=== PATIENT | female | born 1935 | race Caucasian/White ===

== ENCOUNTER 2021-10-13 08:52 | Inpatient (IN) ==
[2021-10-13] MEDS ORDERED: SODIUM CHLORIDE 0.9% 500 ML IV SCH (09:15)
[2021-10-13 09:17] LABS: Basophils # (auto) 0.02 K/uL (0-0.2); Basophils % (auto) 0.2 %; Eosinophils # (auto) 0.01 K/uL (0-0.5); Eosinophils % (auto) 0.1 %; Hemoglobin 19.4 g/dL (12.0-16.0); Immature Granulocytes # (auto) 0.03 K/uL (0.00-0.02); Immature Granulocytes % (auto) 0.3 %; Lymphocytes % (auto) 10.8 %; Mean Corpuscular Hemoglobin 29.9 pg (25-34); Mean Platelet Volume 11.7 fL (7.4-10.4); Monocytes % (auto) 7.8 %; Neutrophils # (auto) 8.24 K/uL (1.4-6.5); Neutrophils % (auto) 80.8 %; Platelet Count 431 K/uL (130-400); RDW Coefficient of Variation 14.8 % (11.5-14.5); RDW Standard Deviation 48.9 fL (36.4-46.3); Red Blood Count 6.48 M/uL (4.2-5.4)
[2021-10-13 09:26] LABS: INR 1.7 (0.9-1.1); Prothrombin Time 16.2 Seconds (9.0-12.0)
[2021-10-13 09:41] LABS: Alanine Aminotransferase 12 U/L (7-52); Albumin Globulin Ratio 0.9 (0.9-2); Albumin Level 3.7 gm/dl (3.4-5.0); Alkaline Phosphatase 71 U/L (34-104); Anion Gap 11 (3-11); Aspartate Aminotransferase 27 U/L (13-39); BUN Creatinine Ratio 52.6 (10-20); Blood Urea Nitrogen 41 mg/dl (6-23); Calcium 10.3 mg/dl (8.5-10.1); Carbon Dioxide 32 mmol/L (21-32); Chloride 95 mmol/L (98-107); Creatine Kinase 72 U/L (26-192); Est GFR (African American) 80.9 ml/min; Est GFR (Non-African American) 69.8 ml/min; Globulin 4.2 gm/dl (2.5-4.0); Glucose 80 mg/dl (70-99(Fasting)); Magnesium 2.1 mg/dl (1.7-2.4); Mean Corpuscular Hgb Conc 32.9 g/dL (32-36); Potassium 4.5 mmol/L (3.5-5.1); Sodium 138 mmol/L (136-145); Total Protein 7.9 gm/dl (6.0-8.3)
[2021-10-13 09:46] LABS: Base Excess VBG 6.3 mEq/L; pH VBG 7.38 (7.36-7.41)
[2021-10-13 09:50] LABS: Troponin I 0.17 ng/ml (0-0.04)
--- NOTE | 2021-10-13 09:56 | XRay Report ---
SINGLE VIEW CHEST CLINICAL HISTORY: Generalized weakness. FINDINGS: An AP, portable, semierect chest radiograph is obtained. No prior studies are available for comparison at the time of dictation. The examination is degraded by portable technique and patient r otation. The heart is mildly enlarged noting atherosclerotic calcification of the thoracic aorta. En largement of the central pulmonary arteries suggests pulmonary artery hypertension. Emphysema is susp ected. Nonspecific interstitial thickening is likely chronic. There is bibasilar scarring/atelectasis . No airspace consolidation or large pleural effusion is identified. Question a nodular density at th e left apex. No pneumothorax is seen. The skeletal structures are osteopenic. There are healed left-s ided rib fractures. IMPRESSION: 1. Cardiomegaly and suspect emphysema. 2. No airspace consolidation or large pleural effusion is identified. 3. Question a nodular density at the left apex, which could represent bony overgrowth at the first co stochondral junction. Correlation with a chest CT is recommended to exclude underlying pulmonary lesi on. ACT 112: Negative or not required by law. Electronically signed by: Jonatan Ross M.D. 10/13/2021 9:55 AM
[2021-10-13] MEDS ORDERED: dexAMETHasone**PF** 10 MG/ML VIAL IV ONE (10:11)
--- NOTE | 2021-10-13 10:45 | Emergency Department Note ---
Impression & Plan Weakness, COVID-19, Hypoxia, COPD (chronic obstructive pulmonary disease), Personal history of coronary artery disease, Elevated troponin I level ED Provider Note Provider: Juan Santoyo MD DATE OF SERVICE: 10/13/2021 CHIEF COMPLAINT: Weakness HISTORY OF PRESENT ILLNESS: Patient is a 86-year-old female with a past medical history including COPD, elevated hemoglobin, renal vascular disease, renal artery stenosis presenting here today with her son with reported decline over at least the last 7 days. Patient normally has significant support from family. Patient is vaccinated for COVID and boosted. Patient reportedly began to have some decline starting last Sunday. No fevers reported. No trauma reported. Patient stopped taking her medications. Son reports the patient also has recently been making some delusions that she would be okay going to [facility]. Patient herself denies significant pain. She states he feels a bit thirsty and generally weak. Patient has some chronic aches and pains in her joints. Patient specifically denies chest pain, shortness of breath, or abdominal pain on exam. Patient is significant cardiac history as well as a history of prior abdominal surgery by report. Son reports the patient had some slurred speech the last 2 days but it is not so bad right now. Son reports the patient has been borderline needed oxygen in the past but is not on it at home. There was some possible family member last week who had Covid around her. REVIEW OF SYSTEMS: A total of 10 review of systems was obtained and negative except as stated above in the HPI. PAST MEDICAL HISTORY: As noted above MEDICATIONS: Reviewed available home medication list SOCIAL HISTORY: Lives at home, former smoker, PHYSICAL EXAM: GENERAL: alert and oriented in no acute distress on stretcher but very fatigued in appearance, very thin in appearance Head: normocephalic and atraumatic EYES: No injection, discharge or icterus. PERRL NECK: Trachea midline. Supple. ENT: Mucous membranes pink however dry LUNGS: Airway patent. No retractions. Breath sounds clear HEART: Regular rate and rhythm. No chest wall tenderness ABDOMEN: Soft and non-tender, without guarding or rebound. SKIN: Acyanotic, warm, dry EXTREMITIES: Without swelling, tenderness or deformity NEUROLOGICAL: No focal deficits. No aphasia. No facial droop or slurred speech. Normal strength and tone in the extremities. Sensation to gross touch normal. Ambulatory. EK bpm sinus bradycardia. No PVC or PAC. No acute ST segment elevation, there is some lateral T wave inversions in V4 through V6. There is additionally some T wave inversions lead II through aVF. CONTINUOUS CARDIAC MONITORING: was ordered and showed a heart rate of 50s-60s bpm in normal sinus rhythm to sinus bradycardia Patient's laboratory studies and imaging reviewed. Differential includes Infection, dehydration, metabolic abnormality, hypo/hyperglycemia, electrolyte disturbance, anemia, hypoxia, cardiac sources, i ntracerebral event, toxicologic, neurologic, as well as other pathologies. IMPRESSION/MEDICAL DECISION MAKING: Patient fatigued and provides limited history. Son provides additional history. Recent Covid exposure of the patient vaccinated and boosted. Covid positive today. Was hypoxic on room air. Has underlying COPD. Not horribly wheezy. Question some component of Covid. Given dose of dexamethasone with this. Weakness decreased intake and off her medications for at least the last several days. Son reports may be some slurred speech the last day or 2 but fairly clear on limited conversation here today. No significant focal weakness appreciated or facial droop at this time. CT the head will be completed. Basic blood work was sent. No fevers reported. No significant leukocytosis. Some elevated hemoglobins noted alone medical records it appears she has a history of some el evation. Renal function appears stable. No acidosis noted or hypercarbia. Lactate not elevated. Procalcitonin not elevated. Covid is positive again. Troponin mildly positive. Unsure of baseline but without active chest pain or STEMI believe likely more related to demand that acute ACS. Did complete a CT of the chest to exclude PE event her limited mobility and new oxygen requirement. Chest x-ray completed without significant pulmonary edema or pulmonary consolidation noted per the radiology report. CT of the head without acute intercranial abnormality. CT of the chest without evidence of PE with emphysematous changes. Patient requires further admission and care. Given a dose of aspirin here. Discussed with son at bedside. Hospitalist contacted. DIAGNOSIS: Hypoxia, weakness, COVID-19, elevated troponin DISPOSITION: Hospitalist will evaluate Patient was agreeable with this plan. Critical Care I have personally spent 33 minutes of critical care time in the direct management of this patient. This includes bedside care, interpretation of diagnostic studies, and testing, discussion with consultants, patient, and family members, and other required patient management activities. These 33 minutes is in excess of all separately billable procedures. Past Med/Surg History Medical History (Updated 10/13/21 @ 13:44 by Esmer Tejada PA-C) Adrenal adenoma CAD (coronary artery disease) COPD (chronic obstructive pulmonary disease) HLD (hyperlipidemia) HTN (hypertension) Peripheral vascular disease Renal artery stenosis s/p cath Tobacco abuse Vitamin D deficiency Surgical History (Updated 10/13/21 @ 13:44 by Esmer Tejada PA-C) History of appendectomy History of bowel resection History of cataract extraction History of hysterectomy Hx of CABG 2014 RSVG to PDA Family History (Updated 10/13/21 @ 13:45 by Esmer Tejada PA-C) Brother Cancer bone cancer Sister Breast cancer Father , mi 54 Myocardial infarction Social History (Updated 10/13/21 @ 13:46 by Esmer Tejada PA-C) Smoking Status: Former smoker Tobacco Type: Cigarettes Hx Alcohol Use: No Hx Substance Use: No Preferred Language: Kyrgyz marital status: / Current Living Situation: Family Current Living Situation Comment: Nephew lives with her Feels Safe at Home: Yes Allergies Allergies Allergy/AdvReac Type Severity Reaction Status Date / Time propoxyphene AdvReac Unknown INTOLERANCE Verified 10/13/21 10:11 acetaminophen [From Percocet] AdvReac Confusion Unverified 10/13/21 10:11 oxycodone [From Percocet] AdvReac Confusion Unverified 10/13/21 10:11 Home Meds Home Medications Medication Instructions Recorded Confirmed aspirin 81 mg chewable tablet 81 mg PO DAILY #0 06/20/16 10/13/21 cholecalciferol (vitamin D3) 125 5,000 unit PO DAILY #0 06/20/16 10/13/21 mcg (5,000 unit) tablet (Vitamin D3) docusate sodium 100 mg capsule 100 mg PO BID PRN #0 06/20/16 10/13/21 fenofibrate nanocrystallized 145 145 mg PO DAILY #0 tab 06/20/16 10/13/21 mg tablet omega-3 fatty acids 500 mg PO DAILY PRN #0 06/20/16 10/13/21 vit C-vit [id number] capsule 1 cap PO BID #0 06/20/16 10/13/21 lactulose 10 gram/15 mL oral 10 g PO DAILY PRN 10/13/21 10/13/21 solution Results & Data (ED) Vital Signs Vital Signs - 24 hr 10/13/21 08:53 10/13/21 08:57 10/13/21 08:59 Temperature 36.5 C Temperature Source Oral Pulse Rate [Apical] 63 Respiratory Rate 15 25 H Respiratory Effort / Characteristics Non-Labored Spontaneous Respiratory Depth Normal Blood Pressure 174/95 H Blood Pressure [Right Arm] 174/95 H Blood Pressure Mean 121 Blood Pressure Mean [Right Arm] 121 Blood Pressure Position [Right Arm] Pulse Oximetry 89 L 96 Oxygen Delivery Method Room Air Room Air Room Air Oxygen Flow Rate Sepsis Recent Fever Within 48 Hours No Sepsis New/Unexplained Change in Mental Status N/A Sepsis Action Taken by Nursing No Action Required 10/13/21 09:09 10/13/21 10:00 10/13/21 12:00 Temperature Temperature Source Pulse Rate [Apical] 56 L 56 L Respiratory Rate 15 16 Respiratory Effort / Characteristics Non-Labored Spontaneous Respiratory Depth Normal Blood Pressure Blood Pressure [Right Arm] 150/85 H 166/86 H Blood Pressure Mean Blood Pressure Mean [Right Arm] 106 112 Blood Pressure Position [Right Arm] Standing Pulse Oximetry 97 94 97 Oxygen Delivery Method Room Air Nasal Cannula Room Air Oxygen Flow Rate 2 Sepsis Recent Fever Within 48 Hours Sepsis New/Unexplained Change in Mental Status Sepsis Action Taken by Nursing Laboratory Data Result diagrams: 10/13/21 09:00 10/13/21 09:00 Lab Results 10/13/21 10/13/21 10/13/21 Range/Units 09:00 09:00 09:00 WBC 10.20 (4.8-10.8) K/uL RBC 6.48 H (4.2-5.4) M/uL Hgb 19.4 H (12.0-16.0) g/dL Hct 59.0 H (37-47) % MCV 91.0 (80-100) fL MCH 29.9 (25-34) pg MCHC 32.9 (32-36) g/dL RDW Std Deviation 48.9 H (36.4-46.3) fL RDW Coeff of Grey 14.8 H (11.5-14.5) % Plt Count 431 H (130-400) K/uL MPV 11.7 H (7.4-10.4) fL Immature Gran % (Auto) 0.3 % Neut % (Auto) 80.8 % Lymph % (Auto) 10.8 % Harney % (Auto) 7.8 % Eos % (Auto) 0.1 % Baso % (Auto) 0.2 % Neut # (Auto) 8.24 H (1.4-6.5) K/uL Lymph # (Auto) 1.10 L (1.2-3.4) K/uL Harney # (Auto) 0.80 H (0.11-0.59) K/uL Eos # (Auto) 0.01 (0-0.5) K/uL Baso # (Auto) 0.02 (0-0.2) K/uL Immature Gran # (Auto) 0.03 H (0.00-0.02) K/uL PT 16.2 H (9.0-12.0) Seconds INR 1.7 H (0.9-1.1) VBG pH (7.36-7.41) VBG pCO2 (38-50) mmHg VBG pO2 mmHg VBG HCO3 mmol/L VBG O2 Saturation % VBG Base Excess mEq/L Barometric Pressure mm/Hg Sodium 138 (136-145) mmol/L Potassium 4.5 (3.5-5.1) mmol/L Chloride 95 L (98-107) mmol/L Carbon Dioxide 32 (21-32) mmol/L Anion Gap 11 (3-11) BUN 41 H (6-23) mg/dl Creatinine 0.78 (0.6-1.2) mg/dl Est Cr Clr Drug Dosing Not Reportable Est GFR ( Amer) 80.9 ml/min Est GFR (Non-Af Amer) 69.8 ml/min BUN/Creatinine Ratio 52.6 H (10-20) Glucose 80 (70-99(Fasting)) mg/dl Lactate (0.4-2.0) mmol/L Calcium 10.3 H (8.5-10.1) mg/dl Magnesium 2.1 (1.7-2.4) mg/dl Total Bilirubin 1.0 (0.2-1.0) mg/dl AST 27 (13-39) U/L ALT 12 (7-52) U/L Alkaline Phosphatase 71 (34-104) U/L Total Creatine Kinase 72 (26-192) U/L Troponin I 0.17 H* (0-0.04) ng/ml Total Protein 7.9 (6.0-8.3) gm/dl Albumin 3.7 (3.4-5.0) gm/dl Globulin 4.2 H (2.5-4.0) gm/dl Albumin/Globulin Ratio 0.9 (0.9-2) Procalcitonin (0-0.5) ng/ml TSH (0.300-4.500) uIu/ml SARS-CoV-2, RNA, NAAT (NEGATIVE) 10/13/21 10/13/21 10/13/21 Range/Units 09:00 09:00 09:34 WBC (4.8-10.8) K/uL RBC (4.2-5.4) M/uL Hgb (12.0-16.0) g/dL Hct (37-47) % MCV (80-100) fL MCH (25-34) pg MCHC (32-36) g/dL RDW Std Deviation (36.4-46.3) fL RDW Coeff of Grey (11.5-14.5) % Plt Count (130-400) K/uL MPV (7.4-10.4) fL Immature Gran % (Auto) % Neut % (Auto) % Lymph % (Auto) % Harney % (Auto) % Eos % (Auto) % Baso % (Auto) % Neut # (Auto) (1.4-6.5) K/uL Lymph # (Auto) (1.2-3.4) K/uL Harney # (Auto) (0.11-0.59) K/uL Eos # (Auto) (0-0.5) K/uL Baso # (Auto) (0-0.2) K/uL Immature Gran # (Auto) (0.00-0.02) K/uL PT (9.0-12.0) Seconds INR (0.9-1.1) VBG pH (7.36-7.41) VBG pCO2 (38-50) mmHg VBG pO2 mmHg VBG HCO3 mmol/L VBG O2 Saturation % VBG Base Excess mEq/L Barometric Pressure mm/Hg Sodium (136-145) mmol/L Potassium (3.5-5.1) mmol/L Chloride (98-107) mmol/L Carbon Dioxide (21-32) mmol/L Anion Gap (3-11) BUN (6-23) mg/dl Creatinine (0.6-1.2) mg/dl Est Cr Clr Drug Dosing Est GFR ( Amer) ml/min Est GFR (Non-Af Amer) ml/min BUN/Creatinine Ratio (10-20) Glucose (70-99(Fasting)) mg/dl Lactate 0.7 (0.4-2.0) mmol/L Calcium (8.5-10.1) mg/dl Magnesium (1.7-2.4) mg/dl Total Bilirubin (0.2-1.0) mg/dl AST (13-39) U/L ALT (7-52) U/L Alkaline Phosphatase (34-104) U/L Total Creatine Kinase (26-192) U/L Troponin I (0-0.04) ng/ml Total Protein (6.0-8.3) gm/dl Albumin (3.4-5.0) gm/dl Globulin (2.5-4.0) gm/dl Albumin/Globulin Ratio (0.9-2) Procalcitonin 0.05 (0-0.5) ng/ml TSH 1.789 (0.300-4.500) uIu/ml SARS-CoV-2, RNA, NAAT (NEGATIVE) 10/13/21 10/13/21 Range/Units 09:34 Unknown WBC (4.8-10.8) K/uL RBC (4.2-5.4) M/uL Hgb (12.0-16.0) g/dL Hct (37-47) % MCV (80-100) fL MCH (25-34) pg MCHC (32-36) g/dL RDW Std Deviation (36.4-46.3) fL RDW Coeff of Grey (11.5-14.5) % Plt Count (130-400) K/uL MPV (7.4-10.4) fL Immature Gran % (Auto) % Neut % (Auto) % Lymph % (Auto) % Harney % (Auto) % Eos % (Auto) % Baso % (Auto) % Neut # (Auto) (1.4-6.5) K/uL Lymph # (Auto) (1.2-3.4) K/uL Harney # (Auto) (0.11-0.59) K/uL Eos # (Auto) (0-0.5) K/uL Baso # (Auto) (0-0.2) K/uL Immature Gran # (Auto) (0.00-0.02) K/uL PT (9.0-12.0) Seconds INR (0.9-1.1) VBG pH 7.38 (7.36-7.41) VBG pCO2 59 H (38-50) mmHg VBG pO2 33 mmHg VBG HCO3 34 mmol/L VBG O2 Saturation 62.0 % VBG Base Excess 6.3 mEq/L Barometric Pressure 734.3 mm/Hg Sodium (136-145) mmol/L Potassium (3.5-5.1) mmol/L Chloride (98-107) mmol/L Carbon Dioxide (21-32) mmol/L Anion Gap (3-11) BUN (6-23) mg/dl Creatinine (0.6-1.2) mg/dl Est Cr Clr Drug Dosing Est GFR ( Amer) ml/min Est GFR (Non-Af Amer) ml/min BUN/Creatinine Ratio (10-20) Glucose (70-99(Fasting)) mg/dl Lactate (0.4-2.0) mmol/L Calcium (8.5-10.1) mg/dl Magnesium (1.7-2.4) mg/dl Total Bilirubin (0.2-1.0) mg/dl AST (13-39) U/L ALT (7-52) U/L Alkaline Phosphatase (34-104) U/L Total Creatine Kinase (26-192) U/L Troponin I (0-0.04) ng/ml Total Protein (6.0-8.3) gm/dl Albumin (3.4-5.0) gm/dl Globulin (2.5-4.0) gm/dl Albumin/Globulin Ratio (0.9-2) Procalcitonin (0-0.5) ng/ml TSH (0.300-4.500) uIu/ml SARS-CoV-2, RNA, NAAT POSITIVE A* (NEGATIVE) Administered Medications Discontinued Medications Aspirin (Aspirin 81 Mg Chew) 324 mg PO NOW STA Stop: 10/13/21 12:12 Last Admin: 10/13/21 12:31 Dose: 324 mg Documented by: [id number] Dexamethasone Sodium Phosphate (DexamethasonePf 10 Mg/Ml Vial) 6 mg IV NOW ONE Stop: 10/13/21 10:12 Last Admin: 10/13/21 10:22 Dose: 6 mg Documented by: [id number] Sodium Chloride (Nss) 500 mls @ 999 mls/hr IV .Q31M MARYLU Stop: 10/13/21 09:45 Last Infusion: 10/13/21 10:00 Dose: 0 mls/hr Documented by: [id number] Admin: 10/13/21 09:21 Dose: 999 mls/hr Documented by: [id number] Ioversol (Optiray 320 125ml) 120 ml IV ONCE ONE Stop: 10/13/21 11:04 Last Admin: 10/13/21 11:03 Dose: 120 ml Documented by: [id number] Imaging Data Radiologist's Impression: Chest X-Ray 10/13/21 09:09 SINGLE VIEW CHEST CLINICAL HISTORY: Generalized weakness. FINDINGS: An AP, portable, semierect chest radiograph is obtained. No prior studies are available for comparison at the time of dictation. The examination is degraded by portable technique and patient rotation. The heart is mildly enlarged noting atherosclerotic calcification of the thoracic aorta. Enlargement of the central pulmonary arteries suggests pulmonary artery hypertension. Emp hysema is suspected. Nonspecific interstitial thickening is likely chronic. There is bibasilar scarring/atelectasis. No airspace consolidation or large pleural effusion is identified. Question a nodular density at the left apex. No pneumothorax is seen. The skeletal structures are osteopenic. There are healed left-sided rib fractures. IMPRESSION: 1. Cardiomegaly and suspect emphysema. 2. No airspace consolidation or large pleural effusion is identified. 3. Question a nodular density at the left apex, which could represent bony overgrowth at the first costochondral junction. Correlation with a chest CT is recommended to exclude underlying pulmonary lesion. ACT 112: Negative or not required by law. Electronically signed by: Jonatan Ross M.D. 10/13/2021 9:55 AM Chest CTA 10/13/21 10:12 CT angio chest PE protocol CLINICAL HISTORY: Hypoxia. Positive Covid. Evaluate for pulmonary embolus. COMPARISON STUDY: Portable chest from 10/13/2021 CT DOSE: 821.51 mGy.cm TECHNIQUE: CT Angio of the chest was performed.followed by image post processing with coronal, and sagittal MIP reformats. Contrast Volume: Optiray 320, 120 ml FINDINGS: Vasculature: There is homogeneous perfusion of the pulmonary vasculature bilaterally. No intraluminal filling defects or evidence for pulmonary embolus is seen. Airway: The airway is clear. No endobronchial lesion is identified. Lungs: There are moderate to marked centrilobular emphysematous changes present bilaterally particularly involving the upper lobes. There is no evidence for a nodular density seen at the left lung apex by CT in the findings relate to the osseous structures. There is an alveolar opacity seen at the right lung base behind the right hemidiaphragm which is slightly elevated. The findings are most characteristic of atelectasis. No air bronchograms or evidence for pneumonia is seen. The anup maritza lungs are clear with no groundglass or alveolar opacities. Prominence of the interstitial markings is present related to the underlying emphysema. Pleura: There is no evidence for pleural effusion. There is no evidence for pneumothorax. Mediastinum: There is no evidence for pathologic adenopathy. The heart size is mildly enlarged. Coronary artery calcifications present. The aorta is atherosclerotic and ectatic. There is no evidence for pericardial effusion. Upper abdomen:There is evidence for low attenuation lesions involving both adrenal glands characteristic of bilateral adrenal adenomas. There is a 5 mm n onobstructing right renal calculus. Osseous structures: There is no acute osseous pathology. Impression: 1. No CTA evidence for pulmonary embolus. 2. Moderate to marked centrilobular emphysematous changes with no evidence for groundglass opacities or left apical nodule. 3. There is asymmetric elevation of the right hemidiaphragm with atelectasis present within the right lower lobe posterior to the right hemidiaphragm. No bronchograms are present. 4. Coronary artery calcification. Aortic calcification. 5. Evidence for bilateral adrenal adenomas. 6. 5 mm nonobstructing right renal calculus. ACT 112: Negative or not required by law. Electronically signed by: Cas Louis M.D. 10/13/2021 11:[address] 10/13/21 10:12 CT SCAN OF THE BRAIN WITHOUT IV CONTRAST CLINICAL HISTORY: Generalized weakness. COMPARISON STUDY: No priors. TECHNIQUE: Unenhanced axial CT scan of the brain is performed from the vertex to the skull base. A dose lowering technique was utilized adhering to the principles of ALARA. FINDINGS: Brain parenchyma: There are age-related involutional changes noting moderate subcortical and periventricular microangiopathic change. There is no hemorrhage, mass effect, or evidence of acute territorial ischemia by CT criteria. Jamison- white matter differentiation is preserved. No extra-axial fluid collection is seen. Ventricles, sulci, cisterns: Prominent secondary to involutional change. Intracranial vasculature: There is atherosclerotic calcification of the cavernous carotid and vertebral arteries. Calvarium: Unremarkable. Sinuses and mastoids: The visualized paranasal sinuses are clear. The mastoid air cells are well pneumatized. Orbits: The bony orbits are grossly intact. There are bilateral ocular lens implants. IMPRESSION: There is no hemorrhage, mass effect, or evidence of acute territorial ischemia by CT criteria. ACT 112: Negative or not required by law. Electronically signed by: Jonatan Ross M.D. 10/13/2021 11:06 AM Discharge Plan Visit Data Chief Complaint: Lethargic Stated Complaint: LETHARGIC END OF LIFE ED Provider: Juan Santoyo Discharge Problem: Weakness, COVID-19, Hypoxia, COPD (chronic obstructive pulmonary disease), Personal history of coronary artery disease, Elevated troponin I level Patient Disposition: Being Evaluated by Hospitalist Forms Stand Alone Forms: [facility] Prescriptions Prescriptions: No Action docusate sodium 100 mg Capsule 100 mg PO BID PRN (Reason: Constipation) Qty: 0 RF: 0 aspirin [Aspirin Low-Strength] 81 mg Tablet,Chewable 81 mg PO DAILY Qty: 0 RF: 0 Ocuvite Lutein Capsule 1 cap PO BID Qty: 0 RF: 0 omega-3 fatty acids Capsule 500 mg PO DAILY PRN (Reason: Other) Qty: 0 RF: 0 fenofibrate nanocrystallized 145 mg Tablet 145 mg PO DAILY Qty: 0 RF: 0 cholecalciferol (vitamin D3) [Vitamin D3] 125 mcg (5,000 unit) Tablet 5,000 unit PO DAILY Qty: 0 RF: 0 lactulose 10 gram/15 mL Solution 10 g PO DAILY PRN (Reason: Constipation) RF: 0 Referrals Referrals: Deidra Johnson MD [Primary Care Provider] - Discharge Problem: COPD (chronic obstructive pulmonary disease) Qualifiers: COPD type: unspecified COPD Qualified Code(s): J44.9 - Chronic obstructive pulmonary disease, unspecified
[2021-10-13] MEDS ORDERED: OPTIRAY 320 125ml IV ONE (11:03)
--- NOTE | 2021-10-13 11:08 | CT Scan Report ---
CT SCAN OF THE BRAIN WITHOUT IV CONTRAST CLINICAL HISTORY: Generalized weakness. COMPARISON STUDY: No priors. TECHNIQUE: Unenhanced axial CT scan of the brain is performed from the vertex to the skull base. A do se lowering technique was utilized adhering to the principles of ALARA. FINDINGS: Brain parenchyma: There are age-related involutional changes noting moderate subcortical and periven tricular microangiopathic change. There is no hemorrhage, mass effect, or evidence of acute territori al ischemia by CT criteria. Jamison-white matter differentiation is preserved. No extra-axial fluid bridger ection is seen. Ventricles, sulci, cisterns: Prominent secondary to involutional change. Intracranial vasculature: There is atherosclerotic calcification of the cavernous carotid and vertebr al arteries. Calvarium: Unremarkable. Sinuses and mastoids: The visualized paranasal sinuses are clear. The mastoid air cells are well pneu matized. Orbits: The bony orbits are grossly intact. There are bilateral ocular lens implants. IMPRESSION: There is no hemorrhage, mass effect, or evidence of acute territorial ischemia by CT jackie cuevas. ACT 112: Negative or not required by law. Electronically signed by: Jonatan Ross M.D. 10/13/2021 11:06 AM
--- NOTE | 2021-10-13 11:20 | CT Scan Report ---
CT angio chest PE protocol CLINICAL HISTORY: Hypoxia. Positive Covid. Evaluate for pulmonary embolus. COMPARISON STUDY: Portable chest from 10/13/2021 CT DOSE: 821.51 mGy.cm TECHNIQUE: CT Angio of the chest was performed.followed by image post processing with coronal, and s agittal MIP reformats. Contrast Volume: Optiray 320, 120 ml FINDINGS: Vasculature: There is homogeneous perfusion of the pulmonary vasculature bilaterally. No intraluminal filling defects or evidence for pulmonary embolus is seen. Airway: The airway is clear. No endobronchial lesion is identified. Lungs: There are moderate to marked centrilobular emphysematous changes present bilaterally particula rly involving the upper lobes. There is no evidence for a nodular density seen at the left lung apex by CT in the findings relate to the osseous structures. There is an alveolar opacity seen at the right lung base behind the right hemidiaphragm which is slig htly elevated. The findings are most characteristic of atelectasis. No air bronchograms or evidence f or pneumonia is seen. The remainder lungs are clear with no groundglass or alveolar opacities. Promin ence of the interstitial markings is present related to the underlying emphysema. Pleura: There is no evidence for pleural effusion. There is no evidence for pneumothorax. Mediastinum: There is no evidence for pathologic adenopathy. The heart size is mildly enlarged. Coron jane artery calcifications present. The aorta is atherosclerotic and ectatic. There is no evidence for pericardial effusion. Upper abdomen:There is evidence for low attenuation lesions involving both adrenal glands characteris tic of bilateral adrenal adenomas. There is a 5 mm nonobstructing right renal calculus. Osseous structures: There is no acute osseous pathology. Impression: 1. No CTA evidence for pulmonary embolus. 2. Moderate to marked centrilobular emphysematous changes with no evidence for groundglass opacities or left apical nodule. 3. There is asymmetric elevation of the right hemidiaphragm with atelectasis present within the right lower lobe posterior to the right hemidiaphragm. No bronchograms are present. 4. Coronary artery calcification. Aortic calcification. 5. Evidence for bilateral adrenal adenomas. 6. 5 mm nonobstructing right renal calculus. ACT 112: Negative or not required by law. Electronically signed by: Cas Louis M.D. 10/13/2021 11:19 AM
[2021-10-13] MEDS ORDERED: ASPIRIN 81 MG CHEW PO STA (12:11)
[2021-10-13] MEDS ORDERED: SODIUM CHLORIDE 0.9% 1000ML 1,000 ML IV SCH ×2 (13:30→14:28)
[2021-10-13] MEDS ORDERED: REMDESIVIR 200 MG in SODIUM CHLORIDE 0.9% 210 ML IV STA (13:35)
--- NOTE | 2021-10-13 14:02 | History & Physical Report ---
Date of Service October 13, 2021 Assessment & Plan (1) Hypoxia: (2) Weakness: (3) COVID-19: (4) Elevated troponin I level: (5) COPD (chronic obstructive pulmonary disease): (6) CAD (coronary artery disease): (7) Hx of CABG: Admission and Anticipated Discharge Date Admission Date: This is a 86-year-old female who has significant past medical history of COPD, CAD with history of CABG x1, HLD, renal artery stenosis, HTN, glaucoma, elevated hemoglobin, history of tobacco abuse disorder, hard of hearing who presents to ED due to generalized weakness x1 week. Acute hypoxia SARS-CoV-2 positive -patient is vaccinated and boosted COPD, without exacerbation Chronic hypercarbia in setting of COPD Right lower lobe atelectasis Admit to telemetry IV dexamethasone 6 mg daily IV remdesivir per protocol DuoNeb as needed Incentive spirometry with nursing assistance Oxygen as needed, goal saturation 88 to 92% currently clear liquid diet per pt preference, advance as tolerated Prerenal acute kidney injury Patient with elevated BUN of 41 with a BUN/creatinine ratio of 52.6 Secondary to poor p.o. intake Gentle hydration with IV fluid x2 L Repeat in a.m. CAD with history of CABG x1 Elevated troponin Abnormal EKG with T wave inversions inferior & laterally -no EKG to compare Patient without chest pain Troponin mildly elevated, cycle x2 Continue aspirin Elevated INR INR 1.7 Possibly secondary to nutritional status She is not on blood thinners Repeat in a.m. Generalized weakness Turn and reposition every 2 hours Will need PT and OT when appropriate Polycythemia Likely exacerbated in setting of dehydration Patient hemoglobin typically runs 15-17 Former tobacco user Bilateral adrenal adenomas Family is aware of this, was noted after undergoing bypass will need further follow-up per PCP DVT prophylaxis: Lovenox 30 mg twice daily Dispo: med tele, pt lives at home with nephew - d/c plan uncertain at this time PCP: Kae Lockhart DNR/DNI -discussion with son and patient who wishes for no aggressive measures to be done, goal is comfort with hopes treatment will improve current condition and be able to return home. Patient does express wishes to go, "home to the Lord." According to son she is a woman of strong sonal and lost her in 2012. Patient's son Cristian is an employee [employer] and works here Sunday through Sunday, his phone number [phone] and wishes to be called for updates or spoken to while in house. Patient was seen and examined in collaboration with Dr. Vera, we see addendum History of Present Illness Chief Complaint: Generalized weakness x1 week. Primary Care Provider: Deidra Johnson MD This is a 86-year-old female who has significant past medical history of COPD, CAD with history of CABG x1, HLD, renal artery stenosis, HTN, glaucoma, elevated hemoglobin, history of tobacco abuse disorder, hard of hearing who presents to ED due to generalized weakness x1 week. Patient's son is at bedside who is an employee of [employer]. He states over the past week they have noticed a gradual decline in patient as she has had decreased oral intake with eating and drinking. She also has started to feel, "sick." She lives at home with her nephew. She admits to feeling chilled but denies any documented fever or sweats. She does have a cough that is intermittently wet and productive and dry. She is unable to tell me if she chronically has a cough due to her COPD. She is not chronically on oxygen at home per son. She denies any nausea, vomiting, abdominal pain, hemoptysis, chest pain, shortness of breath, dysuria, increased urgency or frequency with urination, melena or hematochezia. She does complain of pain to her left lateral chest wall that is worse with inspiration. It feels better when lying on right side. She has not tried anything to help relieve the pain. Pain is currently a 3 out of 10. Of significance patient is a DNR and DNI. She states when the "good Lord is ready to take me I am ready." She admits to, "being ready to ." In ED patient did remain hemodynamically stable although mildly hypoxic requiring 2 L of oxygen. Her blood pressure was mildly elevated at 166/86. Her lab work showed dehydration with elevated BUN at 41 and creatinine of 0.78. Her H&H were also elevated at 19.4 and 59.0. Her INR was slightly elevated as well at 1.7. Her VBG did reveal a compensated respiratory hypercarbia. She did test positive for COVID-19. Her initial troponin was elevated at 0.17. She does have known history of heart disease. EKG revealed sinus bradycardia but she did have significant T wave inversions in leads V4 to V5 as well as 2 to aVF. In ED she was started on IV dexamethasone, received oral aspirin and IV fluid. Allergies Allergy/AdvReac Type Severity Reaction Status Date / Time propoxyphene AdvReac Unknown INTOLERANCE Verified 10/13/21 10:11 acetaminophen [From Percocet] AdvReac Confusion Unverified 10/13/21 10:11 oxycodone [From Percocet] AdvReac Confusion Unverified 10/13/21 10:11 Home Medications Medication Instructions Recorded Confirmed Type aspirin 81 mg chewable tablet 81 mg PO DAILY #0 06/20/16 10/13/21 History cholecalciferol (vitamin D3) 125 5,000 unit PO DAILY #0 06/20/16 10/13/21 History mcg (5,000 unit) tablet (Vitamin D3) docusate sodium 100 mg capsule 100 mg PO BID PRN #0 06/20/16 10/13/21 History fenofibrate nanocrystallized 145 145 mg PO DAILY #0 tab 06/20/16 10/13/21 History mg tablet omega-3 fatty acids 500 mg PO DAILY PRN #0 06/20/16 10/13/21 History vit C-vit B-awugqt-jpbymmle capsule 1 cap PO BID #0 06/20/16 10/13/21 History lactulose 10 gram/15 mL oral 10 g PO DAILY PRN 10/13/21 10/13/21 History solution Past Med/Surg History Medical History (Updated 10/13/21 @ 13:44 by Esmer Tejada PA-C) Adrenal adenoma CAD (coronary artery disease) COPD (chronic obstructive pulmonary disease) HLD (hyperlipidemia) HTN (hypertension) Peripheral vascular disease Renal artery stenosis s/p cath Tobacco abuse Vitamin D deficiency Surgical History (Updated 10/13/21 @ 13:44 by Esmer Tejada PA-C) History of appendectomy History of bowel resection History of cataract extraction History of hysterectomy Hx of CABG 2014 RSVG to PDA Family History (Updated 10/13/21 @ 13:45 by Esmer Tejada PA-C) Brother Cancer bone cancer Sister Breast cancer Father , mi 54 Myocardial infarction Social History (Updated 10/13/21 @ 13:46 by Esmer Tejada PA-C) Smoking Status: Unknown if ever smoked Tobacco Type: Cigarettes Hx Alcohol Use: No Hx Substance Use: No Preferred Language: [place] Islander Communication Ability: Impaired Packer Inspector Required: No Beliefs That Will Affect Care: None marital status: / Current Living Situation: Family Current Living Situation Comment: Nephew lives with her Feels Safe at Home: Declines to Answer Assistive Devices: Oxygen - Continuous Review of Systems Review of Systems: All systems reviewed & are unremarkable except as noted in HPI & below Physical Exam Physical Exam: Constitutional: Elderly, frail, cachectic, acutely ill, female, vitals as above, NAD, sitting up in bed, hard of hearing, answers yes/no questions easily Head: Normocephalic, Atraumatic, temporal wasting bilaterally Eyes: PERRL, conjunctivae normal, anicteric sclerae ENMT: external ear and nose normal, oropharynx normal Neck: trachea midline, no thyromegaly normal visual inspection Respiratory: normal respiratory effort, lungs clear to auscultation, no wheeze, rales, rhonchi. Normal insp/exp effort, no accessory muscle use Cardiovascular: RRR, on 2 L via NC, no murmur, no edema Vessels: no JVD or carotid bruit Chest: normal inspection of chest, seborrheic keratoses noted on anterior lateral chest wall as well as posterior, no pain to palpation Abdomen: normal bowel sounds, soft, nontender, no hepatosplenomegaly Musculoskeletal: no cyanosis or clubbing, no range of motion x4 Skin: no rashes, warm and dry moderate turgor Neurologic: PERRL, EOMI, accommodation nl, no face palsy, no dysarthria CN's II-XI intact bilaterally and moves all extremities Psychiatric: A+Ox3, dysthymic affect Lymphatic: no cervical or axillary lymphadenopathy : deferred Results & Data Results & Data ([facility]) Vital Signs (Past 12 Hours) Vital Signs Temp Pulse Resp BP BP Pulse Ox 10/13/21 12:00 56 L 16 166/86 H 97 10/13/21 10:00 56 L 15 150/85 H 94 10/13/21 09:09 97 10/13/21 08:59 25 H 174/95 H 96 10/13/21 08:57 36.5 C 63 15 174/95 H 89 L Diagnostic Findings Chest X-Ray 10/13/21 09:09 SINGLE VIEW CHEST CLINICAL HISTORY: Generalized weakness. FINDINGS: An AP, portable, semierect chest radiograph is obtained. No prior studies are available for comparison at the time of dictation. The examination is degraded by portable technique and patient rotation. The heart is mildly enlarged noting atherosclerotic calcification of the thoracic aorta. Enlargement of the central pulmonary arteries suggests pulmonary artery hypertension. Emphysema is suspected. Nonspecific interstitial thickening is likely chronic. There is bibasilar scarring/atelectasis. No airspace consolidation or large pleural effusion is identified. Question a nodular density at the left apex. No pneumothorax is seen. The skeletal structures are osteopenic. There are healed left-sided rib fractures. IMPRESSION: 1. Cardiomegaly and suspect emphysema. 2. No airspace consolidation or large pleural effusion is identified. 3. Question a nodular density at the left apex, which could represent bony overgrowth at the first costochondral junction. Correlation with a chest CT is recommended to exclude underlying pulmonary lesion. ACT 112: Negative or not required by law. Electronically signed by: Jonatan Ross M.D. 10/13/2021 9:55 AM Chest CTA 10/13/21 10:12 CT angio chest PE protocol CLINICAL HISTORY: Hypoxia. Positive Covid. Evaluate for pulmonary embolus. COMPARISON STUDY: Portable chest from 10/13/2021 CT DOSE: 821.51 mGy.cm TECHNIQUE: CT Angio of the chest was performed.followed by image post processing with coronal, and sagittal MIP reformats. Contrast Volume: Optiray 320, 120 ml FINDINGS: Vasculature: There is homogeneous perfusion of the pulmonary vasculature bilaterally. No intraluminal filling defects or evidence for pulmonary embolus is seen. Airway: The airway is clear. No endobronchial lesion is identified. Lungs: There are moderate to marked centrilobular emphysematous changes present bilaterally particularly involving the upper lobes. There is no evidence for a nodular density seen at the left lung apex by CT in the findings relate to the osseous structures. There is an alveolar opacity seen at the right lung base behind the right hemidiaphragm which is slightly elevated. The findings are most characteristic of atelectasis. No air bronchograms or evidence for pneumonia is seen. The remainder lungs are clear with no groundglass or alveolar opacities. Prominence of the interstitial markings is present related to the underlying emphysema. Pleura: There is no evidence for pleural effusion. There is no evidence for pneumothorax. Mediastinum: There is no evidence for pathologic adenopathy. The heart size is mildly enlarged. Coronary artery calcifications present. The aorta is atherosclerotic and ectatic. There is no evidence for pericardial effusion. Upper abdomen:There is evidence for low attenuation lesions involving both adrenal glands characteristic of bilateral adrenal adenomas. There is a 5 mm nonobstructing right renal calculus. Osseous structures: There is no acute osseous pathology. Impression: 1. No CTA evidence for pulmonary embolus. 2. Moderate to marked centrilobular emphysematous changes with no evidence for groundglass opacities or left apical nodule. 3. There is asymmetric elevation of the right hemidiaphragm with atelectasis present within the right lower lobe posterior to the right hemidiaphragm. No bronchograms are present. 4. Coronary artery calcification. Aortic calcification. 5. Evidence for bilateral adrenal adenomas. 6. 5 mm nonobstructing right renal calculus. ACT 112: Negative or not required by law. Electronically signed by: Cas Louis M.D. 10/13/2021 11:[address] 10/13/21 10:12 CT SCAN OF THE BRAIN WITHOUT IV CONTRAST CLINICAL HISTORY: Generalized weakness. COMPARISON STUDY: No priors. TECHNIQUE: Unenhanced axial CT scan of the brain is performed from the vertex to the skull base. A dose lowering technique was utilized adhering to the principles of ALARA. FINDINGS: Brain parenchyma: There are age-related involutional changes noting moderate subcortical and periventricular microangiopathic change. There is no hemorrhage, mass effect, or evidence of acute territorial ischemia by CT criteria. Jamison- white matter differentiation is preserved. No extra-axial fluid collection is seen. Ventricles, sulci, cisterns: Prominent secondary to involutional change. Intracranial vasculature: There is atherosclerotic calcification of the cavernous carotid and vertebral arteries. Calvarium: Unremarkable. Sinuses and mastoids: The visualized paranasal sinuses are clear. The mastoid air cells are well pneumatized. Orbits: The bony orbits are grossly intact. There are bilateral ocular lens implants. IMPRESSION: There is no hemorrhage, mass effect, or evidence of acute territorial ischemia by CT criteria. ACT 112: Negative or not required by law. Electronically signed by: Jonatan Ross M.D. 10/13/2021 11:06 AM Medications Administered Medication List Discontinued Medications Aspirin (Aspirin 81 Mg Chew) 324 mg PO NOW STA Stop: 10/13/21 12:12 Last Admin: 10/13/21 12:31 Dose: 324 mg Documented by: [id number] Dexamethasone Sodium Phosphate (DexamethasonePf 10 Mg/Ml Vial) 6 mg IV NOW ONE Stop: 10/13/21 10:12 Last Admin: 10/13/21 10:22 Dose: 6 mg Documented by: [id number] Sodium Chloride (Nss) 500 mls @ 999 mls/hr IV .Q31M MARYLU Stop: 10/13/21 09:45 Last Infusion: 10/13/21 10:00 Dose: 0 mls/hr Documented by: [id number] Admin: 10/13/21 09:21 Dose: 999 mls/hr Documented by: [id number] Ioversol (Optiray 320 125ml) 120 ml IV ONCE ONE Stop: 10/13/21 11:04 Last Admin: 10/13/21 11:03 Dose: 120 ml Documented by: [id number] ECG Rate (beats per minute): 57 Rhythm: sinus bradycardia Additional Comments: T wave inversions noted V4 to V5 as well as 2 and aVF COVID-19 Results Results COVID-19 Adm Lab Results: RBC 6.48 M/uL (4.2-5.4) H 10/13/21 WBC 10.20 K/uL (4.8-10.8) 10/13/21 Hgb 19.4 g/dL (12.0-16.0) H 10/13/21 Hct 59.0 % (37-47) H 10/13/21 Plt Count 431 K/uL (130-400) H 10/13/21 Neutrophils (%) (Auto) 80.8 % 10/13/21 Lymphocytes (%) (Auto) 10.8 % 10/13/21 Monocytes # (Auto) 0.80 K/uL (0.11-0.59) H 10/13/21 Eosinophils # (Auto) 0.01 K/uL (0-0.5) 10/13/21 Immature Granulocyte % (Auto) 0.3 % 10/13/21 Neutrophils # (Auto) 8.24 K/uL (1.4-6.5) H 10/13/21 Lymphocytes # (Auto) 1.10 K/uL (1.2-3.4) L 10/13/21 Monocytes # (Auto) 0.80 K/uL (0.11-0.59) H 10/13/21 Eosinophils # (Auto) 0.01 K/uL (0-0.5) 10/13/21 Basophils # (Auto) 0.02 K/uL (0-0.2) 10/13/21 Immature Granulocyte # (Auto) 0.03 K/uL (0.00-0.02) H 10/13/21 Na 138 mmol/L (136-145) 10/13/21 K 4.5 mmol/L (3.5-5.1) 10/13/21 Cl 95 mmol/L (98-107) L 10/13/21 CO2 32 mmol/L (21-32) 10/13/21 Anion Gap 11 (3-11) 10/13/21 BUN 41 mg/dl (6-23) H 10/13/21 Creatinine 0.78 mg/dl (0.6-1.2) 10/13/21 BUN/Creatinine Ratio 52.6 (10-20) H 10/13/21 Glucose Level 80 mg/dl (70-99(Fasting)) 10/13/21 Ca 10.3 mg/dl (8.5-10.1) H 10/13/21 Total Bilirubin 1.0 mg/dl (0.2-1.0) 10/13/21 AST/SGOT 27 U/L (13-39) 10/13/21 ALT/SGPT 12 U/L (7-52) 10/13/21 Alkaline Phosphatase 71 U/L (34-104) 10/13/21 Total Protein 7.9 gm/dl (6.0-8.3) 10/13/21 Albumin 3.7 gm/dl (3.4-5.0) 10/13/21 Globulin 4.2 gm/dl (2.5-4.0) H 10/13/21 Albumin/Globulin Ratio 0.9 (0.9-2) 10/13/21 Total CK 72 U/L (26-192) 10/13/21 Troponin I 0.05 ng/ml (0-0.04) H* 10/13/21 CRP 2.79 mg/dl (0-0.5) H 10/13/21 Procalcitonin 0.05 ng/ml (0-0.5) 10/13/21 INR 1.7 (0.9-1.1) H 10/13/21 SARS-CoV-2, RNA, NAAT POSITIVE (NEGATIVE) A* 10/13/21 Chest X-Ray 10/13/21 Code Status & VTE Plan Code Status DNR/DNI VTE Prophylaxis Plan VTE Prophylaxis will be ordered: Yes Supervising Physician Co-Signing Physician Notes Patient is a 86-year-old female with multiple comorbidities including COPD, coronary artery disease, peripheral vascular disease, hypertension, hyperlipidemia and other medical problems presents with history of generalized weakness, poor oral intake intermittent productive cough, pleuritic chest discomfort since 1 week duration. Please review HPI for complete details of presentation. She was found to be hypoxic while in ED requiring 2 L of supplemental oxygen to maintain saturation. Her Covid screen is positive. Blood work suggestive of hemoconcentration with hemoglobin 19.4, hematocrit 59, CRP elevated at 2.79, troponin 0 0.17, INR elevated at 1.7. CTA showed no PE or consolidation. On exam patient is very thin, frail, ill-appearing, no apparent distress, normocephalic atraumatic, EOMI, decreased breath sounds, clear to auscultation, S1-S2, no murmur, no pedal edema, abdomen soft, nontender, normal bowel sounds, grossly no focal deficits,+ hearing impairment. Patient is admitted for management of COVID-19 infection, hypoxia, dehydration, JOSE ALFREDO. EKG showed T wave changes in inferior, lateral leads. No recent EKG available for comparison. Patient currently denies any chest pain. Agree with starting dexamethasone, remdesivir. Supplemental oxygen as needed. Nebs as needed. Avoid nephrotoxic agents as able. Will give IV fluids to help with hydration. Trend cardiac enzymes and repeat EKG in the morning. I personally reviewed the record. Patient is interviewed and examined at bedside. Patient's care is coordinated with Esmer Tejada PA-C. Please refer to the documentation above for details of patient's presentation and for discussion of other issues. (1) COPD (chronic obstructive pulmonary disease) COPD type: unspecified COPD Qualified Code(s): J44.9 - Chronic obstructive pulmonary disease, unspecified
[2021-10-13] MEDS ORDERED: POLYETHYLENE (MIRALAX) 17 GM PACK PO PRN (14:28)
[2021-10-13] MEDS ORDERED: ALUMINUM/MAGNESIUM SUSP 30 ML UDC PO PRN (14:28)
[2021-10-13] MEDS ORDERED: ALBUT/IPRATROP 3MG/0.5MG NEB 3 ML VIAL NEB PRN (14:28)
[2021-10-13] MEDS ORDERED: MAGNESIUM HYDROXIDE SUSP 30 ML UDC PO PRN (14:28)
[2021-10-13] MEDS: BENZONATATE 100 MG CAPSULE PO SCH ×2 (15:38→20:11)
[2021-10-13 17:20] LABS: Appearance Urine Clear (Clear); Bacteria Urine Automated Negative (Negative); Bilirubin Urine Negative (Negative); Blood Urine Negative (Negative); Color Urine Dark Yellow; Epithelial Cell Urine Auto >30 /lpf (0-5); Glucose Urine UA Negative (Negative); Ketones Urine Negative (Negative); Leukocyte Esterase Urine 1+ (Negative); Nitrite Urine Negative (Negative); Protein Urine Trace (Negative); RBC Urine Automated 0-4 /hpf (0-4); Specific Gravity Urine > 1.045 (1.000-1.030); Urobilinogen Urine Negative (Negative)
[2021-10-13] MEDS: ENOXAPARIN INJ 30 MG/0.3 ML SYR SQ SCH (17:21)
[2021-10-13] MEDS: DOCUSATE SODIUM 100 MG CAP PO SCH (20:11)
[2021-10-13] MEDS: CEROVITE ADV FORMULA TAB PO SCH (20:11)
--- NOTE | 2021-10-13 22:36 | Electrocardiogram Report ---
Test Reason : Blood Pressure : / mmHG Vent. Rate : 057 BPM Atrial Rate : 057 BPM P-R Int : 146 ms QRS Dur : 074 ms QT Int : 452 ms P-R-T Axes : 076 -21 -49 degrees QTc Int : 439 ms Sinus bradycardia Possible Left atrial enlargement Left ventricular hypertrophy with repolarization abnormality Abnormal ECG No previous ECGs available Confirmed by Thee Munoz ([id number]) on 10/13/2021 10:36:38 PM Referred By: Confirmed By:Thee Munoz
[2021-10-14] MEDS: ENOXAPARIN INJ 30 MG/0.3 ML SYR SQ SCH (05:27)
[2021-10-14 06:03] LABS: Base Excess VBG 2.9 mEq/L; HCO3 VBG 30 mmol/L; Oxygen Saturation VBG 87.6 %; PCO2 VBG 52 mmHg (38-50); PO2 VBG 55 mmHg; pH VBG 7.37 (7.36-7.41)
[2021-10-14 06:18] LABS: INR 1.8 (0.9-1.1); Prothrombin Time 17.2 Seconds (9.0-12.0)
[2021-10-14 06:38] LABS: Basophils # (auto) 0.01 K/uL (0-0.2); Basophils % (auto) 0.1 %; Hematocrit (blood only) 47.7 % (37-47); Hemoglobin 15.3 g/dL (12.0-16.0); Immature Granulocytes # (auto) 0.02 K/uL (0.00-0.02); Immature Granulocytes % (auto) 0.2 %; Lymphocytes # (auto) 1.33 K/uL (1.2-3.4); Lymphocytes % (auto) 13.7 %; Mean Corpuscular Hemoglobin 29.3 pg (25-34); Mean Corpuscular Hgb Conc 32.1 g/dL (32-36); Mean Corpuscular Volume 91.4 fL (80-100); Mean Platelet Volume 11.5 fL (7.4-10.4); Monocytes # (auto) 1.17 K/uL (0.11-0.59); Monocytes % (auto) 12.1 %; Neutrophils # (auto) 7.17 K/uL (1.4-6.5); Neutrophils % (auto) 73.9 %; Platelet Count 374 K/uL (130-400); RDW Coefficient of Variation 14.9 % (11.5-14.5); RDW Standard Deviation 49.8 fL (36.4-46.3); Red Blood Count 5.22 M/uL (4.2-5.4)
--- NOTE | 2021-10-14 07:18 | Electrocardiogram Report ---
Test Reason : Blood Pressure : / mmHG Vent. Rate : 058 BPM Atrial Rate : 058 BPM P-R Int : 148 ms QRS Dur : 076 ms QT Int : 460 ms P-R-T Axes : 073 -03 031 degrees QTc Int : 451 ms Sinus bradycardia Possible Left atrial enlargement Left ventricular hypertrophy with repolarization abnormality Abnormal ECG When compared with ECG of 13-OCT-2021 09:09, T wave inversion less evident in Inferior leads Confirmed by Thee Munoz ([id number]) on 10/14/2021 7:18:25 AM Referred By: REFERRED SELF Confirmed By:Thee Munoz
[2021-10-14 07:21] LABS: Albumin Globulin Ratio 0.9 (0.9-2); Albumin Level 2.8 gm/dl (3.4-5.0); BUN Creatinine Ratio 55.4 (10-20); Bilirubin,Total 0.5 mg/dl (0.2-1.0); Calcium 8.7 mg/dl (8.5-10.1); Creatinine Clr Calc Pharmacy 46.9 ml/min; Est GFR (African American) 99.2 ml/min; Est GFR (Non-African American) 85.6 ml/min; Magnesium 1.8 mg/dl (1.7-2.4); Potassium 3.8 mmol/L (3.5-5.1); Total Protein 5.8 gm/dl (6.0-8.3)
[2021-10-14] MEDS: ACETAMINOPHEN 325 MG TAB PO PRN ×2 (08:20→21:13)
[2021-10-14] MEDS: dexAMETHasone 6 MG in SYRINGE 0 ML IV SCH (08:21)
[2021-10-14] MEDS: ASPIRIN 81 MG ECTAB PO SCH (08:25)
[2021-10-14] MEDS: BENZONATATE 100 MG CAPSULE PO SCH ×3 (08:25→21:13)
[2021-10-14] MEDS: CHOLECALCIFEROL 5,000 UNITS 125 MCG TAB PO SCH (08:25)
[2021-10-14] MEDS: FENOFIBRATE NANOCRYSTALLIZED 145 MG TABLET PO SCH (08:25)
[2021-10-14 08:26] LABS: Prealbumin 10.7 mg/dl (20-40)
[2021-10-14] MEDS: CEROVITE ADV FORMULA TAB PO SCH ×2 (08:26→21:13)
[2021-10-14] MEDS: DOCUSATE SODIUM 100 MG CAP PO SCH ×2 (08:26→21:13)
[2021-10-14] MEDS ORDERED: CHOLECALCIFEROL 5,000 UNITS 125 MCG TAB PO SCH (09:00)
[2021-10-14] MEDS ORDERED: NON-FORMULARY MEDICATION (Omega-3 Fatty Acids Capsule) PO SCH (09:00)
[2021-10-14] MEDS: REMDESIVIR 100 MG in SODIUM CHLORIDE 0.9% 230 ML IV SCH (11:32)
--- NOTE | 2021-10-14 14:13 | Electrocardiogram Report ---
Test Reason : Blood Pressure : / mmHG Vent. Rate : 054 BPM Atrial Rate : 054 BPM P-R Int : 158 ms QRS Dur : 080 ms QT Int : 454 ms P-R-T Axes : 075 -14 -75 degrees QTc Int : 430 ms Sinus bradycardia Left ventricular hypertrophy with repolarization abnormality Abnormal ECG When compared with ECG of 13-OCT-2021 15:31, T wave inversion more evident in Inferior leads T wave inversion more evident in Lateral leads Confirmed by Lamont Kahn ([id number]) on 10/14/2021 2:12:48 PM Referred By: REFERRED SELF Confirmed By:Lamont Kahn
--- NOTE | 2021-10-14 15:48 | Hospitalist Progress Note ---
Date of Service October 14, 2021 Assessment & Plan (1) Hypoxia: Plan: continue oxygen supplementation to Kepp O2 > 91% (2) Weakness: (3) COVID-19: Plan: CT chest findings negative for pneumonia but does severe emphysema However, with her hypoxia and poor clinical status-- would continue decadron and remdesivir (4) Elevated troponin I level: Plan: Likely demand in setting of actve infection no cheset pain, with her clinical status, and advanced age---> would not pursue further (5) COPD (chronic obstructive pulmonary disease): Plan: severe based on imaging not in acute exacerbation currently Nebs PRN (6) CAD (coronary artery disease): Plan: already on aspirin, fenofibrate. not on statin, would defer initiation currently--> can start at discharge if LFTs remains normal (7) Hx of CABG: Plan: see above Plan: Failure to thrive -Liberalize diet, d/c clear liquids--> start general diet -[employer] consult to assess for malnutrition and recommendations for supplements DVT ppx-- no PE seen on imaging--reduce lovenox to 40mg daily (from 30mg BID) Admission and Anticipated Discharge Date Admission Date: October 13, 2021 Subjective very poor appetite even at baseline. here, only wants clear liquids Physical Exam Physical Exam: cachetic, very thin, weak ENMT: temporal muscle wasting, mucous membrane dry Neck: protruding neck muscles Respiratory: breathing comfortably, no wheezing/rhonchi/rales Cardiovascular: regular rate and rhythm, no murmurs/rubs/gallops Gastrointestinal (Abdomen): soft, non tender Musculoskeletal: no edema Skin: Poor skin turgor Neurologic: awake, speaks in soft voice Results & Data Results & Data ([facility]) Vital Signs (Past 12 Hours) Vital Signs Temp Pulse Pulse Resp BP Pulse Ox 10/14/21 15:20 36.1 C L 55 L 18 150/45 H 91 10/14/21 11:15 36.7 C 54 L 18 154/82 H 93 10/14/21 08:00 51 L 10/14/21 07:37 36.1 C L 56 L 16 169/78 H 95 (1) COPD (chronic obstructive pulmonary disease) COPD type: unspecified COPD Qualified Code(s): J44.9 - Chronic obstructive pulmonary disease, unspecified
[2021-10-14] MEDS: D5W NORMOSOL-R 1,000 ML IV SCH (18:26)
[2021-10-15] MEDS ORDERED: hydrALAZINE HCL 20 MG/ML VIAL IV STA (05:30)
[2021-10-15] MEDS: D5W NORMOSOL-R 1,000 ML IV SCH ×2 (06:14→20:27)
[2021-10-15 07:28] LABS: Est GFR (African American) 98.7 ml/min; Est GFR (Non-African American) 85.1 ml/min
[2021-10-15] MEDS: dexAMETHasone 6 MG in SYRINGE 0 ML IV SCH (07:51)
[2021-10-15] MEDS: BENZONATATE 100 MG CAPSULE PO SCH ×3 (07:51→20:26)
[2021-10-15] MEDS: CHOLECALCIFEROL 5,000 UNITS 125 MCG TAB PO SCH (07:51)
[2021-10-15] MEDS: DOCUSATE SODIUM 100 MG CAP PO SCH ×2 (07:51→20:26)
[2021-10-15] MEDS: ASPIRIN 81 MG ECTAB PO SCH (07:51)
[2021-10-15] MEDS: FENOFIBRATE NANOCRYSTALLIZED 145 MG TABLET PO SCH (07:52)
[2021-10-15] MEDS: CEROVITE ADV FORMULA TAB PO SCH ×2 (07:52→20:27)
[2021-10-15] MEDS: ENOXAPARIN INJ 40 MG/0.4 ML SYR SQ SCH (07:52)
[2021-10-15] MEDS: ONDANSETRON INJ 2 MG/ML 2 ML VIAL IV PRN (08:07)
[2021-10-15] MEDS: REMDESIVIR 100 MG in SODIUM CHLORIDE 0.9% 230 ML IV SCH (12:38)
--- NOTE | 2021-10-15 13:58 | Hospitalist Progress Note ---
Date of Service October 15, 2021 Assessment & Plan (1) Hypoxia: Plan: continue oxygen supplementation to Kepp O2 > 91% Increasing oxygen requirement. (2) Weakness: (3) COVID-19: Plan: CT chest findings negative for pneumonia but does severe emphysema continue decadron and remdesivir Increasing oxygen requirement, will repeat labwork (CBC, BMP, Procalcitonin, CRP, Ferritin, D dimer) (4) Elevated troponin I level: Plan: Likely demand in setting of actve infection no cheset pain, with her clinical status, and advanced age---> would not pursue further (5) COPD (chronic obstructive pulmonary disease): Plan: severe based on imaging not in acute exacerbation currently Nebs PRN (6) CAD (coronary artery disease): Plan: already on aspirin, fenofibrate. not on statin, would defer initiation currently--> can start at discharge if LFTs remains normal (7) Hx of CABG: Plan: see above Plan: Failure to thrive -continue general diet -[employer] Man consult to assess for malnutrition and recommendations for supplements -Trial of Megace to stimulate appetite DVT ppx-- lovenox to 40mg daily Admission and Anticipated Discharge Date Admission Date: October 13, 2021 Subjective History obtained from nursing and son Yesterday ate 1/2 a chicken noodle soup and pudding Overnight patient's oxygen requirement is increasing, now on 11L oxymizer (from 2L NC yesterday) After morning pills, she vomited Very poor appetite today. "I just want to sleep" Son inquiring about marinol or some other appetite stimulant Physical Exam Physical Exam: appears chronically ill, thin cachetic, sleeping ENMT: temporal muscle wasting Respiratory: breathing comfortably on oxymizer, no wheezing, no stridor Cardiovascular: regular rate and rhythm, no murmurs/rubs/gallops Gastrointestinal (Abdomen): soft Musculoskeletal: very thin, protruding ribs Neurologic: deferred Psychiatric: deferred Results & Data Results & Data ([facility]) Vital Signs (Past 12 Hours) Vital Signs Temp Pulse Resp BP BP Pulse Ox 10/15/21 10:00 36.3 C L 66 22 128/64 93 10/15/21 07:07 36.4 C L 66 20 144/73 H 86 L 10/15/21 03:39 36.5 C 57 L 18 190/89 H 90 (1) COPD (chronic obstructive pulmonary disease) COPD type: unspecified COPD Qualified Code(s): J44.9 - Chronic obstructive pulmonary disease, unspecified
[2021-10-15] MEDS ORDERED: MEGESTROL ACETATE 800 MG/20 ML UDP PO SCH (14:00)
[2021-10-15 14:47] LABS: Basophils # (auto) 0.01 K/uL (0-0.2); Basophils % (auto) 0.1 %; Hematocrit (blood only) 50.8 % (37-47); Hemoglobin 16.3 g/dL (12.0-16.0); Immature Granulocytes # (auto) 0.03 K/uL (0.00-0.02); Immature Granulocytes % (auto) 0.4 %; Lymphocytes # (auto) 0.51 K/uL (1.2-3.4); Mean Corpuscular Hemoglobin 29.4 pg (25-34); Mean Corpuscular Hgb Conc 32.1 g/dL (32-36); Mean Corpuscular Volume 91.7 fL (80-100); Mean Platelet Volume 11.9 fL (7.4-10.4); Monocytes # (auto) 0.47 K/uL (0.11-0.59); Monocytes % (auto) 5.5 %; Neutrophils # (auto) 7.45 K/uL (1.4-6.5); Platelet Count 348 K/uL (130-400); RDW Coefficient of Variation 14.9 % (11.5-14.5); RDW Standard Deviation 50.1 fL (36.4-46.3); Red Blood Count 5.54 M/uL (4.2-5.4); White Blood Count 8.47 K/uL (4.8-10.8)
[2021-10-15 14:56] LABS: D Dimer 360 ug/L FEU (0-500)
[2021-10-15] MEDS: MEGESTROL ACETATE SUSP 400 MG/10 ML UDC PO SCH (15:21)
[2021-10-15 15:38] LABS: Ferritin 325.1 ng/ml (8-388)
[2021-10-15 15:57] LABS: BUN Creatinine Ratio 41.5 (10-20); C Reactive Protein 0.95 mg/dl (0-0.5); Calcium 8.3 mg/dl (8.5-10.1); Creatinine Clr Calc Pharmacy 49.5 ml/min; Est GFR (African American) 101.1 ml/min; Est GFR (Non-African American) 87.2 ml/min; Magnesium 1.7 mg/dl (1.7-2.4); Potassium 3.9 mmol/L (3.5-5.1)
[2021-10-16] MEDS: MoRPHine SULFATE 2 MG/ML CARP IV PRN ×3 (04:28→22:52)
[2021-10-16 06:42] LABS: Basophils # (auto) 0.01 K/uL (0-0.2); Basophils % (auto) 0.1 %; Hematocrit (blood only) 48.5 % (37-47); Hemoglobin 15.6 g/dL (12.0-16.0); Immature Granulocytes # (auto) 0.02 K/uL (0.00-0.02); Immature Granulocytes % (auto) 0.2 %; Lymphocytes % (auto) 9.4 %; Mean Corpuscular Hemoglobin 29.5 pg (25-34); Mean Corpuscular Hgb Conc 32.2 g/dL (32-36); Mean Corpuscular Volume 91.9 fL (80-100); Mean Platelet Volume 12.1 fL (7.4-10.4); Monocytes # (auto) 1.06 K/uL (0.11-0.59); Neutrophils # (auto) 8.56 K/uL (1.4-6.5); Neutrophils % (auto) 80.3 %; Platelet Count 349 K/uL (130-400); RDW Standard Deviation 50.3 fL (36.4-46.3); Red Blood Count 5.28 M/uL (4.2-5.4); White Blood Count 10.65 K/uL (4.8-10.8)
[2021-10-16 07:07] LABS: Albumin Globulin Ratio 0.9 (0.9-2); Albumin Level 2.4 gm/dl (3.4-5.0); BUN Creatinine Ratio 40.4 (10-20); Bilirubin,Total 0.4 mg/dl (0.2-1.0); C Reactive Protein 0.72 mg/dl (0-0.5); Calcium 8.2 mg/dl (8.5-10.1); Creatinine Clr Calc Pharmacy 51.6 ml/min; Est GFR (African American) 105.1 ml/min; Est GFR (Non-African American) 90.7 ml/min; Globulin 2.8 gm/dl (2.5-4.0); Potassium 3.6 mmol/L (3.5-5.1); Total Protein 5.2 gm/dl (6.0-8.3)
[2021-10-16 07:22] LABS: Ferritin 284.1 ng/ml (8-388)
[2021-10-16] MEDS: ASPIRIN 81 MG ECTAB PO SCH (07:53)
[2021-10-16] MEDS: BENZONATATE 100 MG CAPSULE PO SCH ×3 (07:54→21:23)
[2021-10-16] MEDS: CEROVITE ADV FORMULA TAB PO SCH ×2 (07:54→21:24)
[2021-10-16] MEDS: CHOLECALCIFEROL 5,000 UNITS 125 MCG TAB PO SCH (07:55)
[2021-10-16] MEDS: DOCUSATE SODIUM 100 MG CAP PO SCH ×2 (07:55→21:23)
[2021-10-16] MEDS: ENOXAPARIN INJ 40 MG/0.4 ML SYR SQ SCH (07:55)
[2021-10-16] MEDS: FENOFIBRATE NANOCRYSTALLIZED 145 MG TABLET PO SCH (07:55)
[2021-10-16] MEDS: dexAMETHasone 6 MG in SYRINGE 0 ML IV SCH (07:55)
[2021-10-16] MEDS: MEGESTROL ACETATE SUSP 400 MG/10 ML UDC PO SCH (07:56)
[2021-10-16] MEDS: REMDESIVIR 100 MG in SODIUM CHLORIDE 0.9% 230 ML IV SCH (11:04)
--- NOTE | 2021-10-16 12:05 | Hospitalist Progress Note ---
Date of Service October 16, 2021 Assessment & Plan (1) Hypoxia: Plan: continue oxygen supplementation to Kepp O2 > 91% (2) Weakness: (3) COVID-19: Plan: CT chest findings negative for pneumonia but does severe emphysema continue decadron day 12/18 and remdesivir day 12/13 today Repeat labwork remains stable (4) Elevated troponin I level: Plan: Likely demand in setting of actve infection no cheset pain, with her clinical status, and advanced age---> would not pursue further (5) COPD (chronic obstructive pulmonary disease): Plan: severe based on imaging not in acute exacerbation currently Nebs PRN (6) CAD (coronary artery disease): Plan: already on aspirin, fenofibrate. not on statin, would defer initiation currently--> can start at discharge if LFTs remains normal (7) Hx of CABG: Plan: see above Plan: Failure to thrive -continue general diet -started megace yesterday to help stimulate appetite, no improvement Goals of Care -Tried calling son, Cristian, to discuss GOC. No answer. Will try again later today DVT ppx-- lovenox to 40mg daily Admission and Anticipated Discharge Date Admission Date: October 13, 2021 Subjective Remains on 11 L oxymizer Denies chest pain or shortness of breath Denies feeling hungry or wanting to eat Physical Exam Physical Exam: thin, cachetic, no acute distress ENMT: temporal muscle wasting Respiratory: breathing comfortably on oxygen, no wheezing/rhonchi/rales Cardiovascular: bradycardic, no murmurs/rubs/gallops Gastrointestinal (Abdomen): soft, non tender Musculoskeletal: thin, no edema, prominent clavicles, prominent ribs Neurologic: awake, answers simple yes/no questions Results & Data Results & Data ([facility]) Vital Signs (Past 12 Hours) Vital Signs Temp Pulse Pulse Resp BP Pulse Ox 10/16/21 11:43 36.4 C L 53 L 24 136/67 97 10/16/21 09:42 64 10/16/21 07:35 36.4 C L 62 28 H 153/71 H 94 10/16/21 04:22 36.8 C 63 14 168/78 H 92 10/16/21 00:07 62 Laboratory Results Short CBC 10/15/21 10/16/21 Range/Units 14:19 06:15 WBC 8.47 10.65 (4.8-10.8) K/uL Hgb 16.3 H 15.6 (12.0-16.0) g/dL Hct 50.8 H 48.5 H (37-47) % Plt Count 348 349 (130-400) K/uL BMP 10/15/21 10/16/21 14:19 06:15 Sodium 139 139 Potassium 3.9 3.6 Chloride 103 104 Carbon Dioxide 29 32 BUN 22 19 Creatinine 0.53 L 0.47 L Glucose 125 H 124 H Calcium 8.3 L 8.2 L Liver Function 10/16/21 Range/Units 06:15 Total Bilirubin 0.4 (0.2-1.0) mg/dl AST 19 (13-39) U/L ALT 10 (7-52) U/L Alkaline Phosphatase 52 (34-104) U/L Albumin 2.4 L (3.4-5.0) gm/dl Medications Administered Current Inpatient Medications Acetaminophen (Acetaminophen 325 Mg Tab) 650 mg PO Q6H PRN PRN Reason: pain/fever Stop: 11/12/21 12:59 Last Admin: 10/14/21 21:13 Dose: 650 mg Documented by: Albuterol (Albut/Ipratrop 3mg/0.5mg Neb 3 Ml Vial) 3 ml NEB QIDR PRN; Protocol PRN Reason: sob/wheezing Stop: 11/12/21 14:27 Aspirin (Aspirin 81 Mg Ectab) 81 mg PO DAILY MARYLU Stop: 11/13/21 08:59 Last Admin: 10/16/21 07:53 Dose: 81 mg Documented by: Benzonatate (Benzonatate 100 Mg Capsule) 100 mg PO TID MARYLU Stop: 11/12/21 14:27 Last Admin: 10/16/21 07:54 Dose: 100 mg Documented by: Docusate Sodium (Docusate Sodium 100 Mg Cap) 100 mg PO BID MARYLU Stop: 11/12/21 20:59 Last Admin: 10/16/21 07:55 Dose: 100 mg Documented by: Enoxaparin Sodium (Enoxaparin Inj 40 Mg/0.4 Ml Syr) 40 mg SQ QAM MARYLU Stop: 11/14/21 08:59 Last Admin: 10/16/21 07:55 Dose: 40 mg Documented by: Fenofibrate (Fenofibrate Nanocrystallized 145 Mg Tablet) 145 mg PO DAILY [facility] Stop: 11/13/21 08:59 Last Admin: 10/16/21 07:55 Dose: 145 mg Documented by: Remdesivir 100 mg/ Sodium (Chloride) 250 mls @ 250 mls/hr IV Q24H [facility] Stop: 10/17/21 12:59 Last Admin: 10/16/21 11:04 Dose: 250 mls/hr Documented by: Dexamethasone 6 mg/ Syringe 1.5 mls @ 1 mls/min IV DAILY [facility] Stop: 10/24/21 08:59 Last Admin: 10/16/21 07:55 Dose: 1 mls/min Documented by: Dextrose/Electrolytes (D5w Normosol-R) 1,000 mls @ 80 mls/hr IV .[id number] [facility] Stop: 11/13/21 18:14 Last Admin: 10/15/21 20:27 Dose: 80 mls/hr Documented by: Megestrol Acetate (Megestrol Acetate Susp 400 Mg/10 Ml Udc) 800 mg PO QAM [facility] Stop: 11/14/21 14:14 Last Admin: 10/16/21 07:56 Dose: 800 mg Documented by: Morphine Sulfate (Morphine Sulfate 2 Mg/Ml Carp) 2 mg IV Q3H PRN PRN Reason: Pain Stop: 10/30/21 04:14 Last Admin: 10/16/21 11:05 Dose: 2 mg Documented by: Multivitamins/Minerals (Cerovite Adv Formula Tab) 1 tab PO BID [facility] Stop: 11/12/21 20:59 Last Admin: 10/16/21 07:54 Dose: 1 tab Documented by: Ondansetron HCl (Ondansetron Inj 2 Mg/Ml 2 Ml Vial) 4 mg IV Q6H PRN PRN Reason: Nausea Stop: 11/12/21 14:27 Last Admin: 10/15/21 08:07 Dose: 4 mg Documented by: Pantoprazole Sodium (Pantoprazole 40 Mg Tab) 40 mg PO QAM [facility] Stop: 11/16/21 08:59 Polyethylene Glycol (Polyethylene (Miralax) 17 Gm Pack) 17 gm PO DAILY PRN PRN Reason: Constipation Stop: 11/12/21 14:27 Potassium Phosphate (Pot Phosphate Monobasic W/ Sod Tab) 1 tab PO QID [facility] Stop: 11/15/21 12:59 Vitamin D (Cholecalciferol 5,000 Units 125 Mcg Tab) 5,000 units PO DAILY [facility] Stop: 11/13/21 08:59 Last Admin: 10/16/21 07:55 Dose: 5,000 units Documented by: (1) COPD (chronic obstructive pulmonary disease) COPD type: unspecified COPD Qualified Code(s): J44.9 - Chronic obstructive pulmonary disease, unspecified
[2021-10-16] MEDS: D5W NORMOSOL-R 1,000 ML IV SCH (13:14)
[2021-10-16] MEDS: POT PHOSPHATE MONOBASIC W/ SOD TAB PO SCH ×3 (13:14→21:24)
[2021-10-17] MEDS: D5W NORMOSOL-R 1,000 ML IV SCH ×2 (03:35→17:33)
[2021-10-17 06:47] LABS: Basophils # (auto) 0.01 K/uL (0-0.2); Basophils % (auto) 0.1 %; Eosinophils # (auto) 0.03 K/uL (0-0.5); Eosinophils % (auto) 0.4 %; Hematocrit (blood only) 47.3 % (37-47); Hemoglobin 15.3 g/dL (12.0-16.0); Immature Granulocytes # (auto) 0.01 K/uL (0.00-0.02); Immature Granulocytes % (auto) 0.1 %; Lymphocytes # (auto) 1.36 K/uL (1.2-3.4); Lymphocytes % (auto) 16.9 %; Mean Corpuscular Hemoglobin 29.5 pg (25-34); Mean Corpuscular Hgb Conc 32.3 g/dL (32-36); Mean Corpuscular Volume 91.3 fL (80-100); Monocytes % (auto) 11.2 %; Neutrophils # (auto) 5.75 K/uL (1.4-6.5); Neutrophils % (auto) 71.3 %; Platelet Count 289 K/uL (130-400); RDW Standard Deviation 49.9 fL (36.4-46.3); Red Blood Count 5.18 M/uL (4.2-5.4); White Blood Count 8.06 K/uL (4.8-10.8)
[2021-10-17 07:11] LABS: Alanine Aminotransferase 10 U/L (7-52); Albumin Level 2.4 gm/dl (3.4-5.0); Alkaline Phosphatase 51 U/L (34-104); Anion Gap 3 (3-11); Aspartate Aminotransferase 20 U/L (13-39); Bilirubin,Total 0.5 mg/dl (0.2-1.0); Blood Urea Nitrogen 16 mg/dl (6-23); C Reactive Protein < 0.50 mg/dl (0-0.5); Carbon Dioxide 32 mmol/L (21-32); Chloride 101 mmol/L (98-107); Creatinine Clr Calc Pharmacy 61.3 ml/min; Est GFR (African American) 110.9 ml/min; Est GFR (Non-African American) 95.6 ml/min; Globulin 2.5 gm/dl (2.5-4.0); Glucose 85 mg/dl (70-99(Fasting)); Potassium 3.7 mmol/L (3.5-5.1); Sodium 136 mmol/L (136-145); Total Protein 4.9 gm/dl (6.0-8.3)
[2021-10-17] MEDS: MoRPHine SULFATE 2 MG/ML CARP IV PRN (07:29)
[2021-10-17] MEDS: dexAMETHasone 6 MG in SYRINGE 0 ML IV SCH (08:40)
[2021-10-17] MEDS: ASPIRIN 81 MG ECTAB PO SCH (08:42)
[2021-10-17] MEDS: BENZONATATE 100 MG CAPSULE PO SCH ×3 (08:42→20:12)
[2021-10-17] MEDS: DOCUSATE SODIUM 100 MG CAP PO SCH ×2 (08:43→20:12)
[2021-10-17] MEDS: CHOLECALCIFEROL 5,000 UNITS 125 MCG TAB PO SCH (08:43)
[2021-10-17] MEDS: ENOXAPARIN INJ 40 MG/0.4 ML SYR SQ SCH (08:43)
[2021-10-17] MEDS: FENOFIBRATE NANOCRYSTALLIZED 145 MG TABLET PO SCH (08:44)
[2021-10-17] MEDS: CEROVITE ADV FORMULA TAB PO SCH ×2 (08:45→20:12)
[2021-10-17] MEDS: MEGESTROL ACETATE SUSP 400 MG/10 ML UDC PO SCH (08:45)
[2021-10-17] MEDS: POT PHOSPHATE MONOBASIC W/ SOD TAB PO SCH ×4 (08:46→20:12)
[2021-10-17] MEDS: PANTOprazole 40 MG TAB PO SCH (08:46)
[2021-10-17] MEDS ORDERED: SODIUM CHLORIDE 0.65% NA SOLN 45 ML (OCEAN) PRN (09:23)
[2021-10-17] MEDS: REMDESIVIR 100 MG in SODIUM CHLORIDE 0.9% 230 ML IV SCH (11:32)
--- NOTE | 2021-10-17 14:53 | Hospitalist Progress Note ---
Date of Service October 17, 2021 Assessment & Plan (1) Hypoxia: Plan: continue oxygen supplementation to Kepp O2 > 91% Was weaned down to 4L NC yesterday and now back on 5L oxymask (2) Weakness: (3) COVID-19: Plan: CT chest findings negative for pneumonia but does severe emphysema continue decadron --plan for 10 day course Today is day 5/5 remdesivir Repeat labwork remains stable (4) Elevated troponin I level: Plan: Likely demand in setting of actve infection no cheset pain, with her clinical status, and advanced age---> would not pursue further (5) COPD (chronic obstructive pulmonary disease): Plan: severe based on imaging not in acute exacerbation currently Nebs PRN (6) CAD (coronary artery disease): Plan: already on aspirin, fenofibrate. not on statin, would defer initiation currently--> can start at discharge if LFTs remains normal (7) Hx of CABG: Plan: see above Plan: Failure to thrive -continue general diet -started megace to help stimulate appetite Goals of Care -Discussed with Cristian yesterday and today. Family wants to take her home and attempt at recovery, but if she was to deteriorate further, they would consider hospice. Dispo -Plan for home care, patient needs 24/7 care, hospital bed, home oxygen. PT evaluation ordered DVT ppx-- lovenox to 40mg daily Admission and Anticipated Discharge Date Admission Date: October 13, 2021 Subjective Son helped her with breakfast-- she drank entire Boost, ate 1/2 a banana, couple spoonfuls of egg, drank one cup of apple juice Physical Exam Physical Exam: thin, cachetic, no acute distess ENMT: temporal muscle wasting Neck: supple Respiratory: no respiratory distress, no wheezing, diminished at bases Cardiovascular: regular rate and rhythm, no murmurs/rubs/gallops Gastrointestinal (Abdomen): soft, non tender Musculoskeletal: no edema, protruding clavicles, ribs, very thin extremities Neurologic: awake, answers questions in soft voice, generalized weakness Results & Data Results & Data ([facility] [place]) Vital Signs (Past 12 Hours) Vital Signs Temp Pulse Pulse Resp BP Pulse Ox 10/17/21 11:31 36.8 C 67 14 126/65 88 L 10/17/21 10:23 52 L 10/17/21 07:34 36.4 C L 56 L 14 165/83 H 94 10/17/21 05:18 57 L 10/17/21 03:36 36.4 C L 51 L 14 166/71 H 94 Laboratory Results Short CBC 10/17/21 Range/Units 06:06 WBC 8.06 (4.8-10.8) K/uL Hgb 15.3 (12.0-16.0) g/dL Hct 47.3 H (37-47) % Plt Count 289 (130-400) K/uL BMP 10/17/21 06:06 Sodium 136 Potassium 3.7 Chloride 101 Carbon Dioxide 32 BUN 16 Creatinine 0.40 L Glucose 85 Calcium 8.0 L Liver Function 10/17/21 Range/Units 06:06 Total Bilirubin 0.5 (0.2-1.0) mg/dl AST 20 (13-39) U/L ALT 10 (7-52) U/L Alkaline Phosphatase 51 (34-104) U/L Albumin 2.4 L (3.4-5.0) gm/dl Medications Administered Current Inpatient Medications Acetaminophen (Acetaminophen 325 Mg Tab) 650 mg PO Q6H PRN PRN Reason: pain/fever Stop: 11/12/21 12:59 Last Admin: 10/14/21 21:13 Dose: 650 mg Documented by: Albuterol (Albut/Ipratrop 3mg/0.5mg Neb 3 Ml Vial) 3 ml NEB QIDR PRN; Protocol PRN Reason: sob/wheezing Stop: 11/12/21 14:27 Aspirin (Aspirin 81 Mg Ectab) 81 mg PO DAILY [facility] Stop: 11/13/21 08:59 Last Admin: 10/17/21 08:42 Dose: 81 mg Documented by: Benzonatate (Benzonatate 100 Mg Capsule) 100 mg PO TID MARYLU Stop: 11/12/21 14:27 Last Admin: 10/17/21 13:40 Dose: 100 mg Documented by: Docusate Sodium (Docusate Sodium 100 Mg Cap) 100 mg PO BID MARYLU Stop: 11/12/21 20:59 Last Admin: 10/17/21 08:43 Dose: 100 mg Documented by: Enoxaparin Sodium (Enoxaparin Inj 40 Mg/0.4 Ml Syr) 40 mg SQ QAM [facility]ARY[facility] Stop: 11/14/21 08:59 Last Admin: 10/17/21 08:43 Dose: 40 mg Documented by: Fenofibrate (Fenofibrate Nanocrystallized 145 Mg Tablet) 145 mg PO DAILY [facility] Stop: 11/13/21 08:59 Last Admin: 10/17/21 08:44 Dose: 145 mg Documented by: Dexamethasone 6 mg/ Syringe 1.5 mls @ 1 mls/min IV DAILY [facility] Stop: 10/24/21 08:59 Last Admin: 10/17/21 08:40 Dose: 1 mls/min Documented by: Dextrose/Electrolytes (D5w Normosol-R) 1,000 mls @ 80 mls/hr IV .[id number] [facility] Stop: 11/13/21 18:14 Last Infusion: 10/17/21 12:35 Dose: 80 mls/hr Documented by: Megestrol Acetate (Megestrol Acetate Susp 400 Mg/10 Ml Udc) 800 mg PO QAM [facility] Stop: 11/14/21 14:14 Last Admin: 10/17/21 08:45 Dose: 800 mg Documented by: Morphine Sulfate (Morphine Sulfate 2 Mg/Ml Carp) 2 mg IV Q3H PRN PRN Reason: Pain Stop: 10/30/21 04:14 Last Admin: 10/17/21 07:29 Dose: 2 mg Documented by: Multivitamins/Minerals (Cerovite Adv Formula Tab) 1 tab PO BID [facility] Stop: 11/12/21 20:59 Last Admin: 10/17/21 08:45 Dose: 1 tab Documented by: Ondansetron HCl (Ondansetron Inj 2 Mg/Ml 2 Ml Vial) 4 mg IV Q6H PRN PRN Reason: Nausea Stop: 11/12/21 14:27 Last Admin: 10/15/21 08:07 Dose: 4 mg Documented by: Pantoprazole Sodium (Pantoprazole 40 Mg Tab) 40 mg PO QAM [facility] Stop: 10/21/21 08:59 Last Admin: 10/17/21 08:46 Dose: 40 mg Documented by: Polyethylene Glycol (Polyethylene (Miralax) 17 Gm Pack) 17 gm PO DAILY PRN PRN Reason: Constipation Stop: 11/12/21 14:27 Potassium Phosphate (Pot Phosphate Monobasic W/ Sod Tab) 1 tab PO QID [facility] Stop: 11/15/21 12:59 Last Admin: 10/17/21 13:40 Dose: 1 tab Documented by: Sodium Chloride (Sodium Chloride 0.65% Na Soln 45 Ml ([place])) 1 sprays NA TID PRN PRN Reason: Dryness Stop: 11/16/21 09:22 Last Admin: 10/17/21 10:40 Dose: 1 sprays Documented by: Vitamin D (Cholecalciferol 5,000 Units 125 Mcg Tab) 5,000 units PO DAILY [facility] Stop: 11/13/21 08:59 Last Admin: 10/17/21 08:43 Dose: 5,000 units Documented by: (1) COPD (chronic obstructive pulmonary disease) COPD type: unspecified COPD Qualified Code(s): J44.9 - Chronic obstructive pulmonary disease, unspecified
[2021-10-18] MEDS: D5W NORMOSOL-R 1,000 ML IV SCH ×3 (05:14→17:16)
[2021-10-18 06:36] LABS: Basophils # (auto) 0.01 K/uL (0-0.2); Basophils % (auto) 0.1 %; Hematocrit (blood only) 45.2 % (37-47); Hemoglobin 14.7 g/dL (12.0-16.0); Immature Granulocytes # (auto) 0.03 K/uL (0.00-0.02); Immature Granulocytes % (auto) 0.3 %; Lymphocytes # (auto) 1.12 K/uL (1.2-3.4); Lymphocytes % (auto) 10.9 %; Mean Corpuscular Hemoglobin 29.3 pg (25-34); Mean Corpuscular Hgb Conc 32.5 g/dL (32-36); Mean Corpuscular Volume 90.2 fL (80-100); Mean Platelet Volume 12.3 fL (7.4-10.4); Monocytes # (auto) 0.88 K/uL (0.11-0.59); Monocytes % (auto) 8.5 %; Neutrophils # (auto) 8.27 K/uL (1.4-6.5); Neutrophils % (auto) 80.2 %; Platelet Count 281 K/uL (130-400); RDW Coefficient of Variation 14.9 % (11.5-14.5); RDW Standard Deviation 48.3 fL (36.4-46.3); Red Blood Count 5.01 M/uL (4.2-5.4); White Blood Count 10.31 K/uL (4.8-10.8)
[2021-10-18 06:51] LABS: Albumin Globulin Ratio 0.9 (0.9-2); Albumin Level 2.2 gm/dl (3.4-5.0); BUN Creatinine Ratio 48.8 (10-20); Bilirubin,Total 0.4 mg/dl (0.2-1.0); Calcium 7.9 mg/dl (8.5-10.1); Creatinine Clr Calc Pharmacy 59.8 ml/min; Est GFR (Non-African American) 94.9 ml/min; Globulin 2.4 gm/dl (2.5-4.0); Potassium 3.5 mmol/L (3.5-5.1); Total Protein 4.6 gm/dl (6.0-8.3)
[2021-10-18] MEDS: PANTOprazole 40 MG TAB PO SCH (08:44)
[2021-10-18] MEDS: BENZONATATE 100 MG CAPSULE PO SCH ×3 (08:44→20:02)
[2021-10-18] MEDS: MEGESTROL ACETATE SUSP 400 MG/10 ML UDC PO SCH (08:44)
[2021-10-18] MEDS: DOCUSATE SODIUM 100 MG CAP PO SCH ×2 (08:45→20:02)
[2021-10-18] MEDS: ASPIRIN 81 MG ECTAB PO SCH (08:45)
[2021-10-18] MEDS: CEROVITE ADV FORMULA TAB PO SCH ×2 (08:45→20:02)
[2021-10-18] MEDS: CHOLECALCIFEROL 5,000 UNITS 125 MCG TAB PO SCH (08:45)
[2021-10-18] MEDS: FENOFIBRATE NANOCRYSTALLIZED 145 MG TABLET PO SCH (08:45)
[2021-10-18] MEDS: dexAMETHasone 6 MG in SYRINGE 0 ML IV SCH (08:45)
[2021-10-18] MEDS: POT PHOSPHATE MONOBASIC W/ SOD TAB PO SCH ×4 (08:45→20:02)
[2021-10-18] MEDS: ENOXAPARIN INJ 40 MG/0.4 ML SYR SQ SCH (08:46)
--- NOTE | 2021-10-18 13:22 | Hospitalist Progress Note ---
Date of Service October 18, 2021 Assessment & Plan (1) Hypoxia: Plan: Acute hypoxic respiratory failure I suspect chronic hypoxic respiratory failure as well but patient was not previously on oxygen. Based on amount of emphysema seen on CTA chest. continue oxygen supplementation to Kepp O2 > 91% She was on 6L NC and was low 90s. Currently requiring 15L oxymizer after working with PT. Will need home oxygen (oxygen concentrator can go up to 10L) (2) Weakness: (3) COVID-19: Plan: CT chest findings negative for pneumonia but does severe emphysema continue decadron --plan for 10 day course finished 5 days remdesivir Repeat labwork remains stable (4) Elevated troponin I level: Plan: Likely demand in setting of actve infection no cheset pain, with her clinical status, and advanced age---> would not pursue further (5) COPD (chronic obstructive pulmonary disease): Plan: severe based on imaging not in acute exacerbation currently Nebs PRN (6) CAD (coronary artery disease): Plan: already on aspirin, fenofibrate. not on statin, would defer initiation currently--> can start at discharge if LFTs remains normal (7) Hx of CABG: Plan: see above Plan: Failure to thrive Severe protein malnutrition -continue general diet -started megace to help stimulate appetite Goals of Care -Discussed with Ramiro again today, he agreed for home hospice referral. Family will need to arrange for 24/7 care Dispo -Plan for home hospice, patient needs 24/7 care, hospital bed, home oxygen. DVT ppx-- lovenox to 40mg daily Admission and Anticipated Discharge Date Admission Date: October 13, 2021 Subjective Was on 6L this morning, worked with PT (sat up on side of bed) and desaturated down to 70s and is currently on Oxymizer 15L with slow recovery I had a long discussion with Ramiro Deluca, patient's son, and I recommended that mom she return home with home hospice. Ramiro agreed for hospice referral and will work with his family to arrange for 24 hour care. Patient herself denies feeling discomfort--feeling chest pain, shortness of breath or air hunger Physical Exam Physical Exam: thin, cachetic, appears chronically ill Respiratory: no accessory muscle use, no wheezing/rhonchi Cardiovascular: regular rate and rhythm, no murmurs/rubs/gallops Gastrointestinal (Abdomen): soft Musculoskeletal: protruding clavicles, protruding ribs Neurologic: awake, generalized weakness Results & Data Results & Data ([facility]) Vital Signs (Past 12 Hours) Vital Signs Temp Pulse Resp BP Pulse Ox Pulse Ox 10/18/21 12:27 88 L 10/18/21 11:49 65 16 124/64 84 L 10/18/21 10:49 93 10/18/21 10:25 86 L 10/18/21 07:47 36.7 C 66 14 162/73 H 89 L 10/18/21 03:26 36.8 C 67 20 140/67 90 Medications Administered Current Inpatient Medications Acetaminophen (Acetaminophen 325 Mg Tab) 650 mg PO Q6H PRN PRN Reason: pain/fever Stop: 11/12/21 12:59 Last Admin: 10/14/21 21:13 Dose: 650 mg Documented by: Albuterol (Albut/Ipratrop 3mg/0.5mg Neb 3 Ml Vial) 3 ml NEB QIDR PRN; Protocol PRN Reason: sob/wheezing Stop: 11/12/21 14:27 Aspirin (Aspirin 81 Mg Ectab) 81 mg PO DAILY [facility] Stop: 11/13/21 08:59 Last Admin: 10/18/21 08:45 Dose: 81 mg Documented by: Benzonatate (Benzonatate 100 Mg Capsule) 100 mg PO TID [facility] Stop: 11/12/21 14:27 Last Admin: 10/18/21 08:44 Dose: 100 mg Documented by: Docusate Sodium (Docusate Sodium 100 Mg Cap) 100 mg PO BID [facility] Stop: 11/12/21 20:59 Last Admin: 10/18/21 08:45 Dose: 100 mg Documented by: Enoxaparin Sodium (Enoxaparin Inj 40 Mg/0.4 Ml Syr) 40 mg SQ QAM [facility] Stop: 11/14/21 08:59 Last Admin: 10/18/21 08:46 Dose: 40 mg Documented by: Fenofibrate (Fenofibrate Nanocrystallized 145 Mg Tablet) 145 mg PO DAILY [facility] Stop: 11/13/21 08:59 Last Admin: 10/18/21 08:45 Dose: 145 mg Documented by: Dexamethasone 6 mg/ Syringe 1.5 mls @ 1 mls/min IV DAILY [facility] Stop: 10/24/21 08:59 Last Admin: 10/18/21 08:45 Dose: 1 mls/min Documented by: Dextrose/Electrolytes (D5w Normosol-R) 1,000 mls @ 80 mls/hr IV .[id number] [facility] Stop: 11/13/21 18:14 Last Admin: 10/18/21 05:14 Dose: 80 mls/hr Documented by: Megestrol Acetate (Megestrol Acetate Susp 400 Mg/10 Ml Udc) 800 mg PO QAM [facility] Stop: 11/14/21 14:14 Last Admin: 10/18/21 08:44 Dose: 800 mg Documented by: Morphine Sulfate (Morphine Sulfate 2 Mg/Ml Carp) 2 mg IV Q3H PRN PRN Reason: Pain Stop: 10/30/21 04:14 Last Admin: 10/17/21 07:29 Dose: 2 mg Documented by: Multivitamins/Minerals (Cerovite Adv Formula Tab) 1 tab PO BID [facility] Stop: 11/12/21 20:59 Last Admin: 10/18/21 08:45 Dose: 1 tab Documented by: Ondansetron HCl (Ondansetron Inj 2 Mg/Ml 2 Ml Vial) 4 mg IV Q6H PRN PRN Reason: Nausea Stop: 11/12/21 14:27 Last Admin: 10/15/21 08:07 Dose: 4 mg Documented by: Pantoprazole Sodium (Pantoprazole 40 Mg Tab) 40 mg PO QAM [facility] Stop: 10/21/21 08:59 Last Admin: 10/18/21 08:44 Dose: 40 mg Documented by: Polyethylene Glycol (Polyethylene (Miralax) 17 Gm Pack) 17 gm PO DAILY PRN PRN Reason: Constipation Stop: 11/12/21 14:27 Potassium Phosphate (Pot Phosphate Monobasic W/ Sod Tab) 1 tab PO QID [facility] Stop: 11/15/21 12:59 Last Admin: 10/18/21 12:00 Dose: 1 tab Documented by: Sodium Chloride (Sodium Chloride 0.65% Na Soln 45 Ml ([place])) 1 sprays NA TID PRN PRN Reason: Dryness Stop: 11/16/21 09:22 Last Admin: 10/17/21 10:40 Dose: 1 sprays Documented by: Vitamin D (Cholecalciferol 5,000 Units 125 Mcg Tab) 5,000 units PO DAILY [facility] Stop: 11/13/21 08:59 Last Admin: 10/18/21 08:45 Dose: 5,000 units Documented by: (1) COPD (chronic obstructive pulmonary disease) COPD type: unspecified COPD Qualified Code(s): J44.9 - Chronic obstructive pulmonary disease, unspecified
[2021-10-18] MEDS: ONDANSETRON INJ 2 MG/ML 2 ML VIAL IV PRN (17:24)
[2021-10-19] MEDS: MoRPHine SULFATE 2 MG/ML CARP IV PRN (04:26)
[2021-10-19] MEDS: D5W NORMOSOL-R 1,000 ML IV SCH ×2 (05:33→18:10)
[2021-10-19] MEDS: POT PHOSPHATE MONOBASIC W/ SOD TAB PO SCH ×3 (09:02→16:46)
[2021-10-19] MEDS: dexAMETHasone 6 MG in SYRINGE 0 ML IV SCH (09:02)
[2021-10-19] MEDS: DOCUSATE SODIUM 100 MG CAP PO SCH (09:02)
[2021-10-19] MEDS: CEROVITE ADV FORMULA TAB PO SCH (09:03)
[2021-10-19] MEDS: ASPIRIN 81 MG ECTAB PO SCH (09:03)
[2021-10-19] MEDS: BENZONATATE 100 MG CAPSULE PO SCH ×2 (09:03→14:31)
[2021-10-19] MEDS: CHOLECALCIFEROL 5,000 UNITS 125 MCG TAB PO SCH (09:03)
[2021-10-19] MEDS: MEGESTROL ACETATE SUSP 400 MG/10 ML UDC PO SCH (09:04)
[2021-10-19] MEDS: PANTOprazole 40 MG TAB PO SCH (09:04)
[2021-10-19] MEDS: ENOXAPARIN INJ 40 MG/0.4 ML SYR SQ SCH (09:04)
[2021-10-19] MEDS: FENOFIBRATE NANOCRYSTALLIZED 145 MG TABLET PO SCH (09:04)
--- NOTE | 2021-10-19 13:51 | CT Scan Report ---
HEAD CT NONCONTRAST CT DOSE: 537.48 mGy.cm HISTORY: Fall TECHNIQUE: Multiaxial CT images of the head were performed without the use of intravenous contrast. A utomated exposure control was utilized for this study. A dose lowering technique was utilized adheri ng to the principles of ALARA. Comparison: Head CT 10/13/2021. Findings: The paranasal sinuses and mastoid air cells are clear. The calvarium and skull base are int act. There is no mass, hematoma, midline shift, acute infarct. White matter hypodensity is nonspecifi c but suggestive of microvascular ischemic change. The ventricles and sulci demonstrate mild age-rela jennifer involutional changes. Impression: No significant change compared to the prior study. No acute intracranial abnormality. ACT 112: Negative or not required by law. Electronically signed by: Oc Dick M.D. 10/19/2021 1:50 PM
--- NOTE | 2021-10-19 15:29 | Hospitalist Progress Note ---
Date of Service October 19, 2021 Assessment & Plan (1) Hypoxia: Plan: Acute on Chronic hypoxic respiratory failure Emphysema on CTA chest. continue oxygen to Keep O2 > 90% She was on 9L NC and was low 90s. (2) Weakness: (3) COVID-19: Plan: CT chest findings negative for pneumonia but does severe emphysema continue decadron --10 day course finished 5 days remdesivir (4) Elevated troponin I level: Plan: Likely demand in setting of actve infection no cheset pain, with her clinical status, and advanced age---> would not pursue further (5) COPD (chronic obstructive pulmonary disease): Plan: severe based on imaging not in acute exacerbation currently Nebs PRN (6) CAD (coronary artery disease): Plan: On aspirin, fenofibrate (7) Hx of CABG: Plan: see above Plan: Failure to thrive Severe protein malnutrition -continue general diet -DC megace, try Remeron Low dose 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 Family will need to arrange for 24/7 care Dispo -Plan for home hospice, patient needs 24/7 care, hospital bed, home oxygen. DVT ppx-- lovenox to 40mg daily CTH neg after fall ROS-Comfortable Physical Exam Gen-Somnolent, Weak, Frail and Thin Head-NCAT, EOMI, PERRLA, Anicteric Sclera, No Posterior Pharyngeal Erythema, MM very dry Neck-Supple, No JVD, No Thyromegaly, No Masses, No LAD, No Bruits Lungs-Clear to Auscultation Bilaterally, No Rales, No Rhonchi, No Wheezing, No Crepitus Chest-No S4, +S1, +S2, No S3, No Murmurs, No Rubs, No Gallops, No Ectopy Abdomen-Soft, Bowel Sounds Present, Non Tender, Non Distended, No Hepatomegaly, No Splenomegaly, No Palpable Masses, No Rebound, No Rigidity, No Guarding Musculoskeletal-Full Range of Motion Bilaterally, No CVAT Extremities-No Cyanosis, No Clubbing, No Edema Nuero-Cranial Nerves II-XII grossly intact, Motor WNL, DTRs WNL, Strength WNL, Non Focal Psych-Somnolent Admission and Anticipated Discharge Date Admission Date: October 13, 2021 Subjective Was on 9L when I saw her, She fell this morning, CTH negativ. Patient is comfortable Results & Data Results & Data ([facility]) Vital Signs (Past 12 Hours) Vital Signs Temp Pulse Pulse Resp BP Pulse Ox Pulse Ox 10/19/21 15:00 36.8 C 62 18 119/69 90 10/19/21 12:00 90 10/19/21 11:00 36.8 C 64 18 122/67 94 10/19/21 08:28 36.7 C 68 17 158/86 H 91 10/19/21 07:28 36.7 C 62 16 126/72 96 10/19/21 07:11 62 10/19/21 06:00 94 10/19/21 05:00 95 10/19/21 04:00 95 (1) COPD (chronic obstructive pulmonary disease) COPD type: unspecified COPD Qualified Code(s): J44.9 - Chronic obstructive pulmonary disease, unspecified
[2021-10-19] MEDS ORDERED: LORazepam 1 MG/2 ML VIAL IV PRN (19:21)
[2021-10-19] MEDS ORDERED: ONDANSETRON 4 MG OD TAB SL PRN (19:23)
[2021-10-19] MEDS ORDERED: GLYCOPYRROLATE 0.2 MG/ML VIAL IV PRN (19:23)
[2021-10-19] MEDS: MoRPHine SULFATE 4 MG/ML 1 ML CARP\\VIAL IV PRN (20:10)
[2021-10-19] MEDS ORDERED: MIRTAZAPINE SOLTAB 15 MG PO SCH (21:00)
--- NOTE | 2021-10-20 12:26 | Hospitalist Progress Note ---
Date of Service October 20, 2021 Assessment & Plan (1) Hypoxia: Plan: Acute on Chronic hypoxic respiratory failure Emphysema on CTA chest. continue oxygen to Keep O2 > 90% She was on 4L NC and was low 90s. (2) Weakness: (3) COVID-19: Plan: CT chest findings negative for pneumonia but does severe emphysema continue decadron --10 day course finished 5 days remdesivir (4) Elevated troponin I level: Plan: Likely demand in setting of actve infection no cheset pain, with her clinical status, and advanced age---> would not pursue further (5) COPD (chronic obstructive pulmonary disease): Plan: severe based on imaging not in acute exacerbation currently Nebs PRN (6) CAD (coronary artery disease): Plan: DC ASA, fenofibrate (7) Hx of CABG: Plan: see above Plan: Failure to thrive Severe protein malnutrition -continue general diet -DC megace, try Remeron Low dose 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 DVT ppx-- lovenox to 40mg daily CTH neg after fall ROS-Comfortable Physical Exam Gen-Somnolent, Weak, Frail and Thin Head-NCAT, EOMI, PERRLA, Anicteric Sclera, No Posterior Pharyngeal Erythema, MM very dry Neck-Supple, No JVD, No Thyromegaly, No Masses, No LAD, No Bruits Lungs-Clear to Auscultation Bilaterally, No Rales, No Rhonchi, No Wheezing, No Crepitus Chest-No S4, +S1, +S2, No S3, No Murmurs, No Rubs, No Gallops, No Ectopy Abdomen-Soft, Bowel Sounds Present, Non Tender, Non Distended, No Hepatomegaly, No Splenomegaly, No Palpable Masses, No Rebound, No Rigidity, No Guarding Musculoskeletal-Full Range of Motion Bilaterally, No CVAT Extremities-No Cyanosis, No Clubbing, No Edema Nuero-Cranial Nerves II-XII grossly intact, Motor WNL, DTRs WNL, Strength WNL, Non Focal Psych-Somnolent Admission and Anticipated Discharge Date Admission Date: October 13, 2021 Subjective Patient is comfortable, seen today (1) COPD (chronic obstructive pulmonary disease) COPD type: unspecified COPD Qualified Code(s): J44.9 - Chronic obstructive pulmonary disease, unspecified
[2021-10-20] MEDS: DEXTROSE 5% 1,000 ML IV SCH (12:52)
[2021-10-20] MEDS ORDERED: BENZONATATE 100 MG CAPSULE PO PRN (14:21)
[2021-10-20] MEDS: dexAMETHasone 6 MG in SYRINGE 0 ML IV SCH (14:36)
[2021-10-20] MEDS: IPRATROPIUM BROMIDE HFA INHALER INH SCH ×2 (14:51→19:47)
[2021-10-20] MEDS: ALBUTEROL HFA 8 GM INHALER INH SCH ×2 (14:51→19:47)
[2021-10-20] MEDS ORDERED: IPRATROPIUM BROMIDE/ALBUTEROL respimat INH INH SCH (17:00)
[2021-10-20] MEDS: MIRTAZAPINE SOLTAB 15 MG PO SCH (21:56)
[2021-10-20] MEDS: HEPARIN SOD 5,000 UNIT/0.5 ML VIAL SQ SCH (21:57)
[2021-10-21] MEDS: DEXTROSE 5% 1,000 ML IV SCH ×2 (01:32→13:08)
[2021-10-21] MEDS: IPRATROPIUM BROMIDE HFA INHALER INH SCH ×4 (07:16→19:48)
[2021-10-21] MEDS: ALBUTEROL HFA 8 GM INHALER INH SCH ×4 (07:16→19:48)
[2021-10-21] MEDS: ASPIRIN 81 MG ECTAB PO SCH (07:25)
[2021-10-21] MEDS: dexAMETHasone 6 MG in SYRINGE 0 ML IV SCH (07:25)
[2021-10-21] MEDS: FENOFIBRATE NANOCRYSTALLIZED 145 MG TABLET PO SCH (07:25)
[2021-10-21] MEDS: HEPARIN SOD 5,000 UNIT/0.5 ML VIAL SQ SCH ×2 (07:25→21:15)
[2021-10-21] MEDS ORDERED: bisacodyL 10 MG SUPP PR PRN (09:37)
[2021-10-21] MEDS ORDERED: bisacodyL 10 MG SUPP PR ONE (09:39)
[2021-10-21] MEDS: MoRPHine SULFATE 4 MG/ML 1 ML CARP\\VIAL IV PRN (10:21)
--- NOTE | 2021-10-21 14:27 | Hospitalist Progress Note ---
Date of Service October 21, 2021 Assessment & Plan (1) Hypoxia: Plan: Acute on Chronic hypoxic respiratory failure Emphysema on CTA chest. continue oxygen to Keep O2 > 90% She was on 6L NC and 88%. (2) Weakness: (3) COVID-19: Plan: CT chest findings negative for pneumonia but does severe emphysema continue decadron --10 day course, Stop / finished 5 days remdesivir (4) Elevated troponin I level: Plan: Likely demand in setting of actve infection no cheset pain, with her clinical status, and advanced age---> would not pursue further (5) COPD (chronic obstructive pulmonary disease): Plan: severe based on imaging not in acute exacerbation currently Nebs PRN (6) CAD (coronary artery disease): Plan: DC ASA, fenofibrate (7) Hx of CABG: Plan: see above Plan: Failure to thrive Severe protein malnutrition -continue general diet -DC megace, try Remeron Low dose -DC 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 Dispo -Plan for home hospice, we will keep thru weekend and continue Dex, Push diet, Clinically seems better, patient may need SNF DVT ppx-- lovenox to 40mg daily CTH neg after fall ROS-No N/V/F/Chills/CP/ARCEO, +COATES, Occas SOB Physical Exam Gen-AAOx 3 Pleasant, Frail and Thin Head-NCAT, EOMI, PERRLA, Anicteric Sclera, No Posterior Pharyngeal Erythema, MM very dry Neck-Supple, No JVD, No Thyromegaly, No Masses, No LAD, No Bruits Lungs-Clear to Auscultation Bilaterally, No Rales, No Rhonchi, No Wheezing, No C repitus Chest-No S4, +S1, +S2, No S3, No Murmurs, No Rubs, No Gallops, No Ectopy Abdomen-Soft, Bowel Sounds Present, Non Tender, Non Distended, No Hepatomegaly, No Splenomegaly, No Palpable Masses, No Rebound, No Rigidity, No Guarding Musculoskeletal-Full Range of Motion Bilaterally, No CVAT Extremities-No Cyanosis, No Clubbing, No Edema Nuero-Cranial Nerves II-XII grossly intact, Motor WNL, DTRs WNL, Strength WNL, Non Focal Psych-Pleasant Admission and Anticipated Discharge Date Admission Date: October 13, 2021 Subjective Patient is comfortable, seen today, much more talkative, Son in room Results & Data Results & Data ([facility]) Vital Signs (Past 12 Hours) Vital Signs Pulse Resp Pulse Ox 10/21/21 10:55 78 20 88 L 10/21/21 07:17 63 20 88 L (1) COPD (chronic obstructive pulmonary disease) COPD type: unspecified COPD Qualified Code(s): J44.9 - Chronic obstructive pulmonary disease, unspecified
[2021-10-21] MEDS: MIRTAZAPINE SOLTAB 15 MG PO SCH (21:14)
[2021-10-22] MEDS: DEXTROSE 5% 1,000 ML IV SCH ×2 (00:22→13:03)
[2021-10-22] MEDS: MoRPHine SULFATE 4 MG/ML 1 ML CARP\\VIAL IV PRN (02:22)
[2021-10-22] MEDS: ALBUTEROL HFA 8 GM INHALER INH SCH (08:13)
[2021-10-22] MEDS: IPRATROPIUM BROMIDE HFA INHALER INH SCH (08:13)
[2021-10-22] MEDS ORDERED: ALBUTEROL HFA 8 GM INHALER INH PRN (08:16)
[2021-10-22] MEDS ORDERED: IPRATROPIUM BROMIDE HFA INHALER INH PRN (08:18)
[2021-10-22] MEDS: FENOFIBRATE NANOCRYSTALLIZED 145 MG TABLET PO SCH (08:30)
[2021-10-22] MEDS: ASPIRIN 81 MG ECTAB PO SCH (08:30)
[2021-10-22] MEDS: HEPARIN SOD 5,000 UNIT/0.5 ML VIAL SQ SCH ×2 (08:32→21:49)
--- NOTE | 2021-10-22 09:45 | Hospitalist Progress Note ---
Date of Service October 22, 2021 Assessment & Plan (1) Hypoxia: Plan: Acute on Chronic hypoxic respiratory failure Emphysema on CTA chest. continue oxygen to Keep O2 > 90% She is on 6L NC and 92%. (2) Weakness: (3) COVID-19: Plan: CT chest findings negative for pneumonia but does severe emphysema continue decadron --10 day course, Stop / finished 5 days remdesivir DC isolation (4) Elevated troponin I level: Plan: Likely demand in setting of actve infection no cheset pain, with her clinical status, and advanced age---> would not pursue further (5) COPD (chronic obstructive pulmonary disease): Plan: severe based on imaging not in acute exacerbation currently Nebs PRN (6) CAD (coronary artery disease): Plan: DC ASA, fenofibrate (7) Hx of CABG: Plan: see above Plan: Failure to thrive Severe protein malnutrition -continue general diet -Remeron Low dose for appetite -DC Isolation, Symptoms started 7 days 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 Dispo -Plan for home hospice, we will keep thru weekend and continue Dex, Push diet, Clinically seems better, patient may need SNF DVT ppx-- lovenox to 40mg daily CTH neg after fall ROS-No N/V/F/Chills/CP/ARCEO, +COATES, Occas SOB Physical Exam Gen-AAOx 3 Pleasant, Frail and Thin Head-NCAT, EOMI, PERRLA, Anicteric Sclera, No Posterior Pharyngeal Erythema, MM very dry Neck-Supple, No JVD, No Thyromegaly, No Masses, No LAD, No Bruits Lungs-Clear to Auscultation Bilaterally, No Rales, No Rhonchi, No Wheezing, No Crepitus Chest-No S4, +S1, +S2, No S3, No Murmurs, No Rubs, No Gallops, No Ectopy Abdomen-Soft, Bowel Sounds Present, Non Tender, Non Distended, No Hepatomegaly, No Splenomegaly, No Palpable Masses, No Rebound, No Rigidity, No Guarding Musculoskeletal-Full Range of Motion Bilaterally, No CVAT Extremities-No Cyanosis, No Clubbing, No Edema Nuero-Cranial Nerves II-XII grossly intact, Motor WNL, DTRs WNL, Strength WNL, Non Focal Psych-Pleasant Admission and Anticipated Discharge Date Admission Date: October 13, 2021 Subjective Patient is comfortable, seen today, feeling better, On Oxymask 92% 6L Results & Data Results & Data ([facility]) Vital Signs (Past 12 Hours) Vital Signs Temp Pulse Resp BP Pulse Ox 10/22/21 07:08 37.1 C 59 L 18 131/75 92 (1) COPD (chronic obstructive pulmonary disease) COPD type: unspecified COPD Qualified Code(s): J44.9 - Chronic obstructive pulmonary disease, unspecified
[2021-10-22] MEDS: dexAMETHasone 6 MG in SYRINGE 0 ML IV SCH (10:35)
[2021-10-22] MEDS ORDERED: FUROSEMIDE 40 MG/4 ML VIAL IV ONE (17:04)
[2021-10-22] MEDS: MIRTAZAPINE SOLTAB 15 MG PO SCH (21:52)
[2021-10-23] MEDS: MoRPHine SULFATE 4 MG/ML 1 ML CARP\\VIAL IV PRN (02:15)
[2021-10-23] MEDS: ASPIRIN 81 MG ECTAB PO SCH (08:14)
[2021-10-23] MEDS: HEPARIN SOD 5,000 UNIT/0.5 ML VIAL SQ SCH ×2 (08:14→21:49)
[2021-10-23] MEDS: FUROSEMIDE 40 MG/4 ML VIAL IV SCH (08:14)
[2021-10-23] MEDS: FENOFIBRATE NANOCRYSTALLIZED 145 MG TABLET PO SCH (08:14)
[2021-10-23] MEDS: dexAMETHasone 6 MG in SYRINGE 0 ML IV SCH (08:42)
--- NOTE | 2021-10-23 11:11 | Hospitalist Progress Note ---
Date of Service October 23, 2021 Assessment & Plan (1) Hypoxia: Plan: Acute on Chronic hypoxic respiratory failure Emphysema on CTA chest. continue oxygen to Keep O2 > 90% She is on 13L NC and 92%. (2) Weakness: (3) COVID-19: Plan: CT chest findings negative for pneumonia but does severe emphysema continue decadron --10 day course, Stop 10/23 finished 5 days remdesivir DC isolation (4) Elevated troponin I level: Plan: Likely demand in setting of actve infection no cheset pain, with her clinical status, and advanced age---> would not pursue further (5) COPD (chronic obstructive pulmonary disease): Plan: severe based on imaging not in acute exacerbation currently Nebs PRN (6) CAD (coronary artery disease): Plan: DC ASA, fenofibrate (7) Hx of CABG: Plan: see above Plan: Failure to thrive Severe protein malnutrition -continue general diet -Remeron Low dose for appetite -DC Isolation, 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 Dispo -Plan for home hospice, we will keep thru weekend and Stop Dex today, Push diet, Clinically seems better, patient may need SNF -Labs and CXR ordered, CXR DVT ppx-- lovenox to 40mg daily CTH neg after fall ROS-No N/V/F/Chills/CP/ARCEO, +COATES, Occas SOB Physical Exam Gen-AAOx 3 Pleasant, Frail and Thin Head-NCAT, EOMI, PERRLA, Anicteric Sclera, No Posterior Pharyngeal Erythema, MM very dry Neck-Supple, No JVD, No Thyromegaly, No Masses, No LAD, No Bruits Lungs-Clear to Auscultation Bilaterally, No Rales, No Rhonchi, No Wheezing, No Crepitus Chest-No S4, +S1, +S2, No S3, No Murmurs, No Rubs, No Gallops, No Ectopy Abdomen-Soft, Bowel Sounds Present, Non Tender, Non Distended, No Hepatomegaly, No Splenomegaly, No Palpable Masses, No Rebound, No Rigidity, No Guarding Musculoskeletal-Full Range of Motion Bilaterally, No CVAT Extremities-No Cyanosis, No Clubbing, No Edema Nuero-Cranial Nerves II-XII grossly intact, Motor WNL, DTRs WNL, Strength WNL, Non Focal Psych-Pleasant Admission and Anticipated Discharge Date Admission Date: October 13, 2021 Subjective Patient is comfortable, seen today, seems a little better, On Oxymask 92% 13L Results & Data Results & [facility] ([facility]) Vital Signs (Past 12 Hours) Vital Signs Temp Pulse Resp BP Pulse Ox 10/23/21 08:04 36.4 C L 58 L 12 146/71 H 92 (1) COPD (chronic obstructive pulmonary disease) COPD type: unspecified COPD Qualified Code(s): J44.9 - Chronic obstructive pulmonary disease, unspecified
--- NOTE | 2021-10-23 14:22 | XRay Report ---
XR chest 1V portable CLINICAL HISTORY: hypoxia TECHNIQUE: Single frontal radiograph of the chest was obtained. Comparison: Comparison is made to chest one view 10/13/2021 FINDINGS: No lines and tubes are seen. The aorta is tortuous. The remainder of the cardiomediastinal silhouette is unremarkable. The lungs are clear. Bilateral pleural effusions are seen. IMPRESSION: Small bilateral pleural effusions, increased from prior exam. ACT 112: Negative or not required by law. Electronically signed by: Kenrick Mosher M.D. 10/23/2021 2:21 PM
[2021-10-23] MEDS: MIRTAZAPINE SOLTAB 15 MG PO SCH (21:47)
[2021-10-24 06:31] LABS: Hematocrit (blood only) 40.8 % (37-47); Hemoglobin 13.4 g/dL (12.0-16.0); Mean Corpuscular Hemoglobin 29.3 pg (25-34); Mean Corpuscular Hgb Conc 32.8 g/dL (32-36); Mean Corpuscular Volume 89.1 fL (80-100); Mean Platelet Volume 11.2 fL (7.4-10.4); Platelet Count 276 K/uL (130-400); RDW Coefficient of Variation 15.2 % (11.5-14.5); RDW Standard Deviation 48.4 fL (36.4-46.3); Red Blood Count 4.58 M/uL (4.2-5.4); White Blood Count 10.65 K/uL (4.8-10.8)
[2021-10-24 06:44] LABS: Albumin Level 2.5 gm/dl (3.4-5.0); BUN Creatinine Ratio 37.5 (10-20); Bilirubin,Total 0.7 mg/dl (0.2-1.0); Calcium 8.7 mg/dl (8.5-10.1); Creatinine Clr Calc Pharmacy 55.2 ml/min; Est GFR (African American) 99.2 ml/min; Est GFR (Non-African American) 85.6 ml/min; Globulin 2.5 gm/dl (2.5-4.0); Potassium 3.3 mmol/L (3.5-5.1)
[2021-10-24] MEDS: dexAMETHasone 6 MG in SYRINGE 0 ML IV SCH (09:28)
[2021-10-24] MEDS: ASPIRIN 81 MG ECTAB PO SCH (09:29)
[2021-10-24] MEDS: FUROSEMIDE 40 MG/4 ML VIAL IV SCH (09:29)
[2021-10-24] MEDS: HEPARIN SOD 5,000 UNIT/0.5 ML VIAL SQ SCH ×2 (09:29→21:23)
[2021-10-24] MEDS: FENOFIBRATE NANOCRYSTALLIZED 145 MG TABLET PO SCH (09:29)
--- NOTE | 2021-10-24 14:19 | Hospitalist Progress Note ---
Date of Service October 24, 2021 Assessment & Plan (1) Hypoxia: Plan: Acute on Chronic hypoxic respiratory failure Emphysema on CTA chest. continue oxygen to Keep O2 > 90% She is on 13L NC and 90%. (2) Weakness: Plan: Patient fell this am, will watch. 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 Need to consider Hospice DC Isolation (3) COVID-19: Plan: CT chest findings negative for pneumonia but does severe emphysema continue decadron --10 day course, Stop 10/23 finished 5 days remdesivir DC isolation (4) Elevated troponin I level: Plan: Likely demand in setting of actve infection no cheset pain, with her clinical status, and advanced age---> would not pursue further (5) COPD (chronic obstructive pulmonary disease): Plan: severe based on imaging not in acute exacerbation currently Nebs PRN (6) CAD (coronary artery disease): Plan: DC ASA, fenofibrate (7) Hx of CABG: Plan: see above Plan: Failure to thrive Severe protein malnutrition -continue general diet -Remeron Low dose for appetite -DC Isolation, 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 Dispo -Plan for home hospice, we will DC soon, Push diet, Clinically waxing an Waning, patient may need SNF -Labs and CXR ordered, CXR DVT ppx-- lovenox to 40mg daily CTH neg after fall ROS-No N/V/F/Chills/CP/ARCEO, +COATES, Occas SOB Physical Exam Gen-AAO x 3 Pleasant, Frail and Thin Head-NCAT, EOMI, PERRLA, Anicteric Sclera, No Posterior Pharyngeal Erythema, MM very dry Neck-Supple, No JVD, No Thyromegaly, No Masses, No LAD, No Bruits Lungs-Clear to Auscultation Bilaterally, No Rales, No Rhonchi, No Wheezing, No Crepitus Chest-No S4, +S1, +S2, No S3, No Murmurs, No Rubs, No Gallops, No Ectopy Abdomen-Soft, Bowel Sounds Present, Non Tender, Non Distended, No Hepatomegaly, No Splenomegaly, No Palpable Masses, No Rebound, No Rigidity, No Guarding Musculoskeletal-Full Range of Motion Bilaterally, No CVAT Extremities-No Cyanosis, No Clubbing, No Edema Nuero-Cranial Nerves II-XII grossly intact, Motor WNL, DTRs WNL, Strength WNL, Non Focal Psych-Pleasant Admission and Anticipated Discharge Date Admission Date: October 13, 2021 Subjective Patient is comfortable, seen today, seems a little better, On Oxymask 92% 13L Results & Data Results & Data ([facility]) Vital Signs (Past 12 Hours) Vital Signs Pulse Resp BP Pulse Ox 10/24/21 11:40 83 15 149/78 H 90 10/24/21 09:43 67 87 L (1) COPD (chronic obstructive pulmonary disease) COPD type: unspecified COPD Qualified Code(s): J44.9 - Chronic obstructive pulmonary disease, unspecified
[2021-10-24] MEDS: POTASSIUM CHLORIDE 20 MEQ/15 ML UDC PO SCH (21:23)
[2021-10-24] MEDS: MIRTAZAPINE SOLTAB 15 MG PO SCH (21:23)
[2021-10-25] MEDS: ASPIRIN 81 MG ECTAB PO SCH (08:41)
[2021-10-25] MEDS: FENOFIBRATE NANOCRYSTALLIZED 145 MG TABLET PO SCH (08:41)
[2021-10-25] MEDS: FUROSEMIDE 40 MG/4 ML VIAL IV SCH (08:41)
[2021-10-25] MEDS: dexAMETHasone 6 MG in SYRINGE 0 ML IV SCH (08:41)
[2021-10-25] MEDS: HEPARIN SOD 5,000 UNIT/0.5 ML VIAL SQ SCH ×2 (08:43→20:23)
[2021-10-25] MEDS: POTASSIUM CHLORIDE 20 MEQ/15 ML UDC PO SCH ×2 (10:24→20:24)
--- NOTE | 2021-10-25 14:59 | Hospitalist Progress Note ---
Date of Service October 25, 2021 Assessment & Plan (1) Hypoxia: Plan: Acute on Chronic hypoxic respiratory failure Emphysema on CTA chest. Off O2 now on RA (2) Weakness: Plan: Patient fell yesterday, doing well. 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 (3) COVID-19: Plan: CT chest findings negative for pneumonia but does severe emphysema Decadron --10 day course, Stopped 10/23 finished 5 days remdesivir DC isolation (4) Elevated troponin I level: Plan: Likely demand in setting of actve infection no cheset pain, with her clinical status, and advanced age---> would not pursue further (5) COPD (chronic obstructive pulmonary disease): Plan: severe based on imaging not in acute exacerbation currently Nebs PRN (6) CAD (coronary artery disease): Plan: DC ASA, fenofibrate (7) Hx of CABG: Plan: see above Plan: Failure to thrive Severe protein malnutrition -continue general diet -Remeron Low dose for appetite -DC Isolation, 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 Goals of Care -Getting better, DC to SNF, PT/OT Dispo -Plan for SNF -Labs and CXR ordered, CXR DVT ppx-- lovenox to 40mg daily CTH neg after fall ROS-No N/V/F/Chills/CP/ARCEO, +COATES, Occas SOB Physical Exam Gen-AAO x 3 Pleasant, Frail and Thin Head-NCAT, EOMI, PERRLA, Anicteric Sclera, No Posterior Pharyngeal Erythema, MM very dry Neck-Supple, No JVD, No Thyromegaly, No Masses, No LAD, No Bruits Lungs-Clear to Auscultation Bilaterally, No Rales, No Rhonchi, No Wheezing, No Crepitus Chest-No S4, +S1, +S2, No S3, No Murmurs, No Rubs, No Gallops, No Ectopy Abdomen-Soft, Bowel Sounds Present, Non Tender, Non Distended, No Hepatomegaly, No Splenomegaly, No Palpable Masses, No Rebound, No Rigidity, No Guarding Musculoskeletal-Full Range of Motion Bilaterally, No CVAT Extremities-No Cyanosis, No Clubbing, No Edema Nuero-Cranial Nerves II-XII grossly intact, Motor WNL, DTRs WNL, Strength WNL, Non Focal Psych-Pleasant Admission and Anticipated Discharge Date Admission Date: October 13, 2021 Subjective Patient is comfortable, seen today, seems better, On Room air at 100%, New probe placed on forehead Results & Data Results & Data ([facility]) Vital Signs (Past 12 Hours) Vital Signs Resp Pulse Ox 10/25/21 06:25 18 100 (1) COPD (chronic obstructive pulmonary disease) COPD type: unspecified COPD Qualified Code(s): J44.9 - Chronic obstructive pulmonary disease, unspecified
[2021-10-25] MEDS: MIRTAZAPINE SOLTAB 15 MG PO SCH (20:24)
[2021-10-26] MEDS: dexAMETHasone 6 MG in SYRINGE 0 ML IV SCH (11:09)
[2021-10-26] MEDS: POTASSIUM CHLORIDE 20 MEQ/15 ML UDC PO SCH ×2 (11:09→21:55)
[2021-10-26] MEDS: FUROSEMIDE 40 MG/4 ML VIAL IV SCH (11:09)
[2021-10-26] MEDS: ASPIRIN 81 MG ECTAB PO SCH (14:03)
[2021-10-26] MEDS: HEPARIN SOD 5,000 UNIT/0.5 ML VIAL SQ SCH ×2 (14:03→21:55)
[2021-10-26] MEDS: FENOFIBRATE NANOCRYSTALLIZED 145 MG TABLET PO SCH (14:03)
--- NOTE | 2021-10-26 15:00 | Hospitalist Progress Note ---
Date of Service October 26, 2021 Assessment & Plan (1) Hypoxia: (2) COVID-19: Plan: This is a 86-year-old female who has significant past medical history of COPD, CAD with history of CABG x1, HLD, renal artery stenosis, HTN, glaucoma, elevated hemoglobin, history of tobacco abuse disorder, hard of hearing who presented to ED due to generalized weakness x1 week. Tested positive for COVID 19 on 10/13 CT chest findings negative for pneumonia but does severe emphysema Now doing well on room air Completed 5 days Remdesivir Decadron 10/13 - 10/19 Patient is mildly improving however overall prognosis poor. Son trying to decide between home with hospice vs. SNF. (3) Elevated troponin I level: Plan: Likely demand in setting of actve infection no cheset pain, with her clinical status, and advanced age---> would not pursue further (4) COPD (chronic obstructive pulmonary disease): Plan: severe based on imaging Nebs PRN (5) Hx of CABG: (6) CAD (coronary artery disease): Plan: on ASA, fenofibrate Failure to thrive Severe protein malnutrition -continue general diet -Remeron Low dose for appetite Dispo - home w/ hospice vs. SNF Admission and Anticipated Discharge Date Admission Date: October 13, 2021 Supervising Physician Co-Signing Physician Notes Attending Addendum: care coordinated with MARK Esposito please refer to her notes for full details, I agree with her notes patient seen and examined, records reviewed by myself as well on exam, patient seen resting in bed, sleeping but easily awakened awake, but seems confused comfortable no pain, shortness of breath states she feels ok VS noted and reviewed alert, not in distress, speaks in sentences with no effort nor accessory muscle use normal rate, regular rhythm, no murmurs clear breath sounds bilaterally non distended, soft, nontender no bipedal edema, erythema, warmth no neuro deficits labs noted and reviewed ASSESSMENT AND PLAN> COVID 19 INFECTION GENERALIZED WEAKNESS, DECONDITIONING completed course of Decadron and Remdesivir presently on room air continue supportive care possible transition to SNF desaturating with PT repeat CXR to ff up pleural effusion other diagnoses and plan of care as per MARK Esposito's notes Vern Amador MD Subjective Patient seen and examined. Follow up for weakness, COVID-19. Patient sitting up in bed, feeding herself lunch. States she feels "rotten", no other specific complaints offered. Review of Systems Review of Systems: ROS per HPI, all other systems reviewed and negative Physical Exam Constitutional: + thin and + cachectic; no acute distress Respiratory: normal respiratory effort; no respiratory distress Auscultation: + diminished lung sounds Cardiovascular: Rate/Rhythm: regular rate and regular rhythm Gastrointestinal (Abdomen): Percussion/Palpation: abdomen soft; abdomen nontender Skin: no rashes, warm and dry Neurologic: no focal motor deficits Psychiatric: Orientation: alert, oriented to person and oriented to place; + not oriented to time Insight: + limited insight Results & Data Results & Data ([place]) Vital Signs (Past 12 Hours) Vital Signs Pulse Ox Pulse Ox Pulse Ox 10/26/21 14:15 88 L 92 86 L (1) COPD (chronic obstructive pulmonary disease) COPD type: unspecified COPD Qualified Code(s): J44.9 - Chronic obstructive pulmonary disease, unspecified
--- NOTE | 2021-10-26 17:05 | XRay Report ---
XR chest 1V portable CLINICAL HISTORY: ff up pleural effusion. COMPARISON STUDY: 10/23/2021 TECHNIQUE: 1 view of the chest FINDINGS: Single frontal view of the chest demonstrates the cardiomediastinal silhouette to be within normal li mits. There is evidence for underlying COPD. The lungs are clear of alveolar opacities. Compared to p revious examination, the patient is in a more upright position with previously identified pleural eff usions in a more dependent position. Right pleural effusion is greater than left. Due to the differen alexandra in position, the amount of pleural fluid between the 2 studies cannot be accurately compared. The re is no evidence for vascular congestion. There is no acute osseous pathology. IMPRESSION: 1. There are again bilateral pleural effusions, right greater than left as described. 2. Underlying COPD with otherwise no acute chest disease. ACT 112: Negative or not required by law. Electronically signed by: Cas Louis M.D. 10/26/2021 5:04 PM
[2021-10-26] MEDS: MIRTAZAPINE SOLTAB 15 MG PO SCH (21:55)
[2021-10-27 07:59] LABS: Calcium 8.3 mg/dl (8.5-10.1); Est GFR (African American) 103.7 ml/min; Est GFR (Non-African American) 89.5 ml/min; Potassium 3.2 mmol/L (3.5-5.1)
[2021-10-27] MEDS: ASPIRIN 81 MG ECTAB PO SCH (08:21)
[2021-10-27] MEDS: HEPARIN SOD 5,000 UNIT/0.5 ML VIAL SQ SCH ×2 (08:21→21:12)
[2021-10-27] MEDS: FENOFIBRATE NANOCRYSTALLIZED 145 MG TABLET PO SCH (08:21)
[2021-10-27] MEDS: POTASSIUM CHLORIDE 20 MEQ/15 ML UDC PO SCH ×2 (08:22→21:12)
[2021-10-27] MEDS ORDERED: POTASSIUM CHLORIDE CRTAB 20 MEQ TABCR PO STA (12:01)
--- NOTE | 2021-10-27 12:07 | Hospitalist Progress Note ---
Date of Service October 27, 2021 Assessment & Plan (1) Hypoxia: (2) COVID-19: Plan: This is a 86-year-old female who has significant past medical history of COPD, CAD with history of CABG x1, HLD, renal artery stenosis, HTN, glaucoma, elevated hemoglobin, history of tobacco abuse disorder, hard of hearing who presented to ED due to generalized weakness x1 week. Tested positive for COVID 19 on 10/13 CT chest findings negative for pneumonia but does severe emphysema Now doing well on room air Completed 5 days Remdesivir Decadron 10/13 - 10/19 Patient is mildly improving however overall prognosis poor. Son trying to decide between home with hospice vs. SNF (3) Elevated troponin I level: Plan: Likely demand in setting of active infection No chest pain, with her clinical status, and advanced age---> would not pursue further (4) COPD (chronic obstructive pulmonary disease): Plan: Severe based on imaging Nebs PRN (5) Hx of CABG: (6) CAD (coronary artery disease): Plan: On ASA, fenofibrate Failure to thrive Severe protein malnutrition Continue general diet Remeron Low dose for appetite Dispo - home w/ hospice vs. SNF Admission and Anticipated Discharge Date Admission Date: October 13, 2021 Supervising Physician Co-Signing Physician Notes Attending Addendum: care coordinated with LEOBARDO Nataliya Puri please refer to her notes for full details, I agree with her notes patient seen and examined, records reviewed by myself as well on exam, patient seen resting in bed, comfortable on 2 L NC son at bedside alert, conversant breathing shallow as per patient, but ok would like to eat Pizza no other symptoms VS noted and reviewed oriented x 2, not in distress, speaks in sentences with no effort nor accessory muscle use appears weak normal rate, regular rhythm, no murmurs clear breath sounds bilaterally non distended, soft, nontender no bipedal edema, erythema, warmth no neuro deficits K 3.2 crea 0.4 ASSESSMENT AND PLAN> COVID INFECTION UNDERLYING COPD/EMPHYSEMA on 2 L O2 via NC wean off oxygen accordingly GENERALIZED WEAKNESS PT/OT eval transition to SNF when accepted other diagnoses and plan of care as per LEOBARDO Nataliya Amador MD Subjective Patient seen and examined in 301-1. Follow up for weakness, COVID-19. Patient resting in bed. A&Ox2. "Hanging in there" today. Denies any F/C, CP, SOB, N/V, abdominal pain, dysuria, diarrhea or constipation. Review of Systems Review of Systems: ROS per HPI, all other systems reviewed and negative Physical Exam Physical Exam: Gen: WD/WN, NAD, lying in bed, frail elderly woman, A&Ox2 HEENT: Normocephalic, atraumatic, conjunctivae moist, sclerae anicteric, mucous membranes moist Lung: Diminished lung sounds bilaterally but clear, no wheezes/rales/rhonchi Heart: Regular rate, regular rhythm, no murmurs, rubs, or gallops Abdomen: Soft, NT, ND +BS x 4 Extremities: no edema Skin: Warm, no rash Results & Data Results & Data ([facility]) Laboratory Results [facility] 10/27/21 07:09 Sodium 138 Potassium 3.2 L Chloride 103 Carbon Dioxide 29 BUN 24 H Creatinine 0.49 L Glucose 93 Calcium 8.3 L Diagnostic Findings Chest X-Ray 10/13/21 09:09 SINGLE VIEW CHEST CLINICAL HISTORY: Generalized weakness. FINDINGS: An AP, portable, semierect chest radiograph is obtained. No prior studies are available for comparison at the time of dictation. The examination is degraded by portable technique and patient rotation. The heart is mildly enlarged noting atherosclerotic calcification of the thoracic aorta. Enlargement of the central pulmonary arteries suggests pulmonary artery hypertension. Emphysema is suspected. Nonspecific interstitial thickening is likely chronic. There is bibasilar scarring/atelectasis. No airspace consolidation or large pleural effusion is identified. Question a nodular density at the left apex. No pneumothorax is seen. The skeletal structures are osteopenic. There are healed left-sided rib fractures. IMPRESSION: 1. Cardiomegaly and suspect emphysema. 2. No airspace consolidation or large pleural effusion is identified. 3. Question a nodular density at the left apex, which could represent bony overgrowth at the first costochondral junction. Correlation with a chest CT is recommended to exclude underlying pulmonary lesion. ACT 112: Negative or not required by law. Electronically signed by: Jonatan Ross M.D. 10/13/2021 9:55 AM Chest CTA 10/13/21 10:12 CT angio chest PE protocol CLINICAL HISTORY: Hypoxia. Positive Covid. Evaluate for pulmonary embolus. COMPARISON STUDY: Portable chest from 10/13/2021 CT DOSE: 821.51 mGy.cm TECHNIQUE: CT Angio of the chest was performed.followed by image post processing with coronal, and sagittal MIP reformats. Contrast Volume: Optiray 320, 120 ml FINDINGS: Vasculature: There is homogeneous perfusion of the pulmonary vasculature bilaterally. No intraluminal filling defects or evidence for pulmonary embolus is seen. Airway: The airway is clear. No endobronchial lesion is identified. Lungs: There are moderate to marked centrilobular emphysematous changes present bilaterally particularly involving the upper lobes. There is no evidence for a nodular density seen at the left lung apex by CT in the findings relate to the osseous structures. There is an alveolar opacity seen at the right lung base behind the right hemidiaphragm which is slightly elevated. The findings are most characteristic of atelectasis. No air bronchograms or evidence for pneumonia is seen. The remainder lungs are clear with no groundglass or alveolar opacities. Prominence of the interstitial markings is present related to the underlying emphysema. Pleura: There is no evidence for pleural effusion. There is no evidence for pneumothorax. Mediastinum: There is no evidence for pathologic adenopathy. The heart size is mildly enlarged. Coronary artery calcifications present. The aorta is atherosclerotic and ectatic. There is no evidence for pericardial effusion. Upper abdomen:There is evidence for low attenuation lesions involving both adrenal glands characteristic of bilateral adrenal adenomas. There is a 5 mm nonobstructing right renal calculus. Osseous structures: There is no acute osseous pathology. Impression: 1. No CTA evidence for pulmonary embolus. 2. Moderate to marked centrilobular emphysematous changes with no evidence for groundglass opacities or left apical nodule. 3. There is asymmetric elevation of the right hemidiaphragm with atelectasis present within the right lower lobe posterior to the right hemidiaphragm. No bronchograms are present. 4. Coronary artery calcification. Aortic calcification. 5. Evidence for bilateral adrenal adenomas. 6. 5 mm nonobstructing right renal calculus. ACT 112: Negative or not required by law. Electronically signed by: Cas Louis M.D. 10/13/2021 11:[address] 10/13/21 10:12 CT SCAN OF THE BRAIN WITHOUT IV CONTRAST CLINICAL HISTORY: Generalized weakness. COMPARISON STUDY: No priors. TECHNIQUE: Unenhanced axial CT scan of the brain is performed from the vertex to the skull base. A dose lowering technique was utilized adhering to the principles of ALARA. FINDINGS: Brain parenchyma: There are age-related involutional changes noting moderate subcortical and periventricular microangiopathic change. There is no hemorrhage, mass effect, or evidence of acute territorial ischemia by CT criteria. Jamison- white matter differentiation is preserved. No extra-axial fluid collection is seen. Ventricles, sulci, cisterns: Prominent secondary to involutional change. Intracranial vasculature: There is atherosclerotic calcification of the cavernous carotid and vertebral arteries. Calvarium: Unremarkable. Sinuses and mastoids: The visualized paranasal sinuses are clear. The mastoid air cells are well pneumatized. Orbits: The bony orbits are grossly intact. There are bilateral ocular lens implants. IMPRESSION: There is no hemorrhage, mass effect, or evidence of acute territorial ischemia by CT criteria. ACT 112: Negative or not required by law. Electronically signed by: Jonatan Ross M.D. 10/13/2021 11:[address] 10/19/21 12:[address] DOSE: 537.48 mGy.cm HISTORY: Fall TECHNIQUE: Multiaxial CT images of the head were performed without the use of intravenous contrast. Automated exposure control was utilized for this study. A dose lowering technique was utilized adhering to the principles of ALARA. Comparison: Head CT 10/13/2021. Findings: The paranasal sinuses and mastoid air cells are clear. The calvarium and skull base are intact. There is no mass, hematoma, midline shift, acute infarct. White matter hypodensity is nonspecific but suggestive of microvascular ischemic change. The ventricles and sulci demonstrate mild age-related involutional changes. Impression: No significant change compared to the prior study. No acute intracranial abnormality. ACT 112: Negative or not required by law. Electronically signed by: Oc Dick M.D. 10/19/2021 1:50 PM Chest X-Ray 10/23/21 11:07 XR chest 1V portable CLINICAL HISTORY: hypoxia TECHNIQUE: Single frontal radiograph of the chest was obtained. Comparison: Comparison is made to chest one view 10/13/2021 FINDINGS: No lines and tubes are seen. The aorta is tortuous. The remainder of the cardiomediastinal silhouette is unremarkable. The lungs are clear. Bilateral pleural effusions are seen. IMPRESSION: Small bilateral pleural effusions, increased from prior exam. ACT 112: Negative or not required by law. Electronically signed by: Kenrick Mosher M.D. 10/23/2021 2:21 PM Chest X-Ray 10/26/21 16:28 XR chest 1V portable CLINICAL HISTORY: ff up pleural effusion. COMPARISON STUDY: 10/23/2021 TECHNIQUE: 1 view of the chest FINDINGS: Single frontal view of the chest demonstrates the cardiomediastinal silhouette to be within normal limits. There is evidence for underlying COPD. The lungs are clear of alveolar opacities. Compared to previous examination, the patient is in a more upright position with previously identified pleural effusions in a more dependent position. Right pleural effusion is greater than left. Due to the differences in position, the amount of pleural fluid between the 2 studies cannot be accurately compared. There is no evidence for vascular congestion. There is no acute osseous pathology. IMPRESSION: 1. There are again bilateral pleural effusions, right greater than left as described. 2. Underlying COPD with otherwise no acute chest disease. ACT 112: Negative or not required by law. Electronically signed by: Cas Louis M.D. 10/26/2021 5:04 PM (1) COPD (chronic obstructive pulmonary disease) COPD type: unspecified COPD Qualified Code(s): J44.9 - Chronic obstructive pulmonary disease, unspecified
[2021-10-27] MEDS ORDERED: SODIUM CHLORIDE 0.9% 1000ML 1,000 ML IV SCH (18:45)
[2021-10-27] MEDS: MIRTAZAPINE SOLTAB 15 MG PO SCH (21:11)
[2021-10-28] MEDS: POTASSIUM CHLORIDE 20 MEQ/15 ML UDC PO SCH (08:30)
[2021-10-28] MEDS: HEPARIN SOD 5,000 UNIT/0.5 ML VIAL SQ SCH ×2 (08:30→20:39)
[2021-10-28] MEDS: FENOFIBRATE NANOCRYSTALLIZED 145 MG TABLET PO SCH (08:31)
[2021-10-28] MEDS: ASPIRIN 81 MG ECTAB PO SCH (08:31)
--- NOTE | 2021-10-28 16:48 | Hospitalist Progress Note ---
Date of Service October 28, 2021 Assessment & Plan (1) Hypoxia: (2) COVID-19: Plan: This is a 86-year-old female who has significant past medical history of COPD, CAD with history of CABG x1, HLD, renal artery stenosis, HTN, glaucoma, elevated hemoglobin, history of tobacco abuse disorder, hard of hearing who presented to ED due to generalized weakness x1 week. Tested positive for COVID 19 on 10/13 CT chest findings negative for pneumonia but does severe emphysema Completed 5 days Remdesivir Decadron 10/13 - 10/19 now on 2 L nasal cannula PO intake improving alert, oriented encouraged to eat more patient agreeable (3) Elevated troponin I level: Plan: Likely demand in setting of active infection No chest pain (4) COPD (chronic obstructive pulmonary disease): Plan: Severe based on imaging Nebs PRN (5) Hx of CABG: (6) CAD (coronary artery disease): Plan: On ASA, fenofibrate Failure to thrive Severe protein malnutrition Continue general diet, Boost Remeron Low dose for appetite Dispo - anticipate to transition to SNF on Sunday plan of care discussed with patient and son Ramiro in detail and at length all questions answered they are understanding, agreeable, comfortable with the plan of care Admission and Anticipated Discharge Date Admission Date: October 13, 2021 Subjective ff up for COVID 19 infection, etc seen resting in bed, sitting up patient's son Ramiro at bedside visiting alert, oriented x2 answers all questions appropriately states she feels ok overall eating more, had 1 slice of pizza last night this morning had toasted bread, oatmeal denies dyspnea, cough, chest pain no other pain no other symptoms Review of Systems Review of Systems: all noted and negative except for above Physical Exam Physical Exam: General- oriented x 2, not in distress, speaks in sentences with no effort or accessory muscle use frail looking Eyes- anicteric Neck- no JVD Lungs- diminished but clear breath sounds bilaterally no rales/wheezing Heart- normal rate, regular rhythm; no murmurs Abdomen- normal bowel sounds, nondistended, soft, nontender Extremities- no pretibial edema, no calf tenderness Neuro- alert, oriented x 2; no gross focal neurologic deficits Skin- warm & dry (1) COPD (chronic obstructive pulmonary disease) COPD type: unspecified COPD Qualified Code(s): J44.9 - Chronic obstructive pulmonary disease, unspecified
[2021-10-28 17:44] LABS: Potassium 4.4 mmol/L (3.5-5.1)
[2021-10-28 18:15] LABS: BUN Creatinine Ratio 59.6 (10-20); Calcium 8.6 mg/dl (8.5-10.1); Creatinine Clr Calc Pharmacy 59.4 ml/min; Est GFR (African American) 101.7 ml/min; Est GFR (Non-African American) 87.7 ml/min
[2021-10-28] MEDS: MIRTAZAPINE SOLTAB 15 MG PO SCH (20:37)
[2021-10-29 06:13] LABS: BUN Creatinine Ratio 46.3 (10-20); Calcium 8.5 mg/dl (8.5-10.1); Creatinine Clr Calc Pharmacy 57.2 ml/min; Est GFR (African American) 100.4 ml/min; Est GFR (Non-African American) 86.7 ml/min; Potassium 4.1 mmol/L (3.5-5.1)
[2021-10-29] MEDS: ASPIRIN 81 MG ECTAB PO SCH (08:02)
[2021-10-29] MEDS: FENOFIBRATE NANOCRYSTALLIZED 145 MG TABLET PO SCH (08:02)
[2021-10-29] MEDS: HEPARIN SOD 5,000 UNIT/0.5 ML VIAL SQ SCH ×2 (08:02→20:53)
--- NOTE | 2021-10-29 17:25 | Hospitalist Progress Note ---
Date of Service October 29, 2021 Assessment & Plan (1) Hypoxia: (2) COVID-19: Plan: This is a 86-year-old female who has significant past medical history of COPD, CAD with history of CABG x1, HLD, renal artery stenosis, HTN, glaucoma, elevated hemoglobin, history of tobacco abuse disorder, hard of hearing who presented to ED due to generalized weakness x1 week. Tested positive for COVID 19 on 10/13 CT chest findings negative for pneumonia but does severe emphysema Completed 5 days Remdesivir Decadron 10/13 - 10/19 now on 2 L nasal cannula Respiratory status stable PO intake improving alert, oriented Continue to monitor closely (3) Elevated troponin I level: Plan: Likely demand in setting of active infection No chest pain (4) COPD (chronic obstructive pulmonary disease): Plan: Severe based on imaging Nebs PRN (5) Hx of CABG: (6) CAD (coronary artery disease): Plan: On ASA, fenofibrate Failure to thrive Severe protein malnutrition Continue general diet, Boost Remeron Low dose for appetite Dispo - anticipate to transition to SNF on Sunday Admission and Anticipated Discharge Date Admission Date: October 13, 2021 Subjective Follow-up for COVID-19 infection, etc. Seen sitting up in bed, comfortable, not in distress On 2 L of oxygen States appetite is good Feels anxious, reassured, patient appeared more calm, smiling No other new symptoms Review of Systems Review of Systems: all noted and negative except for above Physical Exam Physical Exam: General- oriented x 3, not in distress, speaks in sentences with no effort or accessory muscle use Eyes- anicteric Neck- no JVD Lungs- clear breath sounds bilaterally, no wheezing or crackles Heart- normal rate, regular rhythm; no murmurs Abdomen- normal bowel sounds, nondistended, soft, nontender Extremities- no pretibial edema, no calf tenderness Neuro- alert, oriented x 3; no gross focal neurologic deficits Skin- warm & dry Results & Data Results & Data ([facility]) Vital Signs (Past 12 Hours) Vital Signs Temp Pulse Resp BP Pulse Ox 10/29/21 15:32 36.8 C 72 18 152/77 H 92 10/29/21 07:40 36.7 C 71 18 158/75 H 97 all noted and reviewed including below (1) COPD (chronic obstructive pulmonary disease) COPD type: unspecified COPD Qualified Code(s): J44.9 - Chronic obstructive pulmonary disease, unspecified
[2021-10-29] MEDS: MIRTAZAPINE SOLTAB 15 MG PO SCH (20:55)
[2021-10-30] MEDS: ASPIRIN 81 MG ECTAB PO SCH (08:07)
[2021-10-30] MEDS: FENOFIBRATE NANOCRYSTALLIZED 145 MG TABLET PO SCH (08:07)
[2021-10-30] MEDS: HEPARIN SOD 5,000 UNIT/0.5 ML VIAL SQ SCH ×2 (08:07→22:27)
[2021-10-30] MEDS: amLODIPine BESYLATE 5 MG TAB PO SCH (12:09)
--- NOTE | 2021-10-30 18:28 | Hospitalist Progress Note ---
Date of Service October 30, 2021 Assessment & Plan (1) Hypoxia: (2) COVID-19: Plan: This is a 86-year-old female who has significant past medical history of COPD, CAD with history of CABG x1, HLD, renal artery stenosis, HTN, glaucoma, elevated hemoglobin, history of tobacco abuse disorder, hard of hearing who presented to ED due to generalized weakness x1 week. Tested positive for COVID 19 on 10/13 CT chest findings negative for pneumonia but does severe emphysema Completed 5 days Remdesivir Decadron 10/13 - 10/19 now on 2 L nasal cannula appetite better, appears brighter PO intake improving alert, oriented Continue to monitor closely (3) Elevated troponin I level: Plan: Likely demand in setting of active infection No chest pain (4) COPD (chronic obstructive pulmonary disease): Plan: Severe based on imaging Nebs PRN (5) Hx of CABG: (6) CAD (coronary artery disease): Plan: On ASA, fenofibrate Failure to thrive Severe protein malnutrition Continue general diet, Boost Remeron Low dose for appetite Dispo - anticipate to transition to SNF on Sunday Admission and Anticipated Discharge Date Admission Date: October 13, 2021 Subjective ff up for covid 19 infection, etc seen resting in bed, comfortable on 2 L NC in good spirits states she feels fine overall denies shortness of breath, chest pain, palpitations, dizziness no other symptoms Review of Systems Review of Systems: all noted and negative except for above Physical Exam Physical Exam: General- oriented x 2, not in distress, speaks in sentences with no effort or accessory muscle use Eyes- anicteric Neck- no JVD Lungs- clear breath sounds bilaterally no crackles/wheezing Heart- normal rate, regular rhythm; no murmurs Abdomen- normal bowel sounds, nondistended, soft, nontender Extremities- no pretibial edema, no calf tenderness Neuro- alert, oriented x 2; no gross focal neurologic deficits Skin- warm & dry Results & Data Results & Data ([facility]) Vital Signs (Past 12 Hours) Vital Signs Temp Pulse Resp BP BP Pulse Ox 10/30/21 15:18 37.0 C 62 17 153/69 H 91 10/30/21 12:09 64 125/69 10/30/21 07:32 36.4 C L 66 17 169/82 H 92 all noted and reviewed including below (1) COPD (chronic obstructive pulmonary disease) COPD type: unspecified COPD Qualified Code(s): J44.9 - Chronic obstructive pulmonary disease, unspecified
[2021-10-30] MEDS: MIRTAZAPINE SOLTAB 15 MG PO SCH (22:27)
[2021-10-31] MEDS: FENOFIBRATE NANOCRYSTALLIZED 145 MG TABLET PO SCH (10:28)
[2021-10-31] MEDS: ASPIRIN 81 MG ECTAB PO SCH (10:28)
[2021-10-31] MEDS: HEPARIN SOD 5,000 UNIT/0.5 ML VIAL SQ SCH ×2 (10:29→20:33)
[2021-10-31] MEDS: amLODIPine BESYLATE 5 MG TAB PO SCH (10:29)
--- NOTE | 2021-10-31 17:33 | Hospitalist Progress Note ---
Date of Service October 31, 2021 Assessment & Plan (1) Hypoxia: (2) COVID-19: Plan: This is a 86-year-old female who has significant past medical history of COPD, CAD with history of CABG x1, HLD, renal artery stenosis, HTN, glaucoma, elevated hemoglobin, history of tobacco abuse disorder, hard of hearing who presented to ED due to generalized weakness x1 week. Tested positive for COVID 19 on 10/13 CT chest findings negative for pneumonia but does severe emphysema Completed 5 days Remdesivir Decadron 10/13 - 10/19 remains on 2 L nasal cannula appetite improving seems to be improving overall alert, oriented Continue to monitor closely (3) Elevated troponin I level: Plan: Likely demand in setting of active infection No chest pain (4) COPD (chronic obstructive pulmonary disease): Plan: Severe based on imaging Nebs PRN (5) Hx of CABG: (6) CAD (coronary artery disease): Plan: On ASA, fenofibrate Failure to thrive Severe protein malnutrition Continue general diet, Boost Remeron Low dose for appetite Dispo - anticipate to transition to SNF on Sunday Admission and Anticipated Discharge Date Admission Date: October 13, 2021 Subjective ff up for covid 19 infection, etc seen resting in bed, comfortable in good spirits states she feels better today no chest pain, dyspnea, palpitations, dizziness no cough appetite is good no other symptoms Review of Systems Review of Systems: all noted and negative except for above Physical Exam Physical Exam: General- oriented x 2, not in distress, speaks in sentences with no effort or accessory muscle use Eyes- anicteric Neck- no JVD Lungs- clear BS BL no rales no wheezing Heart- normal rate, regular rhythm; no murmurs Abdomen- normal bowel sounds, nondistended, soft, nontender Extremities- no pretibial edema, no calf tenderness Neuro- alert, oriented x 2; no gross focal neurologic deficits Skin- warm & dry Results & Data Results & Data ([facility]) Vital Signs (Past 12 Hours) Vital Signs Temp Pulse Resp BP Pulse Ox 10/31/21 14:17 36.3 C L 62 16 136/72 93 10/31/21 10:45 95 10/31/21 08:25 36.4 C L 75 20 118/69 91 all noted and reviewed including below (1) COPD (chronic obstructive pulmonary disease) COPD type: unspecified COPD Qualified Code(s): J44.9 - Chronic obstructive pulmonary disease, unspecified
[2021-10-31] MEDS: MIRTAZAPINE SOLTAB 15 MG PO SCH (20:33)
[2021-11-01] MEDS: FENOFIBRATE NANOCRYSTALLIZED 145 MG TABLET PO SCH (08:38)
[2021-11-01] MEDS: ASPIRIN 81 MG ECTAB PO SCH (08:38)
[2021-11-01] MEDS: amLODIPine BESYLATE 5 MG TAB PO SCH (08:38)
[2021-11-01] MEDS: HEPARIN SOD 5,000 UNIT/0.5 ML VIAL SQ SCH (08:38)
--- NOTE | 2021-11-01 10:44 | Discharge Summary ---
Date of Service November 01, 2021 Admission HPI Per Admitting Provider This is a 86-year-old female who has significant past medical history of COPD, CAD with history of CABG x1, HLD, renal artery stenosis, HTN, glaucoma, elevated hemoglobin, history of tobacco abuse disorder, hard of hearing who presents to ED due to generalized weakness x1 week. Patient's son is at bedside who is an employee of [employer]. He states over the past week they have noticed a gradual decline in patient as she has had decreased oral intake with eating and drinking. She also has started to feel, "sick." She lives at home with her nephew. She admits to feeling chilled but denies any documented fever or sweats. She does have a cough that is intermittently wet and productive and dry. She is unable to tell me if she chronically has a cough due to her COPD. She is not chronically on oxygen at home per son. She denies any nausea, vomiting, abdominal pain, hemoptysis, chest pain, shortness of breath, dysuria, increased urgency or frequency with urination, melena or hematochezia. She does complain of pain to her left lateral chest wall that is worse with inspiration. It feels better when lying on right side. She has not tried anything to help relieve the pain. Pain is currently a 3 out of 10. Of significance patient is a DNR and DNI. She states when the "good Lord is ready to take me I am ready." She admits to, "being ready to ." In ED patient did remain hemodynamically stable although mildly hypoxic requiring 2 L of oxygen. Her blood pressure was mildly elevated at 166/86. Her lab work showed dehydration with elevated BUN at 41 and creatinine of 0.78. Her H&H were also elevated at 19.4 and 59.0. Her INR was slightly elevated as well at 1.7. Her VBG did reveal a compensated respiratory hypercarbia. She did test positive for COVID-19. Her initial troponin was elevated at 0.17. She does have known history of heart disease. EKG revealed sinus bradycardia but she did have significant T wave inversions in leads V4 to V5 as well as 2 to aVF. In ED she was started on IV dexamethasone, received oral aspirin and IV fluid. Admission Exam Per Admitting Provider Constitutional: Elderly, frail, cachectic, acutely ill, female, vitals as above, NAD, sitting up in bed, hard of hearing, answers yes/no questions easily Head: Normocephalic, Atraumatic, temporal wasting bilaterally Eyes: PERRL, conjunctivae normal, anicteric sclerae ENMT: external ear and nose normal, oropharynx normal Neck: trachea midline, no thyromegaly normal visual inspection Respiratory: normal respiratory effort, lungs clear to auscultation, no wheeze, rales, rhonchi. Normal insp/exp effort, no accessory muscle use Cardiovascular: RRR, on 2 L via NC, no murmur, no edema Vessels: no JVD or carotid bruit Chest: normal inspection of chest, seborrheic keratoses noted on anterior lateral chest wall as well as posterior, no pain to palpation Abdomen: normal bowel sounds, soft, nontender, no hepatosplenomegaly Musculoskeletal: no cyanosis or clubbing, no range of motion x4 Skin: no rashes, warm and dry moderate turgor Neurologic: PERRL, EOMI, accommodation nl, no face palsy, no dysarthria CN's II-XI intact bilaterally and moves all extremities Psychiatric: A+Ox3, dysthymic affect Lymphatic: no cervical or axillary lymphadenopathy : deferred Principal Diagnosis Acute hypoxic respiratory failure due to COVID-19 Ambulatory dysfunction Discharge Exam Constitutional + thin and + cachectic; no acute distress Respiratory normal respiratory effort; no respiratory distress Auscultation: + diminished lung sounds Cardiovascular Rate/Rhythm: regular rate and regular rhythm Vessels: normal peripheral pulses Extremities: no edema Gastrointestinal (Abdomen) Percussion/Palpation: abdomen soft; abdomen nontender Skin no rashes, warm and dry Neurologic no focal motor deficits Psychiatric Orientation: alert and oriented x 3 Affect: + depressed affect Insight: + limited insight Genitourinary Harper catheter in place Discharge Data Allergies Allergy/AdvReac Type Severity Reaction Status Date / Time propoxyphene AdvReac Unknown INTOLERANCE Verified 10/13/21 10:11 acetaminophen [From Percocet] AdvReac Confusion Unverified 10/13/21 10:11 oxycodone [From Percocet] AdvReac Confusion Unverified 10/13/21 10:11 Ordered Studies Laboratory Results WBC 10.65 K/uL (4.8-10.8) 10/24/21 05:33 RBC 4.58 M/uL (4.2-5.4) 10/24/21 05:33 Hgb 13.4 g/dL (12.0-16.0) 10/24/21 05:33 Hct 40.8 % (37-47) 10/24/21 05:33 MCV 89.1 fL (80-100) 10/24/21 05:33 MCH 29.3 pg (25-34) 10/24/21 05:33 MCHC 32.8 g/dL (32-36) 10/24/21 05:33 RDW Std Deviation 48.4 fL (36.4-46.3) H 10/24/21 05:33 RDW Coeff of Grey 15.2 % (11.5-14.5) H 10/24/21 05:33 Plt Count 276 K/uL (130-400) 10/24/21 05:33 MPV 11.2 fL (7.4-10.4) H 10/24/21 05:33 Immature Gran % (Auto) 0.3 % 10/18/21 05:54 Neut % (Auto) 80.2 % 10/18/21 05:54 Lymph % (Auto) 10.9 % 10/18/21 05:54 [place] % (Auto) 8.5 % 10/18/21 05:54 Eos % (Auto) 0.0 % 10/18/21 05:54 Baso % (Auto) 0.1 % 10/18/21 05:54 Neut # (Auto) 8.27 K/uL (1.4-6.5) H 10/18/21 05:54 Lymph # (Auto) 1.12 K/uL (1.2-3.4) L 10/18/21 05:54 [place] # (Auto) 0.88 K/uL (0.11-0.59) H 10/18/21 05:54 Eos # (Auto) 0.00 K/uL (0-0.5) 10/18/21 05:54 Baso # (Auto) 0.01 K/uL (0-0.2) 10/18/21 05:54 Immature Gran # (Auto) 0.03 K/uL (0.00-0.02) H 10/18/21 05:54 PT 17.2 Seconds (9.0-12.0) H 10/14/21 05:41 INR 1.8 (0.9-1.1) H 10/14/21 05:41 D-Dimer 360 ug/L FEU (0-500) 10/15/21 14:19 VBG pH 7.37 (7.36-7.41) 10/14/21 05:41 VBG pCO2 52 mmHg (38-50) H 10/14/21 05:41 VBG pO2 55 mmHg 10/14/21 05:41 VBG HCO3 30 mmol/L 10/14/21 05:41 VBG O2 Saturation 87.6 % 10/14/21 05:41 VBG Base Excess 2.9 mEq/L 10/14/21 05:41 Barometric Pressure 734.3 mm/Hg 10/13/21 09:34 Sodium 137 mmol/L (136-145) 10/29/21 05:17 Potassium 4.1 mmol/L (3.5-5.1) 10/29/21 05:17 Chloride 106 mmol/L (98-107) 10/29/21 05:17 Carbon Dioxide 27 mmol/L (21-32) 10/29/21 05:17 Anion Gap 4 (3-11) 10/29/21 05:17 BUN 25 mg/dl (6-23) H 10/29/21 05:17 Creatinine 0.54 mg/dl (0.6-1.2) L 10/29/21 05:17 Est Cr Clr Drug Dosing 57.2 ml/min 10/29/21 05:17 Est GFR ( Amer) 100.4 ml/min 10/29/21 05:17 Est GFR (Non-Af Amer) 86.7 ml/min 10/29/21 05:17 BUN/Creatinine Ratio 46.3 (10-20) H 10/29/21 05:17 Glucose 76 mg/dl (70-99(Fasting)) 10/29/21 05:17 Lactate 0.7 mmol/L (0.4-2.0) 10/13/21 09:34 Calcium 8.5 mg/dl (8.5-10.1) 10/29/21 05:17 Phosphorus 2.0 mg/dl (2.5-4.9) L 10/15/21 14:19 Magnesium 1.7 mg/dl (1.7-2.4) 10/15/21 14:19 Ferritin 284.1 ng/ml (8-388) 10/16/21 06:15 Total Bilirubin 0.7 mg/dl (0.2-1.0) 10/24/21 05:33 AST 15 U/L (13-39) 10/24/21 05:33 ALT 9 U/L (7-52) 10/24/21 05:33 Alkaline Phosphatase 48 U/L (34-104) 10/24/21 05:33 Total Creatine Kinase 72 U/L (26-192) 10/13/21 09:00 Troponin I 0.05 ng/ml (0-0.04) H* 10/13/21 20:24 C-Reactive Protein < 0.50 mg/dl (0-0.5) 10/17/21 06:06 Total Protein 5.0 gm/dl (6.0-8.3) L 10/24/21 05:33 Albumin 2.5 gm/dl (3.4-5.0) L 10/24/21 05:33 Globulin 2.5 gm/dl (2.5-4.0) 10/24/21 05:33 Albumin/Globulin Ratio 1.0 (0.9-2) 10/24/21 05:33 Prealbumin 10.7 mg/dl (20-40) L 10/14/21 05:41 Procalcitonin < 0.05 ng/ml (0-0.5) 10/16/21 06:15 TSH 1.789 uIu/ml (0.300-4.500) 10/13/21 09:00 Urine Color Dark Yellow 10/13/21 16:30 Urine Appearance Clear (Clear) 10/13/21 16:30 Urine pH 5.0 (4.5-7.5) 10/13/21 16:30 Ur Specific [place] > 1.045 (1.000-1.030) H 10/13/21 16:30 Urine Protein Trace (Negative) H 10/13/21 16:30 Urine Glucose (UA) Negative (Negative) 10/13/21 16:30 Urine Ketones Negative (Negative) 10/13/21 16:30 Urine Blood Negative (Negative) 10/13/21 16:30 Urine Nitrite Negative (Negative) 10/13/21 16:30 Urine Bilirubin Negative (Negative) 10/13/21 16:30 Urine Urobilinogen Negative (Negative) 10/13/21 16:30 Ur Leukocyte Esterase 1+ (Negative) H 10/13/21 16:30 Urine WBC (Auto) 10-30 /hpf (0-5) H 10/13/21 16:30 Urine RBC (Auto) 0-4 /hpf (0-4) 10/13/21 16:30 U Hyaline Cast (Auto) 1-5 /lpf (0-5) 10/13/21 16:30 U Epithel Cells (Auto) >30 /lpf (0-5) H 10/13/21 16:30 Urine Bacteria (Auto) Negative (Negative) 10/13/21 16:30 SARS-CoV-2, RNA, NAAT POSITIVE (NEGATIVE) A* 10/13/21 Unknown Impressions Chest CTA 10/13/21 10:12 CT angio chest PE protocol CLINICAL HISTORY: Hypoxia. Positive Covid. Evaluate for pulmonary embolus. COMPARISON STUDY: Portable chest from 10/13/2021 CT DOSE: 821.51 mGy.cm TECHNIQUE: CT Angio of the chest was performed.followed by image post processing with coronal, and sagittal MIP reformats. Contrast Volume: Optiray 320, 120 ml FINDINGS: Vasculature: There is homogeneous perfusion of the pulmonary vasculature bilaterally. No intraluminal filling defects or evidence for pulmonary embolus is seen. Airway: The airway is clear. No endobronchial lesion is identified. Lungs: There are moderate to marked centrilobular emphysematous changes present bilaterally particularly involving the upper lobes. There is no evidence for a nodular density seen at the left lung apex by CT in the findings relate to the osseous structures. There is an alveolar opacity seen at the right lung base behind the right hemidiaphragm which is slightly elevated. The findings are most characteristic of atelectasis. No air bronchograms or evidence for pneumonia is seen. The remainder lungs are clear with no groundglass or alveolar opacities. Prominence of the interstitial markings is present related to the underlying emphysema. Pleura: There is no evidence for pleural effusion. There is no evidence for pneumothorax. Mediastinum: There is no evidence for pathologic adenopathy. The heart size is mildly enlarged. Coronary artery calcifications present. The aorta is atherosclerotic and ectatic. There is no evidence for pericardial effusion. Upper abdomen:There is evidence for low attenuation lesions involving both adrenal glands characteristic of bilateral adrenal adenomas. There is a 5 mm nonobstructing right renal calculus. Osseous structures: There is no acute osseous pathology. Impression: 1. No CTA evidence for pulmonary embolus. 2. Moderate to marked centrilobular emphysematous changes with no evidence for groundglass opacities or left apical nodule. 3. There is asymmetric elevation of the right hemidiaphragm with atelectasis present within the right lower lobe posterior to the right hemidiaphragm. No bronchograms are present. 4. Coronary artery calcification. Aortic calcification. 5. Evidence for bilateral adrenal adenomas. 6. 5 mm nonobstructing right renal calculus. ACT 112: Negative or not required by law. Electronically signed by: Cas Louis M.D. 10/13/2021 11:[address] 10/19/21 12:[address] DOSE: 537.48 mGy.cm HISTORY: Fall TECHNIQUE: Multiaxial CT images of the head were performed without the use of intravenous contrast. Automated exposure control was utilized for this study. A dose lowering technique was utilized adhering to the principles of ALARA. Comparison: Head CT 10/13/2021. Findings: The paranasal sinuses and mastoid air cells are clear. The calvarium and skull base are intact. There is no mass, hematoma, midline shift, acute inf arct. White matter hypodensity is nonspecific but suggestive of microvascular ischemic change. The ventricles and sulci demonstrate mild age-related involutional changes. Impression: No significant change compared to the prior study. No acute intracranial abnormality. ACT 112: Negative or not required by law. Electronically signed by: Oc Dick M.D. 10/19/2021 1:50 PM Chest X-Ray 10/26/21 16:28 XR chest 1V portable CLINICAL HISTORY: ff up pleural effusion. COMPARISON STUDY: 10/23/2021 TECHNIQUE: 1 view of the chest FINDINGS: Single frontal view of the chest demonstrates the cardiomediastinal silhouette to be within normal limits. There is evidence for underlying COPD. The lungs are clear of alveolar opacities. Compared to previous examination, the patient is in a more upright position with previously identified pleural effusions in a more dependent position. Right pleural effusion is greater than left. Due to the differences in position, the amount of pleural fluid between the 2 studies cannot be accurately compared. There is no evidence for vascular congestion. There is no acute osseous pathology. IMPRESSION: 1. There are again bilateral pleural effusions, right greater than left as described. 2. Underlying COPD with otherwise no acute chest disease. ACT 112: Negative or not required by law. Electronically signed by: Cas Louis M.D. 10/26/2021 5:04 PM Hospital Course (1) Hypoxia: (2) COVID-19: This is a 86-year-old female who has significant past medical history of COPD, CAD with history of CABG x1, HLD, renal artery stenosis, HTN, glaucoma, elevated hemoglobin, history of tobacco abuse disorder, hard of hearing who pre sented to ED due to generalized weakness x1 week. Tested positive for COVID 19 on 10/13 CT chest findings negative for pneumonia but does severe emphysema Completed 5 days Remdesivir Decadron 10/13 - 10/19 Stable on 2 L of oxygen via nasal cannula (3) Elevated troponin I level: Likely demand in setting of active infection No chest pain (4) COPD (chronic obstructive pulmonary disease): Severe based on imaging (5) Hx of CABG: (6) CAD (coronary artery disease): On ASA, fenofibrate HTN BP controlled on amlodipine Failure to thrive Severe protein malnutrition Continue general diet, Boost Remeron Low dose for appetite Urinary retention Harper placed on 10/19, recommend voiding trial as able Attending Addendum: care coordinated with MARK Esposito please refer to her notes for full details, I agree with her notes patient seen and examined, records reviewed by myself as well on exam, patient seen resting in bed, on 2 L NC, not in distress states she feels fine overall no dyspnea, cough appetite is good states she is ready for discharge no other symptoms VS noted and reviewed oriented x 2, not in distress, speaks in sentences with no effort nor accessory muscle use normal rate, regular rhythm, no murmurs clear breath sounds bilaterally non distended, soft, nontender no bipedal edema, erythema, warmth no neuro deficits ASSESSMENT AND PLAN COVID 19 Infection Generalized Weakness - continue 2 L O2 supplement wean off accordingly - monitor volume status other diagnoses and plan of care as per MARK Amador MD Total Time Total Time Spent Total Time Spent (In Minutes): 35 Discharge Plan Discharge Items Patient Disposition: Transfer Care Home Fac Reason For Visit: Generalized Weakness Discharge Diagnosis: COVID 19 Acute Hypoxic Respiratory Failure Ambulatory Dysfunction Activity: As commented below Activity Comment: as tolerated, as per PT/OT Non-emergency contact: Primary Care Provider Call non-emergency contact if: you have any medication questions, your symptoms worsen, your pain is not controlled and you have a fever Follow-up/Referrals: Deidra Johnson MD [Primary Care Provider] - Diet: Regular Addtl Attending Provider Instructions: Patient presented to the hospital with reports of generalized weakness. Tested positive for COVID-19 and was hypoxic. Patient received 5-day course of remdesivir. Received 6 days of Decadron. Currently stable on 2 L of oxygen via nasal cannula. Patient continues to slowly improve. Harper placed for urinary retention. Recommend voiding trial as able. Low-dose Remeron started for appetite. Recommend continuing boost with meals. Pending Studies at Discharge: No Stand-Alone Forms: My [facility] Skilled Items Patient informed of condition?: Yes DNR: Yes Discharge Level of Care: Skilled Communicable Disease: No Discharge Prognosis: Improving Lines: None Urinary Catheter: Yes Medications and DC Order Prescriptions: New amlodipine [Norvasc] 5 mg Tablet 2.5 mg PO DAILY Qty: 7 RF: 0 mirtazapine 15 mg Tablet,Disintegrating 7.5 mg PO HS Qty: 7 RF: 0 Continued docusate sodium 100 mg Capsule 100 mg PO BID PRN (Reason: Constipation) Qty: 0 RF: 0 vit C-vit [id number] Capsule 1 cap PO BID Qty: 0 RF: 0 cholecalciferol (vitamin D3) [Vitamin D3] 125 mcg (5,000 unit) Tablet 5,000 unit PO DAILY Qty: 0 RF: 0 aspirin 81 mg Tablet,Chewable 81 mg PO DAILY Qty: 7 RF: 0 fenofibrate nanocrystallized 145 mg Tablet 145 mg PO DAILY Qty: 7 RF: 0 Discontinued omega-3 fatty acids Capsule 500 mg PO DAILY PRN (Reason: Other) Qty: 0 RF: 0 lactulose 10 gram/15 mL Solution 10 g PO DAILY PRN (Reason: Constipation) RF: 0 Discharge Orders: Discharge Order (Routine); Ordered 02/22/22 Ordered By: Gaby Esposito Admission Data Admit Date/Time: 10/13/21 12:46 Attending Provider: Vern Amador Admit Provider: Art Vera Primary Care Provider: Deidra Johnson Other Providers: Willy Cagle ; Nataliya Puri Other Interventions: Discharge Summary Assessment (RN) Last Done: 11/01/21 14:04
== END 2021-11-01 15:00 | DRG 177 ==
LOC: ED 08:52 → 2W 12:46 → SUATTDRO 12:46 → 2W 14:00 → 3E 10-19 19:57

== ENCOUNTER 2022-10-13 10:51 | Inpatient (IN) ==
--- NOTE | 2022-10-13 11:49 | Emergency Department Note ---
History of Present Illness General Chief complaint: Back Injury/Pain Stated complaint: SPINE AND BACK PAIN Time Seen by Provider: 10/13/22 11:45 History of Present Illness Maximum Pain Intensity: 10 This 87-year-old female patient presents to the emergency department with her sons for evaluation of mid back pain and vomiting. Symptoms started about 2 weeks ago and has been seeing her PCP in regards to the symptoms. She had a CT scan on 10/11/2022 at [facility] that showed 2 vertebrae that were "bone on bone" and angulation of her spine with "pinching" of her spine per her son. She has a history of osteopenia. She denies any recent injury or trauma. She has been having trouble ambulating because of the pain. She states that even if she moves a little bit she has severe pain in the center of her back. Had an appointment with pain management later today, but they were unable to get her to move enough to get her to pain management. She has now also been vomiting for the past 48 hours that is felt to be secondary to the Tramadol and Flexeril b/c it started after taking these medications and she is intolerant of a lot of pain medication. Has been mainly taking Tylenol and Ibuprofen for her symptoms without relief. She has been getting dehydrated b/c not able to keep any fluids or foods down. Also now having a bad pain in the center of her chest at rest and anytime she tries to swallow. This pain radiates to her back. Her vomit tastes "very salty" per patient. No history of acid reflux and denies any reflux symptoms. No fevers and denies any URI symptoms. Not on Oxygen at home, but has been requiring O2 in the ER. Has a history of constipation that is improved with stool softeners. Denies hematochezia, melena, hematuria, hemoptysis, or hematemesis. History of GA in 2015 or 2016. She takes an OTC stool softener, fenofibrate, mirtazapine, Flexeril, multivitamin, baby aspirin, and Ocuvite. Not on any blood thinners. Home Medications Medication Instructions Recorded Confirmed Type cholecalciferol (vitamin D3) 125 5,000 unit PO DAILY ##0 06/20/16 10/13/22 Hist ory mcg (5,000 unit) tablet (Vitamin D3) docusate sodium 100 mg capsule 100 mg PO BID PRN Constipation ##0 06/20/16 10/13/22 History vit C-vit H-[id number] capsule 1 cap PO BID ##0 06/20/16 10/13/22 History fenofibrate nanocrystallized 145 145 mg PO DAILY #7 tabs 11/01/21 10/13/22 Rx mg tablet mirtazapine 15 mg disintegrating 7.5 mg PO HS #7 tabs 11/01/21 10/13/22 Rx tablet aspirin 81 mg tablet,delayed 81 mg PO DAILY 10/13/22 10/13/22 History release Allergies Allergy/AdvReac Type Severity Reaction Status Date / Time propoxyphene AdvReac Unknown INTOLERANCE Verified 10/13/21 10:11 acetaminophen [From Percocet] AdvReac Confusion Unverified 10/13/21 10:11 oxycodone [From Percocet] AdvReac Confusion Unverified 10/13/21 10:11 Past Med/Surg History Medical History Adrenal adenoma CAD (coronary artery disease) COPD (chronic obstructive pulmonary disease) HLD (hyperlipidemia) HTN (hypertension) Peripheral vascular disease Renal artery stenosis s/p cath Tobacco abuse Vitamin D deficiency Surgical History History of appendectomy History of bowel resection History of cataract extraction History of hysterectomy Hx of CABG 2014 RSVG to PDA Family History Brother Cancer bone cancer Sister Breast cancer Father , mi 54 Myocardial infarction Social History Smoking Status: Light tobacco smoker Tobacco Type: Cigarettes Hx Alcohol Use: No Hx Substance Use: No Preferred Language: Arabic Communication Ability: Effective Vehicle Glass Technician Required: No Beliefs That Will Affect Care: None marital status: / Current Living Situation: Family Current Living Situation Comment: Nephew lives with her Feels Safe at Home: Yes Safety Concerns: Feels Safe At This Time Assistive Devices: Walker Review of Systems See HPI for pertinent positives & negatives. Physical Exam Vital Signs Vital Signs - 24 hr 10/13/22 11:13 10/13/22 11:43 10/13/22 11:45 Temperature 36.8 C Temperature Source Temporal Artery Scan Pulse Rate 83 74 Pulse Rate from SpO2 Sensor 68 Respiratory Rate 18 22 Blood Pressure 174/103 H 204/114 H Blood Pressure Mean 126 144 Pulse Oximetry 85 L 92 Oxygen Delivery Method Room Air Nasal Cannula Oxygen Flow Rate 4 Sepsis Recent Fever Within 48 Hours No Sepsis New/Unexplained Change in Mental Status No Sepsis Action Taken by Nursing No Action Required 10/13/22 11:45 10/13/22 11:48 10/13/22 11:48 Temperature Temperature Source Pulse Rate 75 75 Pulse Rate from SpO2 Sensor 79 62 Respiratory Rate 25 H 23 Blood Pressure 196/124 H Blood Pressure Mean 148 Pulse Oximetry 90 92 Oxygen Delivery Method Nasal Cannula Nasal Cannula Oxygen Flow Rate 4 4 Sepsis Recent Fever Within 48 Hours Sepsis New/Unexplained Change in Mental Status Sepsis Action Taken by Nursing 10/13/22 12:00 10/13/22 12:00 10/13/22 12:38 Temperature Temperature Source Pulse Rate 78 73 Pulse Rate from SpO2 Sensor 78 Respiratory Rate 27 H 16 Blood Pressure 191/122 H Blood Pressure Mean 145 Pulse Oximetry 95 Oxygen Delivery Method Nasal Cannula Oxygen Flow Rate 4 Sepsis Recent Fever Within 48 Hours Sepsis New/Unexplained Change in Mental Status Sepsis Action Taken by Nursing 10/13/22 13:00 10/13/22 13:03 10/13/22 13:03 Temperature Temperature Source Pulse Rate 73 72 Pulse Rate from SpO2 Sensor Respiratory Rate 24 22 Blood Pressure 200/83 H Blood Pressure Mean 122 Pulse Oximetry Oxygen Delivery Method Oxygen Flow Rate Sepsis Recent Fever Within 48 Hours Sepsis New/Unexplained Change in Mental Status Sepsis Action Taken by Nursing 10/13/22 13:30 10/13/22 13:48 10/13/22 13:48 Temperature Temperature Source Pulse Rate 73 71 Pulse Rate from SpO2 Sensor 70 70 Respiratory Rate 19 18 Blood Pressure 203/96 H Blood Pressure Mean 131 Pulse Oximetry 91 96 Oxygen Delivery Method Nasal Cannula Nasal Cannula Oxygen Flow Rate 4 4 Sepsis Recent Fever Within 48 Hours Sepsis New/Unexplained Change in Mental Status Sepsis Action Taken by Nursing VITALS: Vitals are noted on the nurse's note and reviewed by myself. GENERAL: Thin and frail appearing elderly female. Non toxic, no acute distress. SKIN: Capillary refill <2 sec. EARS: External auditory canals clear, tympanic membranes pearly gambino without erythema or effusion bilaterally. EYES: PERRLA. EOMI. Conjunctivae without injection, sclerae without icterus. NOSE: Patent without discharge. MOUTH: Mucous membranes moist. Uvula midline. Airway patent. NECK: Supple without nuchal rigidity. No cervical spine tenderness. Full range of motion of the neck without pain. HEART: Regular rate and rhythm without murmurs gallops or rubs. LUNGS: Clear to auscultation bilaterally without wheezes, rales or rhonchi. No retractions or accessory muscle use. ABDOMEN: Positive bowel sounds x 4. Normal tympanic percussion. Soft, mild diffuse tenderness to palpation worse in the upper abdomen, without masses or organomegaly. Burris sign negative. No guarding or rebound tenderness. No focal RLQ or LLQ tenderness. MUSCULOSKELETAL: Tender to palpation over the lumbar spine and paraspinal muscles. No tenderness to palpation over the thoracic spine or paraspinal muscles. The patient is able to move all of her extremities, but she appears weak with her movements secondary to the vomiting and poor oral intake. NEURO: Patient was alert and oriented to person place and time. Course Administered Medications Lactated Ringer's (Lr) 1,000 mls @ 80 mls/hr IV .[id number] Stop: 10/14/22 15:44 Last Admin: 10/13/22 17:11 Dose: 80 mls/hr Documented By: [id number] Discontinued Medications Fentanyl Citrate (Fentanyl Citrate 100 Mcg/2 Ml Vial) 50 mcg IV NOW STA Stop: 10/13/22 12:06 Last Admin: 10/13/22 12:21 Dose: 50 mcg Documented By: [id number] Hydralazine HCl (Hydralazine Hcl 20 Mg/Ml Vial) 5 mg IV NOW ONE Stop: 10/13/22 12:29 Last Admin: 10/13/22 14:05 Dose: 5 mg Documented By: [id number] Sodium Chloride (Nss) 500 mls @ 999 mls/hr IV .[id number] STA Stop: 10/13/22 12:35 Last Infusion: 10/13/22 13:34 Dose: 0 mls/hr Documented By: [id number] Admin: 10/13/22 12:21 Dose: 999 mls/hr Documented By: [id number] Acetaminophen (Ofirmev) 1,000 mg in 100 mls @ 400 mls/hr IV NOW STA Stop: 10/13/22 12:43 Last Infusion: 10/13/22 13:52 Dose: 0 mls/hr Documented By: [id number] Admin: 10/13/22 13:29 Dose: 400 mls/hr Documented By: [id number] Ampicillin Sodium/Sulbactam Sodium 3,000 mg/ Sodium Chloride 108 mls @ 200 mls/hr IV NOW STA; Protocol Stop: 10/13/22 13:57 Last Infusion: 10/13/22 16:59 Dose: 0 mls/hr Documented By: [id number] Admin: 10/13/22 15:24 Dose: 200 mls/hr Documented By: Ioversol (Optiray 350 100ml) 88 ml IV ONCE ONE Stop: 10/13/22 12:46 Last Admin: 10/13/22 12:36 Dose: 88 ml Documented By: Ondansetron HCl (Ondansetron Inj 2 Mg/Ml 2 Ml Vial) 4 mg IV NOW STA Stop: 10/13/22 12:06 Last Admin: 10/13/22 12:21 Dose: 4 mg Documented By: [id number] Medical Decision Making Differential Diagnosis Differential diagnosis includes aortic dissection, GA, pneumonia, PE, pneumothorax, pancreatitis, hepatitis, cholecystitis, perforation, fracture, subluxation, or others. Laboratory Data Attestation: I reviewed the patient's lab results. 10/13/22 11:40 10/13/22 11:40 Lab Results 10/13/22 10/13/22 10/13/22 Range/Units 11:40 11:40 11:40 WBC 15.48 H (4.8-10.8) K/ul RBC 5.85 H (4.20-5.40) M/uL Hgb 17.3 H (12.0-16.0) g/dl Hct 51.4 H (37.0-47.0) % MCV 87.9 (80.0-100.0) fL MCH 29.6 (25.0-34.0) pg MCHC 33.7 (32.0-36.0) g/dL RDW Std Deviation 48.4 H (36.4-46.3) fL RDW Coeff of Grey 15.5 H (11.5-14.5) % Plt Count 511 H (130-400) K/uL MPV 10.9 (9.4-12.4) fL Immature Gran % (Auto) 0.6 % Neut % (Auto) 86.9 % Lymph % (Auto) 5.3 % [place] % (Auto) 7.0 % Eos % (Auto) 0.0 % Baso % (Auto) 0.2 % Neut # (Auto) 13.44 H (1.40-6.50) K/uL Lymph # (Auto) 0.82 L (1.2-3.4) K/uL [place] # (Auto) 1.09 H (0.11-0.59) K/uL Eos # (Auto) 0.00 (0-0.50) K/uL Baso # (Auto) 0.03 (0-0.2) K/uL Immature Gran # (Auto) 0.10 (0.01-0.20) K/uL PT (9.0-12.0) Seconds INR (0.9-1.1) APTT (21.0-31.0) Seconds PTT Ratio Sodium 139 (136-145) mmol/L Potassium 4.0 (3.5-5.1) mmol/L Chloride 93 L (98-107) mmol/L Carbon Dioxide 35 H (21-32) mmol/L Anion Gap 11 (3-11) BUN 34 H (6-23) mg/dl Creatinine 0.97 (0.6-1.2) mg/dl Est Cr Clr Drug Dosing 25.7 ml/min Est GFR ( Amer) 61.7 ml/min Est GFR (Non-Af Amer) 53.3 ml/min BUN/Creatinine Ratio 35.1 H (10-20) Glucose 121 H (70-99(Fasting)) mg/dl Calcium 10.9 H (8.5-10.1) mg/dl Total Bilirubin 0.7 (0.2-1.0) mg/dl AST 24 (13-39) U/L ALT 12 (7-52) U/L Alkaline Phosphatase 71 (34-104) U/L Troponin I High Sens 63.2 H* Cancelled (0-14) pg/ml Total Protein 7.6 (6.0-8.3) gm/dl Albumin 4.5 (3.4-5.0) gm/dl Globulin 3.1 (2.5-4.0) gm/dl Albumin/Globulin Ratio 1.5 (0.9-2) Lipase 7 L (11-82) U/L Urine Color Urine Appearance (Clear) Urine pH (4.5-7.5) Ur Specific [place] (1.000-1.030) Urine Protein (Negative) Urine Glucose (UA) (Negative) Urine Ketones (Negative) Urine Blood (Negative) Urine Nitrite (Negative) Urine Bilirubin (Negative) Urine Urobilinogen (Negative) Ur Leukocyte Esterase (Negative) Urine WBC (Auto) (0-5) /hpf Urine RBC (Auto) (0-4) /hpf U Hyaline Cast (Auto) (0-5) /lpf U Epithel Cells (Auto) (0-5) /lpf Urine Bacteria (Auto) (Negative) SARS-CoV-2, RNA, NAAT (NEGATIVE) 10/13/22 10/13/22 10/13/22 Range/Units 11:40 12:28 13:19 WBC (4.8-10.8) K/ul RBC (4.20-5.40) M/uL Hgb (12.0-16.0) g/dl Hct (37.0-47.0) % MCV (80.0-100.0) fL MCH (25.0-34.0) pg MCHC (32.0-36.0) g/dL RDW Std Deviation (36.4-46.3) fL RDW Coeff of Grey (11.5-14.5) % Plt Count (130-400) K/uL MPV (9.4-12.4) fL Immature Gran % (Auto) % Neut % (Auto) % Lymph % (Auto) % [place] % (Auto) % Eos % (Auto) % Baso % (Auto) % Neut # (Auto) (1.40-6.50) K/uL Lymph # (Auto) (1.2-3.4) K/uL [place] # (Auto) (0.11-0.59) K/uL Eos # (Auto) (0-0.50) K/uL Baso # (Auto) (0-0.2) K/uL Immature Gran # (Auto) (0.01-0.20) K/uL PT 12.9 H (9.0-12.0) Seconds INR 1.2 H (0.9-1.1) APTT 31.5 H (21.0-31.0) Seconds PTT Ratio 1.1 Sodium (136-145) mmol/L Potassium (3.5-5.1) mmol/L Chloride (98-107) mmol/L Carbon Dioxide (21-32) mmol/L Anion Gap (3-11) BUN (6-23) mg/dl Creatinine (0.6-1.2) mg/dl Est Cr Clr Drug Dosing ml/min Est GFR ( Amer) ml/min Est GFR (Non-Af Amer) ml/min BUN/Creatinine Ratio (10-20) Glucose (70-99(Fasting)) mg/dl Calcium (8.5-10.1) mg/dl Total Bilirubin (0.2-1.0) mg/dl AST (13-39) U/L ALT (7-52) U/L Alkaline Phosphatase (34-104) U/L Troponin I High Sens (0-14) pg/ml Total Protein (6.0-8.3) gm/dl Albumin (3.4-5.0) gm/dl Globulin (2.5-4.0) gm/dl Albumin/Globulin Ratio (0.9-2) Lipase (11-82) U/L Urine Color Yellow Urine Appearance Clear (Clear) Urine pH 6.5 (4.5-7.5) Ur Specific [place] 1.023 (1.000-1.030) Urine Protein 2+ H (Negative) Urine Glucose (UA) Negative (Negative) Urine Ketones Negative (Negative) Urine Blood Trace H (Negative) Urine Nitrite Positive A (Negative) Urine Bilirubin Negative (Negative) Urine Urobilinogen Negative (Negative) Ur Leukocyte Esterase Trace H (Negative) Urine WBC (Auto) 1-5 (0-5) /hpf Urine RBC (Auto) 0-4 (0-4) /hpf U Hyaline Cast (Auto) 1-5 (0-5) /lpf U Epithel Cells (Auto) 10-20 H (0-5) /lpf Urine Bacteria (Auto) 4+ H (Negative) SARS-CoV-2, RNA, NAAT NEGATIVE (NEGATIVE) Imaging Data Radiologist's Impression: Chest CTA 10/13/22 12:27 CT ANGIOGRAPHY OF THE CHEST DISSECTION PROTOCOL CLINICAL HISTORY: Marked hypertension. Chest pain. Vomiting. COMPARISON STUDY: Chest CT October 13, 2021 and chest radiograph 10/26/2021. TECHNIQUE: Before and following the IV administration of 88 mL of Optiray, helical axial images of the chest were obtained. Maximal intensity projections and sagittal and coronal reformats were viewed on an independent 3D workstation. IV contrast was administered without complication. Automated exposure control was utilized for the study. A dose lowering technique was utilized adhering to the principles of ALARA. FINDINGS: Moderate plaque of the thoracic aorta is noted. There is mild dilat ation of the ascending aorta, measuring 3.8 cm. There is no thoracic aortic dissection. Moderate cardiomegaly is noted. Pulmonary arteries are suboptimally opacified. Moderate coronary artery calcification is again noted. There is no thoracic lymphadenopathy. There is pronounced circumferential wall thickening of the distal esophagus. No pneumomediastinum is present. Lungs are suboptimally assessed due to respiratory motion. Moderate emphysema is present. A small right pleural effusion is noted. There is no pneumothorax. Extensive secretions within the right lower lobe segmental bronchi are noted. Subpleural right lower lobe opacity is present. There is mild subpleural left lower lobe opacity. There is a lobulated 1.8 cm solid left lower lobe nodule on image 178 of 291. This is increased in size since prior chest CT. T10 compression fracture is new since prior CT. This is probably subacute. Enlargement of both adrenal glands is again noted. This was shown on prior CT. Bilateral renal lesions favor cysts. This exam is mildly compromised by motion artifact. IMPRESSION: 1. No thoracic aortic dissection. Moderate plaque within the thoracic aorta which is mildly dilated, measuring 3.8 cm in caliber. 2. Pronounced distal esophageal wall thickening. This favors severe esophagitis. 3. Increase in size of a lobulated 1.8 cm solid left lower lobe pulmonary nodule. This is suspicious for primary bronchogenic carcinoma. Nonemergent Pulmonary consultation recommended. 4. Emphysema. 5. Extensive secretions within right lower lobe segmental bronchi. Subpleural right lower lobe opacity favors atelectasis however aspiration pneumonia or pneumonia could appear similar. Trace right pleural effusion. ACT 112: Positive. There are findings on this exam that require communication between the performing entity and the patient following Patient Test Result Information Act ([place] Act 112) guidelines. Electronically signed by: Omar Kingston M.D. 10/13/2022 1:10 PM MDM Narrative I examined the patient. An IV lock was placed and labs were drawn. She was given fentanyl 50 mcg IV, Zofran 4 mg IV, and 500 mL normal saline solution bolus. Continuous engine monitor: Order was placed for continuous engine monitor. Patient was placed on the engine monitor and continuous pulse ox. Patient was noted to be in normal sinus rhythm at an initial rate of 85 bpm per my interpretation. EKG was interpreted by myself and Dr. Vivas and showed sinus rhythm with occasional PVCs at 79 bpm. There is also left axis deviation. There is mild flattening of the T waves in the anterior leads compared to her previous EKG from 10/14/2021. No acute ST or T wave changes. I spoke with case management who obtained the records from her ER visit and imaging at [facility]. Imaging reports were reviewed by myself and revealed DDD, dextroscoliosis with slight kyphosis, but no acute fracture or subluxation. CBC with elevated white blood cell count of 15.48. Hemoglobin elevated at 17.3. Platelet count elevated at 511. INR 1.2. CMP with BUN of 34 and normal creatinine at 0.97. Otherwise CMP without significant abnormalities. Lipase was normal. Urinalysis is concerning for infection with culture pending. COVID was negative. Procalcitonin was normal. Initial high-sensitivity troponin was elevated at 63.2. Repeat 2-hour troponin improved to 58.4. Repeat EKG was interpreted by myself and Dr. Vivas and shows normal sinus rhythm at 70 bpm with no acute ST or T wave changes. The patient was very hypertensive in the emergency department with a peak blood pressure of 204/114. The patient was independently evaluated by Dr. Vivas, who agrees with my assessment and treatment plan. There was concern for possible aortic dissection due to her significant hypertension as well as her new onset of chest pain radiating to her back with vomiting. Therefore, CT scan with dissection protocol was obtained for further evaluation. The CTA dissection protocol was reviewed by myself and read by radiology as above and show no evidence for aortic dissection. There is moderate plaque within the thoracic aorta which is mildly dilated at 3.8 cm. There is pronounced distal esophageal wall thickening which favors severe esophagitis. There is also an increase in the size of a lobulated 1.8 cm solid left lower lobe pulmonary nodule which is suspicious for primary bronchogenic carcinoma. Emphysema is also seen. There are extensive secretions within the right lower lobe segmental bronchi. Subpleural right lower lobe opacity favors atelectasis, however, aspiration pneumonia or pneumonia could appear similar. Trace right pleural effusion. She believes she has been taking her blood pressure medication, but is unable to confirm this. She was given hydralazine 5 mg IV with improvement of her blood pressure to 158/81. Blood cultures were drawn and she was given Unasyn 3 g IV to cover for the possible pneumonia as well as a possible UTI. The patient had been hypoxic in the ER and required supplemental oxygen. She does not require oxygen at home. The patient will require admission for further evaluation and treatment of her elevated troponin, hypoxia with possible right lower lobe aspiration pneumonia, UTI, dehydration, esophagitis, hypertension, and back pain. I spoke with the on-call hospitalist who agreed to admit the patient for further evaluation and treatment. Please refer to their dictation for further details. The patient's care was transferred in stable condition. Impression & Plan Elevated troponin I level, Hypoxia, UTI (urinary tract infection), Dehydration, HTN (hypertension), Pulmonary nodule, Low back pain Discharge Plan Visit Data Chief Complaint: Back Injury/Pain Stated Complaint: SPINE AND BACK PAIN ED Provider: Nereida Vivas ED Midlevel Provider: Bernice Justin. Discharge Problem: Elevated troponin I level, Hypoxia, UTI (urinary tract infection), Dehydration, HTN (hypertension), Pulmonary nodule, Low back pain Patient Disposition: Admitted As Inpatient Condition: Good Discharge Instructions Interventions: ED Discharge Assessment Last Done: 10/13/22 16:30
[2022-10-13] MEDS ORDERED: ONDANSETRON INJ 2 MG/ML 2 ML VIAL IV STA (12:05)
[2022-10-13] MEDS ORDERED: SODIUM CHLORIDE 0.9% 500 ML IV STA (12:05)
[2022-10-13] MEDS ORDERED: fentaNYL citrate 100 MCG/2 ML VIAL IV STA (12:05)
[2022-10-13 12:11] LABS: Basophils # (auto) 0.03 K/uL (0-0.2); Basophils % (auto) 0.2 %; Hematocrit (blood only) 51.4 % (37.0-47.0); Hemoglobin 17.3 g/dl (12.0-16.0); Immature Granulocytes % (auto) 0.6 %; Lymphocytes # (auto) 0.82 K/uL (1.2-3.4); Lymphocytes % (auto) 5.3 %; Mean Corpuscular Hemoglobin 29.6 pg (25.0-34.0); Mean Corpuscular Hgb Conc 33.7 g/dL (32.0-36.0); Mean Corpuscular Volume 87.9 fL (80.0-100.0); Mean Platelet Volume 10.9 fL (9.4-12.4); Monocytes # (auto) 1.09 K/uL (0.11-0.59); Neutrophils # (auto) 13.44 K/uL (1.40-6.50); Neutrophils % (auto) 86.9 %; Platelet Count 511 K/uL (130-400); RDW Coefficient of Variation 15.5 % (11.5-14.5); RDW Standard Deviation 48.4 fL (36.4-46.3); Red Blood Count 5.85 M/uL (4.20-5.40); White Blood Count 15.48 K/ul (4.8-10.8)
[2022-10-13 12:18] LABS: Albumin Globulin Ratio 1.5 (0.9-2); Albumin Level 4.5 gm/dl (3.4-5.0); BUN Creatinine Ratio 35.1 (10-20); Bilirubin,Total 0.7 mg/dl (0.2-1.0); Calcium 10.9 mg/dl (8.5-10.1); Creatinine Clr Calc Pharmacy 25.7 ml/min; Est GFR (African American) 61.7 ml/min; Est GFR (Non-African American) 53.3 ml/min; Globulin 3.1 gm/dl (2.5-4.0); Total Protein 7.6 gm/dl (6.0-8.3)
[2022-10-13] MEDS ORDERED: hydrALAZINE HCL 20 MG/ML VIAL IV ONE (12:28)
[2022-10-13] MEDS ORDERED: ACETAMINOPHEN 1,000 MG/100 ML VIAL IV STA (12:29)
[2022-10-13 12:38] LABS: INR 1.2 (0.9-1.1); Partial Thromboplastin Ratio 1.1; Partial Thromboplastin Time 31.5 Seconds (21.0-31.0); Prothrombin Time 12.9 Seconds (9.0-12.0)
[2022-10-13] MEDS ORDERED: OPTIRAY 350 100ml IV ONE (12:45)
[2022-10-13 12:57] LABS: Troponin I High Sensitivity 63.2 pg/ml (0-14)
--- NOTE | 2022-10-13 13:11 | CT Scan Report ---
CT ANGIOGRAPHY OF THE CHEST DISSECTION PROTOCOL CLINICAL HISTORY: Marked hypertension. Chest pain. Vomiting. COMPARISON STUDY: Chest CT October 13, 2021 and chest radiograph 10/26/2021. TECHNIQUE: Before and following the IV administration of 88 mL of Optiray, helical axial images of th e chest were obtained. Maximal intensity projections and sagittal and coronal reformats were viewed on an independent 3D workstation. IV contrast was administered without complication. Automated expo sure control was utilized for the study. A dose lowering technique was utilized adhering to the prin ciples of REGIS. FINDINGS: Moderate plaque of the thoracic aorta is noted. There is mild dilatation of the ascending aorta, measuring 3.8 cm. There is no thoracic aortic dissection. Moderate cardiomegaly is noted. Pulm onary arteries are suboptimally opacified. Moderate coronary artery calcification is again noted. The re is no thoracic lymphadenopathy. There is pronounced circumferential wall thickening of the distal esophagus. No pneumomediastinum is present. Lungs are suboptimally assessed due to respiratory motion . Moderate emphysema is present. A small right pleural effusion is noted. There is no pneumothorax. E xtensive secretions within the right lower lobe segmental bronchi are noted. Subpleural right lower l obe opacity is present. There is mild subpleural left lower lobe opacity. There is a lobulated 1.8 cm solid left lower lobe nodule on image 178 of 291. This is increased in size since prior chest CT. T1 0 compression fracture is new since prior CT. This is probably subacute. Enlargement of both adrenal glands is again noted. This was shown on prior CT. Bilateral renal lesions favor cysts. This exam is mildly compromised by motion artifact. IMPRESSION: 1. No thoracic aortic dissection. Moderate plaque within the thoracic aorta which is mildly dilated, measuring 3.8 cm in caliber. 2. Pronounced distal esophageal wall thickening. This favors severe esophagitis. 3. Increase in size of a lobulated 1.8 cm solid left lower lobe pulmonary nodule. This is suspicious for primary bronchogenic carcinoma. Nonemergent Pulmonary consultation recommended. 4. Emphysema. 5. Extensive secretions within right lower lobe segmental bronchi. Subpleural right lower lobe opacit y favors atelectasis however aspiration pneumonia or pneumonia could appear similar. Trace right pleu ral effusion. ACT 112: Positive. There are findings on this exam that require communication between the performing entity and the patient following Patient Test Result Information Act ([place] Act 112) guidelines. Electronically signed by: Omar Kingston M.D. 10/13/2022 1:10 PM
[2022-10-13] MEDS ORDERED: AMPICILLIN/SULBACTAM SOD 3,000 MG in 0.9 % SODIUM CHLORIDE 100 ML IV STA (13:25)
[2022-10-13 13:31] LABS: Appearance Urine Clear (Clear); Bacteria Urine Automated 4+ (Negative); Bilirubin Urine Negative (Negative); Blood Urine Trace (Negative); Color Urine Yellow; Glucose Urine UA Negative (Negative); Ketones Urine Negative (Negative); Leukocyte Esterase Urine Trace (Negative); Nitrite Urine Positive (Negative); Protein Urine 2+ (Negative); RBC Urine Automated 0-4 /hpf (0-4); Specific Gravity Urine 1.023 (1.000-1.030); Urobilinogen Urine Negative (Negative); pH Urine 6.5 (4.5-7.5)
--- NOTE | 2022-10-13 14:49 | History & Physical Report ---
Date of Service October 13, 2022 Assessment & Plan (1) Acute respiratory failure with hypoxia: (2) Right lower lobe pneumonia: (3) UTI (urinary tract infection): (4) Dehydration: (5) Low back pain: (6) Esophagitis: (7) Pulmonary nodule: (8) CAD (coronary artery disease): (9) Hx of CABG: (10) HTN (hypertension): Plan This is a 87-year-old female who has significant past medical history of COPD, CAD with history of CABG x1, HLD, renal artery stenosis, HTN, glaucoma, elevated hemoglobin, history of tobacco abuse disorder, hard of hearing who presents to ED due to back pain x 1 week; N/V and poor PO intake for 1.5 days. Acute respiratory failure with hypoxia Possible right lower lobe pneumonia COPD, without exacerbation Admit to telemetry DuoNeb twice daily and as needed Incentive spirometry with nursing assistance Oxygen as needed, goal saturation 88 to 92% currently clear liquid diet per pt preference, advance as tolerated tx with IV zosyn for now pt does not use O2 at home Possible UTI UA concerning for infection Patient does not report any symptoms Given white blood cell count and treating for right lower lobe pneumonia will also cover for UTI Await urine and blood culture Empiric Zosyn for PNA coverage as well Prerenal acute kidney injury Patient with elevated BUN of 43, Cr 0.97 with a BUN/creatinine ratio of 35.1 Secondary to poor p.o. intake, N/V Gentle hydration with IV fluid LR x2 L Repeat in a.m. CAD with history of CABG x1 Elevated troponin Abnormal EKGwith T wave inversions inferior & laterally -unchanged from prior Patient without chest pain Troponin mildly elevated, cycle x2 Continue aspirin I do not feel pt has active ACS Low Back Pain pt had imaging at [facility] which revealed DDD, dextroscoliosis with slight kyphsosis, no acute fx appears to be MSK in nature, worse with movement, palpation to L lower lumbar paraspinal musculature Heat QID, lidocaine patch, Flexeril 2.5mg bid consult PT/OT for other modalities Pt was to see Pain management on day of admission to discuss possible MRI for injections HTN In ED patient met criteria for hypertensive urgency with peak blood pressure 204/114 She received 5 mg IV hydralazine which improved BP to 158/81 Previously patient have been prescribed amlodipine 2.5 mg which has since been discontinued Will resume amlodipine 2.5 mg with first dose today, monitor BP on telemetry Will need to encourage patient importance of taking medication and monitoring blood pressure at home Per family when seen at [facility] her blood pressure was in the 200s as well Esophagitis per CT imaging may be in setting of recent N/V will place on PPI IV BID until able to tolerate oral intake than can switch to PO family wishes to not pursue and further GI studies unless absolutely warranted Pulmonary Nodule lobulated 1.8 cm solid left lower lobe pulmonary nodule per CT scan Suspicious for bronchogenic carcinoma in setting of tobacco history Discussed with brothers at bedside and recommend pulmonary evaluation as outpatient if patient wishes to pursue further work-up Polycythemia Likely exacerbated in setting of dehydration Patient hemoglobin typically runs ~15 Former tobacco user DVT prophylaxis:Heparin BID Dispo: tele, pt lives at home with nephew - d/c plan uncertain at this time PCP: Kae Lockhart DNR/DNI -discussion with son and patient who wishes for no aggressive measures to be done, goal is comfort with hopes treatment will improve current condition and be able to return home. Patient's son Ramiro is an employee at [employer] and works here Sunday through Sunday, his phone number [phone] and wishes to be called for updates or spoken to while in house. Patient was seen and examined in collaboration with Dr. Dacosta, please see addendum A total of 90 minutes were spent with greater than 50% of that time face to face with the patient, personally reviewing all current laboratories, imaging studies, past medication reconciliation, outpatient chart review, and discussion with specialists to collaborate care for the patient with attending. Please see attending documentation for corrections and/or additions. History of Present Illness Chief Complaint: Back pain, N/V x 2-3 days. Primary Care Provider: Deidra Johnson MD This is a 87-year-old female who has significant past medical history of COPD, CAD with history of CABG x1, HLD, renal artery stenosis, HTN, glaucoma, elevated hemoglobin, history of tobacco abuse disorder, hard of hearing who presents to ED due to back pain x 1 week; N/V and poor PO intake for 1.5 days. Pt 2 sons are at bedside. Patient states she developed lower back pain approximately 1 week ago. Pain came on gradually. She denies any trauma, fall or injury. Pain is much worse with movement and almost absent when she sits still. Over the past week her pain continue to worsen. This was also affecting her walking. She presented to [facility] ED on 10/10/2022. She underwent CT scan of lumbar spine which revealed a moderate amount of lumbar dextroscoliosis and slightly exaggerated kyphosis with prominent degenerative changes in the lumbar spine. There is no acute fracture noted. She was prescribed tramadol and Flexeril and discharged home. She started taking the tramadol to alleviate her pain and about an hour and a half after she developed nausea and vomiting. This occurred a day and a half ago. Since then she has been unable to keep anything down including liquids. She stopped taking tramadol. She lives with her grandson who was concerned she was not improving this morning. Her son also came to see her and due to patient's worsening condition, inability to tolerate oral intake he felt she should be seen in ED for possible dehydration. She is always cold but denies any documented fever. She denies any sweats, lightheadedness, dizziness, chest pain, shortness of breath, cough, abdominal pain, dysuria, increased urgency or frequency, melena or hematochezia. She does not like taking medications and does not do well with narcotics. She also previously was on a blood pressure medication that she has since discontinued. In ED patient was significantly hypertensive with SBP greater than 200. Lab work revealed dehydration in setting of elevated H&H as well as elevated BUN/creatinine ratio. She did have mildly bumped troponin at 63.2 although EKG revealed relatively unchanged findings. Urinalysis concerning for a UTI. A chest CTA was performed which ruled out thoracic dissection/PE. Prominent distal esophageal wall thickening was noticed favoring severe esophagitis. Also noted was an increase in size of a lobulated 1.8 cm solid left lower lobe pulmonary nodule suspicious for bronchogenic carcinoma. Extensive secretions were also noted in the right lower lobe segmental bronchi concerning for possible atelectasis however aspiration pneumonia could appear similar. In ED she received 5 mg of IV hydralazine which did improve her systolic blood pressure to 158. She also received IV fluid and IV Unasyn. Allergies Allergy/AdvReac Type Severity Reaction Status Date / Time propoxyphene AdvReac Unknown INTOLERANCE Verified 10/13/21 10:11 acetaminophen [From Percocet] AdvReac Confusion Unverified 10/13/21 10:11 oxycodone [From Percocet] AdvReac Confusion Unverified 10/13/21 10:11 Home Medications Medication Instructions Recorded Confirmed Type cholecalciferol (vitamin D3) 125 5,000 unit PO DAILY ##0 06/20/16 10/13/22 History mcg (5,000 unit) tablet (Vitamin D3) docusate sodium 100 mg capsule 100 mg PO BID PRN Constipation ##0 06/20/16 10/13/22 History vit C-vit [id number] capsule 1 cap PO BID ##0 06/20/16 10/13/22 History fenofibrate nanocrystallized 145 145 mg PO DAILY #7 tabs 11/01/21 10/13/22 Rx mg tablet mirtazapine 15 mg disintegrating 7.5 mg PO HS #7 tabs 11/01/21 10/13/22 Rx tablet aspirin 81 mg tablet,delayed 81 mg PO DAILY 10/13/22 10/13/22 History release Past Med/Surg History Medical History Adrenal adenoma CAD (coronary artery disease) COPD (chronic obstructive pulmonary disease) HLD (hyperlipidemia) HTN (hypertension) Peripheral vascular disease Renal artery stenosis s/p cath Tobacco abuse Vitamin D deficiency Surgical History History of appendectomy History of bowel resection History of cataract extraction History of hysterectomy Hx of CABG 2014 RSVG to PDA Family History Brother Cancer bone cancer Sister Breast cancer Father , mi 54 Myocardial infarction Social History Smoking Status: Light tobacco smoker Tobacco Type: Cigarettes Hx Alcohol Use: No Hx Substance Use: No Preferred Language: Lao Communication Ability: Effective Pad Machine Feeder Required: No Beliefs That Will Affect Care: None marital status: / Current Living Situation: Family Current Living Situation Comment: Nephew lives with her Feels Safe at Home: Yes Safety Concerns: Feels Safe At This Time Assistive Devices: Walker Review of Systems Review of Systems: All systems reviewed & are unremarkable except as noted in HPI & below Physical Exam Physical Exam: Constitutional: Thin, cachectic, elderly female, vitals as above, NAD, sitting up in bed, pleasant, conversing easily, hard of hearing Head: Normocephalic, Atraumatic, bilateral temporal wasting Eyes: PERRL, conjunctivae normal, anicteric sclerae ENMT: external ear and nose normal, oropharynx normal dry mucous membranes Neck: trachea midline, no thyromegaly normal visual inspection Respiratory: On 4 L of oxygen via nasal cannula, barrel chested, normal respiratory effort, lungs clear to auscultation with the exception of right lower lobe rhonchi, no wheeze. Normal insp/exp effort, no accessory muscle use Cardiovascular: RRR, no murmur, no edema Vessels: no JVD or carotid bruit Chest: normal inspection of chest Abdomen: normal bowel sounds, soft, nontender, no hepatosplenomegaly Musculoskeletal: no cyanosis or clubbing, active range of motion x4, pain to palpation along the lower lumbar left-sided paraspinal musculature, no vertebral tenderness, no CVA tenderness Skin: no rashes, warm and dry normal turgor Neurologic: PERRL, EOMI, accommodation nl, no face palsy, no dysarthria CN's II-XI intact bilaterally and moves all extremities Psychiatric: A+Ox3, euthymic affect Lymphatic: no cervical or axillary lymphadenopathy : deferred Results & Data Results & Data ([facility]) Vital Signs (Past 12 Hours) Vital Signs Temp Pulse Resp BP Pulse Ox O2 Del Method O2 Flow Rate 10/13/22 13:03 200/83 H 10/13/22 13:03 72 22 10/13/22 13:00 73 24 10/13/22 12:38 73 16 10/13/22 12:00 78 27 H 95 Nasal Cannula 4 10/13/22 12:00 191/122 H 10/13/22 11:48 196/124 H 10/13/22 11:48 75 23 92 Nasal Cannula 4 10/13/22 11:45 75 25 H 90 Nasal Cannula 4 10/13/22 11:45 204/114 H 10/13/22 11:43 74 22 92 Nasal Cannula 4 10/13/22 11:13 36.8 C 83 18 174/103 H 85 L Room Air Diagnostic Findings Chest CTA 10/13/22 12:27 CT ANGIOGRAPHY OF THE CHEST DISSECTION PROTOCOL CLINICAL HISTORY: Marked hypertension. Chest pain. Vomiting. COMPARISON STUDY: Chest CT October 13, 2021 and chest radiograph 10/26/2021. TECHNIQUE: Before and following the IV administration of 88 mL of Optiray, helical axial images of the chest were obtained. Maximal intensity projections and sagittal and coronal reformats were viewed on an independent 3D workstation. IV contrast was administered without complication. Automated exposure control was utilized for the study. A dose lowering technique was utilized adhering to the principles of ALARA. FINDINGS: Moderate plaque of the thoracic aorta is noted. There is mild dilatation of the ascending aorta, measuring 3.8 cm. There is no thoracic aortic dissection. Moderate cardiomegaly is noted. Pulmonary arteries are suboptimally opacified. Moderate coronary artery calcification is again noted. There is no thoracic lymphadenopathy. There is pronounced circumferential wall thickening of the distal esophagus. No pneumomediastinum is present. Lungs are suboptimally assessed due to respiratory motion. Moderate emphysema is present. A small right pleural effusion is noted. There is no pneumothorax. Extensive secretions within the right lower lobe segmental bronchi are noted. Subpleural right lower lobe opacity is present. There is mild subpleural left lower lobe opacity. There is a lobulated 1.8 cm solid left lower lobe nodule on image 178 of 291. This is increased in size since prior chest CT. T10 compression fracture is new since prior CT. This is probably subacute. Enlargement of both adrenal glands is again noted. This was shown on prior CT. Bilateral renal lesions favor cysts. This exam is mildly compromised by motion artifact. IMPRESSION: 1. No thoracic aortic dissection. Moderate plaque within the thoracic aorta which is mildly dilated, measuring 3.8 cm in caliber. 2. Pronounced distal esophageal wall thickening. This favors severe esophagitis. 3. Increase in size of a lobulated 1.8 cm solid left lower lobe pulmonary nodule. This is suspicious for primary bronchogenic carcinoma. Nonemergent Pulmonary consultation recommended. 4. Emphysema. 5. Extensive secretions within right lower lobe segmental bronchi. Subpleural right lower lobe opacity favors atelectasis however aspiration pneumonia or pneumonia could appear similar. Trace right pleural effusion. ACT 112: Positive. There are findings on this exam that require communication between the performing entity and the patient following Patient Test Result Information Act ([place] Act 112) guidelines. Electronically signed by: Omar Kingston M.D. 10/13/2022 1:10 PM Medications Administered Medication List Discontinued Medications Fentanyl Citrate (Fentanyl Citrate 100 Mcg/2 Ml Vial) 50 mcg IV NOW STA Stop: 10/13/22 12:06 Last Admin: 10/13/22 12:21 Dose: 50 mcg Documented By: [id number] Hydralazine HCl (Hydralazine Hcl 20 Mg/Ml Vial) 5 mg IV NOW ONE Stop: 10/13/22 12:29 Last Admin: 10/13/22 14:05 Dose: 5 mg Documented By: [id number] Sodium Chloride (Nss) 500 mls @ 999 mls/hr IV .Q31M STA Stop: 10/13/22 12:35 Last Infusion: 10/13/22 13:34 Dose: 0 mls/hr Documented By: [id number] Admin: 10/13/22 12:21 Dose: 999 mls/hr Documented By: [id number] Acetaminophen (Ofirmev) 1,000 mg in 100 mls @ 400 mls/hr IV NOW STA Stop: 10/13/22 12:43 Last Infusion: 10/13/22 13:52 Dose: 0 mls/hr Documented By: [id number] Admin: 10/13/22 13:29 Dose: 400 mls/hr Documented By: [id number] Ioversol (Optiray 350 100ml) 88 ml IV ONCE ONE Stop: 10/13/22 12:46 Last Admin: 10/13/22 12:36 Dose: 88 ml Documented By: SH Ondansetron HCl (Ondansetron Inj 2 Mg/Ml 2 Ml Vial) 4 mg IV NOW STA Stop: 10/13/22 12:06 Last Admin: 10/13/22 12:21 Dose: 4 mg Documented By: [id number] ECG Rate (beats per minute): 79 Rhythm: normal sinus Findings: + PVC Additional Comments: T wave inversions laterally unchanged from previous EKG COVID-19 Results Results COVID-19 Adm Lab Results: RBC 4.88 M/uL (4.20-5.40) 10/14/22 WBC 13.29 K/ul (4.8-10.8) H 10/14/22 Hgb 14.6 g/dl (12.0-16.0) 10/14/22 Hct 44.2 % (37.0-47.0) 10/14/22 Plt Count 441 K/uL (130-400) H 10/14/22 Neutrophils (%) (Auto) 79.9 % 10/14/22 Lymphocytes (%) (Auto) 10.3 % 10/14/22 Monocytes # (Auto) 1.20 K/uL (0.11-0.59) H 10/14/22 Eosinophils # (Auto) 0.00 K/uL (0-0.50) 10/14/22 Immature Granulocyte % (Auto) 0.5 % 10/14/22 Neutrophils # (Auto) 10.61 K/uL (1.40-6.50) H 10/14/22 Lymphocytes # (Auto) 1.37 K/uL (1.2-3.4) 10/14/22 Monocytes # (Auto) 1.20 K/uL (0.11-0.59) H 10/14/22 Eosinophils # (Auto) 0.00 K/uL (0-0.50) 10/14/22 Basophils # (Auto) 0.04 K/uL (0-0.2) 10/14/22 Immature Granulocyte # (Auto) 0.07 K/uL (0.01-0.20) 3 Na 138 mmol/L (136-145) 10/14/22 K 3.2 mmol/L (3.5-5.1) L 10/14/22 Cl 95 mmol/L (98-107) L 10/14/22 CO2 36 mmol/L (21-32) H 10/14/22 Anion Gap 7 (3-11) 10/14/22 BUN 25 mg/dl (6-23) H 10/14/22 Creatinine 0.77 mg/dl (0.6-1.2) 10/14/22 BUN/Creatinine Ratio 32.5 (10-20) H 10/14/22 Glucose Level 97 mg/dl (70-99(Fasting)) 10/14/22 Ca 9.5 mg/dl (8.5-10.1) 10/14/22 Total Bilirubin 0.7 mg/dl (0.2-1.0) 10/13/22 AST/SGOT 24 U/L (13-39) 10/13/22 ALT/SGPT 12 U/L (7-52) 10/13/22 Alkaline Phosphatase 71 U/L (34-104) 10/13/22 Total Protein 7.6 gm/dl (6.0-8.3) 10/13/22 Albumin 4.5 gm/dl (3.4-5.0) 10/13/22 Globulin 3.1 gm/dl (2.5-4.0) 10/13/22 Albumin/Globulin Ratio 1.5 (0.9-2) 10/13/22 Procalcitonin 0.29 ng/ml (0-0.5) 10/13/22 PTT 31.5 Seconds (21.0-31.0) H 10/13/22 INR 1.2 (0.9-1.1) H 10/13/22 SARS-CoV-2, RNA, NAAT NEGATIVE (NEGATIVE) 10/13/22 Code Status & VTE Plan Code Status DNR/DNI VTE Prophylaxis Plan VTE Prophylaxis will be ordered: Yes Supervising Physician Co-Signing Physician Notes Pt seen and examined by me, care coordinated with Jesusita Tejada PA-C, pls refer to her note above for further detail. Pt is an 87 yo F w/COPD, CAD s/p CABG x1, HLD, renal artery stenosis, HTN, glaucoma, elevated hemoglobin, history of tobacco abuse disorder, hard of hearing who presents w/back pain, N/V and poor PO intake. Lower back pain started about 1 week ago. She denies any trauma. Pain is much worse with movement and almost absent when still. She presented to [facility] ED on 10/10/[address] scan of lumbar spine which revealed a moderate amount of lumbar dextroscoliosis and slightly exaggerated kyphosis with prominent degenerative changes in the lumbar spine. There is no acute fracture noted. She was prescribed tramadol and Flexeril and was discharged home. She started taking the tramadol to alleviate her pain and about an hour and a half after she took the med she developed nausea and vomiting. In ED today, patient was significantly hypertensive with SBP greater than 200. Lab work revealed dehydration in setting of elevated H&H as well as elevated BUN/creatinine ratio. She did have mildly bumped troponin at 63.2 although EKG revealed relatively unchanged findings. Urinalysis concerning for a UTI. A chest CTA was performed which ruled out thoracic dissection/PE. Prominent distal esophageal wall thickening was noticed favoring severe esophagitis. Extensive secretions were also noted in the right lower lobe segmental bronchi concerning for possible atelectasis/aspiration pneumonia. T10 subacute compression fx. In ED she received 5 mg of IV hydralazine which did improve her systolic blood pressure to 158. She also received IV fluid and IV Unasyn. Currently patient is lying in bed, in no acute distress, she is on supplemental oxygen. Family at the bedside. Patient is awake alert, able to answer simple questions appropriately. She is elderly frail, thin/cachectic appearing. Reports lower back pain, left lumbar area. On palpation, there is no spinal tenderness. There is left lumbar region paraspinal tenderness to palpation present. Patient denies any radiation of pain to her leg. She is breathing comfortably on supplemental oxygen. Rhonchi present at right lower lobe. Per son at the bedside, patient at home does not require oxygen, however given her COPD she uses pulse ox, and saturates around 90%. Heart sounds regular. Abdomen soft nontender nondistended. No lower extremity edema. Skin is warm and dry. We will continue with IV Zosyn to cover for pneumonia and possible UTI. We will provide gentle IV fluids while patient has difficulty with p.o. intake. We will try clear liquid diet. Started on IV PPI. Continue to closely monitor. MD Olesya
--- NOTE | 2022-10-13 16:20 | Electrocardiogram Report ---
Test Reason : Blood Pressure : / mmHG Vent. Rate : 079 BPM Atrial Rate : 079 BPM P-R Int : 144 ms QRS Dur : 078 ms QT Int : 390 ms P-R-T Axes : 072 -30 -32 degrees QTc Int : 447 ms Sinus rhythm with occasional Premature ventricular complexes Left axis deviation Voltage criteria for left ventricular hypertrophy Abnormal ECG When compared with ECG of 14-OCT-2021 09:45, Premature ventricular complexes are now Present Confirmed by Lamont Kahn ([id number]) on 10/13/2022 4:20:11 PM Referred By: REFERRED SELF Confirmed By:Lamont Kahn
--- NOTE | 2022-10-13 16:22 | Electrocardiogram Report ---
Test Reason : Blood Pressure : / mmHG Vent. Rate : 070 BPM Atrial Rate : 070 BPM P-R Int : 152 ms QRS Dur : 076 ms QT Int : 430 ms P-R-T Axes : 068 -29 -61 degrees QTc Int : 464 ms Normal sinus rhythm Voltage criteria for left ventricular hypertrophy Abnormal ECG When compared with ECG of 13-OCT-2022 12:12, (unconfirmed) Premature ventricular complexes are no longer Present Confirmed by Lamont Kahn ([id number]) on 10/13/2022 4:21:43 PM Referred By: REFERRED SELF Confirmed By:Lamont Kahn
[2022-10-13] MEDS ORDERED: ALBUT/IPRATROP 3MG/0.5MG NEB 3 ML VIAL NEB PRN (16:29)
[2022-10-13] MEDS ORDERED: POLYETHYLENE (MIRALAX) 17 GM PACK PO PRN (16:29)
[2022-10-13] MEDS ORDERED: MAGNESIUM HYDROXIDE SUSP 30 ML UDC PO PRN (16:29)
[2022-10-13] MEDS ORDERED: ALUMINUM/MAGNESIUM SUSP 30 ML UDC PO PRN (16:29)
[2022-10-13] MEDS: LACTATED RINGER'S 1,000 ML IV SCH (17:11)
[2022-10-13] MEDS: LIDOCAINE 5% 1 PATCH TD SCH (17:57)
[2022-10-13] MEDS: amLODIPine BESYLATE 5 MG TAB PO SCH (17:59)
[2022-10-13] MEDS: ALBUT/IPRATROP 3MG/0.5MG NEB 3 ML VIAL NEB SCH (19:00)
[2022-10-13] MEDS: PIPERACILLIN/TAZOBACTAM 3.375 GM in DEXTROSE 5% 100 ML IV SCH (20:06)
[2022-10-13] MEDS: CYCLOBENZAPRINE HCL 5 MG TAB PO SCH (20:13)
[2022-10-13] MEDS: DOCUSATE SODIUM 100 MG CAP PO SCH (20:16)
[2022-10-13] MEDS: HEPARIN SOD 5,000 UNIT/0.5 ML VIAL SQ SCH (20:20)
[2022-10-13] MEDS: MIRTAZAPINE SOLTAB 15 MG PO SCH (20:20)
[2022-10-13] MEDS: CEROVITE ADV FORMULA TAB PO SCH (20:22)
[2022-10-13] MEDS: PANTOprazole 40 MG in SYRINGE 0 ML IV SCH (20:25)
[2022-10-14] MEDS: ACETAMINOPHEN 1,000 MG/100 ML VIAL IV PRN ×2 (00:41→17:29)
[2022-10-14] MEDS: PIPERACILLIN/TAZOBACTAM 3.375 GM in DEXTROSE 5% 100 ML IV SCH ×3 (01:45→18:17)
[2022-10-14 02:45] LABS: Basophils # (auto) 0.04 K/uL (0-0.2); Basophils % (auto) 0.3 %; Hematocrit (blood only) 44.2 % (37.0-47.0); Hemoglobin 14.6 g/dl (12.0-16.0); Immature Granulocytes # (auto) 0.07 K/uL (0.01-0.20); Immature Granulocytes % (auto) 0.5 %; Lymphocytes # (auto) 1.37 K/uL (1.2-3.4); Lymphocytes % (auto) 10.3 %; Mean Corpuscular Hemoglobin 29.9 pg (25.0-34.0); Mean Corpuscular Volume 90.6 fL (80.0-100.0); Mean Platelet Volume 10.7 fL (9.4-12.4); Neutrophils # (auto) 10.61 K/uL (1.40-6.50); Neutrophils % (auto) 79.9 %; Platelet Count 441 K/uL (130-400); RDW Coefficient of Variation 15.3 % (11.5-14.5); RDW Standard Deviation 50.3 fL (36.4-46.3); Red Blood Count 4.88 M/uL (4.20-5.40); White Blood Count 13.29 K/ul (4.8-10.8)
[2022-10-14 05:07] LABS: BUN Creatinine Ratio 32.5 (10-20); Calcium 9.5 mg/dl (8.5-10.1); Creatinine Clr Calc Pharmacy 32.3 ml/min; Est GFR (African American) 81.6 ml/min; Est GFR (Non-African American) 70.4 ml/min; Magnesium 1.6 mg/dl (1.7-2.4); Potassium 3.2 mmol/L (3.5-5.1)
[2022-10-14] MEDS: LACTATED RINGER'S 1,000 ML IV SCH (05:28)
[2022-10-14] MEDS ORDERED: OLANZapine 10 MG/2.1 ML SDV IM STA ×2 (06:32→17:55)
[2022-10-14] MEDS ORDERED: OLANZapine 10 MG/2.1 ML SDV IM ONE ×2 (06:37→17:54)
[2022-10-14] MEDS: MAGNESIUM SULFATE / D5W 1 GM/100 ML BAG IV SCH ×2 (07:50→10:10)
[2022-10-14] MEDS: CEROVITE ADV FORMULA TAB PO SCH ×2 (08:09→20:19)
[2022-10-14] MEDS: CHOLECALCIFEROL 5,000 UNITS 125 MCG TAB PO SCH (08:09)
[2022-10-14] MEDS: DOCUSATE SODIUM 100 MG CAP PO SCH ×2 (08:09→20:24)
[2022-10-14] MEDS: ASPIRIN 81 MG ECTAB PO SCH (08:09)
[2022-10-14] MEDS: PANTOprazole 40 MG in SYRINGE 0 ML IV SCH ×2 (08:40→20:22)
[2022-10-14] MEDS: LIDOCAINE 5% 1 PATCH TD SCH (08:40)
[2022-10-14] MEDS: HEPARIN SOD 5,000 UNIT/0.5 ML VIAL SQ SCH ×2 (08:41→20:13)
--- NOTE | 2022-10-14 08:41 | Hospitalist Progress Note ---
Date of Service October 14, 2022 Assessment & Plan (1) Acute respiratory failure with hypoxia: (2) Right lower lobe pneumonia: (3) UTI (urinary tract infection): (4) Dehydration: (5) Low back pain: (6) Esophagitis: (7) Pulmonary nodule: (8) CAD (coronary artery disease): (9) Hx of CABG: (10) HTN (hypertension): Plan This is a 87-year-old female who has significant past medical history of COPD, CAD with history of CABG x1, HLD, renal artery stenosis, HTN, glaucoma, elevated hemoglobin, history of tobacco abuse disorder, hard of hearing who presents to ED due to back pain x 1 week; N/V and poor PO intake for 1.5 days. Acute respiratory failure with hypoxia Possible right lower lobe pneumonia COPD, without exacerbation DuoNeb twice daily and as needed Incentive spirometry , flutter valve with nursing assistance Oxygen as needed, goal saturation 88 to 92% currently clear liquid diet per pt preference, advance as tolerated tx with IV zosyn for now guaifenesin pt does not use O2 at home, per saon saturates around 90% on RA at home Possible UTI UA concerning for infection U cultx positive for gram negat. bacilli Patient does not report any symptoms Given white blood cell count and treating for right lower lobe pneumonia will also cover for UTI Await urine and blood culture Empiric Zosyn for PNA coverage as well Prerenal acute kidney injury Patient with elevated BUN of 43, Cr 0.97 with a BUN/creatinine ratio of 35.1 Secondary to poor p.o. intake, N/V Gentle hydration with IV fluid LR x2 L Repeat in a.m. CAD with history of CABG x1 Elevated troponin Abnormal EKGwith T wave inversions inferior & laterally -unchanged from prior Patient without chest pain Troponin mildly elevated, serial CE essentially unchanged likely elev. secondary to above Continue aspirin Low Back Pain pt had imaging at [facility] which revealed DDD, dextroscoliosis with slight kyphosis, no acute fx on CT here T10 subacute compress. fx no pain on palpation over spine appears to be MSK in nature, worse with movement, + tender to palpation to L lower lumbar paraspinal musculature Heat QID, lidocaine patch, Flexeril 2.5mg bid consult PT/OT for other modalities Pt was to see Pain management on day of admission to discuss possible MRI for injections HTN In ED patient met criteria for hypertensive urgency with peak blood pressure 204/114 She received 5 mg IV hydralazine which improved BP to 158/81 Previously patient have been prescribed amlodipine 2.5 mg which has since been discontinued amlodipine 2.5 mg resumed, BP much improved, monitor BP on telemetry Will need to encourage patient importance of taking medication and monitoring blood pressure at home Per family when seen at [facility] her blood pressure was in the 200s as well Esophagitis per CT imaging may be in setting of recent N/V will place on PPI IV BID until able to tolerate oral intake than can switch to PO family wishes to not pursue and further GI studies unless absolutely warranted Pulmonary Nodule lobulated 1.8 cm solid left lower lobe pulmonary nodule per CT scan Suspicious for bronchogenic carcinoma in setting of tobacco history Discussed with brothers at bedside and recommend pulmonary evaluation as outpatient if patient wishes to pursue further work-up Polycythemia Likely exacerbated in setting of dehydration Patient hemoglobin typically runs ~15 Former tobacco user DVT prophylaxis:Heparin BID Dispo: tele, pt lives at home with nephew - d/c plan uncertain at this time PCP: Kae Lockhart PA DNR/DNI -discussion with son and patient who wishes for no aggressive measures to be done Patient's son Ramiro is an employee at [employer] and works here Sunday through Sunday, his phone number [phone] and wishes to be called for updates or spoken to while in house. Admission and Anticipated Discharge Date Admission Date: October 13, 2022 Subjective Patient seen in follow-up of nausea vomiting, after taking pain meds, lower back pain, severe esophagitis noted on CT, pneumonia, UTI, hypoxia Overnight patient became confused and agitated, received Zyprexa This morning required mittens On my evaluation this morning patient was lying in bed, calm, but was not answering my questions Patient again seen in the afternoon, with family at the bedside. Patient awake and much more cooperative, appears tired and has a cough w/ deep inhalation. No fevers chills chest pain, increased shortness of breath, abdominal pain. Discussed with family and nursing staff, encouraging flutter valve, spirometer, assistance with feeding. Review of Systems Review of Systems: All systems reviewed & are unremarkable except as noted in Subjective Physical Exam Physical Exam: Constitutional: Thin, cachectic, elderly female in NAD Head: Normocephalic, Atraumatic, bilateral temporal wasting Eyes: PERRL, EOMI ENMT: external ear and nose normal, oropharynx normal dry mucous membranes Neck: trachea midline Respiratory: On 2-3 L of oxygen via NC, normal respiratory effort, lungs clear to auscultation with the exception of right lower lobe rhonchi, no wheeze. Cardiovascular: RRR, no murmur, no edema Abdomen: normal bowel sounds, soft, nontender Musculoskeletal:active range of motion x4, pain to palpation along the lower lumbar left-sided paraspinal musculature, no spinal tenderness to palp. Skin: no rashes, warm and dry Neurologic: PERRL, EOMI, no face palsy, no dysarthria, hard of hearing, moves all extremities Psychiatric: A+Ox3, euthymic affect Results & Data Results & Data ([facility]) Vital Signs (Past 12 Hours) Vital Signs Temp Pulse Pulse Resp BP BP Pulse Ox 10/14/22 07:22 36.5 C 82 24 148/73 H 10/14/22 03:29 36.7 C 66 16 142/66 H 93 10/14/22 00:03 36.7 C 69 16 168/86 H 92 10/13/22 22:55 85 O2 Del Method O2 Flow Rate 10/14/22 07:22 10/14/22 03:29 Nasal Cannula 3 10/14/22 00:03 Nasal Cannula 3 10/13/22 22:55 Laboratory Results 10/14/22 10/14/22 10/14/22 Range/Units 02:30 02:30 02:30 WBC 13.29 H (4.8-10.8) K/ul RBC 4.88 (4.20-5.40) M/uL Hgb 14.6 (12.0-16.0) g/dl Hct 44.2 (37.0-47.0) % MCV 90.6 (80.0-100.0) fL MCH 29.9 (25.0-34.0) pg MCHC 33.0 (32.0-36.0) g/dL RDW Std Deviation 50.3 H (36.4-46.3) fL RDW Coeff of Grey 15.3 H (11.5-14.5) % Plt Count 441 H (130-400) K/uL MPV 10.7 (9.4-12.4) fL Immature Gran % (Auto) 0.5 % Neut % (Auto) 79.9 % Lymph % (Auto) 10.3 % [place] % (Auto) 9.0 % Eos % (Auto) 0.0 % Baso % (Auto) 0.3 % Neut # (Auto) 10.61 H (1.40-6.50) K/uL Lymph # (Auto) 1.37 (1.2-3.4) K/uL [place] # (Auto) 1.20 H (0.11-0.59) K/uL Eos # (Auto) 0.00 (0-0.50) K/uL Baso # (Auto) 0.04 (0-0.2) K/uL Immature Gran # (Auto) 0.07 (0.01-0.20) K/uL PT (9.0-12.0) Seconds INR (0.9-1.1) APTT (21.0-31.0) Seconds PTT Ratio Sodium 138 (136-145) mmol/L Potassium 3.2 L (3.5-5.1) mmol/L Chloride 95 L (98-107) mmol/L Carbon Dioxide 36 H (21-32) mmol/L Anion Gap 7 (3-11) BUN 25 H (6-23) mg/dl Creatinine 0.77 (0.6-1.2) mg/dl Est Cr Clr Drug Dosing 32.3 ml/min Est GFR ( Amer) 81.6 ml/min Est GFR (Non-Af Amer) 70.4 ml/min BUN/Creatinine Ratio 32.5 H (10-20) Glucose 97 (70-99(Fasting)) mg/dl Calcium 9.5 (8.5-10.1) mg/dl Magnesium 1.6 L (1.7-2.4) mg/dl Total Bilirubin (0.2-1.0) mg/dl AST (13-39) U/L ALT (7-52) U/L Alkaline Phosphatase (34-104) U/L Troponin I High Sens 76.3 H* (0-14) pg/ml Total Protein (6.0-8.3) gm/dl Albumin (3.4-5.0) gm/dl Globulin (2.5-4.0) gm/dl Albumin/Globulin Ratio (0.9-2) Lipase (11-82) U/L Procalcitonin (0-0.5) ng/ml Urine Color Urine Appearance (Clear) Urine pH (4.5-7.5) Ur Specific [place] (1.000-1.030) Urine Protein (Negative) Urine Glucose (UA) (Negative) Urine Ketones (Negative) Urine Blood (Negative) Urine Nitrite (Negative) Urine Bilirubin (Negative) Urine Urobilinogen (Negative) Ur Leukocyte Esterase (Negative) Urine WBC (Auto) (0-5) /hpf Urine RBC (Auto) (0-4) /hpf U Hyaline Cast (Auto) (0-5) /lpf U Epithel Cells (Auto) (0-5) /lpf Urine Bacteria (Auto) (Negative) SARS-CoV-2, RNA, NAAT (NEGATIVE) 10/13/22 10/13/22 10/13/22 Range/Units 20:35 15:18 15:18 WBC (4.8-10.8) K/ul RBC (4.20-5.40) M/uL Hgb (12.0-16.0) g/dl Hct (37.0-47.0) % MCV (80.0-100.0) fL MCH (25.0-34.0) pg MCHC (32.0-36.0) g/dL RDW Std Deviation (36.4-46.3) fL RDW Coeff of Grey (11.5-14.5) % Plt Count (130-400) K/uL MPV (9.4-12.4) fL Immature Gran % (Auto) % Neut % (Auto) % Lymph % (Auto) % [place] % (Auto) % Eos % (Auto) % Baso % (Auto) % Neut # (Auto) (1.40-6.50) K/uL Lymph # (Auto) (1.2-3.4) K/uL [place] # (Auto) (0.11-0.59) K/uL Eos # (Auto) (0-0.50) K/uL Baso # (Auto) (0-0.2) K/uL Immature Gran # (Auto) (0.01-0.20) K/uL PT (9.0-12.0) Seconds INR (0.9-1.1) APTT (21.0-31.0) Seconds PTT Ratio Sodium (136-145) mmol/L Potassium (3.5-5.1) mmol/L Chloride (98-107) mmol/L Carbon Dioxide (21-32) mmol/L Anion Gap (3-11) BUN (6-23) mg/dl Creatinine (0.6-1.2) mg/dl Est Cr Clr Drug Dosing ml/min Est GFR ( Amer) ml/min Est GFR (Non-Af Amer) ml/min BUN/Creatinine Ratio (10-20) Glucose (70-99(Fasting)) mg/dl Calcium (8.5-10.1) mg/dl Magnesium (1.7-2.4) mg/dl Total Bilirubin (0.2-1.0) mg/dl AST (13-39) U/L ALT (7-52) U/L Alkaline Phosphatase (34-104) U/L Troponin I High Sens 73.3 H* D 58.4 H* (0-14) pg/ml Total Protein (6.0-8.3) gm/dl Albumin (3.4-5.0) gm/dl Globulin (2.5-4.0) gm/dl Albumin/Globulin Ratio (0.9-2) Lipase (11-82) U/L Procalcitonin 0.29 (0-0.5) ng/ml Urine Color Urine Appearance (Clear) Urine pH (4.5-7.5) Ur Specific [place] (1.000-1.030) Urine Protein (Negative) Urine Glucose (UA) (Negative) Urine Ketones (Negative) Urine Blood (Negative) Urine Nitrite (Negative) Urine Bilirubin (Negative) Urine Urobilinogen (Negative) Ur Leukocyte Esterase (Negative) Urine WBC (Auto) (0-5) /hpf Urine RBC (Auto) (0-4) /hpf U Hyaline Cast (Auto) (0-5) /lpf U Epithel Cells (Auto) (0-5) /lpf Urine Bacteria (Auto) (Negative) SARS-CoV-2, RNA, NAAT (NEGATIVE) 10/13/22 10/13/22 10/13/22 Range/Units 13:19 12:28 11:40 WBC (4.8-10.8) K/ul RBC (4.20-5.40) M/uL Hgb (12.0-16.0) g/dl Hct (37.0-47.0) % MCV (80.0-100.0) fL MCH (25.0-34.0) pg MCHC (32.0-36.0) g/dL RDW Std Deviation (36.4-46.3) fL RDW Coeff of Grey (11.5-14.5) % Plt Count (130-400) K/uL MPV (9.4-12.4) fL Immature Gran % (Auto) % Neut % (Auto) % Lymph % (Auto) % [place] % (Auto) % Eos % (Auto) % Baso % (Auto) % Neut # (Auto) (1.40-6.50) K/uL Lymph # (Auto) (1.2-3.4) K/uL [place] # (Auto) (0.11-0.59) K/uL Eos # (Auto) (0-0.50) K/uL Baso # (Auto) (0-0.2) K/uL Immature Gran # (Auto) (0.01-0.20) K/uL PT 12.9 H (9.0-12.0) Seconds INR 1.2 H (0.9-1.1) APTT 31.5 H (21.0-31.0) Seconds PTT Ratio 1.1 Sodium (136-145) mmol/L Potassium (3.5-5.1) mmol/L Chloride (98-107) mmol/L Carbon Dioxide (21-32) mmol/L Anion Gap (3-11) BUN (6-23) mg/dl Creatinine (0.6-1.2) mg/dl Est Cr Clr Drug Dosing ml/min Est GFR ( Amer) ml/min Est GFR (Non-Af Amer) ml/min BUN/Creatinine Ratio (10-20) Glucose (70-99(Fasting)) mg/dl Calcium (8.5-10.1) mg/dl Magnesium (1.7-2.4) mg/dl Total Bilirubin (0.2-1.0) mg/dl AST (13-39) U/L ALT (7-52) U/L Alkaline Phosphatase (34-104) U/L Troponin I High Sens (0-14) pg/ml Total Protein (6.0-8.3) gm/dl Albumin (3.4-5.0) gm/dl Globulin (2.5-4.0) gm/dl Albumin/Globulin Ratio (0.9-2) Lipase (11-82) U/L Procalcitonin (0-0.5) ng/ml Urine Color Yellow Urine Appearance Clear (Clear) Urine pH 6.5 (4.5-7.5) Ur Specific [place] 1.023 (1.000-1.030) Urine Protein 2+ H (Negative) Urine Glucose (UA) Negative (Negative) Urine Ketones Negative (Negative) Urine Blood Trace H (Negative) Urine Nitrite Positive A (Negative) Urine Bilirubin Negative (Negative) Urine Urobilinogen Negative (Negative) Ur Leukocyte Esterase Trace H (Negative) Urine WBC (Auto) 1-5 (0-5) /hpf Urine RBC (Auto) 0-4 (0-4) /hpf U Hyaline Cast (Auto) 1-5 (0-5) /lpf U Epithel Cells (Auto) 10-20 H (0-5) /lpf Urine Bacteria (Auto) 4+ H (Negative) SARS-CoV-2, RNA, NAAT NEGATIVE (NEGATIVE) 10/13/22 10/13/22 10/13/22 Range/Units 11:40 11:40 11:40 WBC 15.48 H (4.8-10.8) K/ul RBC 5.85 H (4.20-5.40) M/uL Hgb 17.3 H (12.0-16.0) g/dl Hct 51.4 H (37.0-47.0) % MCV 87.9 (80.0-100.0) fL MCH 29.6 (25.0-34.0) pg MCHC 33.7 (32.0-36.0) g/dL RDW Std Deviation 48.4 H (36.4-46.3) fL RDW Coeff of Grey 15.5 H (11.5-14.5) % Plt Count 511 H (130-400) K/uL MPV 10.9 (9.4-12.4) fL Immature Gran % (Auto) 0.6 % Neut % (Auto) 86.9 % Lymph % (Auto) 5.3 % [place] % (Auto) 7.0 % Eos % (Auto) 0.0 % Baso % (Auto) 0.2 % Neut # (Auto) 13.44 H (1.40-6.50) K/uL Lymph # (Auto) 0.82 L (1.2-3.4) K/uL [place] # (Auto) 1.09 H (0.11-0.59) K/uL Eos # (Auto) 0.00 (0-0.50) K/uL Baso # (Auto) 0.03 (0-0.2) K/uL Immature Gran # (Auto) 0.10 (0.01-0.20) K/uL PT (9.0-12.0) Seconds INR (0.9-1.1) APTT (21.0-31.0) Seconds PTT Ratio Sodium 139 (136-145) mmol/L Potassium 4.0 (3.5-5.1) mmol/L Chloride 93 L (98-107) mmol/L Carbon Dioxide 35 H (21-32) mmol/L Anion Gap 11 (3-11) BUN 34 H (6-23) mg/dl Creatinine 0.97 (0.6-1.2) mg/dl Est Cr Clr Drug Dosing 25.7 ml/min Est GFR ( Amer) 61.7 ml/min Est GFR (Non-Af Amer) 53.3 ml/min BUN/Creatinine Ratio 35.1 H (10-20) Glucose 121 H (70-99(Fasting)) mg/dl Calcium 10.9 H (8.5-10.1) mg/dl Magnesium (1.7-2.4) mg/dl Total Bilirubin 0.7 (0.2-1.0) mg/dl AST 24 (13-39) U/L ALT 12 (7-52) U/L Alkaline Phosphatase 71 (34-104) U/L Troponin I High Sens Cancelled 63.2 H* (0-14) pg/ml Total Protein 7.6 (6.0-8.3) gm/dl Albumin 4.5 (3.4-5.0) gm/dl Globulin 3.1 (2.5-4.0) gm/dl Albumin/Globulin Ratio 1.5 (0.9-2) Lipase 7 L (11-82) U/L Procalcitonin (0-0.5) ng/ml Urine Color Urine Appearance (Clear) Urine pH (4.5-7.5) Ur Specific [place] (1.000-1.030) Urine Protein (Negative) Urine Glucose (UA) (Negative) Urine Ketones (Negative) Urine Blood (Negative) Urine Nitrite (Negative) Urine Bilirubin (Negative) Urine Urobilinogen (Negative) Ur Leukocyte Esterase (Negative) Urine WBC (Auto) (0-5) /hpf Urine RBC (Auto) (0-4) /hpf U Hyaline Cast (Auto) (0-5) /lpf U Epithel Cells (Auto) (0-5) /lpf Urine Bacteria (Auto) (Negative) SARS-CoV-2, RNA, NAAT (NEGATIVE) Medications Administered Current Inpatient Medications Acetaminophen (Acetaminophen 325 Mg Tab) 650 mg PO Q4H PRN PRN Reason: Pain or Fever Stop: 11/12/22 16:28 Al Hydrox/Mg Hydrox/Simethicone (Aluminum/Magnesium Susp 30 Ml Udc) 15 ml PO Q4H PRN PRN Reason: Dyspepsia Stop: 11/12/22 16:28 Albuterol (Albut/Ipratrop 3mg/0.5mg Neb 3 Ml Vial) 3 ml NEB BID [facility]; Protocol Stop: 11/12/22 20:59 Last Admin: 10/13/22 19:00 Dose: 3 ml Albuterol (Albut/Ipratrop 3mg/0.5mg Neb 3 Ml Vial) 3 ml NEB Q4R PRN; Protocol PRN Reason: sob/wheezing Stop: 11/12/22 16:28 Amlodipine Besylate (Amlodipine Besylate 5 Mg Tab) 2.5 mg PO QAM [facility] Stop: 11/12/22 16:28 Last Admin: 10/13/22 17:59 Dose: 2.5 mg Aspirin (Aspirin 81 Mg Ectab) 81 mg PO DAILY [facility] Stop: 11/13/22 08:59 Last Admin: 10/14/22 08:09 Dose: Not Given Cyclobenzaprine HCl (Cyclobenzaprine Hcl 5 Mg Tab) 2.5 mg PO BID [facility] Stop: 11/12/22 20:59 Last Admin: 10/13/22 20:13 Dose: 2.5 mg Docusate Sodium (Docusate Sodium 100 Mg Cap) 100 mg PO BID [facility] Stop: 11/12/22 20:59 Last Admin: 10/14/22 08:09 Dose: Not Given Fenofibrate (Fenofibrate Nanocrystallized 145 Mg Tablet) 145 mg PO Q24H [facility] Stop: 11/13/22 11:59 Heparin Sodium (Porcine) (Heparin Sod 5,000 Unit/0.5 Ml Vial) 5,000 units SQ Q12 [facility] Stop: 11/12/22 20:59 Last Admin: 10/13/22 20:20 Dose: 5,000 units Lactated Ringer's (Lr) 1,000 mls @ 80 mls/hr IV .[id number] [facility] Stop: 10/14/22 15:44 Last Admin: 10/14/22 05:28 Dose: 80 mls/hr Pantoprazole Sodium 40 mg/ (Syringe) 10 mls @ 5 mls/min IV BID [facility] Stop: 11/12/22 20:59 Last Admin: 10/13/22 20:25 Dose: 5 mls/min Piperacillin Sod/Tazobactam (Sod 3.375 gm/ Dextrose) 115 mls @ 28.75 mls/hr IV Q8H [facility]; Protocol Stop: 10/20/22 18:59 Last Infusion: 10/14/22 05:46 Dose: Infused Acetaminophen (Ofirmev) 1,000 mg in 100 mls @ 400 mls/hr IV Q8H PRN PRN Reason: Pain or Fever Stop: 10/16/22 20:53 Last Infusion: 10/14/22 01:09 Dose: Infused Potassium Chloride (K Vasu / Wtr) 10 meq in 100 mls @ 100 mls/hr IV Q1H [facility] Stop: 10/14/22 10:44 Magnesium Sulfate/Dextrose (Magnesium Sulfate / D5w) 1 gm in 100 mls @ 50 mls/hr IV Q2H [facility] Stop: 10/14/22 10:44 Last Admin: 10/14/22 07:50 Dose: 50 mls/hr Lidocaine (Lidocaine 5% 1 Patch) 1 patch TD QAM [facility] Stop: 11/12/22 16:28 Last Admin: 10/13/22 17:57 Dose: 1 patch Magnesium Hydroxide (Magnesium Hydroxide Susp 30 Ml Udc) 30 ml PO Q12H PRN PRN Reason: Constipation Stop: 11/12/22 16:28 Mirtazapine (Mirtazapine Soltab 15 Mg) 7.5 mg PO HS [facility] Stop: 11/12/22 20:59 Last Admin: 10/13/22 20:20 Dose: 7.5 mg Miscellaneous (Remove Lidoderm Patch) 1 each N/A DAILY@2100 [facility] Stop: 11/12/22 20:59 Last Admin: 10/13/22 21:32 Dose: 1 each Multivitamins/Minerals (Cerovite Adv Formula Tab) 1 tab PO BID [facility] Stop: 11/12/22 20:59 Last Admin: 10/14/22 08:09 Dose: Not Given Ondansetron HCl (Ondansetron Inj 2 Mg/Ml 2 Ml Vial) 4 mg IV Q6H PRN PRN Reason: Nausea Stop: 11/12/22 16:28 Polyethylene Glycol (Polyethylene (Miralax) 17 Gm Pack) 17 gm PO DAILY PRN PRN Reason: Constipation Stop: 11/12/22 16:28 Vitamin D (Cholecalciferol 5,000 Units 125 Mcg Tab) 5,000 units PO DAILY [facility] Stop: 11/13/22 08:59 Last Admin: 10/14/22 08:09 Dose: Not Given (1) UTI (urinary tract infection) Hematuria presence: without hematuria Urinary tract infection type: acute cystitis Qualified Code(s): N30.00 - Acute cystitis without hematuria (2) Low back pain Back pain laterality: midline Chronicity: acute Sciatica presence: without sciatica Qualified Code(s): M54.50 - Low back pain, unspecified (3) HTN (hypertension) Hypertension type: unspecified Qualified Code(s): I10 - Essential (primary) hypertension
[2022-10-14] MEDS: amLODIPine BESYLATE 5 MG TAB PO SCH (08:49)
[2022-10-14] MEDS: CYCLOBENZAPRINE HCL 5 MG TAB PO SCH ×2 (08:52→20:16)
[2022-10-14] MEDS ORDERED: FENOFIBRATE NANOCRYSTALLIZED 145 MG TABLET PO SCH (09:00)
[2022-10-14] MEDS: POTASSIUM CHLORIDE / WTR 10 MEQ/100 ML PLCT IV SCH ×4 (09:16→14:17)
[2022-10-14] MEDS: ALBUT/IPRATROP 3MG/0.5MG NEB 3 ML VIAL NEB SCH ×2 (10:32→19:19)
[2022-10-14] MEDS: FENOFIBRATE NANOCRYSTALLIZED 145 MG TABLET PO SCH (12:24)
[2022-10-14] MEDS: guaiFENesin SUGAR FREE 200 MG/10 ML UDC PO SCH ×3 (16:00→23:24)
[2022-10-14] MEDS: MELATONIN 3 MG TAB PO PRN (17:29)
[2022-10-14] MEDS: MIRTAZAPINE SOLTAB 15 MG PO SCH (20:11)
[2022-10-15] MEDS: PIPERACILLIN/TAZOBACTAM 3.375 GM in DEXTROSE 5% 100 ML IV SCH ×3 (03:04→20:28)
[2022-10-15] MEDS: guaiFENesin SUGAR FREE 200 MG/10 ML UDC PO SCH ×3 (06:20→18:25)
[2022-10-15] MEDS: ALBUT/IPRATROP 3MG/0.5MG NEB 3 ML VIAL NEB SCH ×2 (07:31→20:02)
[2022-10-15 07:32] LABS: Basophils # (auto) 0.05 K/uL (0-0.2); Basophils % (auto) 0.5 %; Eosinophils # (auto) 0.02 K/uL (0-0.50); Eosinophils % (auto) 0.2 %; Hematocrit (blood only) 44.7 % (37.0-47.0); Immature Granulocytes # (auto) 0.06 K/uL (0.01-0.20); Immature Granulocytes % (auto) 0.6 %; Lymphocytes # (auto) 1.01 K/uL (1.2-3.4); Lymphocytes % (auto) 9.7 %; Mean Corpuscular Hemoglobin 29.9 pg (25.0-34.0); Mean Corpuscular Hgb Conc 33.6 g/dL (32.0-36.0); Mean Corpuscular Volume 89.2 fL (80.0-100.0); Mean Platelet Volume 10.7 fL (9.4-12.4); Monocytes # (auto) 1.15 K/uL (0.11-0.59); Neutrophils # (auto) 8.15 K/uL (1.40-6.50); Platelet Count 460 K/uL (130-400); RDW Coefficient of Variation 15.1 % (11.5-14.5); RDW Standard Deviation 49.4 fL (36.4-46.3); Red Blood Count 5.01 M/uL (4.20-5.40); White Blood Count 10.44 K/ul (4.8-10.8)
[2022-10-15 07:59] LABS: BUN Creatinine Ratio 21.8 (10-20); Calcium 10.5 mg/dl (8.5-10.1); Creatinine Clr Calc Pharmacy 31.2 ml/min; Est GFR (African American) 80.3 ml/min; Est GFR (Non-African American) 69.3 ml/min; Magnesium 1.8 mg/dl (1.7-2.4); Phosphorus 2.1 mg/dl (2.5-4.9); Potassium 3.1 mmol/L (3.5-5.1)
[2022-10-15] MEDS: CEROVITE ADV FORMULA TAB PO SCH ×2 (08:14→20:29)
[2022-10-15] MEDS: ASPIRIN 81 MG ECTAB PO SCH (08:14)
[2022-10-15] MEDS: DOCUSATE SODIUM 100 MG CAP PO SCH ×3 (08:14→20:54)
[2022-10-15] MEDS: CHOLECALCIFEROL 5,000 UNITS 125 MCG TAB PO SCH (08:14)
[2022-10-15] MEDS: ACETAMINOPHEN 1,000 MG/100 ML VIAL IV PRN ×2 (08:18→18:25)
[2022-10-15] MEDS: LIDOCAINE 5% 1 PATCH TD SCH (08:21)
[2022-10-15] MEDS: CYCLOBENZAPRINE HCL 5 MG TAB PO SCH (08:21)
[2022-10-15] MEDS: HEPARIN SOD 5,000 UNIT/0.5 ML VIAL SQ SCH ×2 (08:21→20:30)
[2022-10-15] MEDS: PANTOprazole 40 MG in SYRINGE 0 ML IV SCH ×2 (08:21→20:29)
[2022-10-15] MEDS: amLODIPine BESYLATE 5 MG TAB PO SCH (08:22)
[2022-10-15] MEDS: MELATONIN 3 MG TAB PO PRN (08:49)
[2022-10-15] MEDS ORDERED: POTASSIUM CHLORIDE PWD 20 MEQ PACK PO ONE (09:35)
--- NOTE | 2022-10-15 09:41 | Hospitalist Progress Note ---
Date of Service October 15, 2022 Assessment & Plan (1) Acute respiratory failure with hypoxia: (2) Right lower lobe pneumonia: (3) UTI (urinary tract infection): (4) Dehydration: (5) Low back pain: (6) Esophagitis: (7) Pulmonary nodule: (8) CAD (coronary artery disease): (9) Hx of CABG: (10) HTN (hypertension): Plan This is a 87-year-old female who has significant past medical history of COPD, CAD with history of CABG x1, HLD, renal artery stenosis, HTN, glaucoma, elevated hemoglobin, history of tobacco abuse disorder, hard of hearing who presents to ED due to back pain x 1 week; N/V and poor PO intake for 1.5 days. Acute respiratory failure with hypoxia Possible right lower lobe pneumonia COPD, without exacerbation DuoNeb twice daily and as needed Incentive spirometry , flutter valve with nursing assistance Oxygen as needed, goal saturation 88 to 92% currently clear liquid diet per pt preference, advance as tolerated tx with IV zosyn for now guaifenesin pt does not use O2 at home, per saon saturates around 90% on RA at home Possible UTI UA concerning for infection U cultx positive for E.coli Patient does not report any symptoms Given white blood cell count and treating for right lower lobe pneumonia will also cover for UTI Await urine and blood culture Empiric Zosyn for PNA coverage as well Prerenal acute kidney injury Patient with elevated BUN of 43, Cr 0.97 with a BUN/creatinine ratio of 35.1 Secondary to poor p.o. intake, N/V Gentle hydration with IV fluid LR x2 L Repeat in a.m. CAD with history of CABG x1 Elevated troponin Abnormal EKGwith T wave inversions inferior & laterally -unchanged from prior Patient without chest pain Troponin mildly elevated, serial CE essentially unchanged likely elev. secondary to above Continue aspirin Low Back Pain pt had imaging at [facility] which revealed DDD, dextroscoliosis with slight kyphosis, no acute fx on CT here T10 subacute compress. fx no pain on palpation over spine appears to be MSK in nature, worse with movement, + tender to palpation to L lower lumbar paraspinal musculature Heat QID, lidocaine patch, Flexeril 2.5mg bid - will put flexeril on hold now consult PT/OT for other modalities Pt was to see Pain management on day of admission to discuss possible MRI for injections HTN In ED patient met criteria for hypertensive urgency with peak blood pressure 204/114 She received 5 mg IV hydralazine which improved BP to 158/81 Previously patient have been prescribed amlodipine 2.5 mg which has since been discontinued amlodipine 2.5 mg resumed, BP much improved, monitor BP on telemetry Will need to encourage patient importance of taking medication and monitoring blood pressure at home Per family when seen at [facility] her blood pressure was in the 200s as well Esophagitis per CT imaging may be in setting of recent N/V PPI IV BID until able to tolerate oral intake than can switch to PO family wishes to not pursue and further GI studies unless absolutely warranted Pulmonary Nodule lobulated 1.8 cm solid left lower lobe pulmonary nodule per CT scan Suspicious for bronchogenic carcinoma in setting of tobacco history Discussed with brothers at bedside and recommend pulmonary evaluation as outpatient if patient wishes to pursue further work-up Polycythemia Likely exacerbated in setting of dehydration Patient hemoglobin typically runs ~15 Former tobacco user DVT prophylaxis:Heparin BID Dispo: tele, pt lives at home with nephew - d/c plan uncertain at this time PCP: Kae Lockhart DNR/DNI -discussion with son and patient who wishes for no aggressive measures to be done Patient's son Ramiro is an employee at [employer] and works here Sunday through Sunday, his phone number [phone] and wishes to be called for updates or spoken to while in house. Admission and Anticipated Discharge Date Admission Date: October 13, 2022 Subjective Patient seen in follow-up of nausea vomiting, after taking pain meds, lower back pain, severe esophagitis noted on CT, pneumonia, UTI, hypoxia Confused and agitated overnight again, received Zyprexa On my evaluation this morning patient was lying in bed, calm, but was confused and talking. 1:1 present. No fevers chills chest pain, or abdominal pain on my evaluation. Discussed in detail w/ nurse and family. Review of Systems Review of Systems: All systems reviewed & are unremarkable except as noted in Subjective Physical Exam Physical Exam: Constitutional: Thin, cachectic, elderly female in NAD Head: Normocephalic, Atraumatic, bilateral temporal wasting Eyes: PERRL, EOMI ENMT: external ear and nose normal, oropharynx normal dry mucous membranes Neck: trachea midline Respiratory: On 3-4 L of oxygen via NC, normal respiratory effort, lungs clear to auscultation with the exception of right lower lobe rhonchi, no wheeze. Cardiovascular: RRR, no murmur, no edema Abdomen: normal bowel sounds, soft, nontender Musculoskeletal:active range of motion x4, pain to palpation along the lower lumbar left-sided paraspinal musculature, no spinal tenderness to palp. Skin: no rashes, warm and dry Neurologic: PERRL, EOMI, no face palsy, no dysarthria, hard of hearing, moves all extremities Psychiatric: A+Ox3, euthymic affect Results & Data Results & Data ([facility]) Vital Signs (Past 12 Hours) Vital Signs Temp Pulse Resp BP Pulse Ox O2 Del Method O2 Flow Rate 10/15/22 07:57 36.4 C L 96 H 17 175/86 H 91 Nasal Cannula 3 10/15/22 03:26 36.6 C 89 18 157/86 H 88 L Nasal Cannula 3 10/14/22 23:18 36.9 C 74 18 143/76 H 89 L Nasal Cannula 3 Laboratory Results 10/15/22 10/15/22 Range/Units 07:07 07:07 WBC 10.44 (4.8-10.8) K/ul RBC 5.01 (4.20-5.40) M/uL Hgb 15.0 (12.0-16.0) g/dl Hct 44.7 (37.0-47.0) % MCV 89.2 (80.0-100.0) fL MCH 29.9 (25.0-34.0) pg MCHC 33.6 (32.0-36.0) g/dL RDW Std Deviation 49.4 H (36.4-46.3) fL RDW Coeff of Grey 15.1 H (11.5-14.5) % Plt Count 460 H (130-400) K/uL MPV 10.7 (9.4-12.4) fL Immature Gran % (Auto) 0.6 % Neut % (Auto) 78.0 % Lymph % (Auto) 9.7 % Keith % (Auto) 11.0 % Eos % (Auto) 0.2 % Baso % (Auto) 0.5 % Neut # (Auto) 8.15 H (1.40-6.50) K/uL Lymph # (Auto) 1.01 L (1.2-3.4) K/uL Keith # (Auto) 1.15 H (0.11-0.59) K/uL Eos # (Auto) 0.02 (0-0.50) K/uL Baso # (Auto) 0.05 (0-0.2) K/uL Immature Gran # (Auto) 0.06 (0.01-0.20) K/uL Sodium 138 (136-145) mmol/L Potassium 3.1 L (3.5-5.1) mmol/L Chloride 97 L (98-107) mmol/L Carbon Dioxide 33 H (21-32) mmol/L Anion Gap 8 (3-11) BUN 17 (6-23) mg/dl Creatinine 0.78 (0.6-1.2) mg/dl Est Cr Clr Drug Dosing 31.2 ml/min Est GFR ( Amer) 80.3 ml/min Est GFR (Non-Af Amer) 69.3 ml/min BUN/Creatinine Ratio 21.8 H (10-20) Glucose 86 (70-99(Fasting)) mg/dl Calcium 10.5 H (8.5-10.1) mg/dl Phosphorus 2.1 L (2.5-4.9) mg/dl Magnesium 1.8 (1.7-2.4) mg/dl Medications Administered Current Inpatient Medications Acetaminophen (Acetaminophen 325 Mg Tab) 650 mg PO Q4H PRN PRN Reason: Pain or Fever Stop: 11/12/22 16:28 Al Hydrox/Mg Hydrox/Simethicone (Aluminum/Magnesium Susp 30 Ml Udc) 15 ml PO Q4H PRN PRN Reason: Dyspepsia Stop: 11/12/22 16:28 Albuterol (Albut/Ipratrop 3mg/0.5mg Neb 3 Ml Vial) 3 ml NEB BID [facility]; Protocol Stop: 11/12/22 20:59 Last Admin: 10/15/22 07:31 Dose: Not Given Albuterol (Albut/Ipratrop 3mg/0.5mg Neb 3 Ml Vial) 3 ml NEB Q4R PRN; Protocol PRN Reason: sob/wheezing Stop: 11/12/22 16:28 Amlodipine Besylate (Amlodipine Besylate 5 Mg Tab) 2.5 mg PO QAM [facility] Stop: 11/12/22 16:28 Last Admin: 10/15/22 08:22 Dose: 2.5 mg Aspirin (Aspirin 81 Mg Ectab) 81 mg PO DAILY [facility] Stop: 11/13/22 08:59 Last Admin: 10/15/22 08:14 Dose: Not Given Cyclobenzaprine HCl (Cyclobenzaprine Hcl 5 Mg Tab) 2.5 mg PO BID [facility] Stop: 11/12/22 20:59 Last Admin: 10/15/22 08:21 Dose: 2.5 mg Docusate Sodium (Docusate Sodium 100 Mg Cap) 100 mg PO BID [facility] Stop: 11/12/22 20:59 Last Admin: 10/15/22 08:14 Dose: Not Given Fenofibrate (Fenofibrate Nanocrystallized 145 Mg Tablet) 145 mg PO Q24H [facility] Stop: 11/13/22 11:59 Last Admin: 10/14/22 12:24 Dose: Not Given Guaifenesin (Guaifenesin Sugar Free 200 Mg/10 Ml Udc) 200 mg PO Q6 [facility] Stop: 11/13/22 14:59 Last Admin: 10/15/22 06:20 Dose: Not Given Heparin Sodium (Porcine) (Heparin Sod 5,000 Unit/0.5 Ml Vial) 5,000 units SQ Q12 [facility] Stop: 11/12/22 20:59 Last Admin: 10/15/22 08:21 Dose: 5,000 units Pantoprazole Sodium 40 mg/ (Syringe) 10 mls @ 5 mls/min IV BID [facility] Stop: 11/12/22 20:59 Last Admin: 10/15/22 08:21 Dose: 5 mls/min Piperacillin Sod/Tazobactam (Sod 3.375 gm/ Dextrose) 115 mls @ 28.75 mls/hr IV Q8H [facility]; Protocol Stop: 10/20/22 18:59 Last Infusion: 10/15/22 07:22 Dose: Infused Acetaminophen (Ofirmev) 1,000 mg in 100 mls @ 400 mls/hr IV Q8H PRN PRN Reason: Pain or Fever Stop: 10/16/22 20:53 Last Infusion: 10/15/22 08:56 Dose: Infused Potassium Chloride (K Vasu / Wtr) 10 meq in 100 mls @ 100 mls/hr IV Q1H [facility] Stop: 10/15/22 12:44 Lidocaine (Lidocaine 5% 1 Patch) 1 patch TD QAM [facility] Stop: 11/12/22 16:28 Last Admin: 10/15/22 08:21 Dose: 1 patch Magnesium Hydroxide (Magnesium Hydroxide Susp 30 Ml Udc) 30 ml PO Q12H PRN PRN Reason: Constipation Stop: 11/12/22 16:28 Melatonin (Melatonin 3 Mg Tab) 3 mg PO DAILY PRN PRN Reason: Sleep Stop: 11/13/22 15:48 Last Admin: 10/15/22 08:49 Dose: 3 mg Mirtazapine (Mirtazapine Soltab 15 Mg) 7.5 mg PO HS [facility] Stop: 11/12/22 20:59 Last Admin: 10/14/22 20:11 Dose: 7.5 mg Miscellaneous (Remove Lidoderm Patch) 1 each N/A DAILY@2100 [facility] Stop: 11/12/22 20:59 Last Admin: 10/14/22 20:22 Dose: 1 each Multivitamins/Minerals (Cerovite Adv Formula Tab) 1 tab PO BID [facility] Stop: 11/12/22 20:59 Last Admin: 10/15/22 08:14 Dose: Not Given Ondansetron HCl (Ondansetron Inj 2 Mg/Ml 2 Ml Vial) 4 mg IV Q6H PRN PRN Reason: Nausea Stop: 11/12/22 16:28 Polyethylene Glycol (Polyethylene (Miralax) 17 Gm Pack) 17 gm PO DAILY PRN PRN Reason: Constipation Stop: 11/12/22 16:28 Vitamin D (Cholecalciferol 5,000 Units 125 Mcg Tab) 5,000 units PO DAILY [facility] Stop: 11/13/22 08:59 Last Admin: 10/15/22 08:14 Dose: Not Given (1) UTI (urinary tract infection) Hematuria presence: without hematuria Urinary tract infection type: acute cystitis Qualified Code(s): N30.00 - Acute cystitis without hematuria (2) Low back pain Back pain laterality: midline Chronicity: acute Sciatica presence: without sciatica Qualified Code(s): M54.50 - Low back pain, unspecified (3) HTN (hypertension) Hypertension type: unspecified Qualified Code(s): I10 - Essential (primary) hypertension
[2022-10-15] MEDS: POTASSIUM CHLORIDE / WTR 10 MEQ/100 ML PLCT IV SCH ×3 (10:44→12:48)
[2022-10-15] MEDS: FENOFIBRATE NANOCRYSTALLIZED 145 MG TABLET PO SCH (11:51)
[2022-10-15] MEDS ORDERED: OLANZapine 10 MG/2.1 ML SDV IM STA ×2 (12:33→18:31)
[2022-10-15] MEDS ORDERED: OLANZapine 10 MG/2.1 ML SDV IM ONE (12:39)
[2022-10-15] MEDS: MIRTAZAPINE SOLTAB 15 MG PO SCH (20:30)
[2022-10-16] MEDS: guaiFENesin SUGAR FREE 200 MG/10 ML UDC PO SCH ×6 (00:33→23:49)
[2022-10-16] MEDS: MELATONIN 3 MG TAB PO PRN (03:14)
[2022-10-16] MEDS: PIPERACILLIN/TAZOBACTAM 3.375 GM in DEXTROSE 5% 100 ML IV SCH ×3 (03:14→18:25)
[2022-10-16] MEDS: ALBUT/IPRATROP 3MG/0.5MG NEB 3 ML VIAL NEB SCH ×2 (06:58→19:53)
[2022-10-16 07:36] LABS: Hemoglobin 15.7 g/dl (12.0-16.0); Mean Corpuscular Hemoglobin 29.6 pg (25.0-34.0); Mean Corpuscular Hgb Conc 32.7 g/dL (32.0-36.0); Mean Corpuscular Volume 90.6 fL (80.0-100.0); Mean Platelet Volume 11.3 fL (9.4-12.4); Platelet Count 465 K/uL (130-400); White Blood Count 8.81 K/ul (4.8-10.8)
[2022-10-16] MEDS: PANTOprazole 40 MG in SYRINGE 0 ML IV SCH ×2 (09:04→20:47)
[2022-10-16] MEDS: CHOLECALCIFEROL 5,000 UNITS 125 MCG TAB PO SCH (09:05)
[2022-10-16] MEDS: HEPARIN SOD 5,000 UNIT/0.5 ML VIAL SQ SCH ×2 (09:05→22:28)
[2022-10-16] MEDS: amLODIPine BESYLATE 5 MG TAB PO SCH (09:06)
[2022-10-16] MEDS: DOCUSATE SODIUM 100 MG CAP PO SCH ×2 (09:06→22:23)
[2022-10-16] MEDS: ASPIRIN 81 MG ECTAB PO SCH (09:06)
[2022-10-16] MEDS: LIDOCAINE 5% 1 PATCH TD SCH (09:07)
[2022-10-16] MEDS: CEROVITE ADV FORMULA TAB PO SCH ×2 (09:08→22:23)
--- NOTE | 2022-10-16 09:23 | Hospitalist Progress Note ---
Date of Service October 16, 2022 Assessment & Plan (1) Acute respiratory failure with hypoxia: (2) Right lower lobe pneumonia: (3) UTI (urinary tract infection): (4) Dehydration: (5) Low back pain: (6) Esophagitis: (7) Pulmonary nodule: (8) CAD (coronary artery disease): (9) Hx of CABG: (10) HTN (hypertension): Plan This is a 87-year-old female who has significant past medical history of COPD, CAD with history of CABG x1, HLD, renal artery stenosis, HTN, glaucoma, elevated hemoglobin, history of tobacco abuse disorder, hard of hearing who presents to ED due to back pain x 1 week; N/V and poor PO intake for 1.5 days. Acute respiratory failure with hypoxia Possible right lower lobe pneumonia, poss. aspiration pna COPD, without exacerbation DuoNeb twice daily and as needed Incentive spirometry , flutter valve with nursing assistance Oxygen as needed, goal saturation 88 to 92% currently clear liquid diet per pt preference, advance as tolerated tx with IV zosyn for now guaifenesin pt does not use O2 at home, per son saturates around 90% on RA at home Possible UTI UA concerning for infection U cultx positive for E.coli Patient does not report any symptoms Given white blood cell count and treating for right lower lobe pneumonia will also cover for UTI blood culture - negat. for 48 hrs Prerenal acute kidney injury Patient with elevated BUN of 43, Cr 0.97 with a BUN/creatinine ratio of 35.1 Secondary to poor p.o. intake, N/V Gentle hydration with IV fluid Cr down to 0.6 CAD with history of CABG x1 Elevated troponin Abnormal EKGwith T wave inversions inferior & laterally -unchanged from prior Patient without chest pain Troponin mildly elevated, serial CE essentially unchanged likely elev. secondary to above/deman ischemia Continue aspirin Low Back Pain pt had imaging at [facility] which revealed DDD, dextroscoliosis with slight kyphosis, no acute fx on CT here T10 subacute compress. fx no pain on palpation over spine appears to be MSK in nature, worse with movement, + tender to palpation to L lower lumbar paraspinal musculature Heat QID, lidocaine patch, Flexeril 2.5mg bid - will put flexeril on hold now consult PT/OT for other modalities Pt was to see Pain management on day of admission to discuss possible MRI for injections HTN In ED patient met criteria for hypertensive urgency with peak blood pressure 204/114 She received 5 mg IV hydralazine which improved BP to 158/81 Previously patient have been prescribed amlodipine 2.5 mg which has since been discontinued amlodipine 2.5 mg resumed, BP improved but still elevated - will increase to 5 mg daily, monitor BP, on telemetry Will need to encourage patient importance of taking medication and monitoring blood pressure at home Per family when seen at [facility] her blood pressure was in the 200s as well Esophagitis per CT imaging may be in setting of recent N/V PPI IV BID until able to tolerate oral intake than can switch to PO family wishes to not pursue and further GI studies unless absolutely warranted Pulmonary Nodule lobulated 1.8 cm solid left lower lobe pulmonary nodule per CT scan Suspicious for bronchogenic carcinoma in setting of tobacco history Discussed with brothers at bedside and recommend pulmonary evaluation as outpatient if patient wishes to pursue further work-up Polycythemia Likely exacerbated in setting of dehydration Patient hemoglobin typically runs ~15 Former tobacco user Malnutrition, BMI 13.6 - pt cachectic on phys. exam -dietitian consulted -difficulty currently w/ PO intake given nausea/vomiting on admission, esophagitis on CT DVT prophylaxis:Heparin BID Dispo: tele, pt lives at home with nephew PCP: Kae Lockhart DNR/DNI -discussion with son and patient who wishes for no aggressive measures to be done Patient's son Ramiro is an employee at [employer] and works here Sunday through Sunday, his phone number [phone] and wishes to be called for updates or spoken to while in house. Admission and Anticipated Discharge Date Admission Date: October 13, 2022 Subjective Patient seen in follow-up of nausea vomiting, after taking pain meds, lower back pain, severe esophagitis noted on CT, pneumonia, UTI, hypoxia Currently laying in bed, sleeping, however arousable, in no acute distress She has been confused and agitated for past 2 days, requiring Zyprexa Per nursing staff, patient able to take p.o. meds crushed in applesauce Review of Systems Review of Systems: Unobtainable due to cognitive status Physical Exam Physical Exam: Constitutional: Thin, cachectic, elderly female in NAD Head: Normocephalic, Atraumatic, bilateral temporal wasting Eyes: PERRL, EOMI ENMT: external ear and nose normal, oropharynx normal dry mucous membranes Neck: trachea midline Respiratory: On 3 L of oxygen via NC, normal respiratory effort, lungs clear to auscultation with the exception of right lower lobe rhonchi, no wheeze. Cardiovascular: RRR, no murmur, no edema Abdomen: normal bowel sounds, soft, nontender Musculoskeletal:active range of motion x4, pain to palpation along the lower lumbar left-sided paraspinal musculature, no spinal tenderness to palp. Skin: no rashes, warm and dry Neurologic:Drowsy, sleeping however arousable, moves extremities Psychiatric: A+Ox3, euthymic affect Results & Data Results & Data ([facility]) Vital Signs (Past 12 Hours) Vital Signs Temp Pulse Pulse Resp BP BP Pulse Ox 10/16/22 06:58 82 18 90 10/16/22 03:08 102 H 16 175/88 H 93 10/15/22 23:22 36.4 C L 94 H 20 183/96 H 90 10/15/22 22:56 88 O2 Del Method O2 Flow Rate 10/16/22 06:58 Nasal Cannula 3 10/16/22 03:08 Nasal Cannula 2.5 10/15/22 23:22 Nasal Cannula 2.5 10/15/22 22:56 Laboratory Results 10/16/22 10/16/22 10/16/22 Range/Units 09:34 06:44 06:44 WBC 8.81 (4.8-10.8) K/ul RBC 5.30 (4.20-5.40) M/uL Hgb 15.7 (12.0-16.0) g/dl Hct 48.0 H (37.0-47.0) % MCV 90.6 (80.0-100.0) fL MCH 29.6 (25.0-34.0) pg MCHC 32.7 (32.0-36.0) g/dL RDW Std Deviation 50.0 H (36.4-46.3) fL RDW Coeff of Grey 15.0 H (11.5-14.5) % Plt Count 465 H (130-400) K/uL MPV 11.3 (9.4-12.4) fL Sodium 142 (136-145) mmol/L Potassium 3.1 L (3.5-5.1) mmol/L Chloride 97 L (98-107) mmol/L Carbon Dioxide 30 (21-32) mmol/L Anion Gap 15 H (3-11) BUN 14 (6-23) mg/dl Creatinine 0.67 (0.6-1.2) mg/dl Est Cr Clr Drug Dosing 34.9 ml/min Est GFR ( Amer) 92.9 ml/min Est GFR (Non-Af Amer) 80.2 ml/min BUN/Creatinine Ratio 20.9 H (10-20) Glucose 82 (70-99(Fasting)) mg/dl Calcium 10.2 H (8.5-10.1) mg/dl Phosphorus 2.9 (2.5-4.9) mg/dl Magnesium 1.8 (1.7-2.4) mg/dl Procalcitonin 0.15 (0-0.5) ng/ml Medications Administered Current Inpatient Medications Acetaminophen (Acetaminophen 325 Mg Tab) 650 mg PO Q4H PRN PRN Reason: Pain or Fever Stop: 11/12/22 16:28 Al Hydrox/Mg Hydrox/Simethicone (Aluminum/Magnesium Susp 30 Ml Udc) 15 ml PO Q4H PRN PRN Reason: Dyspepsia Stop: 11/12/22 16:28 Albuterol (Albut/Ipratrop 3mg/0.5mg Neb 3 Ml Vial) 3 ml NEB BID [facility]; Protocol Stop: 11/12/22 20:59 Last Admin: 10/16/22 06:58 Dose: 3 ml Albuterol (Albut/Ipratrop 3mg/0.5mg Neb 3 Ml Vial) 3 ml NEB Q4R PRN; Protocol PRN Reason: sob/wheezing Stop: 11/12/22 16:28 Amlodipine Besylate (Amlodipine Besylate 5 Mg Tab) 2.5 mg PO QAM [facility] Stop: 11/12/22 16:28 Last Admin: 10/16/22 09:06 Dose: 5 mg Aspirin (Aspirin 81 Mg Ectab) 81 mg PO DAILY [facility] Stop: 11/13/22 08:59 Last Admin: 10/16/22 09:06 Dose: 81 mg Cyclobenzaprine HCl (Cyclobenzaprine Hcl 5 Mg Tab) 2.5 mg PO BID [facility] Stop: 11/12/22 20:59 Last Admin: 02/05/23 08:21 Dose: 2.5 mg Docusate Sodium (Docusate Sodium 100 Mg Cap) 100 mg PO BID [facility] Stop: 11/12/22 20:59 Last Admin: 10/16/22 09:06 Dose: 100 mg Fenofibrate (Fenofibrate Nanocrystallized 145 Mg Tablet) 145 mg PO Q24H [facility] Stop: 11/13/22 11:59 Last Admin: 10/15/22 11:51 Dose: Not Given Guaifenesin (Guaifenesin Sugar Free 200 Mg/10 Ml Udc) 200 mg PO Q6 [facility] Stop: 11/13/22 14:59 Last Admin: 10/16/22 06:17 Dose: Not Given Heparin Sodium (Porcine) (Heparin Sod 5,000 Unit/0.5 Ml Vial) 5,000 units SQ Q 12 [facility] Stop: 11/12/22 20:59 Last Admin: 10/16/22 09:05 Dose: 5,000 units Pantoprazole Sodium 40 mg/ (Syringe) 10 mls @ 5 mls/min IV BID [facility] Stop: 11/12/22 20:59 Last Admin: 10/16/22 09:04 Dose: 5 mls/min Piperacillin Sod/Tazobactam (Sod 3.375 gm/ Dextrose) 115 mls @ 28.75 mls/hr IV Q8H [facility]; Protocol Stop: 10/20/22 18:59 Last Infusion: 10/16/22 09:08 Dose: Infused Acetaminophen (Ofirmev) 1,000 mg in 100 mls @ 400 mls/hr IV Q8H PRN PRN Reason: Pain or Fever Stop: 10/16/22 20:53 Last Infusion: 10/15/22 19:26 Dose: Infused Lidocaine (Lidocaine 5% 1 Patch) 1 patch TD QAM [facility] Stop: 11/12/22 16:28 Last Admin: 10/16/22 09:07 Dose: 1 patch Magnesium Hydroxide (Magnesium Hydroxide Susp 30 Ml Udc) 30 ml PO Q12H PRN PRN Reason: Constipation Stop: 11/12/22 16:28 Melatonin (Melatonin 3 Mg Tab) 3 mg PO DAILY PRN PRN Reason: Sleep Stop: 11/13/22 15:48 Last Admin: 10/16/22 03:14 Dose: 3 mg Mirtazapine (Mirtazapine Soltab 15 Mg) 7.5 mg PO HS [facility] Stop: 11/12/22 20:59 Last Admin: 10/15/22 20:30 Dose: 7.5 mg Miscellaneous (Remove Lidoderm Patch) 1 each N/A DAILY@2100 [facility] Stop: 11/12/22 20:59 Last Admin: 10/15/22 20:31 Dose: Not Given Multivitamins/Minerals (Cerovite Adv Formula Tab) 1 tab PO BID [facility] Stop: 11/12/22 20:59 Last Admin: 10/16/22 09:08 Dose: 1 tab Ondansetron HCl (Ondansetron Inj 2 Mg/Ml 2 Ml Vial) 4 mg IV Q6H PRN PRN Reason: Nausea Stop: 11/12/22 16:28 Polyethylene Glycol (Polyethylene (Miralax) 17 Gm Pack) 17 gm PO DAILY PRN PRN Reason: Constipation Stop: 11/12/22 16:28 Vitamin D (Cholecalciferol 5,000 Units 125 Mcg Tab) 5,000 units PO DAILY [facility] Stop: 11/13/22 08:59 Last Admin: 10/16/22 09:05 Dose: 5,000 units (1) UTI (urinary tract infection) Hematuria presence: without hematuria Urinary tract infection type: acute cystitis Qualified Code(s): N30.00 - Acute cystitis without hematuria (2) Low back pain Back pain laterality: midline Chronicity: acute Sciatica presence: without sciatica Qualified Code(s): M54.50 - Low back pain, unspecified (3) HTN (hypertension) Hypertension type: unspecified Qualified Code(s): I10 - Essential (primary) hypertension
[2022-10-16 09:56] LABS: BUN Creatinine Ratio 20.9 (10-20); Calcium 10.2 mg/dl (8.5-10.1); Creatinine Clr Calc Pharmacy 34.9 ml/min; Est GFR (African American) 92.9 ml/min; Est GFR (Non-African American) 80.2 ml/min; Magnesium 1.8 mg/dl (1.7-2.4); Phosphorus 2.9 mg/dl (2.5-4.9); Potassium 3.1 mmol/L (3.5-5.1)
[2022-10-16] MEDS: FENOFIBRATE NANOCRYSTALLIZED 145 MG TABLET PO SCH (11:14)
[2022-10-16] MEDS: SODIUM CHLORIDE 0.9% 1000ML 1,000 ML IV SCH (18:24)
[2022-10-16] MEDS: POTASSIUM CHLORIDE / WTR 10 MEQ/100 ML PLCT IV SCH ×3 (18:30→20:44)
[2022-10-16] MEDS: MIRTAZAPINE SOLTAB 15 MG PO SCH (22:23)
[2022-10-17] MEDS: PIPERACILLIN/TAZOBACTAM 3.375 GM in DEXTROSE 5% 100 ML IV SCH ×3 (02:31→19:07)
[2022-10-17] MEDS: guaiFENesin SUGAR FREE 200 MG/10 ML UDC PO SCH ×3 (05:33→17:40)
[2022-10-17] MEDS: ALBUT/IPRATROP 3MG/0.5MG NEB 3 ML VIAL NEB SCH ×2 (07:21→19:20)
[2022-10-17 07:22] LABS: Hemoglobin 15.2 g/dl (12.0-16.0); Mean Corpuscular Hemoglobin 29.7 pg (25.0-34.0); Mean Corpuscular Volume 89.8 fL (80.0-100.0); Mean Platelet Volume 10.6 fL (9.4-12.4); Platelet Count 451 K/uL (130-400); RDW Coefficient of Variation 15.3 % (11.5-14.5); RDW Standard Deviation 50.1 fL (36.4-46.3); Red Blood Count 5.12 M/uL (4.20-5.40); White Blood Count 9.43 K/ul (4.8-10.8)
[2022-10-17 07:55] LABS: BUN Creatinine Ratio 23.9 (10-20); Calcium 9.9 mg/dl (8.5-10.1); Creatinine Clr Calc Pharmacy 36.3 ml/min; Est GFR (African American) 92.9 ml/min; Est GFR (Non-African American) 80.2 ml/min; Magnesium 1.8 mg/dl (1.7-2.4); Phosphorus 2.8 mg/dl (2.5-4.9); Potassium 3.4 mmol/L (3.5-5.1)
--- NOTE | 2022-10-17 07:57 | Hospitalist Progress Note ---
Date of Service October 17, 2022 Assessment & Plan (1) Acute respiratory failure with hypoxia: (2) Right lower lobe pneumonia: (3) UTI (urinary tract infection): (4) Dehydration: (5) Low back pain: (6) Esophagitis: (7) Pulmonary nodule: (8) CAD (coronary artery disease): (9) Hx of CABG: (10) HTN (hypertension): Plan This is a 87-year-old female who has significant past medical history of COPD, CAD with history of CABG x1, HLD, renal artery stenosis, HTN, glaucoma, elevated hemoglobin, history of tobacco abuse disorder, hard of hearing who presents to ED due to back pain x 1 week; N/V and poor PO intake for 1.5 days. Acute respiratory failure with hypoxia Possible right lower lobe pneumonia, poss. aspiration pna COPD, without exacerbation DuoNeb twice daily and as needed Incentive spirometry , flutter valve with nursing assistance Oxygen as needed, goal saturation 88 to 92% easy to chew/ swallow diet. Poor appetite. tx with IV zosyn for now guaifenesin pt does not use O2 at home, per son saturates around 90% on RA at home Currently on 2L, saturating 93% UTI UA concerning for infection U cultx positive for E.coli Given white blood cell count and treating for right lower lobe pneumonia will also cover for UTI blood culture - negat. for 48 hrs Prerenal acute kidney injury Patient with elevated BUN of 43, Cr 0.97 with a BUN/creatinine ratio of 35.1 Secondary to poor p.o. intake, N/V Gentle hydration with IV fluid Cr down to 0.6 CAD with history of CABG x1 Elevated troponin Abnormal EKGwith T wave inversions inferior & laterally -unchanged from prior Patient without chest pain Troponin mildly elevated, serial CE essentially unchanged likely elev. secondary to above/demand ischemia Continue aspirin Low Back Pain pt had imaging at [facility] which revealed DDD, dextroscoliosis with slight kyphosis, no acute fx on CT here T10 subacute compress. fx no pain on palpation over spine appears to be MSK in nature, worse with movement, + tender to palpation to L lower lumbar paraspinal musculature Heat QID, lidocaine patch, Flexeril 2.5mg bid - flexeril on hold now consult PT/OT for other modalities Pt was to see Pain management (as outpt) on day of admission to discuss possible MRI for injections HTN In ED patient met criteria for hypertensive urgency with peak blood pressure 204/114 She received 5 mg IV hydralazine which improved BP to 158/81 Previously patient have been prescribed amlodipine 2.5 mg which has since been discontinued amlodipine 2.5 mg resumed, BP improved but still elevated - increased to 5 mg daily, monitor BP, on telemetry Will need to encourage patient importance of taking medication and monitoring blood pressure at home Per family when seen at [facility] her blood pressure was in the 200s as well Esophagitis per CT imaging may be in setting of recent N/V PPI IV BID until able to tolerate oral intake than can switch to PO family wishes to not pursue and further GI studies unless absolutely warranted Pulmonary Nodule lobulated 1.8 cm solid left lower lobe pulmonary nodule per CT scan Suspicious for bronchogenic carcinoma in setting of tobacco history Discussed with brothers at bedside and recommend pulmonary evaluation as outpatient if patient wishes to pursue further work-up Polycythemia Likely exacerbated in setting of dehydration Patient hemoglobin typically runs ~15 Former tobacco user Malnutrition, BMI 13.6 - pt cachectic on phys. exam -dietitian consulted -difficulty currently w/ PO intake given nausea/vomiting on admission, esophagitis on CT DVT prophylaxis:Heparin BID Dispo: tele, pt lives at home with nephew PCP: Kae Lockhart DNR/DNI -discussion with son and patient who wishes for no aggressive measures to be done Patient's son Ramiro is an employee at [employer] and works here Sunday through Sunday, his phone number [phone] and wishes to be called for updates or spoken to while in house. Admission and Anticipated Discharge Date Admission Date: October 13, 2022 Subjective Patient seen in follow-up of nausea vomiting, after taking pain meds, lower back pain, severe esophagitis noted on CT, pneumonia, UTI, hypoxia Currently sitting up in bed, in NAD Awake alert, able to recognize her sons at the bedside. Able to provide simple history and answer simple questions. Denies any discomfort at this time. Only feels tired. She has been confused and agitated before, required Zyprexa and not getting much sleep until yesterday. Per nursing staff, patient able to take p.o. meds crushed in applesauce Discussed with family at the bedside in detail, family appreciative of the care. Review of Systems Review of Systems: All systems reviewed & are unremarkable except as noted in Subjective Physical Exam Physical Exam: Constitutional: Thin, cachectic, elderly female in NAD Head: Normocephalic, Atraumatic, bilateral temporal wasting Eyes: PERRL, EOMI ENMT: external ear and nose normal, oropharynx normal dry mucous membranes Neck:supple Respiratory: On 2 L of oxygen via NC, normal respiratory effort, lungs clear to auscultation with the exception of right lower lobe rhonchi, no wheeze. Cardiovascular: RRR, no murmur, no edema Abdomen: normal bowel sounds, soft, nontender Musculoskeletal:active range of motion x4, pain to palpation along the lower lumbar left-sided paraspinal musculature, no spinal tenderness to palp. Skin: no rashes, warm and dry Neurologic:Awake alert, able to answer simple questions appropriately, speech fluent, no facial asymmetry, follows simple commands, moves all extremities Psychiatric: A+Ox3, euthymic affect Results & Data Results & Data ([facility]) Vital Signs (Past 12 Hours) Vital Signs Temp Pulse Pulse Resp BP BP Pulse Ox 10/17/22 07:22 91 H 20 91 10/17/22 07:14 37.0 C 94 H 17 170/94 H 92 10/17/22 03:01 10/17/22 02:52 37.0 C 93 H 20 181/83 H 93 10/16/22 23:39 89 10/16/22 22:42 36.7 C 87 18 174/80 H 96 O2 Del Method O2 Flow Rate 10/17/22 07:22 Nasal Cannula 2 10/17/22 07:14 Room Air 10/17/22 03:01 Nasal Cannula 4 10/17/22 02:52 Nasal Cannula 4 10/16/22 23:39 10/16/22 22:42 Nasal Cannula 4 Laboratory Results 10/17/22 10/17/22 Range/Units 06:57 06:57 WBC 9.43 (4.8-10.8) K/ul RBC 5.12 (4.20-5.40) M/uL Hgb 15.2 (12.0-16.0) g/dl Hct 46.0 (37.0-47.0) % MCV 89.8 (80.0-100.0) fL MCH 29.7 (25.0-34.0) pg MCHC 33.0 (32.0-36.0) g/dL RDW Std Deviation 50.1 H (36.4-46.3) fL RDW Coeff of Grey 15.3 H (11.5-14.5) % Plt Count 451 H (130-400) K/uL MPV 10.6 (9.4-12.4) fL Sodium 140 (136-145) mmol/L Potassium 3.4 L (3.5-5.1) mmol/L Chloride 100 (98-107) mmol/L Carbon Dioxide 31 (21-32) mmol/L Anion Gap 9 (3-11) BUN 16 (6-23) mg/dl Creatinine 0.67 (0.6-1.2) mg/dl Est Cr Clr Drug Dosing 36.3 ml/min Est GFR ( Amer) 92.9 ml/min Est GFR (Non-Af Amer) 80.2 ml/min BUN/Creatinine Ratio 23.9 H (10-20) Glucose 106 H (70-99(Fasting)) mg/dl Calcium 9.9 (8.5-10.1) mg/dl Phosphorus 2.8 (2.5-4.9) mg/dl Magnesium 1.8 (1.7-2.4) mg/dl Medications Administered Current Inpatient Medications Acetaminophen (Acetaminophen 325 Mg Tab) 650 mg PO Q4H PRN PRN Reason: Pain or Fever Stop: 11/12/22 16:28 Al Hydrox/Mg Hydrox/Simethicone (Aluminum/Magnesium Susp 30 Ml Udc) 15 ml PO Q4H PRN PRN Reason: Dyspepsia Stop: 11/12/22 16:28 Albuterol (Albut/Ipratrop 3mg/0.5mg Neb 3 Ml Vial) 3 ml NEB BID MARYLU; Protocol Stop: 11/12/22 20:59 Last Admin: 10/17/22 07:21 Dose: 3 ml Albuterol (Albut/Ipratrop 3mg/0.5mg Neb 3 Ml Vial) 3 ml NEB Q4R PRN; Protocol PRN Reason: sob/wheezing Stop: 11/12/22 16:28 Amlodipine Besylate (Amlodipine Besylate 5 Mg Tab) 5 mg PO QAM MARYLU Stop: 11/16/22 08:59 Aspirin (Aspirin 81 Mg Ectab) 81 mg PO DAILY [facility] Stop: 11/13/22 08:59 Last Admin: 10/16/22 09:06 Dose: 81 mg Cyclobenzaprine HCl (Cyclobenzaprine Hcl 5 Mg Tab) 2.5 mg PO BID [facility] Stop: 11/12/22 20:59 Last Admin: 10/15/22 08:21 Dose: 2.5 mg Docusate Sodium (Docusate Sodium 100 Mg Cap) 100 mg PO BID [facility] Stop: 11/12/22 20:59 Last Admin: 10/16/22 22:23 Dose: Not Given Fenofibrate (Fenofibrate Nanocrystallized 145 Mg Tablet) 145 mg PO Q24H [facility] Stop: 11/13/22 11:59 Last Admin: 10/16/22 11:14 Dose: 145 mg Guaifenesin (Guaifenesin Sugar Free 200 Mg/10 Ml Udc) 200 mg PO Q6 [facility] Stop: 11/13/22 14:59 Last Admin: 10/17/22 05:33 Dose: Not Given Heparin Sodium (Porcine) (Heparin Sod 5,000 Unit/0.5 Ml Vial) 5,000 units SQ Q12 [facility] Stop: 11/12/22 20:59 Last Admin: 10/16/22 22:28 Dose: 5,000 units Pantoprazole Sodium 40 mg/ (Syringe) 10 mls @ 5 mls/min IV BID [facility] Stop: 11/12/22 20:59 Last Admin: 10/16/22 20:47 Dose: 5 mls/min Piperacillin Sod/Tazobactam (Sod 3.375 gm/ Dextrose) 115 mls @ 28.75 mls/hr IV Q8H [facility]; Protocol Stop: 10/20/22 18:59 Last Infusion: 10/17/22 06:38 Dose: Infused Sodium Chloride (Nss 1000ml) 1,000 mls @ 80 mls/hr IV .[id number] [facility] Stop: 11/15/22 18:29 Last Admin: 10/16/22 18:24 Dose: 80 mls/hr Lidocaine (Lidocaine 5% 1 Patch) 1 patch TD QAM [facility] Stop: 11/12/22 16:28 Last Admin: 10/16/22 09:07 Dose: 1 patch Magnesium Hydroxide (Magnesium Hydroxide Susp 30 Ml Udc) 30 ml PO Q12H PRN PRN Reason: Constipation Stop: 11/12/22 16:28 Melatonin (Melatonin 3 Mg Tab) 3 mg PO DAILY PRN PRN Reason: Sleep Stop: 11/13/22 15:48 Last Admin: 10/16/22 03:14 Dose: 3 mg Mirtazapine (Mirtazapine Soltab 15 Mg) 7.5 mg PO HS [facility] Stop: 11/12/22 20:59 Last Admin: 10/16/22 22:23 Dose: Not Given Miscellaneous (Remove Lidoderm Patch) 1 each N/A DAILY@2100 [facility] Stop: 11/12/22 20:59 Last Admin: 10/16/22 22:24 Dose: 1 each Multivitamins/Minerals (Cerovite Adv Formula Tab) 1 tab PO BID [facility] Stop: 11/12/22 20:59 Last Admin: 10/16/22 22:23 Dose: Not Given Ondansetron HCl (Ondansetron Inj 2 Mg/Ml 2 Ml Vial) 4 mg IV Q6H PRN PRN Reason: Nausea Stop: 11/12/22 16:28 Polyethylene Glycol (Polyethylene (Miralax) 17 Gm Pack) 17 gm PO DAILY PRN PRN Reason: Constipation Stop: 11/12/22 16:28 Vitamin D (Cholecalciferol 5,000 Units 125 Mcg Tab) 5,000 units PO DAILY [facility] Stop: 11/13/22 08:59 Last Admin: 10/16/22 09:05 Dose: 5,000 units (1) UTI (urinary tract infection) Hematuria presence: without hematuria Urinary tract infection type: acute cystitis Qualified Code(s): N30.00 - Acute cystitis without hematuria (2) Low back pain Back pain laterality: midline Chronicity: acute Sciatica presence: without sciatica Qualified Code(s): M54.50 - Low back pain, unspecified (3) HTN (hypertension) Hypertension type: unspecified Qualified Code(s): I10 - Essential (primary) hypertension
[2022-10-17] MEDS: ASPIRIN 81 MG ECTAB PO SCH (08:57)
[2022-10-17] MEDS: amLODIPine BESYLATE 5 MG TAB PO SCH (08:57)
[2022-10-17] MEDS: CHOLECALCIFEROL 5,000 UNITS 125 MCG TAB PO SCH (08:58)
[2022-10-17] MEDS: DOCUSATE SODIUM 100 MG CAP PO SCH ×2 (08:58→20:30)
[2022-10-17] MEDS: PANTOprazole 40 MG in SYRINGE 0 ML IV SCH ×2 (08:59→20:30)
[2022-10-17] MEDS: LIDOCAINE 5% 1 PATCH TD SCH (08:59)
[2022-10-17] MEDS: HEPARIN SOD 5,000 UNIT/0.5 ML VIAL SQ SCH ×2 (08:59→20:30)
[2022-10-17] MEDS: CEROVITE ADV FORMULA TAB PO SCH ×2 (08:59→20:30)
[2022-10-17] MEDS: SODIUM CHLORIDE 0.9% 1000ML 1,000 ML IV SCH ×3 (09:10→22:24)
[2022-10-17] MEDS: POTASSIUM CHLORIDE / WTR 10 MEQ/100 ML PLCT IV SCH ×2 (09:10→10:18)
[2022-10-17] MEDS: FENOFIBRATE NANOCRYSTALLIZED 145 MG TABLET PO SCH (11:18)
[2022-10-17] MEDS ORDERED: POTASSIUM CHLORIDE / WTR 10 MEQ/100 ML PLCT IV ONE (19:00)
[2022-10-17] MEDS: MIRTAZAPINE SOLTAB 15 MG PO SCH (20:30)
[2022-10-18] MEDS: guaiFENesin SUGAR FREE 200 MG/10 ML UDC PO SCH ×4 (00:42→18:03)
[2022-10-18] MEDS: PIPERACILLIN/TAZOBACTAM 3.375 GM in DEXTROSE 5% 100 ML IV SCH ×2 (02:24→13:03)
[2022-10-18 06:26] LABS: Hematocrit (blood only) 41.5 % (37.0-47.0); Hemoglobin 13.5 g/dl (12.0-16.0); Mean Corpuscular Hemoglobin 29.4 pg (25.0-34.0); Mean Corpuscular Hgb Conc 32.5 g/dL (32.0-36.0); Mean Corpuscular Volume 90.4 fL (80.0-100.0); Mean Platelet Volume 10.8 fL (9.4-12.4); Platelet Count 406 K/uL (130-400); RDW Coefficient of Variation 15.3 % (11.5-14.5); RDW Standard Deviation 50.2 fL (36.4-46.3); Red Blood Count 4.59 M/uL (4.20-5.40); White Blood Count 8.01 K/ul (4.8-10.8)
[2022-10-18 06:44] LABS: BUN Creatinine Ratio 26.3 (10-20); Calcium 8.9 mg/dl (8.5-10.1); Creatinine Clr Calc Pharmacy 46.8 ml/min; Est GFR (Non-African American) 84.5 ml/min; Magnesium 1.6 mg/dl (1.7-2.4); Phosphorus 2.2 mg/dl (2.5-4.9); Potassium 3.4 mmol/L (3.5-5.1)
[2022-10-18] MEDS: PANTOprazole 40 MG in SYRINGE 0 ML IV SCH ×2 (08:19→20:06)
[2022-10-18] MEDS: ASPIRIN 81 MG ECTAB PO SCH (08:19)
[2022-10-18] MEDS: CHOLECALCIFEROL 5,000 UNITS 125 MCG TAB PO SCH (08:19)
[2022-10-18] MEDS: CEROVITE ADV FORMULA TAB PO SCH ×2 (08:19→20:06)
[2022-10-18] MEDS: HEPARIN SOD 5,000 UNIT/0.5 ML VIAL SQ SCH ×2 (08:19→20:05)
[2022-10-18] MEDS: DOCUSATE SODIUM 100 MG CAP PO SCH ×2 (08:19→20:05)
[2022-10-18] MEDS: LIDOCAINE 5% 1 PATCH TD SCH (08:20)
[2022-10-18] MEDS: amLODIPine BESYLATE 5 MG TAB PO SCH (08:20)
[2022-10-18] MEDS: MAGNESIUM SULFATE / D5W 1 GM/100 ML BAG IV SCH ×2 (09:58→11:16)
[2022-10-18] MEDS: POTASSIUM CHLORIDE / WTR 10 MEQ/100 ML PLCT IV SCH ×2 (09:58→11:16)
[2022-10-18 11:19] LABS: Influenza A virus by PCR Negative (Neg); Influenza B virus by PCR Negative (Neg); RSV by PCR Negative (Neg); SARS CoV2 RNA(COVID-19) Ceph NEGATIVE (Negative)
--- NOTE | 2022-10-18 12:36 | Hospitalist Progress Note ---
Date of Service October 18, 2022 Assessment & Plan (1) Acute respiratory failure with hypoxia: (2) Right lower lobe pneumonia: (3) UTI (urinary tract infection): (4) Dehydration: (5) Low back pain: (6) Esophagitis: (7) Pulmonary nodule: (8) CAD (coronary artery disease): (9) Hx of CABG: (10) HTN (hypertension): Plan per Dr. Dacosta's notes with addendum: This is a 87-year-old female who has significant past medical history of COPD, CAD with history of CABG x1, HLD, renal artery stenosis, HTN, glaucoma, elevated hemoglobin, history of tobacco abuse disorder, hard of hearing who presents to ED due to back pain x 1 week; N/V and poor PO intake for 1.5 days. Acute respiratory failure with hypoxia Possible right lower lobe pneumonia, poss. aspiration pna COPD, without exacerbation DuoNeb twice daily and as needed Incentive spirometry , flutter valve with nursing assistance Oxygen as needed, goal saturation 88 to 92% easy to chew/ swallow diet. Poor appetite. tx with IV zosyn for now guaifenesin pt does not use O2 at home, per son saturates around 90% on RA at home Currently on 2L, saturating 93% 2 remains on 2 L nasal cannula repeat CXR today continue IV ZOsyn UTI UA concerning for infection U cultx positive for E.coli Given white blood cell count and treating for right lower lobe pneumonia will also cover for UTI blood culture - negat. for 48 hrs 10/18 continue IV Zosyn Prerenal acute kidney injury Patient with elevated BUN of 43, Cr 0.97 with a BUN/creatinine ratio of 35.1 Secondary to poor p.o. intake, N/V -- resolved Low K and Mg -- from poor intake IV replacement CAD with history of CABG x1 Elevated troponin Abnormal EKGwith T wave inversions inferior & laterally -unchanged from prior Patient without chest pain Troponin mildly elevated, serial CE essentially unchanged likely elev. secondary to above/demand ischemia Continue aspirin 10/18 no cardiac symptoms Low Back Pain pt had imaging at [facility] which revealed DDD, dextroscoliosis with slight kyphosis, no acute fx on CT here T10 subacute compress. fx no pain on palpation over spine appears to be MSK in nature, worse with movement, + tender to palpation to L lower lumbar paraspinal musculature Heat QID, lidocaine patch, Flexeril 2.5mg bid - flexeril on hold now consult PT/OT for other modalities Pt was to see Pain management (as outpt) on day of admission to discuss possible MRI for injections 10/18 no back pain today HTN In ED patient met criteria for hypertensive urgency with peak blood pressure 204/114 She received 5 mg IV hydralazine which improved BP to 158/81 Previously patient have been prescribed amlodipine 2.5 mg which has since been discontinued amlodipine 2.5 mg resumed, BP improved but still elevated - increased to 5 mg daily, monitor BP, on telemetry Will need to encourage patient importance of taking medication and monitoring blood pressure at home Per family when seen at [facility] her blood pressure was in the 200s as well 10/18 BP still not at goal may need to further increase Amlodipine to 7.5mg daily monitor Esophagitis per CT imaging may be in setting of recent N/V PPI IV BID until able to tolerate oral intake than can switch to PO family wishes to not pursue and further GI studies unless absolutely warranted Pulmonary Nodule lobulated 1.8 cm solid left lower lobe pulmonary nodule per CT scan Suspicious for bronchogenic carcinoma in setting of tobacco history Discussed with brothers at bedside and recommend pulmonary evaluation as outpatient if patient wishes to pursue further work-up Polycythemia Likely exacerbated in setting of dehydration Patient hemoglobin typically runs ~15 Former tobacco user Malnutrition, BMI 13.6 - pt cachectic on phys. exam -dietitian consulted -difficulty currently w/ PO intake given nausea/vomiting on admission, eso phagitis on CT DVT prophylaxis:Heparin BID Dispo: pending may need SNF PT/OT eval PCP: Kae Lockhart DNR/DNI -discussion with son and patient who wishes for no aggressive measures to be done Admission and Anticipated Discharge Date Admission Date: October 13, 2022 Subjective ff up for weakness, pneumonia, UTI, etc seen resting in bed, on 2 L sleeping but easily awakened states she feels about the same- weak denies dyspnea, cough, chest pain no abdominal pain had some breakfast today, son assisted her no other symptoms Review of Systems Review of Systems: all noted and negative except for above Physical Exam Physical Exam: General- oriented x 2, not in distress, speaks in sentences with no effort or accessory muscle use appears weak Eyes- anicteric Neck- no JVD Lungs- mild rales R base clear on the left Heart- normal rate, regular rhythm; no murmurs Abdomen- normal bowel sounds, nondistended, soft, nontender Extremities- no pretibial edema, no calf tenderness Neuro- alert, oriented x 3; no gross focal neurologic deficits Skin- warm & dry Results & Data Results & Data ([facility]) Vital Signs (Past 12 Hours) Vital Signs Temp Pulse Pulse Resp BP Pulse Ox O2 Del Method 10/18/22 11:32 36.8 C 79 18 161/79 H 91 Room Air 10/18/22 10:39 Nasal Cannula 10/18/22 08:39 84 10/18/22 07:33 36.8 C 74 18 186/97 H 91 Room Air 10/18/22 04:12 84 10/18/22 04:10 36.8 C 82 16 153/85 H 92 Nasal Cannula O2 Flow Rate 10/18/22 11:32 10/18/22 10:39 2 10/18/22 08:39 10/18/22 07:33 10/18/22 04:12 10/18/22 04:10 all noted and reviewed including below (1) UTI (urinary tract infection) Hematuria presence: without hematuria Urinary tract infection type: acute cystitis Qualified Code(s): N30.00 - Acute cystitis without hematuria (2) Low back pain Back pain laterality: midline Chronicity: acute Sciatica presence: without sciatica Qualified Code(s): M54.50 - Low back pain, unspecified (3) HTN (hypertension) Hypertension type: unspecified Qualified Code(s): I10 - Essential (primary) hypertension
[2022-10-18] MEDS: FENOFIBRATE NANOCRYSTALLIZED 145 MG TABLET PO SCH (13:03)
--- NOTE | 2022-10-18 13:08 | XRay Report ---
XR chest 1V portable HISTORY: Pneumonia. Follow-up. COMPARISON: Chest 10/26/2021. Chest CT 10/13/2021. FINDINGS: No pneumothorax. The heart remains mildly enlarged. No evidence for pulmonary edema. Emphys solo again noted. A small right pleural effusion and patchy bibasilar densities persist. The patient's left lower lobe pulmonary nodules not well visualized on this study. IMPRESSION: 1. No significant change in the small right pleural effusion and patchy bibasilar densities. 2. Emphysema. 3. The patient's known left lower lobe pulmonary nodule is not well visualized on this study. ACT 112: Negative or not required by law. Electronically signed by: Oc Dick M.D. 10/18/2022 1:07 PM
[2022-10-18] MEDS ORDERED: MAGNESIUM HYDROXIDE SUSP 30 ML UDC PO PRN (16:32)
[2022-10-18] MEDS: DOXYCYCLINE HYCLATE 100 MG CAP PO SCH ×2 (18:03→22:23)
[2022-10-18] MEDS: AMPICILLIN/SULBACTAM SOD 3,000 MG in 0.9 % SODIUM CHLORIDE 100 ML IV SCH (19:34)
[2022-10-18] MEDS: ACETAMINOPHEN 325 MG TAB PO PRN (19:41)
[2022-10-18] MEDS: MELATONIN 3 MG TAB PO PRN (19:42)
[2022-10-18] MEDS: MIRTAZAPINE SOLTAB 15 MG PO SCH (20:05)
[2022-10-19] MEDS: guaiFENesin SUGAR FREE 200 MG/10 ML UDC PO SCH ×5 (00:31→23:12)
[2022-10-19] MEDS: AMPICILLIN/SULBACTAM SOD 3,000 MG in 0.9 % SODIUM CHLORIDE 100 ML IV SCH ×4 (01:15→19:43)
[2022-10-19 09:15] LABS: BUN Creatinine Ratio 33.3 (10-20); Calcium 8.9 mg/dl (8.5-10.1); Creatinine Clr Calc Pharmacy 46.4 ml/min; Est GFR (Non-African American) 84.5 ml/min; Magnesium 1.8 mg/dl (1.7-2.4); Phosphorus 2.4 mg/dl (2.5-4.9); Potassium 3.6 mmol/L (3.5-5.1)
[2022-10-19] MEDS: HEPARIN SOD 5,000 UNIT/0.5 ML VIAL SQ SCH ×2 (09:59→22:19)
[2022-10-19] MEDS: PANTOprazole 40 MG in SYRINGE 0 ML IV SCH ×2 (09:59→19:49)
[2022-10-19] MEDS: DOXYCYCLINE HYCLATE 100 MG CAP PO SCH ×2 (09:59→19:56)
[2022-10-19] MEDS: CEROVITE ADV FORMULA TAB PO SCH ×2 (09:59→19:56)
[2022-10-19] MEDS: ASPIRIN 81 MG ECTAB PO SCH (09:59)
[2022-10-19] MEDS: DOCUSATE SODIUM 100 MG CAP PO SCH ×2 (09:59→19:56)
[2022-10-19] MEDS: LIDOCAINE 5% 1 PATCH TD SCH (10:00)
[2022-10-19] MEDS: amLODIPine BESYLATE 5 MG TAB PO SCH (10:00)
[2022-10-19] MEDS: CHOLECALCIFEROL 5,000 UNITS 125 MCG TAB PO SCH (10:00)
--- NOTE | 2022-10-19 13:29 | Hospitalist Progress Note ---
Date of Service October 19, 2022 Assessment & Plan (1) Acute respiratory failure with hypoxia: (2) Right lower lobe pneumonia: (3) UTI (urinary tract infection): (4) Dehydration: (5) Low back pain: (6) Esophagitis: (7) Pulmonary nodule: (8) CAD (coronary artery disease): (9) Hx of CABG: (10) HTN (hypertension): Plan per Dr. Dacosta's notes with addendum: This is a 87-year-old female who has significant past medical history of COPD, CAD with history of CABG x1, HLD, renal artery stenosis, HTN, glaucoma, elevated hemoglobin, history of tobacco abuse disorder, hard of hearing who presents to ED due to back pain x 1 week; N/V and poor PO intake for 1.5 days. Acute respiratory failure with hypoxia Possible right lower lobe pneumonia, poss. aspiration pna COPD, without exacerbation DuoNeb twice daily and as needed Incentive spirometry , flutter valve with nursing assistance Oxygen as needed, goal saturation 88 to 92% easy to chew/ swallow diet. Poor appetite. tx with IV zosyn for now guaifenesin pt does not use O2 at home, per son saturates around 90% on RA at home Currently on 2L, saturating 93% 10/19 remains on 2 L nasal cannula repeat CXR: persistent R lower lobe infiltrate Doxycycline PO BID added continue IV ZOsyn UTI UA concerning for infection U cultx positive for E.coli Given white blood cell count and treating for right lower lobe pneumonia will also cover for UTI blood culture - negat. for 48 hrs 10/19 continue IV Zosyn Dysphagia from esophagitis? repeat CT chest, abd/pelvis Full liquids for now, Speech Tx consult, Sucralfate QID monitor closely Aspiration precautions Prerenal acute kidney injury Patient with elevated BUN of 43, Cr 0.97 with a BUN/creatinine ratio of 35.1 Secondary to poor p.o. intake, N/V -- resolved Low K and Mg -- from poor intake replaced CAD with history of CABG x1 Elevated troponin Abnormal EKGwith T wave inversions inferior & laterally -unchanged from prior Patient without chest pain Troponin mildly elevated, serial CE essentially unchanged likely elev. secondary to above/demand ischemia Continue aspirin 10/19 no cardiac symptoms Low Back Pain pt had imaging at [facility] which revealed DDD, dextroscoliosis with slight kyphosis, no acute fx on CT here T10 subacute compress. fx no pain on palpation over spine appears to be MSK in nature, worse with movement, + tender to palpation to L lower lumbar paraspinal musculature Heat QID, lidocaine patch, Flexeril 2.5mg bid - flexeril on hold now consult PT/OT for other modalities Pt was to see Pain management (as outpt) on day of admission to discuss possible MRI for injections 10/19 no back pain today HTN In ED patient met criteria for hypertensive urgency with peak blood pressure 204/114 She received 5 mg IV hydralazine which improved BP to 158/81 Previously patient have been prescribed amlodipine 2.5 mg which has since been discontinued amlodipine 2.5 mg resumed, BP improved but still elevated - increased to 5 mg daily, monitor BP, on telemetry Will need to encourage patient importance of taking medication and monitoring blood pressure at home Per family when seen at [facility] her blood pressure was in the 200s as well 10/19 improving monitor Esophagitis per CT imaging may be in setting of recent N/V PPI IV BID Pulmonary Nodule lobulated 1.8 cm solid left lower lobe pulmonary nodule per CT scan Suspicious for bronchogenic carcinoma in setting of tobacco history Discussed with brothers at bedside and recommend pulmonary evaluation as outpatient if patient wishes to pursue further work-up Polycythemia Likely exacerbated in setting of dehydration Patient hemoglobin typically runs ~15 Former tobacco user Malnutrition, BMI 13.6 - pt cachectic on phys. exam -dietitian consulted -difficulty currently w/ PO intake given nausea/vomiting on admission, esophagitis on CT DVT prophylaxis:Heparin BID Dispo: pending may need SNF PT/OT eval PCP: Kae Lockhart DNR/DNI -discussion with son and patient who wishes for no aggressive measures to be done plan of care discussed with patient and patient's son Cristian over the phone in detail and at length all questions answered they are understanding, agreeable, comfortable with the plan of care Admission and Anticipated Discharge Date Admission Date: October 13, 2022 Subjective ff up for pneumonia, etc seen resting in bed, not in distress sitting up states she has difficulty swallowing, feels food/liquid gets stuck in her lower esophagus (+) 2 BMs no chest pain, dyspnea, palpitations, dizziness no other symptoms Review of Systems Review of Systems: all noted and negative except for above Physical Exam Physical Exam: General- oriented x 3, not in distress, speaks in sentences with no effort or accessory muscle use Eyes- anicteric Neck- no JVD Lungs- mild rales at the rights base clear on the left Heart- normal rate, regular rhythm; no murmurs Abdomen- normal bowel sounds, nondistended, soft, no tenderness Extremities- no pretibial edema, no calf tenderness Neuro- alert, oriented x 3; no gross focal neurologic deficits Skin- warm & dry Results & Data Results & Data ([facility]) Vital Signs (Past 12 Hours) Vital Signs Temp Pulse Pulse Resp BP Pulse Ox O2 Del Method 10/19/22 11:03 Nasal Cannula 10/19/22 08:00 70 10/19/22 07:29 36.8 C 78 18 154/85 H 91 Nasal Cannula 10/19/22 02:58 36.7 C 68 18 174/75 H 91 Nasal Cannula O2 Flow Rate 10/19/22 11:03 2 10/19/22 08:00 10/19/22 07:29 2 10/19/22 02:58 2 all noted and reviewed including below (1) UTI (urinary tract infection) Hematuria presence: without hematuria Urinary tract infection type: acute cystitis Qualified Code(s): N30.00 - Acute cystitis without hematuria (2) Low back pain Back pain laterality: midline Chronicity: acute Sciatica presence: without sciatica Qualified Code(s): M54.50 - Low back pain, unspecified (3) HTN (hypertension) Hypertension type: unspecified Qualified Code(s): I10 - Essential (primary) hypertension
[2022-10-19] MEDS: FENOFIBRATE NANOCRYSTALLIZED 145 MG TABLET PO SCH (13:36)
--- NOTE | 2022-10-19 14:45 | CT Scan Report ---
ABDOMEN AND PELVIS CT WITHOUT CONTRAST CT DOSE: 522.64 mGy.cm HISTORY: epigastric pain TECHNIQUE: Multiaxial CT images of the abdomen and pelvis were performed without contrast. A dose lo wering technique was utilized adhering to the principles of ALARA. COMPARISON STUDY: Chest CT 10/13/2021. FINDINGS: Mucoid opacification of the majority of the right lower lobe bronchi again noted. A 1.8 cm lobulated nodule again noted within the left lower lobe. Bilateral lower lobe consolidation has sligh tly progressed. This could represent a combination of atelectasis and pneumonia. There are small bila teral pleural effusions again noted. The heart remains mildly enlarged. The distal esophagus remains thickened. There is mild paraesophageal edema. No extraluminal gas identified at this time to suggest a perforation. No pneumoperitoneum. No pneumatosis. No acute fractures identified. Suboptimal evalua tion of the abdomen and pelvis due to the patient's overlapping arms. Hyperdense material in the gall bladder favors vicarious excretion of contrast. The unenhanced liver, spleen, and pancreas appear wit hin normal limits. There is bilateral perinephric edema. Trace fluid within Morison's pouch is noted. Bilateral adrenal gland hyperplasia remains unchanged. No retroperitoneal lymphadenopathy. Calcified plaque within the mildly ectatic abdominal aorta. The bladder is distended. Large amount of stool wi thin the rectum. Colonic diverticulosis. There is suboptimal evaluation for bowel pathology due to th e lack of contrast and lack of intraperitoneal fat. There is a large amount well-formed stool within the colon. Suggestion of prior right hemicolectomy. Mildly dilated loops of small bowel are seen with in the abdomen. However, no definite transition point to suggest an obstruction. IMPRESSION: 1. Redemonstration of the severe esophageal thickening with paraesophageal edema. No extraluminal gas at this time to suggest a perforation. Therefore, this favors a nonspecific esophagitis. 2. Please refer to the same day chest CT for further evaluation of the lung bases. 3. Large amount well-formed stool seen throughout the colon and rectum. 4. Mildly dilated fluid-filled loops of small bowel seen within the abdomen. Although suboptimally as sessed, there is no transition point at this time to suggest an obstruction. Therefore, this could re present an ileus. 5. Distended bladder. 6. Right-sided nephrolithiasis. No hydronephrosis. ACT 112: Negative or not required by law. Electronically signed by: Oc Dick M.D. 10/19/2022 2:43 PM
--- NOTE | 2022-10-19 14:49 | CT Scan Report ---
CT chest diagnostic wo con CLINICAL HISTORY: 87 years-old Female with dysphagia, sensation of food in the esophagus. Patient pr esents with acute dysphasia TECHNIQUE: Multiaxial CT images of the chest were performed without contrast. A dose lowering techni que was utilized adhering to the principles of ALARA. COMPARISON: CT abdomen and pelvis of same day, CTA chest 10/13/2022 FINDINGS: No pathologically enlarged lymph nodes identified. Moderate cardiomegaly with extensive cor onary artery calcifications. Atherosclerosis of the aorta with unchanged asymmetry ectasia, 3.8 cm. Mildly increased size of the small right greater than left pleural effusions. No pneumothorax. Modera te to severe pulmonary emphysema. Intralobular septal thickening. 1.8 cm lobulated left lower lobe so lid nodule again noted on image 203. There is dependent bibasilar consolidation again noted, most pro nounced in the right lower lobe with right lower lobe mucous plugging. Distended debris filled esophagus with mid to distal esophageal wall thickening again noted. Suggeste d small hiatal hernia. Mild generalized body wall edema. No acute fracture identified. Degenerative c hanges of the shoulders and spine. Unchanged appearance of the T10 wedge burst fracture with mild ret ropulsion. IMPRESSION: 1. Distended debris-filled esophagus with persistent wall thickening suggestive of esophagitis. Findi ngs could be correlated with endoscopy. 2. Increased size of the small pleural effusions. 3. Right lower lobe mucous plugging with right greater than left bibasilar consolidation again noted. Correlate clinically to exclude aspiration. 4. Cardiomegaly with mild pulmonary edema. 5. Emphysema. 6. Stable 1.8 cm suspicious nodule of the left lower lobe. ACT 112: Negative or not required by law. Electronically signed by: Jesus Gordon M.D. 10/19/2022 2:48 PM
[2022-10-19] MEDS ORDERED: D5W AND NSS 1,000 ML IV SCH (15:15)
[2022-10-19] MEDS: SUCRALFATE 1 GM/10 ML UDC PO SCH ×2 (17:49→19:56)
[2022-10-19] MEDS ORDERED: methylPREDNISolone 20 MG in SYRINGE 0 ML IV STA (19:28)
[2022-10-19] MEDS ORDERED: MAGNESIUM SULFATE / D5W 1 GM/100 ML BAG IV ONE (19:29)
[2022-10-19] MEDS ORDERED: ALBUT/IPRATROP 3MG/0.5MG NEB 3 ML VIAL NEB STA (19:30)
--- NOTE | 2022-10-19 19:31 | Communication Note ---
Date of Service: October 19, 2022 Patient with increasing O2 requirements as per RN. Mild pulmonary edema, possible aspiration pneumonia on CT chest today AP Hypoxemic respiratory failure Multifactorial Pulmonary congestion Aspiration pneumonia, COPD history Continue supplemental O2 Stop maintenance IV fluid Lasix 1 dose now Neb treatment and Solu-Medrol 1 dose given COPD history
[2022-10-19] MEDS: FUROSEMIDE INJ 20 MG/2 ML VIAL IV ONE ×2 (19:43→19:52)
[2022-10-19] MEDS: ONDANSETRON INJ 2 MG/ML 2 ML VIAL IV PRN (19:49)
[2022-10-19] MEDS: MIRTAZAPINE SOLTAB 15 MG PO SCH (19:56)
[2022-10-20] MEDS: AMPICILLIN/SULBACTAM SOD 3,000 MG in 0.9 % SODIUM CHLORIDE 100 ML IV SCH ×4 (01:16→18:40)
[2022-10-20] MEDS: guaiFENesin SUGAR FREE 200 MG/10 ML UDC PO SCH ×4 (02:15→23:16)
[2022-10-20 07:06] LABS: Potassium 3.7 mmol/L (3.5-5.1)
[2022-10-20 07:12] LABS: BUN Creatinine Ratio 27.1 (10-20); Creatinine Clr Calc Pharmacy 42.4 ml/min; Est GFR (African American) 96.9 ml/min; Est GFR (Non-African American) 83.6 ml/min
[2022-10-20] MEDS: DOXYCYCLINE HYCLATE 100 MG CAP PO SCH ×2 (07:19→19:41)
[2022-10-20] MEDS: DOCUSATE SODIUM 100 MG CAP PO SCH ×2 (07:19→19:41)
[2022-10-20] MEDS: amLODIPine BESYLATE 5 MG TAB PO SCH ×2 (07:19→23:15)
[2022-10-20] MEDS: CHOLECALCIFEROL 5,000 UNITS 125 MCG TAB PO SCH (07:19)
[2022-10-20] MEDS: ASPIRIN 81 MG ECTAB PO SCH (07:19)
[2022-10-20] MEDS: SUCRALFATE 1 GM/10 ML UDC PO SCH ×4 (07:20→19:41)
[2022-10-20] MEDS: CEROVITE ADV FORMULA TAB PO SCH ×2 (07:20→19:41)
[2022-10-20] MEDS: PANTOprazole 40 MG in SYRINGE 0 ML IV SCH ×2 (08:55→19:41)
[2022-10-20] MEDS: LIDOCAINE 5% 1 PATCH TD SCH (08:55)
[2022-10-20] MEDS: HEPARIN SOD 5,000 UNIT/0.5 ML VIAL SQ SCH ×2 (08:55→19:41)
--- NOTE | 2022-10-20 09:40 | XRay Report ---
XR chest 1V portable HISTORY: Shortness of breath. ff up pulmonary edema COMPARISON: Chest CT 10/19/2022. FINDINGS: No pneumothorax. Small bilateral pleural effusions and bibasilar densities persist. The hea rt remains enlarged. No evidence for pulmonary edema. Emphysema again noted. No acute fractures. IMPRESSION: No change in the small bilateral pleural effusions and bibasilar airspace opacities. ACT 112: Negative or not required by law. Electronically signed by: Oc Dick M.D. 10/20/2022 9:38 AM
--- NOTE | 2022-10-20 10:57 | Gastrointestinal Consultation ---
Date of Consultation October 20, 2022 Assessment & Plan (1) Esophagitis: (2) Odynophagia: Plan This is an 87 y/o female with multiple comorbidities, admitted w/ back pain, h/o nausea/vomiting in the setting of pain medications and having issues with concern for aspiration PNA, hypoxia, and hypertensive episodes. We are consulted as her CTA chest yesterday was suggestive of esophagitis with dilated, debris-filled esophagus. She has been having dysphagia/odynophagia on her full liquid diet. Currently is resting comfortably w/ no complaints; is NPO. Abd soft, nontender. - Would keep NPO for now - Follow aspiration precautions; avoid laying flat - Would continue IV PPI BID - Appreciate primary team mgt of her ongoing issues including elevated blood pressure and respiratory issues - Pending stability of her hemodynamic/respiratory status and if pt family/agreeable, could look to arrange EGD to evaluate her symptoms and CT findings; will discuss timing with endoscopy team Thank you for allowing us to participate in the care of this patient. Please call with any acute changes, questions or concerns. Please see addendum below with additional recommendation from my supervising physician. Supervising Physician Co-Signing Physician Notes I saw and evaluated the patient. The patient is a very poor historian who was admitted with suspected aspiration pneumonia. Of note the patient does have imaging which seems to indicate distal esophagitis and perhaps inflammatory changes in the distal esophagus. The patient reports that she had a colonoscopy many years ago but has never had an upper endoscopy. She does admit to having palpitations and difficulty with swallowing solid food that has been ongoing for some time. Physical examination Elderly appearing female, mild distress, patient visibly short of breath patient with expiratory wheezes Impression: Patient presents with shortness of breath aspiration pneumonia. She does have imaging findings suggestive of esophagitis, I wonder if the patient has been induced esophagitis and would recommend a diet until she is stable enough to undergo upper endoscopy. In the meantime we would suggest use of Protonix 40 mg twice daily and a full liquid diet. Please call with any questions or concerns over the weekend, coverage to resume on Sunday at which time endoscopic intervention will be reconsidered and arranged. History of Present Illness Reason for Consultation: esophageal thickening, esophageal distention Requesting Physician: Dr. Amador Attending Physician: Vern Amador MD History of Present Illness Pt is an 87 y/o female with PMHx COPD, h/o tobacco use, CAD s/p CABG, HLD, renal artery stenosis, HTN, hard of hearing, who developed back pain recently and went to [facility] ED 10/10/22; imaging there showed some degenerative changes and she was given Tramadol and Flexeril. She then developed nausea and vomiting and poor PO intake. She was brought to the ER here 10/13/22 and found to be significantly hypertensive, with JOSE ALFREDO, possible UTI, acute resp failure with hypoxia, and chest CTA showed prominent distal esophageal thickening favoring severe esophagitis, along with possible aspiration PNA. We are consulted Pt has been on IV ABX, IV PPI. She has been on a full liquid diet. Yesterday developed increasing O2 requirements as per RN. CTA chest w/ mild pulm edema, possible aspiration PNA, and we are consulted as CT also mentions distended debris-filled esophagus w/ suggestion of persistent esophagitis. Pt was made NPO. She is on 4 L O2 NC; still having issues with elevated blood pressures. Today she states she feels ok; tired. She has been noticing that after swallowing she has discomfort in her mid-lower chest and feels food "have trouble going down." This is new for her as she previously had no issues swallowing. No further n/v after admission. Denies having much reflux, regurgitation, coughing after eating, abd pain, chest pain; hematemesis. Admits to some dyspnea but currently not any worse than it had been. Has not smoked for many years. Denies NSAID, ETOH use. States she has some issues forgetting details in her medical history but in general is able to tell me about recent events. Allergies Allergy/AdvReac Type Severity Reaction Status Date / Time propoxyphene AdvReac Unknown INTOLERANCE Verified 10/13/21 10:11 acetaminophen [From Percocet] AdvReac Confusion Unverified 10/13/21 10:11 oxycodone [From Percocet] AdvReac Confusion Unverified 10/13/21 10:11 Home Medications Medication Instructions Recorded Confirmed Type cholecalciferol (vitamin D3) 125 5,000 unit PO DAILY ##0 06/20/16 10/13/22 History mcg (5,000 unit) tablet (Vitamin D3) docusate sodium 100 mg capsule 100 mg PO BID PRN Constipation ##0 10/11/16 02/03/23 History vit C-vit I-[id number] capsule 1 cap PO BID ##0 06/20/16 10/13/22 History fenofibrate nanocrystallized 145 145 mg PO DAILY #7 tabs 11/01/21 10/13/22 Rx mg tablet mirtazapine 15 mg disintegrating 7.5 mg PO HS #7 tabs 11/01/21 10/13/22 Rx tablet aspirin 81 mg tablet,delayed 81 mg PO DAILY 10/13/22 10/13/22 History release Patient History Medical History Adrenal adenoma CAD (coronary artery disease) COPD (chronic obstructive pulmonary disease) HLD (hyperlipidemia) HTN (hypertension) Peripheral vascular disease Renal artery stenosis s/p cath Tobacco abuse Vitamin D deficiency Surgical History History of appendectomy History of bowel resection History of cataract extraction History of hysterectomy Hx of CABG 2014 RSVG to PDA Family History Brother Cancer bone cancer Sister Breast cancer Father , mi 54 Myocardial infarction Social History Smoking Status: Light tobacco smoker Tobacco Type: Cigarettes Hx Alcohol Use: No Hx Substance Use: No Preferred Language: Georgian Communication Ability: Effective Perioperative Assistant Required: No Beliefs That Will Affect Care: None marital status: / Current Living Situation: Family Current Living Situation Comment: Nephew lives with her Feels Safe at Home: Yes Safety Concerns: Feels Safe At This Time Assistive Devices: Walker Review of Systems Review of Systems: All systems reviewed & are unremarkable except as noted in HPI & below Physical Exam Constitutional: thin, frail, in NAD Eyes: Sclera anicteric, no conjunctival injection ENMT: moist mucous membranes, no pallor; no oral/pharyngeal white plaques Neck: trachea midline supple Respiratory: normal resp effort, decreased BS bilaterally Cardiovascular: RRR, no murmur, no edema Gastrointestinal (Abdomen): normal bowel sounds, soft, nontender, no hepatosplenomegaly Inspection/Auscultation: abdomen not distended Skin: no rashes, warm and dry Neurologic: awake and alert, mostly oriented but says it's 2021, knows it's almost Raysa's Day and that she's at [facility] Psychiatric: normal mood and affect Results & Data ([facility]) Vital Signs (Past 12 Hours) Vital Signs Temp Pulse Pulse Resp BP BP Pulse Ox 10/20/22 08:04 10/20/22 07:46 36.5 C 65 18 183/70 H 174/109 H 95 10/20/22 03:00 36.4 C L 74 18 160/88 H 95 10/20/22 00:00 82 10/19/22 23:05 36.7 C 79 18 148/78 H 90 O2 Del Method O2 Flow Rate 10/20/22 08:04 Nasal Cannula 4 10/20/22 07:46 Nasal Cannula 4 10/20/22 03:00 Nasal Cannula 5 10/20/22 00:00 10/19/22 23:05 Nasal Cannula 5 Laboratory Results 10/20/22 10/20/22 Range/Units 06:09 06:09 Sodium 142 (136-145) mmol/L Potassium 3.7 (3.5-5.1) mmol/L Chloride 105 (98-107) mmol/L Carbon Dioxide 32 (21-32) mmol/L Anion Gap 5 (3-11) BUN 16 (6-23) mg/dl Creatinine 0.59 L (0.6-1.2) mg/dl Est Cr Clr Drug Dosing 42.4 ml/min Est GFR ( Amer) 96.9 ml/min Est GFR (Non-Af Amer) 83.6 ml/min BUN/Creatinine Ratio 27.1 H (10-20) Glucose 96 (70-99(Fasting)) mg/dl Calcium 9.0 (8.5-10.1) mg/dl Vitamin B12 407 (180-914) pg/ml Diagnostic Findings CXR 10/20/22: FINDINGS: No pneumothorax. Small bilateral pleural effusions and bibasilar densities persist. The heart remains enlarged. No evidence for pulmonary edema. Emphysema again noted. No acute fractures. IMPRESSION: No change in the small bilateral pleural effusions and bibasilar airspace opacities. CTA chest 10/19/22: FINDINGS: No pathologically enlarged lymph nodes identified. Moderate cardiomegaly with extensive coronary artery calcifications. Atherosclerosis of the aorta with unchanged asymmetry ectasia, 3.8 cm. Mildly increased size of the small right greater than left pleural effusions. No pneumothorax. Moderate to severe pulmonary emphysema. Intralobular septal thickening. 1.8 cm lobulated left lower lobe solid nodule again noted on image 203. There is dependent bibasilar consolidation again noted, most pronounced in the right lower lobe with right lower lobe mucous plugging. Distended debris filled esophagus with mid to distal esophageal wall thickening again noted. Suggested small hiatal hernia. Mild generalized body wall edema. No acute fracture identified. Degenerative changes of the shoulders and spine. Unchanged appearance of the T10 wedge burst fracture with mild retropulsion. IMPRESSION: 1. Distended debris-filled esophagus with persistent wall thickening suggestive of esophagitis. Findings could be correlated with endoscopy. 2. Increased size of the small pleural effusions. 3. Right lower lobe mucous plugging with right greater than left bibasilar consolidation again noted. Correlate clinically to exclude aspiration. 4. Cardiomegaly with mild pulmonary edema. 5. Emphysema. 6. Stable 1.8 cm suspicious nodule of the left lower lobe. CTA chest 10/13/22: FINDINGS: Moderate plaque of the thoracic aorta is noted. There is mild dilatation of the ascending aorta, measuring 3.8 cm. There is no thoracic aortic dissection. Moderate cardiomegaly is noted. Pulmonary arteries are suboptimally opacified. Moderate coronary artery calcification is again noted. There is no thoracic lymphadenopathy. There is pronounced circumferential wall thickening of the distal esophagus. No pneumomediastinum is present. Lungs are suboptimally assessed due to respiratory motion. Moderate emphysema is present. A small right pleural effusion is noted. There is no pneumothorax. Extensive secretions within the right lower lobe segmental bronchi are noted. Subpleural right lower lobe opacity is present. There is mild subpleural left lower lobe opacity. There is a lobulated 1.8 cm solid left lower lobe nodule on image 178 of 291. This is increased in size since prior chest CT. T10 compression fracture is new since prior CT. This is probably subacute. Enlargement of both adrenal glands is again noted. This was shown on prior CT. Bilateral renal lesions favor cysts. This exam is mildly compromised by motion artifact. IMPRESSION: 1. No thoracic aortic dissection. Moderate plaque within the thoracic aorta which is mildly dilated, measuring 3.8 cm in caliber. 2. Pronounced distal esophageal wall thickening. This favors severe esophagitis. 3. Increase in size of a lobulated 1.8 cm solid left lower lobe pulmonary nodule. This is suspicious for primary bronchogenic carcinoma. Nonemergent Pulmonary consultation recommended. 4. Emphysema. 5. Extensive secretions within right lower lobe segmental bronchi. Subpleural right lower lobe opacity favors atelectasis however aspiration pneumonia or pneumonia could appear similar. Trace right pleural effusion.
[2022-10-20] MEDS: FENOFIBRATE NANOCRYSTALLIZED 145 MG TABLET PO SCH (12:32)
--- NOTE | 2022-10-20 12:42 | Hospitalist Progress Note ---
Date of Service October 20, 2022 Assessment & Plan (1) Acute respiratory failure with hypoxia: (2) Right lower lobe pneumonia: (3) UTI (urinary tract infection): (4) Dehydration: (5) Low back pain: (6) Esophagitis: (7) Pulmonary nodule: (8) CAD (coronary artery disease): (9) Hx of CABG: (10) HTN (hypertension): Plan per Dr. Dacosta's notes with addendum: This is a 87-year-old female who has significant past medical history of COPD, CAD with history of CABG x1, HLD, renal artery stenosis, HTN, glaucoma, elevated hemoglobin, history of tobacco abuse disorder, hard of hearing who presents to ED due to back pain x 1 week; N/V and poor PO intake for 1.5 days. Acute respiratory failure with hypoxia Possible right lower lobe pneumonia, poss. aspiration pna COPD, without exacerbation DuoNeb twice daily and as needed Incentive spirometry , flutter valve with nursing assistance Oxygen as needed, goal saturation 88 to 92% easy to chew/ swallow diet. Poor appetite. tx with IV zosyn for now guaifenesin pt does not use O2 at home, per son saturates around 90% on RA at home Currently on 2L, saturating 93% 10/20 now on 4 L nasal cannula repeat CXR: o change in the small bilateral pleural effusions and bibasilar airspace opacities. Doxycycline PO BID Day 3 continue IV ZOsyn hypertonic solution, nebs given mucus plugging UTI UA concerning for infection U cultx positive for E.coli Given white blood cell count and treating for right lower lobe pneumonia will also cover for UTI blood culture - negat. for 48 hrs 10/20 continue IV Zosyn Dysphagia from esophagitis repeat CT chest, abd/pelvis 1. Distended debris-filled esophagus with persistent wall thickening suggestive of esophagitis. Findings could be correlated with endoscopy. 2. Increased size of the small pleural effusions. 3. Right lower lobe mucous plugging with right greater than left bibasilar consolidation again noted. Correlate clinically to exclude aspiration. 4. Cardiomegaly with mild pulmonary edema. 5. Emphysema. 6. Stable 1.8 cm suspicious nodule of the left lower lobe. 1. Redemonstration of the severe esophageal thickening with paraesophageal edema. No extraluminal gas at this time to suggest a perforation. Therefore, this favors a nonspecific esophagitis. 2. Please refer to the same day chest CT for further evaluation of the lung bases. 3. Large amount well-formed stool seen throughout the colon and rectum. 4. Mildly dilated fluid-filled loops of small bowel seen within the abdomen. Although suboptimally assessed, there is no transition point at this time to suggest an obstruction. Therefore, this could represent an ileus. 5. Distended bladder. 6. Right-sided nephrolithiasis. No hydronephrosis. NPO for now until evaluated by GI given tap water enema, BMs x 2 monitor closely Aspiration precautions Prerenal acute kidney injury Patient with elevated BUN of 43, Cr 0.97 with a BUN/creatinine ratio of 35.1 Secondary to poor p.o. intake, N/V -- resolved Low K and Mg -- from poor intake replaced CAD with history of CABG x1 Elevated troponin Abnormal EKGwith T wave inversions inferior & laterally -unchanged from prior Patient without chest pain Troponin mildly elevated, serial CE essentially unchanged likely elev. secondary to above/demand ischemia Continue aspirin 10/20 no cardiac symptoms Low Back Pain pt had imaging at [facility] which revealed DDD, dextroscoliosis with slight kyphosis, no acute fx on CT here T10 subacute compress. fx no pain on palpation over spine appears to be MSK in nature, worse with movement, + tender to palpation to L lower lumbar paraspinal musculature Heat QID, lidocaine patch, Flexeril 2.5mg bid - flexeril on hold now consult PT/OT for other modalities Pt was to see Pain management (as outpt) on day of admission to discuss possible MRI for injections 10/20 no back pain today HTN In ED patient met criteria for hypertensive urgency with peak blood pressure 204/114 She received 5 mg IV hydralazine which improved BP to 158/81 Previously patient have been prescribed amlodipine 2.5 mg which has since been discontinued amlodipine 2.5 mg resumed, BP improved but still elevated - increased to 5 mg daily, monitor BP, on telemetry Will need to encourage patient importance of taking medication and monitoring blood pressure at home Per family when seen at [facility] her blood pressure was in the 200s as well 2/10 PRN hydralazine improving monitor Esophagitis per CT imaging may be in setting of recent N/V PPI IV BID management per above Pulmonary Nodule lobulated 1.8 cm solid left lower lobe pulmonary nodule per CT scan Suspicious for bronchogenic carcinoma in setting of tobacco history Discussed with brothers at bedside and recommend pulmonary evaluation as outpatient if patient wishes to pursue further work-up Polycythemia Likely exacerbated in setting of dehydration Patient hemoglobin typically runs ~15 Former tobacco user Malnutrition, BMI 13.6 - pt cachectic on phys. exam -dietitian consulted -difficulty currently w/ PO intake given nausea/vomiting on admission, esophagitis on CT DVT prophylaxis:Heparin BID Dispo: pending may need SNF PT/OT eval PCP: Kae Lockhart DNR/DNI -discussion with son and patient who wishes for no aggressive measures to be done plan of care discussed with patient and patient's son Cristian over the phone in detail and at length all questions answered they are understanding, agreeable, comfortable with the plan of care Admission and Anticipated Discharge Date Admission Date: October 13, 2022 Subjective ff up for aspiration pneumonia, etc events overnight noted seen resting in bed, comfortable on 4 L NC states she feels tired states breathing is good, no chest pain denies epigastric, chest pain today no nausea/vomiting no other symptoms Review of Systems Review of Systems: all noted and negative except for above Physical Exam Physical Exam: General- oriented x 3, not in distress, speaks in sentences with no effort or accessory muscle use Eyes- anicteric Neck- no JVD Lungs- decreased breath sounds R base clear on the left no wheezing Heart- normal rate, regular rhythm; no murmurs Abdomen- normal bowel sounds, nondistended, soft, no tenderness Extremities- no pretibial edema, no calf tenderness Neuro- alert, oriented x 3; no gross focal neurologic deficits Skin- warm & dry Results & Data Results & Data ([facility]) Vital Signs (Past 12 Hours) Vital Signs Temp Pulse Resp BP BP Pulse Ox O2 Del Method 10/20/22 11:29 36.6 C 70 18 163/81 H 92 Nasal Cannula 10/20/22 08:04 Nasal Cannula 10/20/22 07:46 36.5 C 65 18 183/70 H 174/109 H 95 Nasal Cannula 10/20/22 03:00 36.4 C L 74 18 160/88 H 95 Nasal Cannula O2 Flow Rate 10/20/22 11:29 4.5 10/20/22 08:04 4 10/20/22 07:46 4 10/20/22 03:00 5 all noted and reviewed including below (1) UTI (urinary tract infection) Hematuria presence: without hematuria Urinary tract infection type: acute cystitis Qualified Code(s): N30.00 - Acute cystitis without hematuria (2) Low back pain Back pain laterality: midline Chronicity: acute Sciatica presence: without sciatica Qualified Code(s): M54.50 - Low back pain, unspecified (3) HTN (hypertension) Hypertension type: unspecified Qualified Code(s): I10 - Essential (primary) hypertension
[2022-10-20] MEDS: SODIUM CHLOR 7% 4 ML NEB NEB SCH (19:22)
[2022-10-20] MEDS: MIRTAZAPINE SOLTAB 15 MG PO SCH (19:40)
[2022-10-20] MEDS: hydrALAZINE HCL 20 MG/ML VIAL IV PRN (19:54)
[2022-10-21] MEDS: AMPICILLIN/SULBACTAM SOD 3,000 MG in 0.9 % SODIUM CHLORIDE 100 ML IV SCH ×4 (00:43→19:45)
[2022-10-21] MEDS: ACETAMINOPHEN 325 MG TAB PO PRN (04:04)
[2022-10-21] MEDS: ONDANSETRON INJ 2 MG/ML 2 ML VIAL IV PRN (04:07)
[2022-10-21] MEDS: hydrALAZINE HCL 20 MG/ML VIAL IV PRN (04:07)
[2022-10-21] MEDS ORDERED: PROMETHAZINE HCL 6.25 MG in SODIUM CHLORIDE 0.9% 50 ML IV PRN (04:22)
[2022-10-21] MEDS ORDERED: LACTULOSE SYRUP 30 GM/45 ML UDP PO STA (04:27)
[2022-10-21] MEDS: DOCUSATE SODIUM/SENNA 50/8.6MG TAB PO SCH ×2 (05:07→20:56)
[2022-10-21] MEDS: guaiFENesin SUGAR FREE 200 MG/10 ML UDC PO SCH ×3 (05:07→16:54)
[2022-10-21] MEDS: SODIUM CHLOR 7% 4 ML NEB NEB SCH ×2 (05:20→19:36)
[2022-10-21] MEDS: PANTOprazole 40 MG in SYRINGE 0 ML IV SCH ×2 (07:59→20:53)
[2022-10-21] MEDS: amLODIPine BESYLATE 5 MG TAB PO SCH (07:59)
[2022-10-21] MEDS: CEROVITE ADV FORMULA TAB PO SCH ×2 (08:00→20:53)
[2022-10-21] MEDS: DOXYCYCLINE HYCLATE 100 MG CAP PO SCH ×2 (08:00→20:53)
[2022-10-21] MEDS: ASPIRIN 81 MG ECTAB PO SCH (08:00)
[2022-10-21] MEDS: CHOLECALCIFEROL 5,000 UNITS 125 MCG TAB PO SCH (08:00)
[2022-10-21] MEDS: SUCRALFATE 1 GM/10 ML UDC PO SCH ×4 (08:01→20:53)
[2022-10-21] MEDS: LIDOCAINE 5% 1 PATCH TD SCH (08:02)
[2022-10-21] MEDS: HEPARIN SOD 5,000 UNIT/0.5 ML VIAL SQ SCH ×2 (08:02→20:55)
[2022-10-21] MEDS: FENOFIBRATE NANOCRYSTALLIZED 145 MG TABLET PO SCH (12:23)
--- NOTE | 2022-10-21 18:09 | Hospitalist Progress Note ---
Date of Service October 21, 2022 delayed entry date of service noted above Assessment & Plan (1) Acute respiratory failure with hypoxia: (2) Right lower lobe pneumonia: (3) UTI (urinary tract infection): (4) Dehydration: (5) Low back pain: (6) Esophagitis: (7) Pulmonary nodule: (8) CAD (coronary artery disease): (9) Hx of CABG: (10) HTN (hypertension): Plan per Dr. Dacosta's notes with addendum: This is a 87-year-old female who has significant past medical history of COPD, CAD with history of CABG x1, HLD, renal artery stenosis, HTN, glaucoma, elevated hemoglobin, history of tobacco abuse disorder, hard of hearing who presents to ED due to back pain x 1 week; N/V and poor PO intake for 1.5 days. Acute respiratory failure with hypoxia Possible right lower lobe pneumonia, poss. aspiration pna COPD, without exacerbation DuoNeb twice daily and as needed Incentive spirometry , flutter valve with nursing assistance Oxygen as needed, goal saturation 88 to 92% easy to chew/ swallow diet. Poor appetite. tx with IV zosyn for now guaifenesin pt does not use O2 at home, per son saturates around 90% on RA at home Currently on 2L, saturating 93% 10/21 now on 5 L nasal cannula repeat CXR: o change in the small bilateral pleural effusions and bibasilar airspace opacities. Doxycycline PO BID Day 4 continue IV ZOsyn hypertonic solution, nebs given mucus plugging Patient reports her breathing is fine Continue to wean of oxygen UTI UA concerning for infection U cultx positive for E.coli Given white blood cell count and treating for right lower lobe pneumonia will also cover for UTI blood culture - negat. for 48 hrs 10/21 continue IV Unasyn Dysphagia from esophagitis repeat CT chest, abd/pelvis 1. Distended debris-filled esophagus with persistent wall thickening suggestive of esophagitis. Findings could be correlated with endoscopy. 2. Increased size of the small pleural effusions. 3. Right lower lobe mucous plugging with right greater than left bibasilar consolidation again noted. Correlate clinically to exclude aspiration. 4. Cardiomegaly with mild pulmonary edema. 5. Emphysema. 6. Stable 1.8 cm suspicious nodule of the left lower lobe. 1. Redemonstration of the severe esophageal thickening with paraesophageal edema. No extraluminal gas at this time to suggest a perforation. Therefore, this favors a nonspecific esophagitis. 2. Please refer to the same day chest CT for further evaluation of the lung bases. 3. Large amount well-formed stool seen throughout the colon and rectum. 4. Mildly dilated fluid-filled loops of small bowel seen within the abdomen. Although suboptimally assessed, there is no transition point at this time to suggest an obstruction. Therefore, this could represent an ileus. 5. Distended bladder. 6. Right-sided nephrolithiasis. No hydronephrosis. 10/21 Tolerating clear liquids well Continue to monitor closely Prerenal acute kidney injury Patient with elevated BUN of 43, Cr 0.97 with a BUN/creatinine ratio of 35.1 Secondary to poor p.o. intake, N/V -- resolved Low K and Mg -- from poor intake replaced CAD with history of CABG x1 Elevated troponin Abnormal EKGwith T wave inversions inferior & laterally -unchanged from prior Patient without chest pain Troponin mildly elevated, serial CE essentially unchanged likely elev. secondary to above/demand ischemia Continue aspirin 10/21 no cardiac symptoms Low Back Pain pt had imaging at [facility] which revealed DDD, dextroscoliosis with slight kyphosis, no acute fx on CT here T10 subacute compress. fx no pain on palpation over spine appears to be MSK in nature, worse with movement, + tender to palpation to L lower lumbar paraspinal musculature Heat QID, lidocaine patch, Flexeril 2.5mg bid - flexeril on hold now consult PT/OT for other modalities Pt was to see Pain management (as outpt) on day of admission to discuss possible MRI for injections 10/21 no back pain today HTN In ED patient met criteria for hypertensive urgency with peak blood pressure 204/114 She received 5 mg IV hydralazine which improved BP to 158/81 Previously patient have been prescribed amlodipine 2.5 mg which has since been discontinued amlodipine 2.5 mg resumed, BP improved but still elevated - increased to 5 mg daily, monitor BP, on telemetry Will need to encourage patient importance of taking medication and monitoring blood pressure at home Per family when seen at [facility] her blood pressure was in the 200s as well 10/21 PRN hydralazine monitor Esophagitis per CT imaging may be in setting of recent N/V PPI IV BID management per above Pulmonary Nodule lobulated 1.8 cm solid left lower lobe pulmonary nodule per CT scan Suspicious for bronchogenic carcinoma in setting of tobacco history Discussed with brothers at bedside and recommend pulmonary evaluation as outpatient if patient wishes to pursue further work-up Polycythemia Likely exacerbated in setting of dehydration Patient hemoglobin typically runs ~15 Former tobacco user Malnutrition, BMI 13.6 - pt cachectic on phys. exam -dietitian consulted -difficulty currently w/ PO intake given nausea/vomiting on admission, esophagitis on CT DVT prophylaxis:Heparin BID Dispo: pending may need SNF PT/OT eval PCP: Kae Lockhart DNR/DNI -discussion with son and patient who wishes for no aggressive measures to be done plan of care discussed with patient and patient's son Cristian over the phone in detail and at length all questions answered they are understanding, agreeable, comfortable with the plan of care Admission and Anticipated Discharge Date Admission Date: October 13, 2022 Subjective Follow-up for aspiration pneumonia, UTI, etc. Seen resting in bed, not in distress States she is tolerating full liquid well Denies chest pain, esophageal pain, nausea or vomiting Positive BMs after laxatives overnight No shortness of breath, no cough No other symptoms Review of Systems Review of Systems: all noted and negative except for above Physical Exam Physical Exam: General- oriented x 3, not in distress, speaks in sentences with no effort or accessory muscle use Appears weak Eyes- anicteric Neck- no JVD Lungs-decreased breath sounds at right base, mild, clear on the left Heart- normal rate, regular rhythm; no murmurs Abdomen- normal bowel sounds, nondistended, soft, no tenderness Extremities- no pretibial edema, no calf tenderness Neuro- alert, oriented x 3; no gross focal neurologic deficits Skin- warm & dry Results & Data Results & Data ([facility]) Vital Signs (Past 12 Hours) Vital Signs Temp Pulse Resp BP BP Pulse Ox O2 Del Method 10/21/22 15:07 36.8 C 73 19 136/62 95 Nasal Cannula 10/21/22 12:12 36.8 C 65 18 163/77 H 90 Nasal Cannula 10/21/22 08:00 Nasal Cannula 10/21/22 07:41 37.0 C 87 20 161/77 H 90 Nasal Cannula O2 Flow Rate 10/21/22 15:07 6 02/11/23 12:12 6 10/21/22 08:00 6 10/21/22 07:41 6 all noted and reviewed including below (1) UTI (urinary tract infection) Hematuria presence: without hematuria Urinary tract infection type: acute cystitis Qualified Code(s): N30.00 - Acute cystitis without hematuria (2) Low back pain Back pain laterality: midline Chronicity: acute Sciatica presence: without sciatica Qualified Code(s): M54.50 - Low back pain, unspecified (3) HTN (hypertension) Hypertension type: unspecified Qualified Code(s): I10 - Essential (primary) hypertension
[2022-10-21] MEDS: MIRTAZAPINE SOLTAB 15 MG PO SCH (20:54)
[2022-10-22] MEDS: AMPICILLIN/SULBACTAM SOD 3,000 MG in 0.9 % SODIUM CHLORIDE 100 ML IV SCH ×4 (01:35→19:24)
[2022-10-22] MEDS: guaiFENesin SUGAR FREE 200 MG/10 ML UDC PO SCH ×4 (01:36→17:49)
[2022-10-22] MEDS: SODIUM CHLOR 7% 4 ML NEB NEB SCH ×2 (07:04→19:02)
[2022-10-22] MEDS: amLODIPine BESYLATE 5 MG TAB PO SCH (08:40)
[2022-10-22] MEDS: ASPIRIN 81 MG ECTAB PO SCH (08:40)
[2022-10-22] MEDS: HEPARIN SOD 5,000 UNIT/0.5 ML VIAL SQ SCH ×2 (08:41→20:28)
[2022-10-22] MEDS: DOCUSATE SODIUM/SENNA 50/8.6MG TAB PO SCH ×2 (08:41→20:26)
[2022-10-22] MEDS: CHOLECALCIFEROL 5,000 UNITS 125 MCG TAB PO SCH (08:41)
[2022-10-22] MEDS: DOXYCYCLINE HYCLATE 100 MG CAP PO SCH ×2 (08:41→20:28)
[2022-10-22] MEDS: PANTOprazole 40 MG in SYRINGE 0 ML IV SCH ×2 (08:42→20:29)
[2022-10-22] MEDS: CEROVITE ADV FORMULA TAB PO SCH ×2 (08:42→20:26)
[2022-10-22] MEDS: SUCRALFATE 1 GM/10 ML UDC PO SCH ×4 (08:42→20:29)
[2022-10-22] MEDS: LIDOCAINE 5% 1 PATCH TD SCH (08:42)
[2022-10-22] MEDS ORDERED: amLODIPine BESYLATE 5 MG TAB PO SCH (09:00)
[2022-10-22] MEDS ORDERED: amLODIPine BESYLATE 5 MG TAB PO ONE (09:15)
--- NOTE | 2022-10-22 09:23 | XRay Report ---
XR chest 1V portable CLINICAL HISTORY: ff up pneumonia, CHF COMPARISON STUDY: Chest CT October 19, 2022. Chest radiograph October 20, 2022. FINDINGS: There is underlying emphysema. No pneumothorax is present. Small bilateral pleural effusion s and bibasilar opacities have mildly progressed. Pulmonary vascular congestion is similar to prior e xam. Cardiomediastinal silhouette is stable. IMPRESSION: 1. Slight increase in small bilateral pleural effusions and bibasilar opacities which could reflect c onsolidation or atelectasis. 2. Stable pulmonary vascular congestion. 3. Emphysema. ACT 112: Negative or not required by law. Electronically signed by: Omar Kingston M.D. 10/22/2022 9:22 AM
[2022-10-22 09:35] LABS: BUN Creatinine Ratio 23.6 (10-20); Calcium 9.4 mg/dl (8.5-10.1); Creatinine Clr Calc Pharmacy 46.8 ml/min; Est GFR (African American) 99.1 ml/min; Est GFR (Non-African American) 85.5 ml/min; Potassium 3.2 mmol/L (3.5-5.1)
[2022-10-22] MEDS: POTASSIUM CHLORIDE 20 MEQ/15 ML UDC PO SCH ×2 (12:22→20:25)
[2022-10-22] MEDS: FENOFIBRATE NANOCRYSTALLIZED 145 MG TABLET PO SCH (12:23)
--- NOTE | 2022-10-22 15:19 | Hospitalist Progress Note ---
Date of Service October 22, 2022 Assessment & Plan (1) Acute respiratory failure with hypoxia: (2) Right lower lobe pneumonia: (3) UTI (urinary tract infection): (4) Dehydration: (5) Low back pain: (6) Esophagitis: (7) Pulmonary nodule: (8) CAD (coronary artery disease): (9) Hx of CABG: (10) HTN (hypertension): Plan per Dr. Dacosta's notes with addendum: This is a 87-year-old female who has significant past medical history of COPD, CAD with history of CABG x1, HLD, renal artery stenosis, HTN, glaucoma, elevated hemoglobin, history of tobacco abuse disorder, hard of hearing who presents to ED due to back pain x 1 week; N/V and poor PO intake for 1.5 days. Acute respiratory failure with hypoxia Possible right lower lobe pneumonia, poss. aspiration pna COPD, without exacerbation DuoNeb twice daily and as needed Incentive spirometry , flutter valve with nursing assistance Oxygen as needed, goal saturation 88 to 92% easy to chew/ swallow diet. Poor appetite. tx with IV zosyn for now guaifenesin pt does not use O2 at home, per son saturates around 90% on RA at home Currently on 2L, saturating 93% 10/22 now on 4 L nasal cannula repeat CXR: 1. Slight increase in small bilateral pleural effusions and bibasilar opacities which could reflect consolidation or atelectasis. 2. Stable pulmonary vascular congestion. 3. Emphysema. Doxycycline PO BID Day 5 continue IV Unasyn hypertonic solution, nebs given mucus plugging Patient reports her breathing is fine Continue to wean of oxygen UTI UA concerning for infection U cultx positive for E.coli Given white blood cell count and treating for right lower lobe pneumonia will also cover for UTI blood culture - negat. for 48 hrs 10/22 continue IV Unasyn Dysphagia from esophagitis repeat CT chest, abd/pelvis 1. Distended debris-filled esophagus with persistent wall thickening suggestive of esophagitis. Findings could be correlated with endoscopy. 2. Increased size of the small pleural effusions. 3. Right lower lobe mucous plugging with right greater than left bibasilar consolidation again noted. Correlate clinically to exclude aspiration. 4. Cardiomegaly with mild pulmonary edema. 5. Emphysema. 6. Stable 1.8 cm suspicious nodule of the left lower lobe. 1. Redemonstration of the severe esophageal thickening with paraesophageal edema. No extraluminal gas at this time to suggest a perforation. Therefore, this favors a nonspecific esophagitis. 2. Please refer to the same day chest CT for further evaluation of the lung bases. 3. Large amount well-formed stool seen throughout the colon and rectum. 4. Mildly dilated fluid-filled loops of small bowel seen within the abdomen. Although suboptimally assessed, there is no transition point at this time to suggest an obstruction. Therefore, this could represent an ileus. 5. Distended bladder. 6. Right-sided nephrolithiasis. No hydronephrosis. 2 Tolerating clear liquids well Advance diet to soft Continue to monitor closely Prerenal acute kidney injury Patient with elevated BUN of 43, Cr 0.97 with a BUN/creatinine ratio of 35.1 Secondary to poor p.o. intake, N/V -- resolved Low K and Mg -- from poor intake replaced CAD with history of CABG x1 Elevated troponin Abnormal EKGwith T wave inversions inferior & laterally -unchanged from prior Patient without chest pain Troponin mildly elevated, serial CE essentially unchanged likely elev. secondary to above/demand ischemia Continue aspirin 10/22 no cardiac symptoms Low Back Pain pt had imaging at [facility] which revealed DDD, dextroscoliosis with slight kyphosis, no acute fx on CT here T10 subacute compress. fx no pain on palpation over spine appears to be MSK in nature, worse with movement, + tender to palpation to L lower lumbar paraspinal musculature Heat QID, lidocaine patch, Flexeril 2.5mg bid - flexeril on hold now consult PT/OT for other modalities Pt was to see Pain management (as outpt) on day of admission to discuss possible MRI for injections 10/22 no back pain today HTN In ED patient met criteria for hypertensive urgency with peak blood pressure 204/114 She received 5 mg IV hydralazine which improved BP to 158/81 Previously patient have been prescribed amlodipine 2.5 mg which has since been discontinued amlodipine 2.5 mg resumed, BP improved but still elevated - increased to 5 mg daily, monitor BP, on telemetry Will need to encourage patient importance of taking medication and monitoring blood pressure at home Per family when seen at [facility] her blood pressure was in the 200s as well 10/21 PRN hydralazine monitor Esophagitis per CT imaging may be in setting of recent N/V PPI IV BID management per above Pulmonary Nodule lobulated 1.8 cm solid left lower lobe pulmonary nodule per CT scan Suspicious for bronchogenic carcinoma in setting of tobacco history Discussed with brothers at bedside and recommend pulmonary evaluation as outpatient if patient wishes to pursue further work-up Polycythemia Likely exacerbated in setting of dehydration Patient hemoglobin typically runs ~15 Former tobacco user Malnutrition, BMI 13.6 - pt cachectic on phys. exam -dietitian consulted -difficulty currently w/ PO intake given nausea/vomiting on admission, esophagitis on CT DVT prophylaxis:Heparin BID Dispo: pending may need SNF PT/OT eval PCP: Kae Lockhart DNR/DNI -discussion with son and patient who wishes for no aggressive measures to be done Admission and Anticipated Discharge Date Admission Date: October 13, 2022 Subjective Follow-up for aspiration pneumonia, UTI, etc. Seen resting in bed on 4 L of oxygen via nasal cannula Awake and alert Conversant States she is tolerating full liquid diet well, finished her boost this morning, no nausea or vomiting, no chest pain, epigastric pain States breathing is fine, no shortness of breath or cough No other symptoms Review of Systems Review of Systems: all noted and negative except for above Physical Exam Physical Exam: General- oriented x 3, not in distress, speaks in sentences with no effort or accessory muscle use Eyes- anicteric Neck- no JVD Lungs- clear BS BL Heart- normal rate, regular rhythm; no murmurs Abdomen- normal bowel sounds, nondistended, soft, nontender Extremities- no pretibial edema, no calf tenderness Neuro- alert, oriented x 3; no gross focal neurologic deficits Skin- warm & dry Results & Data Results & Data ([facility]) Vital Signs (Past 12 Hours) Vital Signs Temp Pulse Resp BP Pulse Ox O2 Del Method O2 Flow Rate 10/22/22 11:56 36.7 C 75 18 124/67 91 Room Air 4 10/22/22 08:00 Nasal Cannula 4 10/22/22 07:46 36.7 C 80 19 174/85 H 90 Nasal Cannula 5 10/22/22 07:04 74 18 96 Nasal Cannula 5 10/22/22 04:29 36.5 C 71 18 170/76 H 96 Nasal Cannula 3.5 all noted and reviewed including below (1) UTI (urinary tract infection) Hematuria presence: without hematuria Urinary tract infection type: acute cystitis Qualified Code(s): N30.00 - Acute cystitis without hematuria (2) Low back pain Back pain laterality: midline Chronicity: acute Sciatica presence: without sciatica Qualified Code(s): M54.50 - Low back pain, unspecified (3) HTN (hypertension) Hypertension type: unspecified Qualified Code(s): I10 - Essential (primary) hypertension
[2022-10-22] MEDS: MIRTAZAPINE SOLTAB 15 MG PO SCH (20:26)
[2022-10-23] MEDS: guaiFENesin SUGAR FREE 200 MG/10 ML UDC PO SCH ×4 (01:13→17:09)
[2022-10-23] MEDS: AMPICILLIN/SULBACTAM SOD 3,000 MG in 0.9 % SODIUM CHLORIDE 100 ML IV SCH ×2 (01:13→06:38)
[2022-10-23] MEDS: ACETAMINOPHEN 325 MG TAB PO PRN (02:44)
[2022-10-23] MEDS: SODIUM CHLOR 7% 4 ML NEB NEB SCH (07:05)
[2022-10-23] MEDS ORDERED: FUROSEMIDE INJ 20 MG/2 ML VIAL IV ONE (08:06)
[2022-10-23] MEDS: PANTOprazole 40 MG in SYRINGE 0 ML IV SCH ×2 (08:40→20:17)
[2022-10-23] MEDS: POTASSIUM CHLORIDE 20 MEQ/15 ML UDC PO SCH (08:40)
[2022-10-23] MEDS: HEPARIN SOD 5,000 UNIT/0.5 ML VIAL SQ SCH ×2 (08:40→20:17)
[2022-10-23] MEDS: SUCRALFATE 1 GM/10 ML UDC PO SCH ×4 (08:41→20:16)
[2022-10-23] MEDS: amLODIPine BESYLATE 5 MG TAB PO SCH (08:41)
[2022-10-23] MEDS: DOCUSATE SODIUM/SENNA 50/8.6MG TAB PO SCH (08:41)
[2022-10-23] MEDS: DOXYCYCLINE HYCLATE 100 MG CAP PO SCH ×2 (08:41→20:17)
[2022-10-23] MEDS: CHOLECALCIFEROL 5,000 UNITS 125 MCG TAB PO SCH (08:42)
[2022-10-23] MEDS: CEROVITE ADV FORMULA TAB PO SCH ×2 (08:42→20:16)
[2022-10-23] MEDS: ASPIRIN 81 MG ECTAB PO SCH (08:43)
[2022-10-23] MEDS: LIDOCAINE 5% 1 PATCH TD SCH (08:43)
[2022-10-23 10:05] LABS: BUN Creatinine Ratio 21.1 (10-20); Creatinine Clr Calc Pharmacy 45.1 ml/min; Est GFR (Non-African American) 84.5 ml/min; Potassium 4.1 mmol/L (3.5-5.1)
[2022-10-23] MEDS ORDERED: SODIUM CHLOR 7% 4 ML NEB NEB PRN (10:56)
--- NOTE | 2022-10-23 11:22 | Hospitalist Progress Note ---
Date of Service October 23, 2022 Assessment & Plan (1) Acute respiratory failure with hypoxia: (2) Right lower lobe pneumonia: (3) UTI (urinary tract infection): (4) Dehydration: (5) Low back pain: (6) Esophagitis: (7) Pulmonary nodule: (8) CAD (coronary artery disease): (9) Hx of CABG: (10) HTN (hypertension): Plan per Dr. Dacosta's notes with addendum: This is a 87-year-old female who has significant past medical history of COPD, CAD with history of CABG x1, HLD, renal artery stenosis, HTN, glaucoma, elevated hemoglobin, history of tobacco abuse disorder, hard of hearing who presents to ED due to back pain x 1 week; N/V and poor PO intake for 1.5 days. Acute respiratory failure with hypoxia Possible right lower lobe pneumonia, poss. aspiration pna COPD, without exacerbation DuoNeb twice daily and as needed Incentive spirometry , flutter valve with nursing assistance Oxygen as needed, goal saturation 88 to 92% easy to chew/ swallow diet. Poor appetite. tx with IV zosyn for now guaifenesin pt does not use O2 at home, per son saturates around 90% on RA at home Currently on 2L, saturating 93% 10/23 now on 4 L nasal cannula repeat CXR: 1. Slight increase in small bilateral pleural effusions and bibasilar opacities which could reflect consolidation or atelectasis. 2. Stable pulmonary vascular congestion. 3. Emphysema. Lasix 20mg IV one dose Doxycycline PO BID Day 6/ d/c IV Unasyn (last day today), received 10 day course total of Zosyn and Unasyn Patient reports her breathing is fine Continue to wean off oxygen UTI UA concerning for infection U cultx positive for E.coli Given white blood cell count and treating for right lower lobe pneumonia will also cover for UTI blood culture - negat. for 48 hrs 10/23 completed 10 day course of IV ZOsyan and IV Unasyn Dysphagia from esophagitis repeat CT chest, abd/pelvis 1. Distended debris-filled esophagus with persistent wall thickening suggestive of esophagitis. Findings could be correlated with endoscopy. 2. Increased size of the small pleural effusions. 3. Right lower lobe mucous plugging with right greater than left bibasilar consolidation again noted. Correlate clinically to exclude aspiration. 4. Cardiomegaly with mild pulmonary edema. 5. Emphysema. 6. Stable 1.8 cm suspicious nodule of the left lower lobe. 1. Redemonstration of the severe esophageal thickening with paraesophageal edema. No extraluminal gas at this time to suggest a perforation. Therefore, this favors a nonspecific esophagitis. 2. Please refer to the same day chest CT for further evaluation of the lung bas es. 3. Large amount well-formed stool seen throughout the colon and rectum. 4. Mildly dilated fluid-filled loops of small bowel seen within the abdomen. Although suboptimally assessed, there is no transition point at this time to suggest an obstruction. Therefore, this could represent an ileus. 5. Distended bladder. 6. Right-sided nephrolithiasis. No hydronephrosis. 10/23 tolerating soft diet again continue Sucralfate and Protonix Prerenal acute kidney injury Patient with elevated BUN of 43, Cr 0.97 with a BUN/creatinine ratio of 35.1 Secondary to poor p.o. intake, N/V -- resolved Low K and Mg -- from poor intake replaced CAD with history of CABG x1 Elevated troponin Abnormal EKGwith T wave inversions inferior & laterally -unchanged from prior Patient without chest pain Troponin mildly elevated, serial CE essentially unchanged likely elev. secondary to above/demand ischemia Continue aspirin 10/23 no cardiac symptoms Low Back Pain pt had imaging at [facility] which revealed DDD, dextroscoliosis with slight kyphosis, no acute fx on CT here T10 subacute compress. fx no pain on palpation over spine appears to be MSK in nature, worse with movement, + tender to palpation to L lower lumbar paraspinal musculature Heat QID, lidocaine patch, Flexeril 2.5mg bid - flexeril on hold now consult PT/OT for other modalities Pt was to see Pain management (as outpt) on day of admission to discuss possible MRI for injections 10/23 no back pain today HTN In ED patient met criteria for hypertensive urgency with peak blood pressure 204/114 She received 5 mg IV hydralazine which improved BP to 158/81 Previously patient have been prescribed amlodipine 2.5 mg which has since been discontinued amlodipine 2.5 mg resumed, BP improved but still elevated - increased to 5 mg daily, monitor BP, on telemetry Will need to encourage patient importance of taking medication and monitoring blood pressure at home Per family when seen at [facility] her blood pressure was in the 200s as well 10/23 increase Amlodipine to 10mg po daily PRN hydralazine monitor Esophagitis per CT imaging may be in setting of recent N/V PPI IV BID management per above Pulmonary Nodule lobulated 1.8 cm solid left lower lobe pulmonary nodule per CT scan Suspicious for bronchogenic carcinoma in setting of tobacco history Discussed with brothers at bedside and recommend pulmonary evaluation as outpatient if patient wishes to pursue further work-up Polycythemia Likely exacerbated in setting of dehydration Patient hemoglobin typically runs ~15 Former tobacco user Malnutrition, BMI 13.6 - pt cachectic on phys. exam -dietitian consulted -difficulty currently w/ PO intake given nausea/vomiting on admission, esophagitis on CT DVT prophylaxis:Heparin BID Dispo: pending may need SNF PT/OT eval PCP: Kae Lockhart DNR/DNI -discussion with son and patient who wishes for no aggressive measures to be done Admission and Anticipated Discharge Date Admission Date: October 13, 2022 Subjective ff up for pneumonia, UTI, etc seen resting in bedside chair, just had breakfast on 4 L NC states she feels about the same as yesterday feels tired but no shortness of breath, cough no chest pain/epigastric pain denies pain with swallowing, eating appetite not great but tried to drink boost, eat soft food no other symptoms Review of Systems Review of Systems: all noted and negative except for above Physical Exam Physical Exam: General- oriented x2, not in distress, speaks in sentences with no effort or accessory muscle use appears weak Eyes- anicteric Neck- no JVD Lungs- mild decreased breath sounds at the bases, no wheezing Heart- normal rate, regular rhythm; no murmurs Abdomen- normal bowel sounds, nondistended, soft, nontender Extremities- no pretibial edema, no calf tenderness Neuro- alert, oriented x 3; no gross focal neurologic deficits Skin- warm & dry Results & Data Results & Data ([facility]) Vital Signs (Past 12 Hours) Vital Signs Temp Pulse Pulse Resp BP Pulse Ox O2 Del Method 10/23/22 08:00 83 10/23/22 07:42 37.2 C 75 19 179/85 H 88 L Nasal Cannula 10/23/22 07:06 75 20 89 L Room Air 10/23/22 03:45 75 18 169/80 H 91 Nasal Cannula O2 Flow Rate 02/13/23 08:00 10/23/22 07:42 5 10/23/22 07:06 10/23/22 03:45 4 all noted and reviewed including below (1) UTI (urinary tract infection) Hematuria presence: without hematuria Urinary tract infection type: acute cystitis Qualified Code(s): N30.00 - Acute cystitis without hematuria (2) Low back pain Back pain laterality: midline Chronicity: acute Sciatica presence: without sciatica Qualified Code(s): M54.50 - Low back pain, unspecified (3) HTN (hypertension) Hypertension type: unspecified Qualified Code(s): I10 - Essential (primary) hypertension
[2022-10-23] MEDS: ADVANCED PROBIOTIC 1250 MG CAPSULE PO SCH (12:29)
[2022-10-23] MEDS: FENOFIBRATE NANOCRYSTALLIZED 145 MG TABLET PO SCH (12:29)
--- NOTE | 2022-10-23 14:08 | Gastroenterology Progress Note ---
Date of Service October 23, 2022 Assessment & Plan (1) Esophagitis: Plan: Dilated, fluid/food debris filled esophagus on CT likely caused by age related very poor esophageal motility and esophagitis. Tx esophagitis w BID PPI x 2 months then daily. Would continue chopped, wet diet, eat small amts slowly, chew thoroughly, maricarmen w water. Due to over poor respiratory status and general frailty, hesitent to have pt undergo EGD. Pt seems to prefer to avoid EGD as well. GI will sign off. Please recall if new/worsened Admission and Anticipated Discharge Date Admission Date: October 13, 2022 Supervising Physician Co-Signing Physician Notes 87 yo fm admited last week, imaging suggestive of esophagitis and ? fluid filled esophagus. She is tolerating po. History of emphysema with now higher o2 requirement given ? aspiration pna. She does not want an egd. PE - she is extremely thin, frail appearing female, soft abd. Ntaalia with further yeboah of care as documented- IV medication for now and assess response. Subjective 87 yr old frail female, CAD, COPD, PVD, O2 5L/min. Sat at 91% Was admitted w dilated, fluid filled esophagus adn constipation. Was restarted from liquids to a chopped, soft diet and is eating small amts today w/o any vomiting. Review of Systems Review of Systems: ROS: Gen: + ongoing weakness, + weight loss; no fevers/chills/sweats Eyes: + hx glaucoma, poor vision, denies eye redness, or pain, no recent vision changes Resp: + chronic SOB Cardio: No palpitations/irregular beats, no chest pain GI: No abdominal pain, no nausea/vomiting (in the past few days) : Denies pain on urination Skin: No jaundice, itching or new rashes Physical Exam Constitutional: + ill appearing (chronically), + thin, + frail appearing and cooperative Eyes: PERRL, conjunctivae normal, anicteric sclerae ENMT: external ear and nose normal, oropharynx normal Neck: trachea midline, no thyromegaly Respiratory: Diminished at bases, and few crackles at each base. No wheezing. Cardiovascular: RRR, no murmur, no edema Gastrointestinal (Abdomen): normal bowel sounds, soft, nontender, no hepatosplenomegaly Musculoskeletal: no cyanosis or clubbing, extremities motor strength 5/5 Skin: no rashes, warm and dry Neurologic: PERRL, EOMI, accommodation nl, no face palsy, no dysarthria Psychiatric: A+Ox3, euthymic affect Lymphatic: no cervical or axillary lymphadenopathy Results & Data ([facility]) Vital Signs (Past 12 Hours) Vital Signs Temp Pulse Pulse Resp BP Pulse Ox O2 Del Method 10/23/22 11:42 36.9 C 78 161/86 H 91 Nasal Cannula 10/23/22 08:00 83 10/23/22 07:42 37.2 C 75 19 179/85 H 88 L Nasal Cannula 10/23/22 07:06 75 20 89 L Room Air 10/23/22 03:45 75 18 169/80 H 91 Nasal Cannula O2 Flow Rate 10/23/22 11:42 5 10/23/22 08:00 10/23/22 07:42 5 10/23/22 07:06 10/23/22 03:45 4 Laboratory Results WBC8, Hb 13.5, Hct 41.5, Plts 406, PT 12.9, INRN 12, Na 140, K 4.1 CL 104, CO2 31 BN12, Cr 0.57, glucose 112 Diagnostic Findings CTAP 10/13/22: 1. Redemonstration of the severe esophageal thickening with paraesophageal edema. No extraluminal gas at this time to suggest a perforation. Therefore, this favors a nonspecific esophagitis. 2. Please refer to the same day chest CT for further evaluation of the lung bases. 3. Large amount well-formed stool seen throughout the colon and rectum. 4. Mildly dilated fluid-filled loops of small bowel seen within the abdomen. Although suboptimally assessed, there is no transition point at this time to suggest an obstruction. Therefore, this could represent an ileus. 5. Distended bladder. 6. Right-sided nephrolithiasis. No hydronephrosis.
[2022-10-23] MEDS: VITAMIN B COMPLEX TAB PO SCH (18:07)
[2022-10-23] MEDS: MIRTAZAPINE SOLTAB 15 MG PO SCH (20:16)
[2022-10-24] MEDS: guaiFENesin SUGAR FREE 200 MG/10 ML UDC PO SCH ×4 (00:04→17:24)
[2022-10-24] MEDS: hydrALAZINE HCL 20 MG/ML VIAL IV PRN (00:11)
[2022-10-24] MEDS ORDERED: hydrALAZINE HCL 20 MG/ML VIAL IV STA (04:33)
[2022-10-24] MEDS: ACETAMINOPHEN 325 MG TAB PO PRN (06:25)
[2022-10-24] MEDS ORDERED: ALBUMIN 25% 12.5 GM/50 ML VIAL IV ONE (06:36)
[2022-10-24 07:29] LABS: BUN Creatinine Ratio 23.2 (10-20); Calcium 10.5 mg/dl (8.5-10.1); Creatinine Clr Calc Pharmacy 35.3 ml/min; Est GFR (Non-African American) 79.4 ml/min; Potassium 4.2 mmol/L (3.5-5.1)
[2022-10-24] MEDS: LIDOCAINE 5% 1 PATCH TD SCH (09:18)
[2022-10-24] MEDS: amLODIPine BESYLATE 5 MG TAB PO SCH (09:18)
[2022-10-24] MEDS: SUCRALFATE 1 GM/10 ML UDC PO SCH ×4 (09:18→20:48)
[2022-10-24] MEDS: PANTOprazole 40 MG in SYRINGE 0 ML IV SCH ×2 (09:19→20:49)
[2022-10-24] MEDS: ADVANCED PROBIOTIC 1250 MG CAPSULE PO SCH (09:19)
[2022-10-24] MEDS: HEPARIN SOD 5,000 UNIT/0.5 ML VIAL SQ SCH ×2 (09:19→20:48)
[2022-10-24] MEDS: DOXYCYCLINE HYCLATE 100 MG CAP PO SCH ×2 (09:19→20:48)
[2022-10-24] MEDS: ASPIRIN 81 MG ECTAB PO SCH (09:19)
[2022-10-24] MEDS: VITAMIN B COMPLEX TAB PO SCH (09:19)
[2022-10-24] MEDS: CEROVITE ADV FORMULA TAB PO SCH ×2 (09:19→20:48)
[2022-10-24] MEDS: CHOLECALCIFEROL 5,000 UNITS 125 MCG TAB PO SCH (09:19)
[2022-10-24] MEDS: FENOFIBRATE NANOCRYSTALLIZED 145 MG TABLET PO SCH (11:59)
--- NOTE | 2022-10-24 13:29 | Hospitalist Progress Note ---
Date of Service October 24, 2022 Assessment & Plan (1) Acute respiratory failure with hypoxia: (2) Right lower lobe pneumonia: (3) UTI (urinary tract infection): (4) Dehydration: (5) Low back pain: (6) Esophagitis: (7) Pulmonary nodule: (8) CAD (coronary artery disease): (9) Hx of CABG: (10) HTN (hypertension): Plan per Dr. Dacosta's notes with addendum: This is a 87-year-old female who has significant past medical history of COPD, CAD with history of CABG x1, HLD, renal artery stenosis, HTN, glaucoma, elevated hemoglobin, history of tobacco abuse disorder, hard of hearing who presents to ED due to back pain x 1 week; N/V and poor PO intake for 1.5 days. Patient had a fall at home, was placed on oral narcotics for pain control, then developed nausea and vomiting, prompting admission. While admitted, patient treated for aspiration pneumonia and UTI, showed slow progress, at one-point was having hospital delirium. Also developed esophagitis, GI consulted, placed on Carafate, tolerating soft diet again. Patient also developed pleural effusion, oxygen requirement increased to 5 L, given IV Lasix. Anticipate discharge to nursing home facility once oxygen requirement is lower, patient is stronger. Acute respiratory failure with hypoxia R lower lobe pneumonia, poss. aspiration pna Pleural effusion COPD, without exacerbation repeat CXR 10/22 1. Slight increase in small bilateral pleural effusions and bibasilar opacities which could reflect consolidation or atelectasis. 2. Stable pulmonary vascular congestion. 3. Emphysema. Given IV Lasix 20 mg 1 dose Completed 10-day course of Zosyn and Unasyn Completed 7-day course of doxycycline 10/24 now on 5 L nasal cannula Repeat chest x-ray pending Patient reports her breathing is fine Continue to wean off oxygen Continue statin spirometry UTI U cultx positive for E.coli 10/24 completed 10 day course of IV ZOsyan and IV Unasyn Dysphagia from esophagitis CT chest: 1. Redemonstration of the severe esophageal thickening with paraesophageal edema. No extraluminal gas at this time to suggest a perforation. Therefore, this favors a nonspecific esophagitis. 2. Please refer to the same day chest CT for further evaluation of the lung bases. 3. Large amount well-formed stool seen throughout the colon and rectum. 4. Mildly dilated fluid-filled loops of small bowel seen within the abdomen. Although suboptimally assessed, there is no transition point at this time to suggest an obstruction. Therefore, this could represent an ileus. 5. Distended bladder. 6. Right-sided nephrolithiasis. No hydronephrosis. 2 tolerating soft diet again continue Sucralfate and Protonix Prerenal acute kidney injury Patient with elevated BUN of 43, Cr 0.97 with a BUN/creatinine ratio of 35.1 Secondary to poor p.o. intake, N/V -- resolved Low K and Mg -- from poor intake replaced CAD with history of CABG x1 Elevated troponin Abnormal EKGwith T wave inversions inferior & laterally -unchanged from prior Patient without chest pain Troponin mildly elevated, serial CE essentially unchanged likely elev. secondary to above/demand ischemia Continue aspirin 10/24 no cardiac symptoms Low Back Pain pt had imaging at [facility] which revealed DDD, dextroscoliosis with slight kyphosis, no acute fx on CT here T10 subacute compress. fx no pain on palpation over spine appears to be MSK in nature, worse with movement, + tender to palpation to L lower lumbar paraspinal musculature Heat QID, lidocaine patch, Flexeril 2.5mg bid - flexeril on hold now consult PT/OT for other modalities Pt was to see Pain management (as outpt) on day of admission to discuss possible MRI for injections 10/24 no back pain times few days HTN In ED patient met criteria for hypertensive urgency with peak blood pressure 204/114 She received 5 mg IV hydralazine which improved BP to 158/81 Previously patient have been prescribed amlodipine 2.5 mg which has since been discontinued amlodipine 2.5 mg resumed, BP improved but still elevated - increased to 5 mg daily, monitor BP, on telemetry Will need to encourage patient importance of taking medication and monitoring blood pressure at home Per family when seen at [facility] her blood pressure was in the 200s as well 10/24 increase Amlodipine to 10mg po daily PRN hydralazine monitor Pulmonary Nodule lobulated 1.8 cm solid left lower lobe pulmonary nodule per CT scan Suspicious for bronchogenic carcinoma in setting of tobacco history Discussed with brothers at bedside and recommend pulmonary evaluation as outpatient if patient wishes to pursue further work-up Polycythemia Likely exacerbated in setting of dehydration Patient hemoglobin typically runs ~15 Former tobacco user Malnutrition, BMI 13.6 - pt cachectic on phys. exam - dietitian consulted -Patient's appetite is fair, boost 3 times daily ordered DVT prophylaxis:Heparin BID Dispo: Anticipate discharge to [facility] when medically stable PT/OT eval PCP: Kae Lockhart DNR/DNI -discussion with son and patient who wishes for no aggressive measures to be done Admission and Anticipated Discharge Date Admission Date: October 13, 2022 Subjective Follow-up for aspiration pneumonia, UTI, etc. Seen sitting up in bedside chair, on 5 L of oxygen by nasal cannula Not in distress, appears comfortable States she feels about the same, still tired Denies shortness of breath, cough, chest pain No epigastric pain, tolerating diet well No abdominal pain No other symptoms Review of Systems Review of Systems: all noted and negative except for above Physical Exam Physical Exam: General- oriented x 2, not in distress, speaks in sentences with no effort or accessory muscle use Appears tired Eyes- anicteric Neck- no JVD Lungs-decreased breath sound on the right base, clear on the left No wheezing Heart- normal rate, regular rhythm; no murmurs Abdomen- normal bowel sounds, nondistended, soft, no tenderness Extremities- no pretibial edema, no calf tenderness Neuro- alert, oriented x 3; no gross focal neurologic deficits Skin- warm & dry Results & Data Results & Data ([facility]) Vital Signs (Past 12 Hours) Vital Signs Temp Pulse Pulse Resp BP BP Pulse Ox 10/24/22 12:07 86 L 10/24/22 11:54 36.6 C 74 17 117/74 91 10/24/22 08:00 10/24/22 08:00 86 10/24/22 07:51 36.8 C 75 19 175/81 H 95 10/24/22 06:32 36.5 C 76 16 112/61 93 10/24/22 04:18 36.8 C 82 20 189/92 H 93 O2 Del Method O2 Flow Rate 10/24/22 12:07 Nasal Cannula 2 10/24/22 11:54 Nasal Cannula 3 10/24/22 08:00 Nasal Cannula 5 10/24/22 08:00 10/24/22 07:51 Nasal Cannula 5 10/24/22 06:32 Nasal Cannula 5 10/24/22 04:18 Nasal Cannula 5 all noted and reviewed including below (3) UTI (urinary tract infection) Hematuria presence: without hematuria Urinary tract infection type: acute cystitis Qualified Code(s): N30.00 - Acute cystitis without hematuria (5) Low back pain Back pain laterality: midline Chronicity: acute Sciatica presence: without sciatica Qualified Code(s): M54.50 - Low back pain, unspecified (10) HTN (hypertension) Hypertension type: unspecified Qualified Code(s): I10 - Essential (primary) hypertension
--- NOTE | 2022-10-24 15:58 | XRay Report ---
XR chest 1V portable HISTORY: 87 years-old Female ff up pleural effusion follow study in a patient with pleural effusions COMPARISON: 10/22/2022 TECHNIQUE: AP view of the chest FINDINGS: Cardiac silhouette is enlarged. Trace right and small left pleural effusions with mild bibasilar opac ities, decreased from prior. Mildly improved pulmonary vascular congestion. Emphysema with chronic in terstitial coarsening. Degenerative changes of the shoulders and spine. IMPRESSION: 1. Cardiomegaly with mildly improved pulmonary edema. 2. Mildly decreased size of the pleural effusions with persistent bibasilar opacities. 3. Emphysema. ACT 112: Negative or not required by law. The above report was generated using voice recognition software. It may contain grammatical, syntax o r spelling errors. Electronically signed by: Jesus Gordon M.D. 10/24/2022 3:57 PM
[2022-10-24] MEDS ORDERED: FUROSEMIDE INJ 20 MG/2 ML VIAL IV ONE (16:21)
[2022-10-24] MEDS: MIRTAZAPINE SOLTAB 15 MG PO SCH (20:48)
[2022-10-25] MEDS: guaiFENesin SUGAR FREE 200 MG/10 ML UDC PO SCH ×4 (01:20→16:57)
[2022-10-25] MEDS: CHOLECALCIFEROL 5,000 UNITS 125 MCG TAB PO SCH (08:28)
[2022-10-25] MEDS: HEPARIN SOD 5,000 UNIT/0.5 ML VIAL SQ SCH ×2 (08:28→20:35)
[2022-10-25] MEDS: ASPIRIN 81 MG ECTAB PO SCH (08:28)
[2022-10-25] MEDS: CEROVITE ADV FORMULA TAB PO SCH ×2 (08:28→20:35)
[2022-10-25] MEDS: PANTOprazole 40 MG in SYRINGE 0 ML IV SCH ×2 (08:28→20:35)
[2022-10-25] MEDS: LIDOCAINE 5% 1 PATCH TD SCH (08:29)
[2022-10-25] MEDS: ADVANCED PROBIOTIC 1250 MG CAPSULE PO SCH (08:29)
[2022-10-25] MEDS: amLODIPine BESYLATE 5 MG TAB PO SCH (08:29)
[2022-10-25] MEDS: VITAMIN B COMPLEX TAB PO SCH (08:29)
[2022-10-25] MEDS: SUCRALFATE 1 GM/10 ML UDC PO SCH ×4 (08:30→20:35)
[2022-10-25] MEDS ORDERED: FUROSEMIDE INJ 20 MG/2 ML VIAL IV ONE (11:49)
--- NOTE | 2022-10-25 11:57 | Hospitalist Progress Note ---
Date of Service October 25, 2022 Assessment & Plan (1) Acute respiratory failure with hypoxia: (2) Right lower lobe pneumonia: (3) UTI (urinary tract infection): (4) Dehydration: (5) Low back pain: (6) Esophagitis: (7) Pulmonary nodule: (8) CAD (coronary artery disease): (9) Hx of CABG: (10) HTN (hypertension): Plan 87-year-old female who has significant past medical history of COPD, CAD with history of CABG x1, HLD, renal artery stenosis, HTN, glaucoma, elevated hemo globin, history of tobacco abuse disorder, hard of hearing who presents to ED due to back pain x 1 week; N/V and poor PO intake for 1.5 days. Patient had a fall at home, was placed on oral narcotics for pain control, then developed nausea and vomiting, prompting admission. While admitted, patient treated for aspiration pneumonia and UTI, showed slow progress At one-point was having hospital delirium. Also developed esophagitis. GI consulted and was placed on Carafate Tolerating soft diet again. Patient also developed pleural effusion Oxygen requirement increased to 5L Anticipate discharge to residential facility once oxygen requirement is lower Acute respiratory failure with hypoxia R lower lobe pneumonia, poss. aspiration pna Pleural effusion COPD, without exacerbation Reviewed patient's multiple imaging since admission Last CXR from 10/24/22 noted mildly improved pulm edema, mildly decreased size of pleural effusion with persistent bilateral bibasilar opacities Completed antibiotic course Currently on 5 L nasal cannula Continue as needed IV lasix and monitor Continue to wean off oxygen Continue incentive spirometry UTI U cultx positive for E.coli Completed 10 day course of antibiotics Dysphagia from esophagitis CT chest noted severe esophageal thickening with paraesophageal edema. No extraluminal gas at this time to suggest a perforation. Therefore, this favors a nonspecific esophagitis. Tolerating soft diet. Encourage po intake Continue Sucralfate and Protonix Prerenal acute kidney injury Patient with elevated BUN of 43, Cr 0.97 with a BUN/creatinine ratio of 35.1 Secondary to poor p.o. intake, N/V Had resolved Monitor renal function Low K and Mg From poor intake Monitor CAD with history of CABG x1 Elevated troponin Abnormal EKGwith T wave inversions inferior & laterally -unchanged from prior Patient without chest pain Troponin mildly elevated, serial CE essentially unchanged likely elev. secondary to above/demand ischemia Continue aspirin Low Back Pain Patient had imaging at [facility] which revealed DDD, dextroscoliosis with slight kyphosis, no acute fx on CT here T10 subacute compression fx Heat QID, lidocaine patch, Flexeril 2.5mg bid - flexeril on hold now Continue PT/OT Pt was to see Pain management (as outpt) on day of admission to discuss possible MRI for injections HTN In ED patient met criteria for hypertensive urgency with peak blood pressure 204/114 She received 5 mg IV hydralazine which improved BP to 158/81 Previously patient have been prescribed amlodipine 2.5 mg which has since been discontinued Amlodipine 2.5 mg resumed and currently on 7.5mg daily BP is better controlled Monitor Pulmonary Nodule Lobulated 1.8 cm solid left lower lobe pulmonary nodule per CT scan Suspicious for bronchogenic carcinoma in setting of tobacco history Previous Provider had discussed with brothers at bedside and recommended pulmonary evaluation as outpatient if patient wishes to pursue further work-up Malnutrition Pt cachectic on phys. exam Continue nutritional supplement Encourage po intake DVT prophylaxis:Heparin BID Dispo: Anticipate discharge to [facility] when medically stable PCP: Kae Lockhart PA DNR/DNI Admission and Anticipated Discharge Date Admission Date: October 13, 2022 Subjective Patient seen and examined She is AOx3 Reports fatigue, anorexia Denied chest pain, cough,shortness of breath, nausea,vomiting, abd pain. She is not sure about her last BM She stated she feels 'tired due to her old age and tired of living' She denied being depressed when interrogated further about her statement. Denied suicidal ideation. Physical Exam Constitutional: + well hydrated and + thin; no acute distress Elderly woman Eyes: PERRL, conjunctivae normal, anicteric sclerae ENMT: external ear and nose normal, oropharynx normal Respiratory: normal respiratory effort; no respiratory distress Auscultation: + diminished lung sounds Cardiovascular: Rate/Rhythm: regular rate and regular rhythm S1 S2 Gastrointestinal (Abdomen): Soft, mildly distended, no tenderness, normal bowel sounds Musculoskeletal: No pedal edema Neurologic: PERRL, EOMI, accommodation nl, no face palsy, no dysarthria Psychiatric: Alert and oriented to person, place, month and year Results & Data Results & Data ([facility]) Vital Signs (Past 12 Hours) Vital Signs Temp Pulse Resp BP BP Pulse Ox O2 Del Method 10/25/22 08:00 Nasal Cannula 10/25/22 07:42 36.5 C 77 18 149/78 H 94 Nasal Cannula 10/25/22 02:51 36.7 C 76 20 154/77 H 90 Nasal Cannula O2 Flow Rate 10/25/22 08:00 5 10/25/22 07:42 5 10/25/22 02:51 5 (3) UTI (urinary tract infection) Hematuria presence: without hematuria Urinary tract infection type: acute cystitis Qualified Code(s): N30.00 - Acute cystitis without hematuria (5) Low back pain Back pain laterality: midline Chronicity: acute Sciatica presence: without sciatica Qualified Code(s): M54.50 - Low back pain, unspecified (10) HTN (hypertension) Hypertension type: unspecified Qualified Code(s): I10 - Essential (primary) hypertension
[2022-10-25] MEDS: FENOFIBRATE NANOCRYSTALLIZED 145 MG TABLET PO SCH (12:15)
[2022-10-25 12:43] LABS: Calcium 10.5 mg/dl (8.5-10.1); Creatinine Clr Calc Pharmacy 35.1 ml/min; Est GFR (African American) 84.2 ml/min; Est GFR (Non-African American) 72.7 ml/min; Potassium 3.7 mmol/L (3.5-5.1)
[2022-10-25] MEDS: MIRTAZAPINE SOLTAB 15 MG PO SCH (20:36)
[2022-10-26] MEDS: guaiFENesin SUGAR FREE 200 MG/10 ML UDC PO SCH ×5 (00:15→20:21)
[2022-10-26 07:23] LABS: Hematocrit (blood only) 41.2 % (37.0-47.0); Hemoglobin 13.7 g/dl (12.0-16.0); Mean Corpuscular Hgb Conc 33.3 g/dL (32.0-36.0); Mean Corpuscular Volume 90.4 fL (80.0-100.0); Mean Platelet Volume 11.2 fL (9.4-12.4); Platelet Count 441 K/uL (130-400); RDW Coefficient of Variation 15.7 % (11.5-14.5); RDW Standard Deviation 50.2 fL (36.4-46.3); Red Blood Count 4.56 M/uL (4.20-5.40)
[2022-10-26 07:42] LABS: BUN Creatinine Ratio 34.6 (10-20); Calcium 9.9 mg/dl (8.5-10.1); Creatinine Clr Calc Pharmacy 31.9 ml/min; Est GFR (African American) 80.3 ml/min; Est GFR (Non-African American) 69.3 ml/min; Magnesium 1.9 mg/dl (1.7-2.4); Phosphorus 3.6 mg/dl (2.5-4.9); Potassium 3.7 mmol/L (3.5-5.1)
[2022-10-26] MEDS: PANTOprazole 40 MG in SYRINGE 0 ML IV SCH ×2 (08:16→20:21)
[2022-10-26] MEDS: CHOLECALCIFEROL 5,000 UNITS 125 MCG TAB PO SCH (08:17)
[2022-10-26] MEDS: amLODIPine BESYLATE 5 MG TAB PO SCH (08:17)
[2022-10-26] MEDS: VITAMIN B COMPLEX TAB PO SCH (08:17)
[2022-10-26] MEDS: ASPIRIN 81 MG ECTAB PO SCH (08:17)
[2022-10-26] MEDS: CEROVITE ADV FORMULA TAB PO SCH ×2 (08:18→20:20)
[2022-10-26] MEDS: SUCRALFATE 1 GM/10 ML UDC PO SCH ×4 (08:18→20:21)
[2022-10-26] MEDS: HEPARIN SOD 5,000 UNIT/0.5 ML VIAL SQ SCH ×2 (08:18→20:21)
[2022-10-26] MEDS: LIDOCAINE 5% 1 PATCH TD SCH (08:18)
[2022-10-26] MEDS: ADVANCED PROBIOTIC 1250 MG CAPSULE PO SCH (08:18)
--- NOTE | 2022-10-26 11:10 | Hospitalist Progress Note ---
Date of Service October 26, 2022 Assessment & Plan (1) Acute respiratory failure with hypoxia: (2) Right lower lobe pneumonia: (3) UTI (urinary tract infection): (4) Dehydration: (5) Low back pain: (6) Esophagitis: (7) Pulmonary nodule: (8) CAD (coronary artery disease): (9) Hx of CABG: (10) HTN (hypertension): Plan 87-year-old female who has significant past medical history of COPD, CAD with history of CABG x1, HLD, renal artery stenosis, HTN, glaucoma, elevated hemo globin, history of tobacco abuse disorder, hard of hearing who presents to ED due to back pain x 1 week; N/V and poor PO intake for 1.5 days. Patient had a fall at home, was placed on oral narcotics for pain control, then developed nausea and vomiting, prompting admission. While admitted, patient treated for aspiration pneumonia and UTI, showed slow progress At one-point was having hospital delirium. Also developed esophagitis. GI consulted and was placed on Carafate Tolerating soft diet again. Patient also developed pleural effusion Acute respiratory failure with hypoxia R lower lobe pneumonia, poss. aspiration pna Pleural effusion COPD, without exacerbation Reviewed patient's multiple imaging since admission Last CXR from 10/24/22 noted mildly improved pulm edema, mildly decreased size of pleural effusion with persistent bilateral bibasilar opacities Completed antibiotic course Currently on 5 L nasal cannula Continue as needed IV lasix and monitor Continue to wean off oxygen Continue incentive spirometry UTI U cultx positive for E.coli Completed 10 day course of antibiotics Dysphagia from esophagitis CT chest noted severe esophageal thickening with paraesophageal edema. No extraluminal gas at this time to suggest a perforation. Therefore, this favors a nonspecific esophagitis. Tolerating soft diet. Encourage po intake Continue Sucralfate and Protonix Prerenal acute kidney injury Patient with elevated BUN of 43, Cr 0.97 with a BUN/creatinine ratio of 35.1 Secondary to poor p.o. intake, N/V Had resolved Monitor renal function Low K and Mg From poor intake Monitor and replete CAD with history of CABG x1 Elevated troponin Abnormal EKGwith T wave inversions inferior & laterally -unchanged from prior Patient without chest pain Troponin mildly elevated, serial CE essentially unchanged likely elev. secondary to above/demand ischemia Continue aspirin HTN In ED patient met criteria for hypertensive urgency with peak blood pressure 204/114 She received 5 mg IV hydralazine which improved BP to 158/81 Previously patient have been prescribed amlodipine 2.5 mg which has since been discontinued Amlodipine 2.5 mg resumed and currently on 7.5mg daily BP is better controlled Monitor Pulmonary Nodule Lobulated 1.8 cm solid left lower lobe pulmonary nodule per CT scan Suspicious for bronchogenic carcinoma in setting of tobacco history Previous Provider had discussed with brothers at bedside and recommended pulmonary evaluation as outpatient if patient wishes to pursue further work-up Malnutrition Pt cachectic on phys. exam Continue nutritional supplement Encourage po intake Get Vit D level DVT prophylaxis:Heparin BID Dispo: Anticipate discharge to [facility] when medically stable PCP: Kae Lockhart DNR/DNI Called son and updated him He will like patient to go by Care ride if possible when discharged Admission and Anticipated Discharge Date Admission Date: October 13, 2022 Subjective Patient seen and examined She is AOx3 Reports fatigue, anorexia Denied chest pain, shortness of breath, nausea,vomiting, abd pain. Reported some mild cough earlier Had BM this morning Denied depression, SI, HI Physical Exam Constitutional: + ill appearing (Chronic), + well hydrated and + thin; no acute distress Eyes: PERRL, conjunctivae normal, anicteric sclerae ENMT: external ear and nose normal, oropharynx normal +hearing deficits Respiratory: normal respiratory effort; no respiratory distress Auscultation: + diminished lung sounds Cardiovascular: Rate/Rhythm: regular rate and regular rhythm S1 S2 Musculoskeletal: No pedal edema Neurologic: PERRL, EOMI, accommodation nl, no face palsy, no dysarthria Results & Data Results & Data ([facility]) Vital Signs (Past 12 Hours) Vital Signs Temp Pulse Pulse Resp BP Pulse Ox O2 Del Method 10/26/22 10:29 75 10/26/22 08:00 Nasal Cannula 10/26/22 07:44 36.5 C 76 18 159/76 H 92 Nasal Cannula 10/26/22 03:47 36.4 C L 69 16 164/72 H 91 Nasal Cannula 10/26/22 00:05 36.8 C 71 16 169/84 H 91 Nasal Cannula O2 Flow Rate 10/26/22 10:29 10/26/22 08:00 5 10/26/22 07:44 5 10/26/22 03:47 5 10/26/22 00:05 5 Laboratory Results Abnormal lab results 10/26/22 10/26/22 Range/Units 06:42 06:42 RDW Std Deviation 50.2 H (36.4-46.3) fL RDW Coeff of Grey 15.7 H (11.5-14.5) % Plt Count 441 H (130-400) K/uL Carbon Dioxide 33 H (21-32) mmol/L BUN 27 H (6-23) mg/dl BUN/Creatinine Ratio 34.6 H (10-20) (3) UTI (urinary tract infection) Hematuria presence: without hematuria Urinary tract infection type: acute cystitis Qualified Code(s): N30.00 - Acute cystitis without hematuria (5) Low back pain Back pain laterality: midline Chronicity: acute Sciatica presence: without sciatica Qualified Code(s): M54.50 - Low back pain, unspecified (10) HTN (hypertension) Hypertension type: unspecified Qualified Code(s): I10 - Essential (primary) hypertension
[2022-10-26] MEDS: FENOFIBRATE NANOCRYSTALLIZED 145 MG TABLET PO SCH (12:14)
[2022-10-26] MEDS ORDERED: FUROSEMIDE INJ 20 MG/2 ML VIAL IV ONE (14:30)
[2022-10-26] MEDS: MIRTAZAPINE SOLTAB 15 MG PO SCH (20:20)
[2022-10-27] MEDS: guaiFENesin SUGAR FREE 200 MG/10 ML UDC PO SCH ×5 (04:08→21:01)
[2022-10-27 07:42] LABS: Hematocrit (blood only) 37.6 % (37.0-47.0); Hemoglobin 12.5 g/dl (12.0-16.0); Mean Corpuscular Hemoglobin 29.9 pg (25.0-34.0); Mean Corpuscular Hgb Conc 33.2 g/dL (32.0-36.0); Mean Platelet Volume 11.5 fL (9.4-12.4); Platelet Count 421 K/uL (130-400); RDW Coefficient of Variation 15.9 % (11.5-14.5); RDW Standard Deviation 51.5 fL (36.4-46.3); Red Blood Count 4.18 M/uL (4.20-5.40); White Blood Count 9.38 K/ul (4.8-10.8)
[2022-10-27 07:44] LABS: BUN Creatinine Ratio 37.6 (10-20); Calcium 9.6 mg/dl (8.5-10.1); Creatinine Clr Calc Pharmacy 27.4 ml/min; Magnesium 1.9 mg/dl (1.7-2.4); Phosphorus 3.5 mg/dl (2.5-4.9); Potassium 3.5 mmol/L (3.5-5.1)
[2022-10-27] MEDS: SUCRALFATE 1 GM/10 ML UDC PO SCH ×4 (08:53→20:44)
[2022-10-27] MEDS: CHOLECALCIFEROL 5,000 UNITS 125 MCG TAB PO SCH (08:53)
[2022-10-27] MEDS: PANTOprazole 40 MG in SYRINGE 0 ML IV SCH ×2 (08:53→20:43)
[2022-10-27] MEDS: CEROVITE ADV FORMULA TAB PO SCH ×2 (08:54→20:43)
[2022-10-27] MEDS: amLODIPine BESYLATE 5 MG TAB PO SCH (08:54)
[2022-10-27] MEDS: VITAMIN B COMPLEX TAB PO SCH (08:54)
[2022-10-27] MEDS: ADVANCED PROBIOTIC 1250 MG CAPSULE PO SCH (08:54)
[2022-10-27] MEDS: HEPARIN SOD 5,000 UNIT/0.5 ML VIAL SQ SCH ×2 (08:55→20:44)
[2022-10-27] MEDS: LIDOCAINE 5% 1 PATCH TD SCH (08:55)
[2022-10-27] MEDS: ASPIRIN 81 MG ECTAB PO SCH (08:55)
--- NOTE | 2022-10-27 11:38 | Hospitalist Progress Note ---
Date of Service October 27, 2022 Assessment & Plan (1) Acute respiratory failure with hypoxia: (2) Right lower lobe pneumonia: (3) UTI (urinary tract infection): (4) Dehydration: (5) Low back pain: (6) Esophagitis: (7) Pulmonary nodule: (8) CAD (coronary artery disease): (9) Hx of CABG: (10) HTN (hypertension): Plan 87-year-old female who has significant past medical history of COPD, CAD with history of CABG x1, HLD, renal artery stenosis, HTN, glaucoma, elevated hemo globin, history of tobacco abuse disorder, hard of hearing who presents to ED due to back pain x 1 week; N/V and poor PO intake for 1.5 days. Patient had a fall at home, was placed on oral narcotics for pain control, then developed nausea and vomiting, prompting admission. While admitted, patient treated for aspiration pneumonia and UTI, showed slow progress At one-point was having hospital delirium. Also developed esophagitis. GI consulted and was placed on Carafate Tolerating soft diet again. Patient also developed pleural effusion Acute respiratory failure with hypoxia R lower lobe pneumonia, poss. aspiration pna Pleural effusion COPD, without exacerbation Reviewed patient's multiple imaging since admission Last CXR from 10/24/22 noted mildly improved pulm edema, mildly decreased size of pleural effusion with persistent bilateral bibasilar opacities Completed antibiotic course Currently on 5 L nasal cannula Continue as needed IV lasix and monitor Continue to wean off oxygen Patient encouraged to continue incentive spirometry UTI U cultx positive for E.coli Completed 10 day course of antibiotics Dysphagia from esophagitis CT chest noted severe esophageal thickening with paraesophageal edema. No extraluminal gas at this time to suggest a perforation. Therefore, this favors a nonspecific esophagitis. Tolerating soft diet. Encourage po intake Continue Sucralfate and Protonix Prerenal acute kidney injury Patient with elevated BUN of 43, Cr 0.97 with a BUN/creatinine ratio of 35.1 Secondary to poor p.o. intake, N/V Had resolved Monitor renal function Low K and Mg From poor intake Monitor and replete CAD with history of CABG x1 Elevated troponin Abnormal EKGwith T wave inversions inferior & laterally -unchanged from prior Patient without chest pain Troponin mildly elevated, serial CE essentially unchanged likely elev. secondary to above/demand ischemia Continue aspirin HTN In ED patient met criteria for hypertensive urgency with peak blood pressure 204/114 She received 5 mg IV hydralazine which improved BP to 158/81 Previously patient have been prescribed amlodipine 2.5 mg which has since been discontinued Amlodipine 2.5 mg resumed and currently on 7.5mg daily BP is better controlled Monitor Pulmonary Nodule Lobulated 1.8 cm solid left lower lobe pulmonary nodule per CT scan Suspicious for bronchogenic carcinoma in setting of tobacco history Previous Provider had discussed with brothers at bedside and recommended pulmonary evaluation as outpatient if patient wishes to pursue further work-up Malnutrition Pt cachectic on phys. exam Continue nutritional supplement Encourage po intake DVT prophylaxis:Heparin BID Dispo: Awaiting dc to rehab once bed is available PCP: Kae Lockhart DNR/DNI Admission and Anticipated Discharge Date Admission Date: October 13, 2022 Subjective Patient seen and examined Denied any new complaints Reports fatigue, anorexia Denied cough today Denied chest pain, shortness of breath, nausea,vomiting, abd pain. Denied depression, SI, HI Physical Exam Constitutional: + ill appearing (Chronic), + well hydrated and + thin; no acute distress Eyes: PERRL, conjunctivae normal, anicteric sclerae ENMT: external ear and nose normal, oropharynx normal Respiratory: normal respiratory effort; no respiratory distress Auscultation: + diminished lung sounds Cardiovascular: Rate/Rhythm: regular rate and regular rhythm S1 S2 Gastrointestinal (Abdomen): normal bowel sounds, soft, nontender, no hepatosplenomegaly Musculoskeletal: No pedal edema Neurologic: PERRL, EOMI, accommodation nl, no face palsy, no dysarthria Results & Data Results & Data ([facility]) Vital Signs (Past 12 Hours) Vital Signs Temp Pulse Pulse Pulse Resp BP BP 10/27/22 08:00 63 10/27/22 07:54 10/27/22 07:35 37.0 C 72 22 158/76 H 10/27/22 02:55 36.6 C 76 18 138/75 Pulse Ox O2 Del Method O2 Flow Rate 10/27/22 08:00 10/27/22 07:54 Nasal Cannula 5 10/27/22 07:35 91 Nasal Cannula 6 10/27/22 02:55 90 Nasal Cannula 5 Laboratory Results Abnormal lab results 10/27/22 10/27/22 Range/Units 06:17 06:17 RBC 4.18 L (4.20-5.40) M/uL RDW Std Deviation 51.5 H (36.4-46.3) fL RDW Coeff of Grey 15.9 H (11.5-14.5) % Plt Count 421 H (130-400) K/uL Carbon Dioxide 36 H (21-32) mmol/L BUN 35 H (6-23) mg/dl BUN/Creatinine Ratio 37.6 H (10-20) (3) UTI (urinary tract infection) Hematuria presence: without hematuria Urinary tract infection type: acute cystitis Qualified Code(s): N30.00 - Acute cystitis without hematuria (5) Low back pain Back pain laterality: midline Chronicity: acute Sciatica presence: without sciatica Qualified Code(s): M54.50 - Low back pain, unspecified (10) HTN (hypertension) Hypertension type: unspecified Qualified Code(s): I10 - Essential (primary) hypertension
[2022-10-27] MEDS: FENOFIBRATE NANOCRYSTALLIZED 145 MG TABLET PO SCH (12:11)
[2022-10-27] MEDS: MIRTAZAPINE SOLTAB 15 MG PO SCH (20:43)
[2022-10-28] MEDS: guaiFENesin SUGAR FREE 200 MG/10 ML UDC PO SCH ×3 (04:51→17:26)
[2022-10-28 07:28] LABS: BUN Creatinine Ratio 45.3 (10-20); Est GFR (African American) 84.2 ml/min; Est GFR (Non-African American) 72.7 ml/min; Phosphorus 2.9 mg/dl (2.5-4.9); Potassium 3.3 mmol/L (3.5-5.1)
[2022-10-28] MEDS: amLODIPine BESYLATE 5 MG TAB PO SCH (08:33)
[2022-10-28] MEDS: CHOLECALCIFEROL 5,000 UNITS 125 MCG TAB PO SCH (08:33)
[2022-10-28] MEDS: ADVANCED PROBIOTIC 1250 MG CAPSULE PO SCH (08:33)
[2022-10-28] MEDS: ASPIRIN 81 MG ECTAB PO SCH (08:33)
[2022-10-28] MEDS: SUCRALFATE 1 GM/10 ML UDC PO SCH ×4 (08:34→21:06)
[2022-10-28] MEDS: PANTOprazole 40 MG in SYRINGE 0 ML IV SCH ×2 (08:34→21:05)
[2022-10-28] MEDS: VITAMIN B COMPLEX TAB PO SCH (08:34)
[2022-10-28] MEDS ORDERED: POTASSIUM CHLORIDE 20 MEQ/15 ML UDC PO STA (08:34)
[2022-10-28] MEDS: CEROVITE ADV FORMULA TAB PO SCH ×2 (08:34→21:05)
[2022-10-28] MEDS: HEPARIN SOD 5,000 UNIT/0.5 ML VIAL SQ SCH ×2 (08:35→21:04)
[2022-10-28] MEDS: LIDOCAINE 5% 1 PATCH TD SCH (08:36)
--- NOTE | 2022-10-28 10:44 | Hospitalist Progress Note ---
Date of Service October 28, 2022 Assessment & Plan (1) Acute respiratory failure with hypoxia: (2) Right lower lobe pneumonia: (3) UTI (urinary tract infection): (4) Dehydration: (5) Low back pain: (6) Esophagitis: (7) Pulmonary nodule: (8) CAD (coronary artery disease): (9) Hx of CABG: (10) HTN (hypertension): Plan 87-year-old female who has significant past medical history of COPD, CAD with history of CABG x1, HLD, renal artery stenosis, HTN, glaucoma, elevated hemo globin, history of tobacco abuse disorder, hard of hearing who presents to ED due to back pain x 1 week; N/V and poor PO intake for 1.5 days. Patient had a fall at home, was placed on oral narcotics for pain control, then developed nausea and vomiting, prompting admission. While admitted, patient treated for aspiration pneumonia and UTI, showed slow progress At one-point was having hospital delirium. Also developed esophagitis. GI consulted and was placed on carafate Tolerating soft diet again. Patient also developed pleural effusion Acute respiratory failure with hypoxia R lower lobe pneumonia, poss. aspiration pna Pleural effusion COPD, without exacerbation Reviewed patient's multiple imaging since admission Completed antibiotic course Repeat CXR notes pulm edema, mildly decreased size of pleural effusion with persistent bilateral bibasilar opacities Currently on 5 L nasal cannula Replete hypokalemia and continue prn lasix afterwards Continue to wean off oxygen Patient is not motivated. Encouraged to continue incentive spirometry UTI U cultx positive for E.coli Completed 10 day course of antibiotics Dysphagia from esophagitis CT chest noted severe esophageal thickening with paraesophageal edema. No extraluminal gas at this time to suggest a perforation. Therefore, this favors a nonspecific esophagitis. Tolerating soft diet. Encourage po intake Continue Sucralfate and Protonix Prerenal acute kidney injury Patient with elevated BUN of 43, Cr 0.97 with a BUN/creatinine ratio of 35.1 Secondary to poor p.o. intake, N/V Had resolved Monitor renal function Low K and Mg From poor intake Monitor and replete CAD with history of CABG x1 Elevated troponin Abnormal EKGwith T wave inversions inferior & laterally -unchanged from prior Patient without chest pain Troponin mildly elevated, serial CE essentially unchanged likely elev. secondary to above/demand ischemia Continue aspirin HTN In ED patient met criteria for hypertensive urgency with peak blood pressure 204/114 She received 5 mg IV hydralazine which improved BP to 158/81 Previously patient have been prescribed amlodipine 2.5 mg which has since been discontinued Amlodipine 2.5 mg resumed and currently on 7.5mg daily BP is better controlled Monitor Pulmonary Nodule Lobulated 1.8 cm solid left lower lobe pulmonary nodule per CT scan Suspicious for bronchogenic carcinoma in setting of tobacco history Previous Provider had discussed with brothers at bedside and recommended pulmonary evaluation as outpatient if patient wishes to pursue further work-up Malnutrition Pt cachectic on phys. exam Continue nutritional supplement Encourage po intake DVT prophylaxis:Heparin BID Dispo: Awaiting dc to rehab once bed is available PCP: Kae Lockhart DNR/DNI Admission and Anticipated Discharge Date Admission Date: October 13, 2022 Subjective Patient seen and examined Denied any new complaints Reports fatigue, anorexia are unchanged Denied cough, chest pain, shortness of breath Denied nausea,vomiting, abd pain. Physical Exam Constitutional: + ill appearing (Chronic), + well hydrated and + thin; no acute distress Eyes: PERRL, conjunctivae normal, anicteric sclerae ENMT: external ear and nose normal, oropharynx normal Respiratory: normal respiratory effort; no respiratory distress Auscultation: + diminished lung sounds Cardiovascular: Rate/Rhythm: regular rate and regular rhythm S1 S2 Gastrointestinal (Abdomen): normal bowel sounds, soft, nontender, no hepatosplenomegaly Musculoskeletal: No pedal edema Neurologic: PERRL, EOMI, accommodation nl, no face palsy, no dysarthria Results & Data Results & Data ([facility]) Vital Signs (Past 12 Hours) Vital Signs Temp Pulse Pulse Resp BP Pulse Ox O2 Del Method 10/28/22 08:00 66 10/28/22 06:52 37.2 C 64 18 152/71 H 92 Nasal Cannula 10/28/22 03:14 36.7 C 61 18 156/69 H 95 Nasal Cannula 10/27/22 23:09 64 10/27/22 23:04 37.1 C 61 18 121/64 94 Nasal Cannula Laboratory Results Abnormal lab results 10/28/22 Range/Units 06:44 Potassium 3.3 L (3.5-5.1) mmol/L Carbon Dioxide 35 H (21-32) mmol/L BUN 34 H (6-23) mg/dl BUN/Creatinine Ratio 45.3 H (10-20) (3) UTI (urinary tract infection) Hematuria presence: without hematuria Urinary tract infection type: acute cystitis Qualified Code(s): N30.00 - Acute cystitis without hematuria (5) Low back pain Back pain laterality: midline Chronicity: acute Sciatica presence: without sciatica Qualified Code(s): M54.50 - Low back pain, unspecified (10) HTN (hypertension) Hypertension type: unspecified Qualified Code(s): I10 - Essential (primary) hypertension
--- NOTE | 2022-10-28 10:55 | XRay Report ---
XR chest 1V portable HISTORY: 87 years-old Female To reassess lungs. Hypoxia acute hypoxia COMPARISON: 10/24/2022 TECHNIQUE: AP view of the chest FINDINGS: Cardiomediastinal and hilar silhouettes are unchanged. Emphysema with chronic fibrotic change. Small pleural effusions with mild persistent bibasilar opacities, similar to prior. Pulmonary vascular maddie estion. Degenerative changes of the shoulders and spine. IMPRESSION: 1. Cardiomegaly with pulmonary vascular congestion. 2. Small pleural effusions with mild persistent bibasilar opacities. 3. Emphysema. ACT 112: Negative or not required by law. The above report was generated using voice recognition software. It may contain grammatical, syntax o r spelling errors. Electronically signed by: Jesus Gordon M.D. 10/28/2022 10:54 AM
[2022-10-28] MEDS: FENOFIBRATE NANOCRYSTALLIZED 145 MG TABLET PO SCH (12:39)
[2022-10-28] MEDS: MIRTAZAPINE SOLTAB 15 MG PO SCH (21:05)
[2022-10-29] MEDS: guaiFENesin SUGAR FREE 200 MG/10 ML UDC PO SCH ×5 (00:39→21:00)
[2022-10-29 07:32] LABS: BUN Creatinine Ratio 46.7 (10-20); Est GFR (African American) 84.2 ml/min; Est GFR (Non-African American) 72.7 ml/min
[2022-10-29] MEDS: amLODIPine BESYLATE 5 MG TAB PO SCH (08:59)
[2022-10-29] MEDS: ASPIRIN 81 MG ECTAB PO SCH (08:59)
[2022-10-29] MEDS: CHOLECALCIFEROL 5,000 UNITS 125 MCG TAB PO SCH (08:59)
[2022-10-29] MEDS: ADVANCED PROBIOTIC 1250 MG CAPSULE PO SCH (09:00)
[2022-10-29] MEDS: HEPARIN SOD 5,000 UNIT/0.5 ML VIAL SQ SCH ×2 (09:00→20:51)
[2022-10-29] MEDS: CEROVITE ADV FORMULA TAB PO SCH ×2 (09:00→21:00)
[2022-10-29] MEDS: VITAMIN B COMPLEX TAB PO SCH (09:01)
[2022-10-29] MEDS: LIDOCAINE 5% 1 PATCH TD SCH (09:01)
[2022-10-29] MEDS: PANTOprazole 40 MG in SYRINGE 0 ML IV SCH ×2 (09:01→20:51)
[2022-10-29] MEDS: SUCRALFATE 1 GM/10 ML UDC PO SCH ×4 (09:02→21:00)
--- NOTE | 2022-10-29 11:12 | Hospitalist Progress Note ---
Date of Service October 29, 2022 Assessment & Plan (1) Acute respiratory failure with hypoxia: (2) Right lower lobe pneumonia: (3) UTI (urinary tract infection): (4) Dehydration: (5) Low back pain: (6) Esophagitis: (7) Pulmonary nodule: (8) CAD (coronary artery disease): (9) Hx of CABG: (10) HTN (hypertension): Plan 87-year-old female who has significant past medical history of COPD, CAD with history of CABG x1, HLD, renal artery stenosis, HTN, glaucoma, elevated hemo globin, history of tobacco abuse disorder, hard of hearing who presents to ED due to back pain x 1 week; N/V and poor PO intake for 1.5 days. Patient had a fall at home, was placed on oral narcotics for pain control, then developed nausea and vomiting, prompting admission. While admitted, patient treated for aspiration pneumonia and UTI, showed slow progress At one-point was having hospital delirium. Also developed esophagitis. GI consulted and was placed on carafate Tolerating soft diet again. Patient also developed pleural effusion Acute respiratory failure with hypoxia R lower lobe pneumonia, poss. aspiration pna Pleural effusion COPD, without exacerbation Reviewed patient's multiple imaging since admission Completed antibiotic course Repeat CXR notes pulm edema, mildly decreased size of pleural effusion with persistent bilateral bibasilar opacities Currently on 5 L nasal cannula Continue to wean off oxygen Patient is not motivated. Encouraged to continue incentive spirometry UTI U cultx positive for E.coli Completed 10 day course of antibiotics Dysphagia from esophagitis CT chest noted severe esophageal thickening with paraesophageal edema. No extraluminal gas at this time to suggest a perforation. Therefore, this favors a nonspecific esophagitis. Tolerating soft diet. Encourage po intake Continue Sucralfate and Protonix Prerenal acute kidney injury Patient with elevated BUN of 43, Cr 0.97 with a BUN/creatinine ratio of 35.1 Secondary to poor p.o. intake, N/V Had resolved Monitor renal function Low K and Mg From poor intake Monitor and replete as needed CAD with history of CABG x1 Elevated troponin Abnormal EKGwith T wave inversions inferior & laterally -unchanged from prior Patient without chest pain Troponin mildly elevated, serial CE essentially unchanged likely elev. secondary to above/demand ischemia Continue aspirin HTN In ED patient met criteria for hypertensive urgency with peak blood pressure 204/114 She received 5 mg IV hydralazine which improved BP to 158/81 Previously patient have been prescribed amlodipine 2.5 mg which has since been discontinued Amlodipine 2.5 mg resumed and currently on 7.5mg daily BP is better controlled Monitor Pulmonary Nodule Lobulated 1.8 cm solid left lower lobe pulmonary nodule per CT scan Suspicious for bronchogenic carcinoma in setting of tobacco history Previous Provider had discussed with brothers at bedside and recommended pulmonary evaluation as outpatient if patient wishes to pursue further work-up Malnutrition Pt cachectic on phys. exam Continue nutritional supplement Encourage po intake DVT prophylaxis:Heparin BID Dispo: CM working on placement PCP: Kae Lockhart DNR/DNI Admission and Anticipated Discharge Date Admission Date: October 13, 2022 Subjective Patient seen and examined Denied any new complaints Reports only fatigue and anorexia Denied cough, chest pain, shortness of breath Denied nausea,vomiting, abd pain. Denied depression Physical Exam Constitutional: + ill appearing (Chronic), + well hydrated and + thin; no acute distress Eyes: PERRL, conjunctivae normal, anicteric sclerae ENMT: external ear and nose normal, oropharynx normal Respiratory: normal respiratory effort; no respiratory distress Auscultation: + diminished lung sounds Cardiovascular: Rate/Rhythm: regular rate and regular rhythm S1 S2 Gastrointestinal (Abdomen): normal bowel sounds, soft, nontender, no hepatosplenomegaly Musculoskeletal: No pedal edema Neurologic: PERRL, EOMI, accommodation nl, no face palsy, no dysarthria Results & Data Results & Data ([facility]) Vital Signs (Past 12 Hours) Vital Signs Temp Pulse Pulse Resp BP BP Pulse Ox 10/29/22 09:53 10/29/22 07:28 36.6 C 60 20 149/72 H 96 10/29/22 07:21 56 L 10/29/22 03:03 36.4 C L 57 L 16 133/74 98 O2 Del Method O2 Flow Rate 10/29/22 09:53 Nasal Cannula 5 10/29/22 07:28 Nasal Cannula 5 10/29/22 07:21 10/29/22 03:03 Nasal Cannula 5 Laboratory Results Abnormal lab results 10/29/22 Range/Units 06:37 Carbon Dioxide 36 H (21-32) mmol/L Anion Gap 1 L (3-11) BUN 35 H (6-23) mg/dl BUN/Creatinine Ratio 46.7 H (10-20) (3) UTI (urinary tract infection) Hematuria presence: without hematuria Urinary tract infection type: acute cystitis Qualified Code(s): N30.00 - Acute cystitis without hematuria (5) Low back pain Back pain laterality: midline Chronicity: acute Sciatica presence: without sciatica Qualified Code(s): M54.50 - Low back pain, unspecified (10) HTN (hypertension) Hypertension type: unspecified Qualified Code(s): I10 - Essential (primary) hypertension
[2022-10-29] MEDS: FENOFIBRATE NANOCRYSTALLIZED 145 MG TABLET PO SCH (12:34)
[2022-10-29] MEDS: MIRTAZAPINE SOLTAB 15 MG PO SCH (20:51)
[2022-10-30] MEDS: guaiFENesin SUGAR FREE 200 MG/10 ML UDC PO SCH ×3 (05:47→18:49)
[2022-10-30] MEDS: CEROVITE ADV FORMULA TAB PO SCH ×2 (08:28→21:55)
[2022-10-30] MEDS: ASPIRIN 81 MG ECTAB PO SCH (08:28)
[2022-10-30] MEDS: CHOLECALCIFEROL 5,000 UNITS 125 MCG TAB PO SCH (08:28)
[2022-10-30] MEDS: amLODIPine BESYLATE 5 MG TAB PO SCH (08:29)
[2022-10-30] MEDS: ADVANCED PROBIOTIC 1250 MG CAPSULE PO SCH (08:29)
[2022-10-30] MEDS: VITAMIN B COMPLEX TAB PO SCH (08:29)
[2022-10-30] MEDS: PANTOprazole 40 MG in SYRINGE 0 ML IV SCH ×2 (08:30→21:55)
[2022-10-30] MEDS: SUCRALFATE 1 GM/10 ML UDC PO SCH ×4 (08:31→21:55)
[2022-10-30] MEDS: LIDOCAINE 5% 1 PATCH TD SCH (08:32)
[2022-10-30] MEDS: HEPARIN SOD 5,000 UNIT/0.5 ML VIAL SQ SCH ×2 (08:37→21:55)
[2022-10-30] MEDS: FENOFIBRATE NANOCRYSTALLIZED 145 MG TABLET PO SCH (12:54)
--- NOTE | 2022-10-30 12:54 | Hospitalist Progress Note ---
Date of Service October 30, 2022 Assessment & Plan (1) Acute respiratory failure with hypoxia: (2) Right lower lobe pneumonia: (3) UTI (urinary tract infection): (4) Dehydration: (5) Low back pain: (6) Esophagitis: (7) Pulmonary nodule: (8) CAD (coronary artery disease): (9) Hx of CABG: (10) HTN (hypertension): Plan 87-year-old female who has significant past medical history of COPD, CAD with history of CABG x1, HLD, renal artery stenosis, HTN, glaucoma, elevated hemo globin, history of tobacco abuse disorder, hard of hearing who presents to ED due to back pain x 1 week; N/V and poor PO intake for 1.5 days. Patient had a fall at home, was placed on oral narcotics for pain control, then developed nausea and vomiting, prompting admission. While admitted, patient treated for aspiration pneumonia and UTI, showed slow progress At one-point was having hospital delirium. Also developed esophagitis. GI consulted and was placed on carafate Tolerating soft diet again. Patient also developed pleural effusion Acute respiratory failure with hypoxia R lower lobe pneumonia, poss. aspiration pna Pleural effusion COPD, without exacerbation Reviewed patient's multiple imaging since admission Completed antibiotic course Repeat CXR notes pulm edema, mildly decreased size of pleural effusion with persistent bilateral bibasilar opacities Currently on 5 L nasal cannula Continue to wean off oxygen Patient is not motivated. Encouraged to continue incentive spirometry UTI U cultx positive for E.coli Completed 10 day course of antibiotics Dysphagia from esophagitis CT chest noted severe esophageal thickening with paraesophageal edema. No extraluminal gas at this time to suggest a perforation. Therefore, this favors a nonspecific esophagitis. Tolerating soft diet. Encourage po intake Continue Sucralfate and Protonix Prerenal acute kidney injury Patient with elevated BUN of 43, Cr 0.97 with a BUN/creatinine ratio of 35.1 Secondary to poor p.o. intake, N/V Had resolved Monitor renal function Low K and Mg From poor intake Monitor and replete as needed CAD with history of CABG x1 Elevated troponin Abnormal EKGwith T wave inversions inferior & laterally -unchanged from prior Patient without chest pain Troponin mildly elevated, serial CE essentially unchanged likely elev. secondary to above/demand ischemia Continue aspirin HTN In ED patient met criteria for hypertensive urgency with peak blood pressure 204/114 She received 5 mg IV hydralazine which improved BP to 158/81 Previously patient have been prescribed amlodipine 2.5 mg which has since been discontinued Amlodipine 2.5 mg resumed and currently on 7.5mg daily BP is better controlled Monitor Pulmonary Nodule Lobulated 1.8 cm solid left lower lobe pulmonary nodule per CT scan Suspicious for bronchogenic carcinoma in setting of tobacco history Previous Provider had discussed with brothers at bedside and recommended pulmonary evaluation as outpatient if patient wishes to pursue further work-up Severe Malnutrition Pt cachectic on phys. exam Continue nutritional supplement Encourage po intake DVT prophylaxis:Heparin BID Dispo: CM working on placement PCP: Kae Lockhart DNR/DNI Admission and Anticipated Discharge Date Admission Date: October 13, 2022 Subjective Patient seen and examined Denied any new complaints Reports only fatigue and anorexia Denied cough, chest pain, shortness of breath Denied nausea,vomiting, abd pain. Denied depression Physical Exam Constitutional: + ill appearing (Chronic), + well hydrated and + thin; no acute distress Eyes: PERRL, conjunctivae normal, anicteric sclerae ENMT: external ear and nose normal, oropharynx normal Respiratory: normal respiratory effort; no respiratory distress Auscultation: + diminished lung sounds Cardiovascular: Rate/Rhythm: regular rate and regular rhythm S1 S2 Gastrointestinal (Abdomen): normal bowel sounds, soft, nontender, no hepatosplenomegaly Musculoskeletal: No pedal edema Neurologic: PERRL, EOMI, accommodation nl, no face palsy, no dysarthria Psychiatric: AOx3, cooperative Results & Data Results & Data ([facility]) Vital Signs (Past 12 Hours) Vital Signs Temp Pulse Pulse Resp BP Pulse Ox O2 Del Method 10/30/22 12:11 54 L 10/30/22 11:46 36.6 C 59 L 12 105/61 94 Nasal Cannula 10/30/22 07:46 36.7 C 59 L 20 128/75 98 Nasal Cannula O2 Flow Rate 10/30/22 12:11 10/30/22 11:46 4 10/30/22 07:46 5 (3) UTI (urinary tract infection) Hematuria presence: without hematuria Urinary tract infection type: acute cystitis Qualified Code(s): N30.00 - Acute cystitis without hematuria (5) Low back pain Back pain laterality: midline Chronicity: acute Sciatica presence: without sciatica Qualified Code(s): M54.50 - Low back pain, unspecified (10) HTN (hypertension) Hypertension type: unspecified Qualified Code(s): I10 - Essential (primary) hypertension
[2022-10-30] MEDS: MIRTAZAPINE SOLTAB 15 MG PO SCH (21:55)
[2022-10-31] MEDS: guaiFENesin SUGAR FREE 200 MG/10 ML UDC PO SCH ×4 (03:08→17:01)
[2022-10-31] MEDS: amLODIPine BESYLATE 5 MG TAB PO SCH (07:35)
[2022-10-31] MEDS: ADVANCED PROBIOTIC 1250 MG CAPSULE PO SCH (07:36)
[2022-10-31] MEDS: HEPARIN SOD 5,000 UNIT/0.5 ML VIAL SQ SCH ×2 (07:36→22:17)
[2022-10-31] MEDS: ASPIRIN 81 MG ECTAB PO SCH (07:36)
[2022-10-31] MEDS: PANTOprazole 40 MG in SYRINGE 0 ML IV SCH ×2 (07:37→22:15)
[2022-10-31] MEDS: CHOLECALCIFEROL 5,000 UNITS 125 MCG TAB PO SCH (07:37)
[2022-10-31] MEDS: SUCRALFATE 1 GM/10 ML UDC PO SCH ×4 (07:37→22:17)
[2022-10-31] MEDS: CEROVITE ADV FORMULA TAB PO SCH ×2 (07:38→22:16)
[2022-10-31] MEDS: VITAMIN B COMPLEX TAB PO SCH (07:39)
[2022-10-31 07:40] LABS: BUN Creatinine Ratio 52.2 (10-20); Calcium 10.1 mg/dl (8.5-10.1); Creatinine Clr Calc Pharmacy 37.8 ml/min; Est GFR (African American) 92.9 ml/min; Est GFR (Non-African American) 80.2 ml/min; Magnesium 1.9 mg/dl (1.7-2.4); Phosphorus 2.8 mg/dl (2.5-4.9); Potassium 3.9 mmol/L (3.5-5.1)
[2022-10-31] MEDS: LIDOCAINE 5% 1 PATCH TD SCH (07:40)
--- NOTE | 2022-10-31 12:34 | Hospitalist Progress Note ---
Date of Service October 31, 2022 Assessment & Plan (1) Acute respiratory failure with hypoxia: (2) Right lower lobe pneumonia: (3) UTI (urinary tract infection): (4) Dehydration: (5) Low back pain: (6) Esophagitis: (7) Pulmonary nodule: (8) CAD (coronary artery disease): (9) Hx of CABG: (10) HTN (hypertension): Plan 87-year-old female who has significant past medical history of COPD, CAD with history of CABG x1, HLD, renal artery stenosis, HTN, glaucoma, elevated hemo globin, history of tobacco abuse disorder, hard of hearing who presents to ED due to back pain x 1 week; N/V and poor PO intake for 1.5 days. Patient had a fall at home, was placed on oral narcotics for pain control, then developed nausea and vomiting, prompting admission. While admitted, patient treated for aspiration pneumonia and UTI, showed slow progress At one-point was having hospital delirium. Also developed esophagitis. GI consulted and was placed on carafate Tolerating soft diet again. Patient also developed pleural effusion Acute respiratory failure with hypoxia R lower lobe pneumonia, poss. aspiration pna Pleural effusion COPD, without exacerbation Reviewed patient's multiple imaging since admission Completed antibiotic course Repeat CXR notes pulm edema, mildly decreased size of pleural effusion with persistent bilateral bibasilar opacities Currently on 5 L nasal cannula Continue to wean off oxygen Encouraged to continue incentive spirometry UTI Urine cx positive for E.coli Completed 10 day course of antibiotics Dysphagia from esophagitis CT chest noted severe esophageal thickening with paraesophageal edema. No extraluminal gas at this time to suggest a perforation. Therefore, this favors a nonspecific esophagitis. Tolerating soft diet. Encourage po intake Continue Sucralfate and Protonix Prerenal acute kidney injury Patient with elevated BUN of 43, Cr 0.97 with a BUN/creatinine ratio of 35.1 Secondary to poor p.o. intake, N/V Had resolved Monitor renal function Low K and Mg From poor intake Monitor and replete as needed CAD with history of CABG x1 Elevated troponin Abnormal EKGwith T wave inversions inferior & laterally -unchanged from prior Patient without chest pain Troponin mildly elevated, serial CE essentially unchanged likely elev. secondary to above/demand ischemia Continue aspirin HTN In ED patient met criteria for hypertensive urgency with peak blood pressure 204/114 She received 5 mg IV hydralazine which improved BP to 158/81 Previously patient have been prescribed amlodipine 2.5 mg which has since been discontinued Amlodipine 2.5 mg resumed and currently on 7.5mg daily BP is better controlled Monitor Pulmonary Nodule Lobulated 1.8 cm solid left lower lobe pulmonary nodule per CT scan Suspicious for bronchogenic carcinoma in setting of tobacco history Previous Provider had discussed with brothers at bedside and recommended pulmonary evaluation as outpatient if patient wishes to pursue further work-up Severe Malnutrition Pt cachectic on phys. exam Continue nutritional supplement Encourage po intake DVT prophylaxis:Heparin BID Dispo: discontinue tele CM working on placement PCP: Kae Lockhart DNR/DNI Admission and Anticipated Discharge Date Admission Date: October 13, 2022 Subjective Patient seen and examined Denied any new complaints Reports only fatigue and anorexia Denied cough, chest pain, shortness of breath Denied nausea,vomiting, abd pain. Physical Exam Constitutional: + ill appearing (Chronic), + well hydrated and + thin; no acute distress Eyes: PERRL, conjunctivae normal, anicteric sclerae ENMT: external ear and nose normal, oropharynx normal Respiratory: normal respiratory effort; no respiratory distress Auscultation: + diminished lung sounds Cardiovascular: Rate/Rhythm: regular rate and regular rhythm S1 S2 Gastrointestinal (Abdomen): normal bowel sounds, soft, nontender, no hepatosplenomegaly Musculoskeletal: No pedal edema Neurologic: PERRL, EOMI, accommodation nl, no face palsy, no dysarthria Results & Data Results & Data ([facility]) Vital Signs (Past 12 Hours) Vital Signs Temp Pulse Pulse Resp BP BP Pulse Ox 10/31/22 12:27 57 L 10/31/22 11:12 36.6 C 67 20 144/62 H 95 10/31/22 11:01 36.7 C 66 19 147/77 H 97 10/31/22 10:49 36.5 C 58 L 18 109/53 L 91 10/31/22 10:36 10/31/22 07:01 36.7 C 60 19 152/71 H 94 10/31/22 03:45 36.6 C 65 19 124/69 93 O2 Del Method O2 Flow Rate 10/31/22 12:27 10/31/22 11:12 Room Air 10/31/22 11:01 Room Air 10/31/22 10:49 Nasal Cannula 5 10/31/22 10:36 Nasal Cannula 5 10/31/22 07:01 Nasal Cannula 5 10/31/22 03:45 Nasal Cannula Laboratory Results Abnormal lab results 10/31/22 Range/Units 06:46 Carbon Dioxide 33 H (21-32) mmol/L Anion Gap 1 L (3-11) BUN 35 H (6-23) mg/dl BUN/Creatinine Ratio 52.2 H (10-20) (3) UTI (urinary tract infection) Hematuria presence: without hematuria Urinary tract infection type: acute cystitis Qualified Code(s): N30.00 - Acute cystitis without hematuria (5) Low back pain Back pain laterality: midline Chronicity: acute Sciatica presence: without sciatica Qualified Code(s): M54.50 - Low back pain, unspecified (10) HTN (hypertension) Hypertension type: unspecified Qualified Code(s): I10 - Essential (primary) hypertension
[2022-10-31] MEDS: FENOFIBRATE NANOCRYSTALLIZED 145 MG TABLET PO SCH (12:38)
[2022-10-31] MEDS: MIRTAZAPINE SOLTAB 15 MG PO SCH (22:16)
[2022-11-01] MEDS: guaiFENesin SUGAR FREE 200 MG/10 ML UDC PO SCH ×3 (00:49→10:45)
[2022-11-01] MEDS: amLODIPine BESYLATE 5 MG TAB PO SCH (08:22)
[2022-11-01] MEDS: CEROVITE ADV FORMULA TAB PO SCH ×2 (08:22→21:17)
[2022-11-01] MEDS: PANTOprazole 40 MG in SYRINGE 0 ML IV SCH (08:22)
[2022-11-01] MEDS: SUCRALFATE 1 GM/10 ML UDC PO SCH ×4 (08:22→21:17)
[2022-11-01] MEDS: VITAMIN B COMPLEX TAB PO SCH (08:23)
[2022-11-01] MEDS: ASPIRIN 81 MG ECTAB PO SCH (08:23)
[2022-11-01] MEDS: CHOLECALCIFEROL 5,000 UNITS 125 MCG TAB PO SCH (08:23)
[2022-11-01] MEDS: HEPARIN SOD 5,000 UNIT/0.5 ML VIAL SQ SCH ×2 (08:23→21:18)
[2022-11-01] MEDS: ADVANCED PROBIOTIC 1250 MG CAPSULE PO SCH (08:23)
[2022-11-01] MEDS: LIDOCAINE 5% 1 PATCH TD SCH (08:28)
[2022-11-01 10:32] LABS: Basophils # (auto) 0.06 K/uL (0-0.2); Eosinophils # (auto) 0.16 K/uL (0-0.50); Eosinophils % (auto) 2.8 %; Hematocrit (blood only) 41.5 % (37.0-47.0); Hemoglobin 13.5 g/dl (12.0-16.0); Immature Granulocytes # (auto) 0.03 K/uL (0.01-0.20); Immature Granulocytes % (auto) 0.5 %; Lymphocytes # (auto) 1.82 K/uL (1.2-3.4); Lymphocytes % (auto) 31.4 %; Mean Corpuscular Hemoglobin 30.1 pg (25.0-34.0); Mean Corpuscular Hgb Conc 32.5 g/dL (32.0-36.0); Mean Corpuscular Volume 92.4 fL (80.0-100.0); Mean Platelet Volume 11.2 fL (9.4-12.4); Monocytes # (auto) 0.51 K/uL (0.11-0.59); Monocytes % (auto) 8.8 %; Neutrophils # (auto) 3.22 K/uL (1.40-6.50); Neutrophils % (auto) 55.5 %; Platelet Count 425 K/uL (130-400); RDW Coefficient of Variation 15.9 % (11.5-14.5); RDW Standard Deviation 53.3 fL (36.4-46.3); Red Blood Count 4.49 M/uL (4.20-5.40)
[2022-11-01 10:55] LABS: Calcium 10.2 mg/dl (8.5-10.1); Creatinine Clr Calc Pharmacy 36.7 ml/min; Est GFR (Non-African American) 79.4 ml/min; Potassium 3.9 mmol/L (3.5-5.1)
[2022-11-01] MEDS ORDERED: guaiFENesin SUGAR FREE 200 MG/10 ML UDC PO PRN (11:23)
[2022-11-01] MEDS: FENOFIBRATE NANOCRYSTALLIZED 145 MG TABLET PO SCH (11:45)
--- NOTE | 2022-11-01 14:22 | Hospitalist Progress Note ---
Date of Service November 01, 2022 Assessment & Plan (1) Acute respiratory failure with hypoxia: (2) Right lower lobe pneumonia: (3) UTI (urinary tract infection): (4) Dehydration: (5) Low back pain: (6) Esophagitis: (7) Pulmonary nodule: (8) CAD (coronary artery disease): (9) Hx of CABG: (10) HTN (hypertension): Plan 87-year-old female who has significant past medical history of COPD, CAD with history of CABG x1, HLD, renal artery stenosis, HTN, glaucoma, elevated hemo globin, history of tobacco abuse disorder, hard of hearing who presents to ED due to back pain x 1 week; N/V and poor PO intake for 1.5 days. Patient had a fall at home, was placed on oral narcotics for pain control, then developed nausea and vomiting, prompting admission. While admitted, patient treated for aspiration pneumonia and UTI, showed slow progress At one-point was having hospital delirium. Also developed esophagitis. GI consulted and was placed on carafate Tolerating soft diet again. Patient also developed pleural effusion Acute respiratory failure with hypoxia R lower lobe pneumonia, poss. aspiration pna Pleural effusion COPD, without exacerbation Reviewed patient's multiple imaging since admission Completed antibiotic course Repeat CXR notes pulm edema, mildly decreased size of pleural effusion with persistent bilateral bibasilar opacities Currently on 5 L nasal cannula Continue to wean off oxygen Encouraged to continue incentive spirometry will try a small amount of Lasix at this time to see if we can wean oxygen further. UTI Urine cx positive for E.coli Completed 10 day course of antibiotics Dysphagia from esophagitis CT chest noted severe esophageal thickening with paraesophageal edema. No extraluminal gas at this time to suggest a perforation. Therefore, this favors a nonspecific esophagitis. Tolerating soft diet. Encourage po intake Continue Sucralfate and Protonix Prerenal acute kidney injury Patient with elevated BUN of 43, Cr 0.97 with a BUN/creatinine ratio of 35.1 Secondary to poor p.o. intake, N/V Had resolved Monitor renal function Low K and Mg From poor intake Monitor and replete as needed CAD with history of CABG x1 Elevated troponin Abnormal EKGwith T wave inversions inferior & laterally -unchanged from prior Patient without chest pain Troponin mildly elevated, serial CE essentially unchanged likely elev. secondary to above/demand ischemia Continue aspirin HTN In ED patient met criteria for hypertensive urgency with peak blood pressure 204/114 She received 5 mg IV hydralazine which improved BP to 158/81 Previously patient have been prescribed amlodipine 2.5 mg which has since been discontinued Amlodipine 2.5 mg resumed and currently on 7.5mg daily BP is better controlled Monitor Pulmonary Nodule Lobulated 1.8 cm solid left lower lobe pulmonary nodule per CT scan Suspicious for bronchogenic carcinoma in setting of tobacco history Previous Provider had discussed with brothers at bedside and recommended pulmonary evaluation as outpatient if patient wishes to pursue further work-up Severe Malnutrition Pt cachectic on phys. exam Continue nutritional supplement Encourage po intake DVT prophylaxis:Heparin BID Dispo: discontinue tele CM working on placement PCP: Kae Lockhart DNR/DNI I discussed the case with her son today. He is in touch with case management and working on insurance adjustments. Patricia Abrams DO [facility] Hospitalist Admission and Anticipated Discharge Date Admission Date: October 13, 2022 Subjective 87 yo F with esophagitis and aspiration pneumonia nitially presented for back pain and vomiting which is now resolved, with hospital course c/b CHF exacerbation. She reports that her breathing is fine and she is not SOB She is very weak and frail appearing but states that she is fine and has no issues Denies any issues with eating STates that she is trying to "stay regimented" Awaiting placement. Review of Systems Review of Systems: All systems reviewed negative except as indicated above. Physical Exam Physical Exam: CONSTITUTIONAL: thin, frail, elderly, vitals as above, NAD EYES: normal conjunctivae, no scleral icterus ENT: external ear and nose normal, NECK: trachea midline, RESPIRATORY: clear to auscultation bilaterally, no crackles, rales or wheezes, normal respiratory effort CARDIOVASCULAR: regular rate and rhythm, S1 and 2 heard without murmurs, gallops or rubs, no JVD, no peripheral edema CHEST: inspection of chest was normal GASTROINTESTINAL: soft, nontender, ND, no guarding MUSCULOSKELETAL: strength 5/5 throughout, head is normocephalic and atraumatic SKIN: warm and dry NEUROLOGIC: CN 2-12 grossly intact, no sensory deficit, normal cognition, normal speech, no tremor PSYCHIATRIC: alert cooperative and answering questions appropriately. Results & Data Results & Data ([facility]) Vital Signs (Past 12 Hours) Vital Signs Temp Pulse Resp BP Pulse Ox O2 Del Method O2 Flow Rate 02/22/23 07:56 Nasal Cannula 5 11/01/22 07:45 36.6 C 57 L 16 166/72 H 97 Nasal Cannula 5 Laboratory Results Short CBC 11/01/22 Range/Units 09:51 WBC 5.80 (4.8-10.8) K/ul Hgb 13.5 (12.0-16.0) g/dl Hct 41.5 (37.0-47.0) % Plt Count 425 H (130-400) K/uL BMP 11/01/22 09:51 Sodium 140 Potassium 3.9 Chloride 104 Carbon Dioxide 33 H BUN 29 H Creatinine 0.69 Glucose 93 Calcium 10.2 H Diagnostic Findings Chest X-Ray 11/01/22 09:18 XR chest 1V portable CLINICAL HISTORY: Persistent hypoxia. COMPARISON STUDY: Chest CT October 19, 2022 and chest radiograph October 28, 2022. FINDINGS: There is emphysema. No pneumothorax is present. Small left pleural effusion is noted. Bibasilar opacities persist. Right basilar opacity has mildly improved. Left basilar opacity is similar to prior exam. Pulmonary vascular congestion is unchanged. Cardiomediastinal silhouette is stable. IMPRESSION: 1. Persistent bibasilar opacities, left greater than right. Left basilar opacity is similar to prior exam. Right basilar opacity has slightly improved. 2. Emphysema. 3. Pulmonary vascular congestion. ACT 112: Negative or not required by law. Electronically signed by: Omar Kingston M.D. 11/01/2022 2:28 PM Medications Administered Current Inpatient Medications Acetaminophen (Acetaminophen 325 Mg Tab) 650 mg PO Q4H PRN PRN Reason: Pain or Fever Stop: 11/12/22 16:28 Last Admin: 10/24/22 06:25 Dose: 650 mg Al Hydrox/Mg Hydrox/Simethicone (Aluminum/Magnesium Susp 30 Ml Udc) 15 ml PO Q4H PRN PRN Reason: Dyspepsia Stop: 11/12/22 16:28 Last Admin: 10/20/22 22:23 Dose: 15 ml Albuterol (Albut/Ipratrop 3mg/0.5mg Neb 3 Ml Vial) 3 ml NEB Q4R PRN; Protocol PRN Reason: sob/wheezing Stop: 11/12/22 16:28 Amlodipine Besylate (Amlodipine Besylate 5 Mg Tab) 7.5 mg PO QAM [facility] Stop: 11/22/22 08:59 Last Admin: 11/01/22 08:22 Dose: 7.5 mg Aspirin (Aspirin 81 Mg Ectab) 81 mg PO DAILY [facility] Stop: 11/13/22 08:59 Last Admin: 11/01/22 08:23 Dose: 81 mg Cyclobenzaprine HCl (Cyclobenzaprine Hcl 5 Mg Tab) 2.5 mg PO BID [facility] Stop: 11/12/22 20:59 Last Admin: 10/15/22 08:21 Dose: 2.5 mg Fenofibrate (Fenofibrate Nanocrystallized 145 Mg Tablet) 145 mg PO Q24H [facility] Stop: 11/13/22 11:59 Last Admin: 11/01/22 11:45 Dose: 145 mg Guaifenesin (Guaifenesin Sugar Free 200 Mg/10 Ml Udc) 200 mg PO Q6 PRN PRN Reason: congestion/cough Stop: 11/13/22 14:59 Heparin Sodium (Porcine) (Heparin Sod 5,000 Unit/0.5 Ml Vial) 5,000 units SQ Q12 [facility] Stop: 11/12/22 20:59 Last Admin: 11/01/22 08:23 Dose: 5,000 units Promethazine HCl 6.25 mg/ (Sodium Chloride) 50.25 mls @ 201 mls/hr IV Q6H PRN PRN Reason: Nausea And Vomiting Stop: 11/20/22 04:21 Last Infusion: 10/21/22 05:23 Dose: Infused Lactobacillus Acidophilus (Advanced Probiotic 1250 Mg Capsule) 2 cap PO DAILY [facility] Stop: 11/22/22 11:29 Last Admin: 11/01/22 08:23 Dose: 2 cap Lidocaine (Lidocaine 5% 1 Patch) 1 patch TD QAM [facility] Stop: 11/12/22 16:28 Last Admin: 11/01/22 08:28 Dose: 1 patch Magnesium Hydroxide (Magnesium Hydroxide Susp 30 Ml Udc) 30 ml PO Q6H PRN PRN Reason: Constipation Stop: 11/17/22 16:31 Melatonin (Melatonin 3 Mg Tab) 3 mg PO DAILY PRN PRN Reason: Sleep Stop: 11/13/22 15:48 Last Admin: 10/18/22 19:42 Dose: 3 mg Mirtazapine (Mirtazapine Soltab 15 Mg) 7.5 mg PO HS [facility] Stop: 11/12/22 20:59 Last Admin: 10/31/22 22:16 Dose: 7.5 mg Miscellaneous (Remove Lidoderm Patch) 1 each N/A DAILY@2100 [facility] Stop: 11/12/22 20:59 Last Admin: 10/31/22 22:18 Dose: 1 each Multivitamins/Minerals (Cerovite Adv Formula Tab) 1 tab PO BID [facility] Stop: 11/12/22 20:59 Last Admin: 11/01/22 08:22 Dose: 1 tab Pantoprazole Sodium (Pantoprazole 40 Mg Tab) 40 mg PO BID [facility] Stop: 12/01/22 20:59 Polyethylene Glycol (Polyethylene (Miralax) 17 Gm Pack) 17 gm PO DAILY PRN PRN Reason: Constipation Stop: 11/12/22 16:28 Senna/Docusate Sodium (Docusate Sodium/Senna 50/8.6mg Tab) 1 tab PO BID [facility] Stop: 11/20/22 04:29 Last Admin: 10/23/22 08:41 Dose: 1 tab Sucralfate (Sucralfate 1 Gm/10 Ml Udc) 1 gm PO QID [facility] Stop: 11/18/22 16:59 Last Admin: 11/01/22 11:45 Dose: Not Given Vitamin B Complex (Vitamin B Complex Tab) 1 tab PO QAM [facility] Stop: 11/22/22 16:44 Last Admin: 11/01/22 08:23 Dose: 1 tab Vitamin D (Cholecalciferol 5,000 Units 125 Mcg Tab) 5,000 units PO DAILY [facility] Stop: 11/13/22 08:59 Last Admin: 11/01/22 08:23 Dose: 5,000 units (3) UTI (urinary tract infection) Hematuria presence: without hematuria Urinary tract infection type: acute cystitis Qualified Code(s): N30.00 - Acute cystitis without hematuria (5) Low back pain Back pain laterality: midline Chronicity: acute Sciatica presence: without sciatica Qualified Code(s): M54.50 - Low back pain, unspecified (10) HTN (hypertension) Hypertension type: unspecified Qualified Code(s): I10 - Essential (primary) hypertension
--- NOTE | 2022-11-01 14:30 | XRay Report ---
XR chest 1V portable CLINICAL HISTORY: Persistent hypoxia. COMPARISON STUDY: Chest CT October 19, 2022 and chest radiograph October 28, 2022. FINDINGS: There is emphysema. No pneumothorax is present. Small left pleural effusion is noted. Bibas ilar opacities persist. Right basilar opacity has mildly improved. Left basilar opacity is similar to prior exam. Pulmonary vascular congestion is unchanged. Cardiomediastinal silhouette is stable. IMPRESSION: 1. Persistent bibasilar opacities, left greater than right. Left basilar opacity is similar to prior exam. Right basilar opacity has slightly improved. 2. Emphysema. 3. Pulmonary vascular congestion. ACT 112: Negative or not required by law. Electronically signed by: Omar Kingston M.D. 11/01/2022 2:28 PM
[2022-11-01] MEDS ORDERED: FUROSEMIDE INJ 20 MG/2 ML VIAL IV ONE (17:35)
[2022-11-01] MEDS: PANTOprazole 40 MG TAB PO SCH (21:17)
[2022-11-01] MEDS: MIRTAZAPINE SOLTAB 15 MG PO SCH (21:18)
[2022-11-02 07:37] LABS: BUN Creatinine Ratio 38.6 (10-20); Calcium 10.2 mg/dl (8.5-10.1); Creatinine Clr Calc Pharmacy 30.5 ml/min; Est GFR (African American) 74.5 ml/min; Est GFR (Non-African American) 64.3 ml/min; Magnesium 1.8 mg/dl (1.7-2.4)
[2022-11-02] MEDS: amLODIPine BESYLATE 5 MG TAB PO SCH (08:30)
[2022-11-02] MEDS: ADVANCED PROBIOTIC 1250 MG CAPSULE PO SCH (09:40)
[2022-11-02] MEDS: ASPIRIN 81 MG ECTAB PO SCH (09:40)
[2022-11-02] MEDS: VITAMIN B COMPLEX TAB PO SCH (09:41)
[2022-11-02] MEDS: CHOLECALCIFEROL 5,000 UNITS 125 MCG TAB PO SCH (09:41)
[2022-11-02] MEDS: LIDOCAINE 5% 1 PATCH TD SCH (09:42)
[2022-11-02] MEDS: PANTOprazole 40 MG TAB PO SCH ×2 (11:10→22:00)
[2022-11-02] MEDS: HEPARIN SOD 5,000 UNIT/0.5 ML VIAL SQ SCH ×2 (11:10→22:02)
[2022-11-02] MEDS: CEROVITE ADV FORMULA TAB PO SCH ×2 (11:11→22:00)
[2022-11-02] MEDS: SUCRALFATE 1 GM/10 ML UDC PO SCH ×4 (11:11→22:00)
[2022-11-02] MEDS: FENOFIBRATE NANOCRYSTALLIZED 145 MG TABLET PO SCH (11:16)
--- NOTE | 2022-11-02 12:33 | Hospitalist Progress Note ---
Date of Service November 02, 2022 Assessment & Plan (1) Acute respiratory failure with hypoxia: (2) Right lower lobe pneumonia: (3) UTI (urinary tract infection): (4) Dehydration: (5) Low back pain: (6) Esophagitis: (7) Pulmonary nodule: (8) CAD (coronary artery disease): (9) Hx of CABG: (10) HTN (hypertension): Plan 87-year-old female who has significant past medical history of COPD, CAD with history of CABG x1, HLD, renal artery stenosis, HTN, glaucoma, elevated hemo globin, history of tobacco abuse disorder, hard of hearing who presents to ED due to back pain x 1 week; N/V and poor PO intake for 1.5 days. Patient had a fall at home, was placed on oral narcotics for pain control, then developed nausea and vomiting, prompting admission. While admitted, patient treated for aspiration pneumonia and UTI, showed slow progress At one-point was having hospital delirium. Also developed esophagitis. GI consulted and was placed on carafate Tolerating soft diet. Patient also developed pleural effusion which have appeared to be resolved on most recent CXR 11/01 Acute respiratory failure with hypoxia R lower lobe pneumonia, poss. aspiration pna Pleural effusion COPD, without exacerbation Reviewed patient's multiple imaging since admission Completed antibiotic course Repeat CXR notes pulm edema, mildly decreased size of pleural effusion with persistent bilateral bibasilar opacities Currently on 3 L nasal cannula Continue to wean off oxygen Encouraged to continue incentive spirometry 11/01: Lasix 20mg IV given without much change in oxygen needs. 11/02: Alkalotic on labs, will avoid further lasix for now. UTI Urine cx positive for E.coli Completed 10 day course of antibiotics Dysphagia from esophagitis CT chest noted severe esophageal thickening with paraesophageal edema. No extraluminal gas at this time to suggest a perforation. Therefore, this favors a nonspecific esophagitis. Tolerating soft diet. Encourage po intake Continue Sucralfate and Protonix Prerenal acute kidney injury Patient with elevated BUN of 43, Cr 0.97 with a BUN/creatinine ratio of 35.1 Secondary to poor p.o. intake, N/V Had resolved Monitor renal function Low K and Mg From poor intake Monitor and replete as needed CAD with history of CABG x1 Elevated troponin Abnormal EKGwith T wave inversions inferior & laterally -unchanged from prior Patient without chest pain Troponin mildly elevated, serial CE essentially unchanged likely elev. secondary to above/demand ischemia Continue aspirin HTN In ED patient met criteria for hypertensive urgency with peak blood pressure 204/114 She received 5 mg IV hydralazine which improved BP to 158/81 Previously patient have been prescribed amlodipine 2.5 mg which has since been discontinued Amlodipine 2.5 mg resumed and currently on 7.5mg daily BP is better controlled Monitor Pulmonary Nodule Lobulated 1.8 cm solid left lower lobe pulmonary nodule per CT scan Suspicious for bronchogenic carcinoma in setting of tobacco history Previous Provider had discussed with brothers at bedside and recommended pulmonary evaluation as outpatient if patient wishes to pursue further work-up Severe Malnutrition Pt cachectic on phys. exam Continue nutritional supplement Encourage po intake DVT prophylaxis:Heparin BID Dispo: discontinue tele CM working on placement PCP: Kae Lockhart DNR/DNI I discussed the case with her son by phone today. He is in touch with case management and working on insurance adjustments. All questions were answered to his satisfaction. Patricia Abrams DO [facility] Hospitalist Admission and Anticipated Discharge Date Admission Date: October 13, 2022 Subjective 87 yo F with esophagitis and aspiration pneumonia nitially presented for back pain and vomiting which is now resolved, with hospital course c/b CHF exacerbation. She reports that her breathing is fine and she is not SOB She is very weak and frail appearing but states that she is fine and has no issues Denies any issues with eating Discussed with RN who states that she was OOB to chair for breakfast and worked with PT today who walked her to the bathroom Decreased oxygen needs to 3LPM. Awaiting placement. Review of Systems Review of Systems: All systems reviewed negative except as indicated above. Physical Exam Physical Exam: CONSTITUTIONAL: thin, frail, elderly, vitals as above, NAD EYES: normal conjunctivae, no scleral icterus ENT: external ear and nose normal, NECK: trachea midline, RESPIRATORY: clear to auscultation bilaterally, no crackles, rales or wheezes, normal respiratory effort CARDIOVASCULAR: regular rate and rhythm, S1 and 2 heard without murmurs, gallops or rubs, no JVD, no peripheral edema CHEST: inspection of chest was normal GASTROINTESTINAL: soft, nontender, ND, no guarding MUSCULOSKELETAL: strength 5/5 throughout, head is normocephalic and atraumatic SKIN: warm and dry NEUROLOGIC: CN 2-12 grossly intact, no sensory deficit, normal cognition, normal speech, no tremor PSYCHIATRIC: alert cooperative and answering questions appropriately. Results & Data Results & Data ([facility]) Vital Signs (Past 12 Hours) Vital Signs Temp Pulse Resp BP Pulse Ox O2 Del Method O2 Flow Rate 11/02/22 07:41 36.5 C 62 20 171/79 H 95 Nasal Cannula 6 Laboratory Results [facility] 11/02/22 06:37 Sodium 139 Potassium 4.0 Chloride 103 Carbon Dioxide 34 H BUN 32 H Creatinine 0.83 Glucose 85 Calcium 10.2 H Medications Administered Current Inpatient Medications Acetaminophen (Acetaminophen 325 Mg Tab) 650 mg PO Q4H PRN PRN Reason: Pain or Fever Stop: 11/12/22 16:28 Last Admin: 10/24/22 06:25 Dose: 650 mg Al Hydrox/Mg Hydrox/Simethicone (Aluminum/Magnesium Susp 30 Ml Udc) 15 ml PO Q4H PRN PRN Reason: Dyspepsia Stop: 11/12/22 16:28 Last Admin: 10/20/22 22:23 Dose: 15 ml Albuterol (Albut/Ipratrop 3mg/0.5mg Neb 3 Ml Vial) 3 ml NEB Q4R PRN; Protocol PRN Reason: sob/wheezing Stop: 11/12/22 16:28 Amlodipine Besylate (Amlodipine Besylate 5 Mg Tab) 7.5 mg PO QAM [facility] Stop: 11/22/22 08:59 Last Admin: 11/02/22 08:30 Dose: 7.5 mg Aspirin (Aspirin 81 Mg Ectab) 81 mg PO DAILY [facility] Stop: 11/13/22 08:59 Last Admin: 11/02/22 09:40 Dose: 81 mg Cyclobenzaprine HCl (Cyclobenzaprine Hcl 5 Mg Tab) 2.5 mg PO BID [facility] Stop: 11/12/22 20:59 Last Admin: 10/15/22 08:21 Dose: 2.5 mg Fenofibrate (Fenofibrate Nanocrystallized 145 Mg Tablet) 145 mg PO Q24H [facility] Stop: 11/13/22 11:59 Last Admin: 11/02/22 11:16 Dose: 145 mg Guaifenesin (Guaifenesin Sugar Free 200 Mg/10 Ml Udc) 200 mg PO Q6 PRN PRN Reason: congestion/cough Stop: 11/13/22 14:59 Heparin Sodium (Porcine) (Heparin Sod 5,000 Unit/0.5 Ml Vial) 5,000 units SQ Q12 [facility] Stop: 11/12/22 20:59 Last Admin: 11/02/22 11:10 Dose: 5,000 units Promethazine HCl 6.25 mg/ (Sodium Chloride) 50.25 mls @ 201 mls/hr IV Q6H PRN PRN Reason: Nausea And Vomiting Stop: 11/20/22 04:21 Last Infusion: 10/21/22 05:23 Dose: Infused Lactobacillus Acidophilus (Advanced Probiotic 1250 Mg Capsule) 2 cap PO DAILY [facility] Stop: 11/22/22 11:29 Last Admin: 11/02/22 09:40 Dose: 2 cap Lidocaine (Lidocaine 5% 1 Patch) 1 patch TD QAM [facility] Stop: 11/12/22 16:28 Last Admin: 11/02/22 09:42 Dose: 1 patch Magnesium Hydroxide (Magnesium Hydroxide Susp 30 Ml Udc) 30 ml PO Q6H PRN PRN Reason: Constipation Stop: 11/17/22 16:31 Melatonin (Melatonin 3 Mg Tab) 3 mg PO DAILY PRN PRN Reason: Sleep Stop: 11/13/22 15:48 Last Admin: 10/18/22 19:42 Dose: 3 mg Mirtazapine (Mirtazapine Soltab 15 Mg) 7.5 mg PO HS [facility] Stop: 11/12/22 20:59 Last Admin: 11/01/22 21:18 Dose: 7.5 mg Miscellaneous (Remove Lidoderm Patch) 1 each N/A DAILY@2100 [facility] Stop: 11/12/22 20:59 Last Admin: 11/01/22 21:18 Dose: 1 each Multivitamins/Minerals (Cerovite Adv Formula Tab) 1 tab PO BID [facility] Stop: 11/12/22 20:59 Last Admin: 11/02/22 11:11 Dose: 1 tab Pantoprazole Sodium (Pantoprazole 40 Mg Tab) 40 mg PO BID [facility] Stop: 12/01/22 20:59 Last Admin: 11/02/22 11:10 Dose: 40 mg Polyethylene Glycol (Polyethylene (Miralax) 17 Gm Pack) 17 gm PO DAILY PRN PRN Reason: Constipation Stop: 11/12/22 16:28 Senna/Docusate Sodium (Docusate Sodium/Senna 50/8.6mg Tab) 1 tab PO BID [facility] Stop: 11/20/22 04:29 Last Admin: 10/23/22 08:41 Dose: 1 tab Sucralfate (Sucralfate 1 Gm/10 Ml Udc) 1 gm PO QID [facility] Stop: 11/18/22 16:59 Last Admin: 11/02/22 11:11 Dose: 1 gm Vitamin B Complex (Vitamin B Complex Tab) 1 tab PO QAM [facility] Stop: 11/22/22 16:44 Last Admin: 11/02/22 09:41 Dose: 1 tab Vitamin D (Cholecalciferol 5,000 Units 125 Mcg Tab) 5,000 units PO DAILY [facility] Stop: 11/13/22 08:59 Last Admin: 11/02/22 09:41 Dose: 5,000 units (3) UTI (urinary tract infection) Hematuria presence: without hematuria Urinary tract infection type: acute cystitis Qualified Code(s): N30.00 - Acute cystitis without hematuria (5) Low back pain Back pain laterality: midline Chronicity: acute Sciatica presence: without sciatica Qualified Code(s): M54.50 - Low back pain, unspecified (10) HTN (hypertension) Hypertension type: unspecified Qualified Code(s): I10 - Essential (primary) hypertension
[2022-11-02] MEDS: MIRTAZAPINE SOLTAB 15 MG PO SCH (21:59)
[2022-11-03] MEDS: VITAMIN B COMPLEX TAB PO SCH (09:04)
[2022-11-03] MEDS: CEROVITE ADV FORMULA TAB PO SCH ×2 (09:04→21:18)
[2022-11-03] MEDS: HEPARIN SOD 5,000 UNIT/0.5 ML VIAL SQ SCH ×2 (09:04→21:15)
[2022-11-03] MEDS: PANTOprazole 40 MG TAB PO SCH ×2 (09:04→21:17)
[2022-11-03] MEDS: ADVANCED PROBIOTIC 1250 MG CAPSULE PO SCH (09:05)
[2022-11-03] MEDS: amLODIPine BESYLATE 5 MG TAB PO SCH (09:05)
[2022-11-03] MEDS: CHOLECALCIFEROL 5,000 UNITS 125 MCG TAB PO SCH (09:05)
[2022-11-03] MEDS: ASPIRIN 81 MG ECTAB PO SCH (09:05)
[2022-11-03] MEDS: LIDOCAINE 5% 1 PATCH TD SCH (09:06)
[2022-11-03] MEDS: SUCRALFATE 1 GM/10 ML UDC PO SCH ×4 (09:06→21:18)
[2022-11-03] MEDS: FENOFIBRATE NANOCRYSTALLIZED 145 MG TABLET PO SCH (12:44)
--- NOTE | 2022-11-03 13:23 | Hospitalist Progress Note ---
Date of Service November 03, 2022 Assessment & Plan (1) Acute respiratory failure with hypoxia: (2) Right lower lobe pneumonia: (3) UTI (urinary tract infection): (4) Dehydration: (5) Low back pain: (6) Esophagitis: (7) Pulmonary nodule: (8) CAD (coronary artery disease): (9) Hx of CABG: (10) HTN (hypertension): Plan 87-year-old female who has significant past medical history of COPD, CAD with history of CABG x1, HLD, renal artery stenosis, HTN, glaucoma, elevated hemo globin, history of tobacco abuse disorder, hard of hearing who presents to ED due to back pain x 1 week; N/V and poor PO intake for 1.5 days. Patient had a fall at home, was placed on oral narcotics for pain control, then developed nausea and vomiting, prompting admission. While admitted, patient treated for aspiration pneumonia and UTI, showed slow progress At one-point was having hospital delirium. Also developed esophagitis. GI consulted and was placed on carafate Tolerating soft diet. Patient also developed pleural effusion which have appeared to be resolved on most recent CXR 11/01 Acute respiratory failure with hypoxia R lower lobe pneumonia, poss. aspiration pna Pleural effusion COPD, without exacerbation Reviewed patient's multiple imaging since admission Completed antibiotic course Repeat CXR notes pulm edema, mildly decreased size of pleural effusion with persistent bilateral bibasilar opacities Currently on 3 L nasal cannula Continue to wean off oxygen Encouraged to continue incentive spirometry 11/01: Lasix 20mg IV given without much change in oxygen needs. 11/02: Alkalotic on labs, will avoid further lasix for now. UTI Urine cx positive for E.coli Completed 10 day course of antibiotics Dysphagia from esophagitis CT chest noted severe esophageal thickening with paraesophageal edema. No extraluminal gas at this time to suggest a perforation. Therefore, this favors a nonspecific esophagitis. Tolerating soft diet. Encourage po intake Continue Sucralfate and Protonix Prerenal acute kidney injury Patient with elevated BUN of 43, Cr 0.97 with a BUN/creatinine ratio of 35.1 Secondary to poor p.o. intake, N/V Had resolved Monitor renal function Low K and Mg From poor intake Monitor and replete as needed CAD with history of CABG x1 Elevated troponin Abnormal EKGwith T wave inversions inferior & laterally -unchanged from prior Patient without chest pain Troponin mildly elevated, serial CE essentially unchanged likely elev. secondary to above/demand ischemia Continue aspirin HTN In ED patient met criteria for hypertensive urgency with peak blood pressure 204/114 She received 5 mg IV hydralazine which improved BP to 158/81 Previously patient have been prescribed amlodipine 2.5 mg which has since been discontinued Amlodipine 2.5 mg resumed and currently on 7.5mg daily BP is at goal Monitor Pulmonary Nodule Lobulated 1.8 cm solid left lower lobe pulmonary nodule per CT scan Suspicious for bronchogenic carcinoma in setting of tobacco history Previous Provider had discussed with brothers at bedside and recommended pulmonary evaluation as outpatient if patient wishes to pursue further work-up Severe Malnutrition Pt cachectic on phys. exam Continue nutritional supplement Encourage po intake DVT prophylaxis:Heparin BID Dispo: discontinue tele CM working on placement PCP: Kae Lockhart DNR/DNI Patricia Abrams DO [facility] Hospitalist Admission and Anticipated Discharge Date Admission Date: October 13, 2022 Subjective 87 yo F with esophagitis and aspiration pneumonia nitially presented for back pain and vomiting which is now resolved, with hospital course c/b CHF exacerb ation. She reports that her breathing is fine and she is not SOB She was up and transferring to the bedside commode today, requiring queuing but little assistance. Denies any issues with eating stable oxygen needs. Awaiting placement. Review of Systems Review of Systems: All systems reviewed negative except as indicated above. Physical Exam Physical Exam: CONSTITUTIONAL: thin, frail, elderly, vitals as above, NAD EYES: normal conjunctivae, no scleral icterus ENT: external ear and nose normal, NECK: trachea midline, RESPIRATORY: clear to auscultation bilaterally, no crackles, rales or wheezes, normal respiratory effort CARDIOVASCULAR: regular rate and rhythm, S1 and 2 heard without murmurs, gallops or rubs, no JVD, no peripheral edema CHEST: inspection of chest was normal GASTROINTESTINAL: soft, nontender, ND, no guarding MUSCULOSKELETAL: strength 5/5 throughout, head is normocephalic and atraumatic SKIN: warm and dry NEUROLOGIC: CN 2-12 grossly intact, no sensory deficit, normal cognition, normal speech, no tremor PSYCHIATRIC: alert cooperative and answering questions appropriately. Results & Data Results & Data ([facility]) Vital Signs (Past 12 Hours) Vital Signs Temp Pulse Resp BP Pulse Ox O2 Del Method O2 Flow Rate 11/03/22 07:16 36.3 C L 54 L 14 138/80 96 Nasal Cannula 3 Medications Administered Current Inpatient Medications Acetaminophen (Acetaminophen 325 Mg Tab) 650 mg PO Q4H PRN PRN Reason: Pain or Fever Stop: 11/12/22 16:28 Last Admin: 10/24/22 06:25 Dose: 650 mg Al Hydrox/Mg Hydrox/Simethicone (Aluminum/Magnesium Susp 30 Ml Udc) 15 ml PO Q 4H PRN PRN Reason: Dyspepsia Stop: 11/12/22 16:28 Last Admin: 10/20/22 22:23 Dose: 15 ml Albuterol (Albut/Ipratrop 3mg/0.5mg Neb 3 Ml Vial) 3 ml NEB Q4R PRN; Protocol PRN Reason: sob/wheezing Stop: 11/12/22 16:28 Amlodipine Besylate (Amlodipine Besylate 5 Mg Tab) 7.5 mg PO QAM [facility] Stop: 11/22/22 08:59 Last Admin: 11/03/22 09:05 Dose: 7.5 mg Aspirin (Aspirin 81 Mg Ectab) 81 mg PO DAILY [facility] Stop: 11/13/22 08:59 Last Admin: 11/03/22 09:05 Dose: 81 mg Cyclobenzaprine HCl (Cyclobenzaprine Hcl 5 Mg Tab) 2.5 mg PO BID [facility] Stop: 11/12/22 20:59 Last Admin: 10/15/22 08:21 Dose: 2.5 mg Fenofibrate (Fenofibrate Nanocrystallized 145 Mg Tablet) 145 mg PO Q24H [facility] Stop: 11/13/22 11:59 Last Admin: 11/03/22 12:44 Dose: 145 mg Guaifenesin (Guaifenesin Sugar Free 200 Mg/10 Ml Udc) 200 mg PO Q6 PRN PRN Reason: congestion/cough Stop: 11/13/22 14:59 Heparin Sodium (Porcine) (Heparin Sod 5,000 Unit/0.5 Ml Vial) 5,000 units SQ Q12 [facility] Stop: 11/12/22 20:59 Last Admin: 11/03/22 09:04 Dose: 5,000 units Promethazine HCl 6.25 mg/ (Sodium Chloride) 50.25 mls @ 201 mls/hr IV Q6H PRN PRN Reason: Nausea And Vomiting Stop: 03/13/23 04:21 Last Infusion: 10/21/22 05:23 Dose: Infused Lactobacillus Acidophilus (Advanced Probiotic 1250 Mg Capsule) 2 cap PO DAILY [facility] Stop: 11/22/22 11:29 Last Admin: 11/03/22 09:05 Dose: 2 cap Lidocaine (Lidocaine 5% 1 Patch) 1 patch TD QAM [facility] Stop: 11/12/22 16:28 Last Admin: 11/03/22 09:06 Dose: 1 patch Magnesium Hydroxide (Magnesium Hydroxide Susp 30 Ml Udc) 30 ml PO Q6H PRN PRN Reason: Constipation Stop: 11/17/22 16:31 Melatonin (Melatonin 3 Mg Tab) 3 mg PO DAILY PRN PRN Reason: Sleep Stop: 11/13/22 15:48 Last Admin: 10/18/22 19:42 Dose: 3 mg Mirtazapine (Mirtazapine Soltab 15 Mg) 7.5 mg PO HS [facility] Stop: 11/12/22 20:59 Last Admin: 11/02/22 21:59 Dose: 7.5 mg Miscellaneous (Remove Lidoderm Patch) 1 each N/A DAILY@2100 [facility] Stop: 11/12/22 20:59 Last Admin: 11/02/22 22:00 Dose: 1 each Multivitamins/Minerals (Cerovite Adv Formula Tab) 1 tab PO BID [facility] Stop: 11/12/22 20:59 Last Admin: 11/03/22 09:04 Dose: 1 tab Pantoprazole Sodium (Pantoprazole 40 Mg Tab) 40 mg PO BID [facility] Stop: 12/01/22 20:59 Last Admin: 11/03/22 09:04 Dose: 40 mg Polyethylene Glycol (Polyethylene (Miralax) 17 Gm Pack) 17 gm PO DAILY PRN PRN Reason: Constipation Stop: 11/12/22 16:28 Senna/Docusate Sodium (Docusate Sodium/Senna 50/8.6mg Tab) 1 tab PO BID [facility] Stop: 11/20/22 04:29 Last Admin: 10/23/22 08:41 Dose: 1 tab Sucralfate (Sucralfate 1 Gm/10 Ml Udc) 1 gm PO QID [facility] Stop: 11/18/22 16:59 Last Admin: 11/03/22 12:44 Dose: 1 gm Vitamin B Complex (Vitamin B Complex Tab) 1 tab PO QAM [facility] Stop: 11/22/22 16:44 Last Admin: 11/03/22 09:04 Dose: 1 tab Vitamin D (Cholecalciferol 5,000 Units 125 Mcg Tab) 5,000 units PO DAILY [facility] Stop: 11/13/22 08:59 Last Admin: 11/03/22 09:05 Dose: 5,000 units (3) UTI (urinary tract infection) Hematuria presence: without hematuria Urinary tract infection type: acute cystitis Qualified Code(s): N30.00 - Acute cystitis without hematuria (5) Low back pain Back pain laterality: midline Chronicity: acute Sciatica presence: without sciatica Qualified Code(s): M54.50 - Low back pain, unspecified (10) HTN (hypertension) Hypertension type: unspecified Qualified Code(s): I10 - Essential (primary) hypertension
[2022-11-03] MEDS: MIRTAZAPINE SOLTAB 15 MG PO SCH (21:16)
[2022-11-04] MEDS: VITAMIN B COMPLEX TAB PO SCH (08:40)
[2022-11-04] MEDS: CHOLECALCIFEROL 5,000 UNITS 125 MCG TAB PO SCH (08:40)
[2022-11-04] MEDS: CEROVITE ADV FORMULA TAB PO SCH ×3 (08:40→21:29)
[2022-11-04] MEDS: HEPARIN SOD 5,000 UNIT/0.5 ML VIAL SQ SCH ×2 (08:40→21:14)
[2022-11-04] MEDS: SUCRALFATE 1 GM/10 ML UDC PO SCH ×4 (08:40→21:13)
[2022-11-04] MEDS: ASPIRIN 81 MG ECTAB PO SCH (08:40)
[2022-11-04] MEDS: amLODIPine BESYLATE 5 MG TAB PO SCH (08:40)
[2022-11-04] MEDS: PANTOprazole 40 MG TAB PO SCH ×2 (08:40→21:13)
[2022-11-04] MEDS: ADVANCED PROBIOTIC 1250 MG CAPSULE PO SCH (08:40)
[2022-11-04] MEDS: LIDOCAINE 5% 1 PATCH TD SCH (08:41)
--- NOTE | 2022-11-04 10:36 | Hospitalist Progress Note ---
Date of Service November 04, 2022 Assessment & Plan (1) Acute respiratory failure with hypoxia: (2) Right lower lobe pneumonia: (3) UTI (urinary tract infection): (4) Dehydration: (5) Low back pain: (6) Esophagitis: (7) Pulmonary nodule: (8) CAD (coronary artery disease): (9) Hx of CABG: (10) HTN (hypertension): Plan 87-year-old female who has significant past medical history of COPD, CAD with history of CABG x1, HLD, renal artery stenosis, HTN, glaucoma, elevated hemo globin, history of tobacco abuse disorder, hard of hearing who presents to ED due to back pain x 1 week; N/V and poor PO intake for 1.5 days. Patient had a fall at home, was placed on oral narcotics for pain control, then developed nausea and vomiting, prompting admission. While admitted, patient treated for aspiration pneumonia and UTI, showed slow progress At one-point was having hospital delirium. Also developed esophagitis. GI consulted and was placed on carafate Tolerating soft diet. Patient also developed pleural effusion which have appeared to be resolved on most recent CXR 11/01 Acute respiratory failure with hypoxia R lower lobe pneumonia, poss. aspiration pna Pleural effusion COPD, without exacerbation Reviewed patient's multiple imaging since admission Completed antibiotic course Repeat CXR notes pulm edema, mildly decreased size of pleural effusion with persistent bilateral bibasilar opacities Currently on 3 L nasal cannula Continue to wean off oxygen Encouraged to continue incentive spirometry 11/01: Lasix 20mg IV given without much change in oxygen needs. 11/02: Alkalotic on labs, will avoid further lasix for now. 11/04: oxygen needs are stable/improved. Suspect oxygen requirement will resolve once she is undergoing more rehab and moving around more. UTI Urine cx positive for E.coli Completed 10 day course of antibiotics Dysphagia from esophagitis CT chest noted severe esophageal thickening with paraesophageal edema. No extraluminal gas at this time to suggest a perforation. Therefore, this favors a nonspecific esophagitis. Tolerating soft diet. Encourage po intake Continue Sucralfate and Protonix Prerenal acute kidney injury Patient with elevated BUN of 43, Cr 0.97 with a BUN/creatinine ratio of 35.1 Secondary to poor p.o. intake, N/V Had resolved Monitor renal function Low K and Mg From poor intake Monitor and replete as needed CAD with history of CABG x1 Elevated troponin Abnormal EKGwith T wave inversions inferior & laterally -unchanged from prior Patient without chest pain Troponin mildly elevated, serial CE essentially unchanged likely elev. secondary to above/demand ischemia Continue aspirin HTN In ED patient met criteria for hypertensive urgency with peak blood pressure 204/114 She received 5 mg IV hydralazine which improved BP to 158/81 Previously patient have been prescribed amlodipine 2.5 mg which has since been discontinued Amlodipine 2.5 mg resumed and currently on 7.5mg daily BP is at goal Monitor Pulmonary Nodule Lobulated 1.8 cm solid left lower lobe pulmonary nodule per CT scan Suspicious for bronchogenic carcinoma in setting of tobacco history Previous Provider had discussed with brothers at bedside and recommended pulmonary evaluation as outpatient if patient wishes to pursue further work-up Severe Malnutrition Pt cachectic on phys. exam Continue nutritional supplement Encourage po intake DVT prophylaxis:Heparin BID Dispo: [facility] working on placement PCP: Kae Lockhart DNR/DNI DO [facility] Hospitalist Admission and Anticipated Discharge Date Admission Date: October 13, 2022 Subjective 87 yo F with esophagitis and aspiration pneumonia initially presented for back pain and vomiting which is now resolved, with hospital course c/b CHF exacerbation. oxygen needs are stable/improved denies respiratory symptoms or shortness of breath Review of Systems Review of Systems: All systems reviewed negative except as indicated above. Physical Exam Physical Exam: CONSTITUTIONAL: thin, frail, elderly, vitals as above, NAD EYES: normal conjunctivae, no scleral icterus ENT: external ear and nose normal, NECK: trachea midline, RESPIRATORY: clear to auscultation bilaterally, no crackles, rales or wheezes, normal respiratory effort CARDIOVASCULAR: regular rate and rhythm, S1 and 2 heard without murmurs, gallops or rubs, no JVD, no peripheral edema CHEST: inspection of chest was normal GASTROINTESTINAL: soft, nontender, ND, no guarding MUSCULOSKELETAL: strength 5/5 throughout, head is normocephalic and atraumatic SKIN: warm and dry NEUROLOGIC: CN 2-12 grossly intact, no sensory deficit, normal cognition, normal speech, no tremor PSYCHIATRIC: alert cooperative and answering questions appropriately. Results & Data Results & Data ([facility]) Vital Signs (Past 12 Hours) Vital Signs Temp Pulse Resp BP Pulse Ox O2 Del Method O2 Flow Rate 11/04/22 08:51 Nasal Cannula 3 11/04/22 07:26 36.3 C L 64 14 133/78 96 Nasal Cannula 3 11/03/22 22:41 36.6 C 55 L 16 106/61 94 Nasal Cannula 3 Medications Administered Current Inpatient Medications Acetaminophen (Acetaminophen 325 Mg Tab) 650 mg PO Q4H PRN PRN Reason: Pain or Fever Stop: 11/12/22 16:28 Last Admin: 10/24/22 06:25 Dose: 650 mg Al Hydrox/Mg Hydrox/Simethicone (Aluminum/Magnesium Susp 30 Ml Udc) 15 ml PO Q4H PRN PRN Reason: Dyspepsia Stop: 11/12/22 16:28 Last Admin: 10/20/22 22:23 Dose: 15 ml Albuterol (Albut/Ipratrop 3mg/0.5mg Neb 3 Ml Vial) 3 ml NEB Q4R PRN; Protocol PRN Reason: sob/wheezing Stop: 11/12/22 16:28 Amlodipine Besylate (Amlodipine Besylate 5 Mg Tab) 7.5 mg PO QAM [facility] Stop: 11/22/22 08:59 Last Admin: 11/04/22 08:40 Dose: 7.5 mg Aspirin (Aspirin 81 Mg Ectab) 81 mg PO DAILY [facility] Stop: 11/13/22 08:59 Last Admin: 11/04/22 08:40 Dose: 81 mg Cyclobenzaprine HCl (Cyclobenzaprine Hcl 5 Mg Tab) 2.5 mg PO BID [facility] Stop: 11/12/22 20:59 Last Admin: 10/15/22 08:21 Dose: 2.5 mg Fenofibrate (Fenofibrate Nanocrystallized 145 Mg Tablet) 145 mg PO Q24H [facility] Stop: 11/13/22 11:59 Last Admin: 11/03/22 12:44 Dose: 145 mg Guaifenesin (Guaifenesin Sugar Free 200 Mg/10 Ml Udc) 200 mg PO Q6 PRN PRN Reason: congestion/cough Stop: 11/13/22 14:59 Heparin Sodium (Porcine) (Heparin Sod 5,000 Unit/0.5 Ml Vial) 5,000 units SQ Q12 [facility] Stop: 11/12/22 20:59 Last Admin: 11/04/22 08:40 Dose: 5,000 units Promethazine HCl 6.25 mg/ (Sodium Chloride) 50.25 mls @ 201 mls/hr IV Q6H PRN PRN Reason: Nausea And Vomiting Stop: 11/20/22 04:21 Last Infusion: 10/21/22 05:23 Dose: Infused Lactobacillus Acidophilus (Advanced Probiotic 1250 Mg Capsule) 2 cap PO DAILY [facility] Stop: 11/22/22 11:29 Last Admin: 11/04/22 08:40 Dose: 2 cap Lidocaine (Lidocaine 5% 1 Patch) 1 patch TD QAM [facility] Stop: 11/12/22 16:28 Last Admin: 11/04/22 08:41 Dose: 1 patch Magnesium Hydroxide (Magnesium Hydroxide Susp 30 Ml Udc) 30 ml PO Q6H PRN PRN Reason: Constipation Stop: 11/17/22 16:31 Melatonin (Melatonin 3 Mg Tab) 3 mg PO DAILY PRN PRN Reason: Sleep Stop: 11/13/22 15:48 Last Admin: 10/18/22 19:42 Dose: 3 mg Mirtazapine (Mirtazapine Soltab 15 Mg) 7.5 mg PO HS [facility] Stop: 11/12/22 20:59 Last Admin: 11/03/22 21:16 Dose: 7.5 mg Miscellaneous (Remove Lidoderm Patch) 1 each N/A DAILY@2100 [facility] Stop: 11/12/22 20:59 Last Admin: 11/03/22 21:16 Dose: 1 each Multivitamins/Minerals (Cerovite Adv Formula Tab) 1 tab PO BID [facility] Stop: 11/12/22 20:59 Last Admin: 11/04/22 08:40 Dose: 1 tab Pantoprazole Sodium (Pantoprazole 40 Mg Tab) 40 mg PO BID [facility] Stop: 12/01/22 20:59 Last Admin: 11/04/22 08:40 Dose: 40 mg Polyethylene Glycol (Polyethylene (Miralax) 17 Gm Pack) 17 gm PO DAILY PRN PRN Reason: Constipation Stop: 11/12/22 16:28 Senna/Docusate Sodium (Docusate Sodium/Senna 50/8.6mg Tab) 1 tab PO BID [facility] Stop: 11/20/22 04:29 Last Admin: 10/23/22 08:41 Dose: 1 tab Sucralfate (Sucralfate 1 Gm/10 Ml Udc) 1 gm PO QID [facility] Stop: 11/18/22 16:59 Last Admin: 11/04/22 08:40 Dose: 1 gm Vitamin B Complex (Vitamin B Complex Tab) 1 tab PO QAM [facility] Stop: 11/22/22 16:44 Last Admin: 11/04/22 08:40 Dose: 1 tab Vitamin D (Cholecalciferol 5,000 Units 125 Mcg Tab) 5,000 units PO DAILY [facility] Stop: 11/13/22 08:59 Last Admin: 11/04/22 08:40 Dose: 5,000 units (3) UTI (urinary tract infection) Hematuria presence: without hematuria Urinary tract infection type: acute cystitis Qualified Code(s): N30.00 - Acute cystitis without hematuria (5) Low back pain Back pain laterality: midline Chronicity: acute Sciatica presence: without sciatica Qualified Code(s): M54.50 - Low back pain, unspecified (10) HTN (hypertension) Hypertension type: unspecified Qualified Code(s): I10 - Essential (primary) hypertension
[2022-11-04] MEDS: FENOFIBRATE NANOCRYSTALLIZED 145 MG TABLET PO SCH (12:17)
[2022-11-04] MEDS ORDERED: GLYCERIN ADULT 12 SUPP/BOX SUPP PR PRN (15:48)
[2022-11-04] MEDS: MIRTAZAPINE SOLTAB 15 MG PO SCH (21:13)
[2022-11-05] MEDS: ASPIRIN 81 MG ECTAB PO SCH (08:25)
[2022-11-05] MEDS: CHOLECALCIFEROL 5,000 UNITS 125 MCG TAB PO SCH (08:25)
[2022-11-05] MEDS: SUCRALFATE 1 GM/10 ML UDC PO SCH ×4 (08:25→20:49)
[2022-11-05] MEDS: VITAMIN B COMPLEX TAB PO SCH (08:26)
[2022-11-05] MEDS: ADVANCED PROBIOTIC 1250 MG CAPSULE PO SCH (08:26)
[2022-11-05] MEDS: amLODIPine BESYLATE 5 MG TAB PO SCH (08:26)
[2022-11-05] MEDS: LIDOCAINE 5% 1 PATCH TD SCH (08:27)
[2022-11-05] MEDS: PANTOprazole 40 MG TAB PO SCH ×2 (08:27→20:50)
[2022-11-05] MEDS: CEROVITE ADV FORMULA TAB PO SCH ×2 (08:27→20:50)
[2022-11-05] MEDS: HEPARIN SOD 5,000 UNIT/0.5 ML VIAL SQ SCH ×2 (08:33→20:50)
--- NOTE | 2022-11-05 12:04 | Hospitalist Progress Note ---
Date of Service November 05, 2022 Assessment & Plan (1) Acute respiratory failure with hypoxia: (2) Right lower lobe pneumonia: (3) UTI (urinary tract infection): (4) Dehydration: (5) Low back pain: (6) Esophagitis: (7) Pulmonary nodule: (8) CAD (coronary artery disease): (9) Hx of CABG: (10) HTN (hypertension): Plan 87-year-old female who has significant past medical history of COPD, CAD with history of CABG x1, HLD, renal artery stenosis, HTN, glaucoma, elevated hemo globin, history of tobacco abuse disorder, hard of hearing who presents to ED due to back pain x 1 week; N/V and poor PO intake for 1.5 days. Patient had a fall at home, was placed on oral narcotics for pain control, then developed nausea and vomiting, prompting admission. While admitted, patient treated for aspiration pneumonia and UTI, showed slow progress At one-point was having hospital delirium. Also developed esophagitis. GI consulted and was placed on carafate Tolerating soft diet. Patient also developed pleural effusion which have appeared to be resolved on most recent CXR 11/01 Acute respiratory failure with hypoxia R lower lobe pneumonia, poss. aspiration pna Pleural effusion COPD, without exacerbation Reviewed patient's multiple imaging since admission Completed antibiotic course Repeat CXR notes pulm edema, mildly decreased size of pleural effusion with persistent bilateral bibasilar opacities Currently on 3 L nasal cannula Continue to wean off oxygen Encouraged to continue incentive spirometry 11/01: Lasix 20mg IV given without much change in oxygen needs. 11/02: Alkalotic on labs, will avoid further lasix for now. 11/04: oxygen needs are stable/improved. Suspect oxygen requirement will resolve once she is undergoing more rehab and moving around more. UTI Urine cx positive for E.coli Completed 10 day course of antibiotics Dysphagia from esophagitis CT chest noted severe esophageal thickening with paraesophageal edema. No extraluminal gas at this time to suggest a perforation. Therefore, this favors a nonspecific esophagitis. Tolerating soft diet. Encourage po intake Continue Sucralfate and Protonix Prerenal acute kidney injury Patient with elevated BUN of 43, Cr 0.97 with a BUN/creatinine ratio of 35.1 Secondary to poor p.o. intake, N/V resolved Low K and Mg From poor intake Monitor and replete as needed resolved CAD with history of CABG x1 Elevated troponin Abnormal EKGwith T wave inversions inferior & laterally -unchanged from prior Patient without chest pain Troponin mildly elevated, serial CE essentially unchanged likely elev. secondary to above/demand ischemia Continue aspirin HTN In ED patient met criteria for hypertensive urgency with peak blood pressure 204/114 She received 5 mg IV hydralazine which improved BP to 158/81 Previously patient have been prescribed amlodipine 2.5 mg which has since been discontinued Amlodipine 2.5 mg resumed and currently on 7.5mg daily BP is at goal Monitor Pulmonary Nodule Lobulated 1.8 cm solid left lower lobe pulmonary nodule per CT scan Suspicious for bronchogenic carcinoma in setting of tobacco history Previous Provider had discussed with brothers at bedside and recommended pulmonary evaluation as outpatient if patient wishes to pursue further work-up Severe Malnutrition Pt cachectic on phys. exam Continue nutritional supplements/MVI and B vitamins Encourage po intake Some constipation resolved with enema overnight. Will restart scheduled stool softeners. DVT prophylaxis:Heparin BID Dispo: CM working on placement PCP: Kae Lockhart [facility] Admission and Anticipated Discharge Date Admission Date: October 13, 2022 Subjective 87 yo F with esophagitis and aspiration pneumonia initially presented for back pain and vomiting which is now resolved, with hospital course c/b CHF exacerbation. oxygen needs are stable/improved denies respiratory symptoms or shortness of breath denies other issues Tolerating PO Review of Systems Review of Systems: All systems reviewed negative except as indicated above. Physical Exam Physical Exam: CONSTITUTIONAL: thin, frail, elderly, vitals as above, NAD EYES: normal conjunctivae, no scleral icterus ENT: external ear and nose normal, NECK: trachea midline, RESPIRATORY: clear to auscultation bilaterally, no crackles, rales or wheezes, normal respiratory effort CARDIOVASCULAR: regular rate and rhythm, S1 and 2 heard without murmurs, gallops or rubs, no JVD, no peripheral edema CHEST: inspection of chest was normal GASTROINTESTINAL: soft, nontender, ND, no guarding MUSCULOSKELETAL: strength 5/5 throughout, head is normocephalic and atraumatic SKIN: warm and dry NEUROLOGIC: CN 2-12 grossly intact, no sensory deficit, normal cognition, normal speech, no tremor PSYCHIATRIC: alert cooperative and answering questions appropriately. Results & Data Results & Data ([facility]) Vital Signs (Past 12 Hours) Vital Signs Temp Pulse Resp BP Pulse Ox O2 Del Method O2 Flow Rate 11/05/22 11:02 Nasal Cannula 3 11/05/22 07:49 36.5 C 60 14 115/65 98 Nasal Cannula 3 Medications Administered Current Inpatient Medications Acetaminophen (Acetaminophen 325 Mg Tab) 650 mg PO Q4H PRN PRN Reason: Pain or Fever Stop: 11/12/22 16:28 Last Admin: 10/24/22 06:25 Dose: 650 mg Al Hydrox/Mg Hydrox/Simethicone (Aluminum/Magnesium Susp 30 Ml Udc) 15 ml PO Q4H PRN PRN Reason: Dyspepsia Stop: 11/12/22 16:28 Last Admin: 10/20/22 22:23 Dose: 15 ml Albuterol (Albut/Ipratrop 3mg/0.5mg Neb 3 Ml Vial) 3 ml NEB Q4R PRN; Protocol PRN Reason: sob/wheezing Stop: 11/12/22 16:28 Amlodipine Besylate (Amlodipine Besylate 5 Mg Tab) 7.5 mg PO QAM MARYLU Stop: 11/22/22 08:59 Last Admin: 11/05/22 08:26 Dose: Not Given Aspirin (Aspirin 81 Mg Ectab) 81 mg PO DAILY MARYLU Stop: 11/13/22 08:59 Last Admin: 11/05/22 08:25 Dose: 81 mg Cyclobenzaprine HCl (Cyclobenzaprine Hcl 5 Mg Tab) 2.5 mg PO BID MARYLU Stop: 11/12/22 20:59 Last Admin: 10/15/22 08:21 Dose: 2.5 mg Fenofibrate (Fenofibrate Nanocrystallized 145 Mg Tablet) 145 mg PO Q24H MARYLU Stop: 11/13/22 11:59 Last Admin: 11/04/22 12:17 Dose: 145 mg Glycerin (Glycerin Adult 12 Supp/Box Supp) 1 supp [place] Q24H PRN PRN Reason: Constipation Stop: 12/04/22 15:47 Guaifenesin (Guaifenesin Sugar Free 200 Mg/10 Ml Udc) 200 mg PO Q6 PRN PRN Reason: congestion/cough Stop: 11/13/22 14:59 Heparin Sodium (Porcine) (Heparin Sod 5,000 Unit/0.5 Ml Vial) 5,000 units SQ Q12 MARYLU Stop: 11/12/22 20:59 Last Admin: 11/05/22 08:33 Dose: 5,000 units Promethazine HCl 6.25 mg/ (Sodium Chloride) 50.25 mls @ 201 mls/hr IV Q6H PRN PRN Reason: Nausea And Vomiting Stop: 11/20/22 04:21 Last Infusion: 10/21/22 05:23 Dose: Infused Lactobacillus Acidophilus (Advanced Probiotic 1250 Mg Capsule) 2 cap PO DAILY MARYLU Stop: 11/22/22 11:29 Last Admin: 11/05/22 08:26 Dose: 2 cap Lidocaine (Lidocaine 5% 1 Patch) 1 patch TD QAM MARYLU Stop: 11/12/22 16:28 Last Admin: 11/05/22 08:27 Dose: 1 patch Magnesium Hydroxide (Magnesium Hydroxide Susp 30 Ml Udc) 30 ml PO Q6H PRN PRN Reason: Constipation Stop: 11/17/22 16:31 Melatonin (Melatonin 3 Mg Tab) 3 mg PO DAILY PRN PRN Reason: Sleep Stop: 11/13/22 15:48 Last Admin: 10/18/22 19:42 Dose: 3 mg Mirtazapine (Mirtazapine Soltab 15 Mg) 7.5 mg PO HS MARYLU Stop: 11/12/22 20:59 Last Admin: 11/04/22 21:13 Dose: 7.5 mg Miscellaneous (Remove Lidoderm Patch) 1 each N/A DAILY@2100 MARYLU Stop: 11/12/22 20:59 Last Admin: 11/04/22 21:14 Dose: 1 each Multivitamins/Minerals (Cerovite Adv Formula Tab) 1 tab PO BID MARYLU Stop: 11/12/22 20:59 Last Admin: 11/05/22 08:27 Dose: 1 tab Pantoprazole Sodium (Pantoprazole 40 Mg Tab) 40 mg PO BID MARYLU Stop: 12/01/22 20:59 Last Admin: 11/05/22 08:27 Dose: 40 mg Polyethylene Glycol (Polyethylene (Miralax) 17 Gm Pack) 17 gm PO DAILY PRN PRN Reason: Constipation Stop: 11/12/22 16:28 Senna/Docusate Sodium (Docusate Sodium/Senna 50/8.6mg Tab) 1 tab PO BID MARYLU Stop: 11/20/22 04:29 Last Admin: 10/23/22 08:41 Dose: 1 tab Sucralfate (Sucralfate 1 Gm/10 Ml Udc) 1 gm PO QID [facility] Stop: 11/18/22 16:59 Last Admin: 11/05/22 08:25 Dose: 1 gm Vitamin B Complex (Vitamin B Complex Tab) 1 tab PO QAM [facility] Stop: 11/22/22 16:44 Last Admin: 11/05/22 08:26 Dose: 1 tab Vitamin D (Cholecalciferol 5,000 Units 125 Mcg Tab) 5,000 units PO DAILY MARYLU Stop: 11/13/22 08:59 Last Admin: 11/05/22 08:25 Dose: 5,000 units (3) UTI (urinary tract infection) Hematuria presence: without hematuria Urinary tract infection type: acute cystitis Qualified Code(s): N30.00 - Acute cystitis without hematuria (5) Low back pain Back pain laterality: midline Chronicity: acute Sciatica presence: without sciatica Qualified Code(s): M54.50 - Low back pain, unspecified (10) HTN (hypertension) Hypertension type: unspecified Qualified Code(s): I10 - Essential (primary) hypertension
[2022-11-05] MEDS: FENOFIBRATE NANOCRYSTALLIZED 145 MG TABLET PO SCH (12:07)
[2022-11-05] MEDS: MIRTAZAPINE SOLTAB 15 MG PO SCH (20:50)
[2022-11-05] MEDS: DOCUSATE SODIUM/SENNA 50/8.6MG TAB PO SCH (20:54)
[2022-11-06] MEDS: SUCRALFATE 1 GM/10 ML UDC PO SCH ×4 (08:03→20:09)
[2022-11-06] MEDS: amLODIPine BESYLATE 5 MG TAB PO SCH (08:05)
[2022-11-06] MEDS: ASPIRIN 81 MG ECTAB PO SCH (08:12)
[2022-11-06] MEDS: CEROVITE ADV FORMULA TAB PO SCH ×2 (08:13→20:08)
[2022-11-06] MEDS: CHOLECALCIFEROL 5,000 UNITS 125 MCG TAB PO SCH (08:13)
[2022-11-06] MEDS: VITAMIN B COMPLEX TAB PO SCH (08:13)
[2022-11-06] MEDS: PANTOprazole 40 MG TAB PO SCH ×2 (08:13→20:08)
[2022-11-06] MEDS: HEPARIN SOD 5,000 UNIT/0.5 ML VIAL SQ SCH ×2 (08:23→20:09)
[2022-11-06] MEDS: DOCUSATE SODIUM/SENNA 50/8.6MG TAB PO SCH ×2 (08:37→20:09)
[2022-11-06] MEDS: FENOFIBRATE NANOCRYSTALLIZED 145 MG TABLET PO SCH (11:44)
--- NOTE | 2022-11-06 15:37 | Hospitalist Progress Note ---
Date of Service November 06, 2022 Assessment & Plan (1) Acute respiratory failure with hypoxia: (2) Right lower lobe pneumonia: (3) UTI (urinary tract infection): (4) Dehydration: (5) Low back pain: (6) Esophagitis: (7) Pulmonary nodule: (8) CAD (coronary artery disease): (9) Hx of CABG: (10) HTN (hypertension): Plan 87-year-old female who has significant past medical history of COPD, CAD with history of CABG x1, HLD, renal artery stenosis, HTN, glaucoma, elevated hemo globin, history of tobacco abuse disorder, hard of hearing who presents to ED due to back pain x 1 week; N/V and poor PO intake for 1.5 days. Patient had a fall at home, was placed on oral narcotics for pain control, then developed nausea and vomiting, prompting admission. While admitted, patient treated for aspiration pneumonia and UTI, showed slow progress At one-point was having hospital delirium. Also developed esophagitis. GI consulted and was placed on carafate Tolerating soft diet. Patient also developed pleural effusion which have appeared to be resolved on most recent CXR 11/01 Acute respiratory failure with hypoxia R lower lobe pneumonia, poss. aspiration pna Pleural effusion COPD, without exacerbation Reviewed patient's multiple imaging since admission Completed antibiotic course Repeat CXR notes pulm edema, mildly decreased size of pleural effusion with persistent bilateral bibasilar opacities Currently on 3 L nasal cannula Continue to wean off oxygen Encouraged to continue incentive spirometry 11/01: Lasix 20mg IV given without much change in oxygen needs. 11/02: Alkalotic on labs, will avoid further lasix for now. 11/04: oxygen needs are stable/improved. Suspect oxygen requirement will resolve once she is undergoing more rehab and moving around more. UTI Urine cx positive for E.coli Completed 10 day course of antibiotics Dysphagia from esophagitis CT chest noted severe esophageal thickening with paraesophageal edema. No extraluminal gas at this time to suggest a perforation. Therefore, this favors a nonspecific esophagitis. Tolerating soft diet. Encourage po intake Continue Sucralfate and Protonix Prerenal acute kidney injury Patient with elevated BUN of 43, Cr 0.97 with a BUN/creatinine ratio of 35.1 Secondary to poor p.o. intake, N/V resolved Low K and Mg From poor intake Monitor and replete as needed resolved CAD with history of CABG x1 Elevated troponin Abnormal EKGwith T wave inversions inferior & laterally -unchanged from prior Patient without chest pain Troponin mildly elevated, serial CE essentially unchanged likely elev. secondary to above/demand ischemia Continue aspirin HTN In ED patient met criteria for hypertensive urgency with peak blood pressure 204/114 She received 5 mg IV hydralazine which improved BP to 158/81 Previously patient have been prescribed amlodipine 2.5 mg which has since been discontinued Amlodipine 2.5 mg resumed and currently on 7.5mg daily BP is at goal Monitor Pulmonary Nodule Lobulated 1.8 cm solid left lower lobe pulmonary nodule per CT scan Suspicious for bronchogenic carcinoma in setting of tobacco history Previous Provider had discussed with brothers at bedside and recommended pulmonary evaluation as outpatient if patient wishes to pursue further work-up Severe Malnutrition Pt cachectic on phys. exam Continue nutritional supplements/MVI and B vitamins Encourage po intake Some constipation resolved with enema overnight. Will restart scheduled stool softeners. DVT prophylaxis:Heparin BID Dispo: CM working on placement PCP: Kae Lockhart DNR/DNI Patricia Abrams DO [facility] Hospitalist Admission and Anticipated Discharge Date Admission Date: October 13, 2022 Subjective 87 yo F with esophagitis and aspiration pneumonia initially presented for back pain and vomiting which is now resolved, with hospital course c/b CHF exacerbation. oxygen needs are stable denies respiratory symptoms or shortness of breath denies other issues Tolerating PO states she didn't get out of bed today and was encouraged to do that Review of Systems Review of Systems: All systems reviewed negative except as indicated above. Physical Exam Physical Exam: CONSTITUTIONAL: thin, frail, elderly, vitals as above, NAD EYES: normal conjunctivae, no scleral icterus ENT: external ear and nose normal, NECK: trachea midline, RESPIRATORY: clear to auscultation bilaterally, no crackles, rales or wheezes, normal respiratory effort CARDIOVASCULAR: regular rate and rhythm, S1 and 2 heard without murmurs, gallops or rubs, no JVD, no peripheral edema CHEST: inspection of chest was normal GASTROINTESTINAL: soft, nontender, ND, no guarding MUSCULOSKELETAL: strength 5/5 throughout, head is normocephalic and atraumatic SKIN: warm and dry NEUROLOGIC: CN 2-12 grossly intact, no sensory deficit, normal cognition, normal speech, no tremor PSYCHIATRIC: alert cooperative and answering questions appropriately. Results & Data Results & Data ([facility]) Vital Signs (Past 12 Hours) Vital Signs Temp Pulse Pulse Resp BP BP Pulse Ox 11/06/22 14:46 37.0 C 61 14 104/61 91 11/06/22 08:45 11/06/22 07:42 36.7 C 57 L 19 157/76 H O2 Del Method O2 Flow Rate 11/06/22 14:46 Nasal Cannula 2 11/06/22 08:45 Nasal Cannula 2 11/06/22 07:42 Nasal Cannula 2 Medications Administered Current Inpatient Medications Acetaminophen (Acetaminophen 325 Mg Tab) 650 mg PO Q4H PRN PRN Reason: Pain or Fever Stop: 11/12/22 16:28 Last Admin: 10/24/22 06:25 Dose: 650 mg Al Hydrox/Mg Hydrox/Simethicone (Aluminum/Magnesium Susp 30 Ml Udc) 15 ml PO Q4H PRN PRN Reason: Dyspepsia Stop: 11/12/22 16:28 Last Admin: 10/20/22 22:23 Dose: 15 ml Albuterol (Albut/Ipratrop 3mg/0.5mg Neb 3 Ml Vial) 3 ml NEB Q4R PRN; Protocol PRN Reason: sob/wheezing Stop: 11/12/22 16:28 Amlodipine Besylate (Amlodipine Besylate 5 Mg Tab) 7.5 mg PO QAM MARYLU Stop: 11/22/22 08:59 Last Admin: 11/06/22 08:05 Dose: 7.5 mg Aspirin (Aspirin 81 Mg Ectab) 81 mg PO DAILY MARYLU Stop: 11/13/22 08:59 Last Admin: 11/06/22 08:12 Dose: 81 mg Cyclobenzaprine HCl (Cyclobenzaprine Hcl 5 Mg Tab) 2.5 mg PO BID MARYLU Stop: 11/12/22 20:59 Last Admin: 10/15/22 08:21 Dose: 2.5 mg Fenofibrate (Fenofibrate Nanocrystallized 145 Mg Tablet) 145 mg PO Q24H MARYLU Stop: 11/13/22 11:59 Last Admin: 11/06/22 11:44 Dose: 145 mg Glycerin (Glycerin Adult 12 Supp/Box Supp) 1 supp [place] Q24H PRN PRN Reason: Constipation Stop: 12/04/22 15:47 Guaifenesin (Guaifenesin Sugar Free 200 Mg/10 Ml Udc) 200 mg PO Q6 PRN PRN Reason: congestion/cough Stop: 11/13/22 14:59 Heparin Sodium (Porcine) (Heparin Sod 5,000 Unit/0.5 Ml Vial) 5,000 units SQ Q12 MARYLU Stop: 11/12/22 20:59 Last Admin: 11/06/22 08:23 Dose: 5,000 units Promethazine HCl 6.25 mg/ (Sodium Chloride) 50.25 mls @ 201 mls/hr IV Q6H PRN PRN Reason: Nausea And Vomiting Stop: 11/20/22 04:21 Last Infusion: 10/21/22 05:23 Dose: Infused Magnesium Hydroxide (Magnesium Hydroxide Susp 30 Ml Udc) 30 ml PO Q6H PRN PRN Reason: Constipation Stop: 11/17/22 16:31 Melatonin (Melatonin 3 Mg Tab) 3 mg PO DAILY PRN PRN Reason: Sleep Stop: 11/13/22 15:48 Last Admin: 10/18/22 19:42 Dose: 3 mg Mirtazapine (Mirtazapine Soltab 15 Mg) 7.5 mg PO HS MARYLU Stop: 11/12/22 20:59 Last Admin: 11/05/22 20:50 Dose: 7.5 mg Multivitamins/Minerals (Cerovite Adv Formula Tab) 1 tab PO BID MARYLU Stop: 11/12/22 20:59 Last Admin: 11/06/22 08:13 Dose: 1 tab Pantoprazole Sodium (Pantoprazole 40 Mg Tab) 40 mg PO BID MARYLU Stop: 12/01/22 20:59 Last Admin: 11/06/22 08:13 Dose: 40 mg Polyethylene Glycol (Polyethylene (Miralax) 17 Gm Pack) 17 gm PO DAILY PRN PRN Reason: Constipation Stop: 11/12/22 16:28 Senna/Docusate Sodium (Docusate Sodium/Senna 50/8.6mg Tab) 1 tab PO BID MARYLU Stop: 11/20/22 04:29 Last Admin: 11/06/22 08:37 Dose: 1 tab Sucralfate (Sucralfate 1 Gm/10 Ml Udc) 1 gm PO QID MARYLU Stop: 11/18/22 16:59 Last Admin: 11/06/22 12:02 Dose: 1 gm Vitamin B Complex (Vitamin B Complex Tab) 1 tab PO QAM [facility] Stop: 11/22/22 16:44 Last Admin: 11/06/22 08:13 Dose: 1 tab Vitamin D (Cholecalciferol 5,000 Units 125 Mcg Tab) 5,000 units PO DAILY [facility] Stop: 11/13/22 08:59 Last Admin: 11/06/22 08:13 Dose: 5,000 units (3) UTI (urinary tract infection) Hematuria presence: without hematuria Urinary tract infection type: acute cystitis Qualified Code(s): N30.00 - Acute cystitis without hematuria (5) Low back pain Back pain laterality: midline Chronicity: acute Sciatica presence: without sciatica Qualified Code(s): M54.50 - Low back pain, unspecified (10) HTN (hypertension) Hypertension type: unspecified Qualified Code(s): I10 - Essential (primary) hypertension
[2022-11-06] MEDS: MIRTAZAPINE SOLTAB 15 MG PO SCH (20:09)
[2022-11-07 07:17] LABS: Hemoglobin 12.4 g/dl (12.0-16.0); Mean Corpuscular Hemoglobin 30.1 pg (25.0-34.0); Mean Corpuscular Hgb Conc 32.6 g/dL (32.0-36.0); Mean Corpuscular Volume 92.2 fL (80.0-100.0); Mean Platelet Volume 11.4 fL (9.4-12.4); Platelet Count 401 K/uL (130-400); RDW Coefficient of Variation 16.4 % (11.5-14.5); RDW Standard Deviation 54.6 fL (36.4-46.3); Red Blood Count 4.12 M/uL (4.20-5.40); White Blood Count 5.96 K/ul (4.8-10.8)
[2022-11-07 07:39] LABS: BUN Creatinine Ratio 46.9 (10-20); Calcium 10.4 mg/dl (8.5-10.1); Creatinine Clr Calc Pharmacy 28.6 ml/min; Est GFR (African American) 76.8 ml/min; Est GFR (Non-African American) 66.2 ml/min; Magnesium 1.8 mg/dl (1.7-2.4); Phosphorus 2.7 mg/dl (2.5-4.9); Potassium 4.3 mmol/L (3.5-5.1)
[2022-11-07] MEDS: SUCRALFATE 1 GM/10 ML UDC PO SCH ×4 (08:09→20:03)
[2022-11-07] MEDS: amLODIPine BESYLATE 5 MG TAB PO SCH (08:09)
[2022-11-07] MEDS: VITAMIN B COMPLEX TAB PO SCH (08:10)
[2022-11-07] MEDS: PANTOprazole 40 MG TAB PO SCH ×2 (08:10→20:04)
[2022-11-07] MEDS: DOCUSATE SODIUM/SENNA 50/8.6MG TAB PO SCH ×2 (08:12→20:03)
[2022-11-07] MEDS: CEROVITE ADV FORMULA TAB PO SCH ×2 (08:12→20:03)
[2022-11-07] MEDS: ASPIRIN 81 MG ECTAB PO SCH (08:12)
[2022-11-07] MEDS: CHOLECALCIFEROL 5,000 UNITS 125 MCG TAB PO SCH (08:12)
[2022-11-07] MEDS: HEPARIN SOD 5,000 UNIT/0.5 ML VIAL SQ SCH ×2 (08:13→20:02)
[2022-11-07] MEDS: FENOFIBRATE NANOCRYSTALLIZED 145 MG TABLET PO SCH (12:12)
--- NOTE | 2022-11-07 14:48 | Hospitalist Progress Note ---
Date of Service November 07, 2022 Assessment & Plan (1) Acute respiratory failure with hypoxia: (2) Right lower lobe pneumonia: (3) UTI (urinary tract infection): (4) Dehydration: (5) Low back pain: (6) Esophagitis: (7) Pulmonary nodule: (8) CAD (coronary artery disease): (9) Hx of CABG: (10) HTN (hypertension): Plan 87-year-old female who has significant past medical history of COPD, CAD with history of CABG x1, HLD, renal artery stenosis, HTN, glaucoma, elevated hemo globin, history of tobacco abuse disorder, hard of hearing who presents to ED due to back pain x 1 week; N/V and poor PO intake for 1.5 days. Patient had a fall at home, was placed on oral narcotics for pain control, then developed nausea and vomiting, prompting admission. While admitted, patient treated for aspiration pneumonia and UTI, showed slow progress At one-point was having hospital delirium. Also developed esophagitis. GI consulted and was placed on carafate Tolerating soft diet. Patient also developed pleural effusion which have appeared to be resolved on most recent CXR 11/01 Acute respiratory failure with hypoxia R lower lobe pneumonia, poss. aspiration pna Pleural effusion COPD, without exacerbation Reviewed patient's multiple imaging since admission Completed antibiotic course Repeat CXR notes pulm edema, mildly decreased size of pleural effusion with persistent bilateral bibasilar opacities Currently on 3 L nasal cannula Continue to wean off oxygen Encouraged to continue incentive spirometry 11/01: Lasix 20mg IV given without much change in oxygen needs. 11/02: Alkalotic on labs, will avoid further lasix for now. 11/04: oxygen needs are stable/improved. Suspect oxygen requirement will resolve once she is undergoing more rehab and moving around more. UTI Urine cx positive for E.coli Completed 10 day course of antibiotics Dysphagia from esophagitis CT chest noted severe esophageal thickening with paraesophageal edema. No extraluminal gas at this time to suggest a perforation. Therefore, this favors a nonspecific esophagitis. Tolerating soft diet. Encourage po intake Continue Sucralfate and Protonix Prerenal acute kidney injury Patient with elevated BUN of 43, Cr 0.97 with a BUN/creatinine ratio of 35.1 Secondary to poor p.o. intake, N/V resolved Low K and Mg From poor intake Monitor and replete as needed resolved CAD with history of CABG x1 Elevated troponin Abnormal EKGwith T wave inversions inferior & laterally -unchanged from prior Patient without chest pain Troponin mildly elevated, serial CE essentially unchanged likely elev. secondary to above/demand ischemia Continue aspirin HTN In ED patient met criteria for hypertensive urgency with peak blood pressure 204/114 She received 5 mg IV hydralazine which improved BP to 158/81 Previously patient have been prescribed amlodipine 2.5 mg which has since been discontinued Amlodipine 2.5 mg resumed and currently on 7.5mg daily BP is at goal Monitor Pulmonary Nodule Lobulated 1.8 cm solid left lower lobe pulmonary nodule per CT scan Suspicious for bronchogenic carcinoma in setting of tobacco history Previous Provider had discussed with brothers at bedside and recommended pulmonary evaluation as outpatient if patient wishes to pursue further work-up Severe Malnutrition Pt cachectic on phys. exam Continue nutritional supplements/MVI and B vitamins Encourage po intake Some constipation resolved with enema overnight. Will restart scheduled stool softeners. 11/07: again requiring enema today which was successful. Will start daily scheduled Miralax DVT prophylaxis:Heparin BID Dispo: to [place] in am. PCP: Kae Lockhart DNR/DNI Approximately 45 minutes were spent with the patient, reviewing studies, examining her and discussing the care plan with her son who was at the bedside. Patricia Abrams DO [facility] Hospitalist Admission and Anticipated Discharge Date Admission Date: October 13, 2022 Subjective 87 yo F with esophagitis and aspiration pneumonia initially presented for back pain and vomiting which is now resolved, with hospital course c/b CHF exacerbation. oxygen needs are stable denies respiratory symptoms or shortness of breath hard stool ball today requiring another enema today Feels better Review of Systems Review of Systems: All systems reviewed negative except as indicated above. Physical Exam Physical Exam: CONSTITUTIONAL: thin, frail, elderly, vitals as above, NAD EYES: normal conjunctivae, no scleral icterus ENT: external ear and nose normal, NECK: trachea midline, RESPIRATORY: clear to auscultation bilaterally, no crackles, rales or wheezes, normal respiratory effort CARDIOVASCULAR: regular rate and rhythm, S1 and 2 heard without murmurs, gallops or rubs, no JVD, no peripheral edema CHEST: inspection of chest was normal GASTROINTESTINAL: soft, nontender, ND, no guarding MUSCULOSKELETAL: strength 5/5 throughout, head is normocephalic and atraumatic SKIN: warm and dry NEUROLOGIC: CN 2-12 grossly intact, no sensory deficit, normal cognition, normal speech, no tremor PSYCHIATRIC: alert cooperative and answering questions appropriately. Results & Data Results & Data ([facility]) Vital Signs (Past 12 Hours) Vital Signs Temp Pulse Resp BP BP Pulse Ox O2 Del Method 11/07/22 14:27 36.7 C 60 16 111/54 L 93 Nasal Cannula 11/07/22 09:11 Nasal Cannula 11/07/22 07:38 36.5 C 55 L 16 127/70 93 Nasal Cannula O2 Flow Rate 11/07/22 14:27 3 11/07/22 09:11 3 11/07/22 07:38 3 Laboratory Results Short CBC 11/07/22 Range/Units 06:33 WBC 5.96 (4.8-10.8) K/ul Hgb 12.4 (12.0-16.0) g/dl Hct 38.0 (37.0-47.0) % Plt Count 401 H (130-400) K/uL BMP 11/07/22 06:33 Sodium 140 Potassium 4.3 Chloride 106 Carbon Dioxide 31 BUN 38 H Creatinine 0.81 Glucose 85 Calcium 10.4 H Medications Administered Current Inpatient Medications Acetaminophen (Acetaminophen 325 Mg Tab) 650 mg PO Q4H PRN PRN Reason: Pain or Fever Stop: 11/12/22 16:28 Last Admin: 10/24/22 06:25 Dose: 650 mg Al Hydrox/Mg Hydrox/Simethicone (Aluminum/Magnesium Susp 30 Ml Udc) 15 ml PO Q4H PRN PRN Reason: Dyspepsia Stop: 11/12/22 16:28 Last Admin: 10/20/22 22:23 Dose: 15 ml Albuterol (Albut/Ipratrop 3mg/0.5mg Neb 3 Ml Vial) 3 ml NEB Q4R PRN; Protocol PRN Reason: sob/wheezing Stop: 11/12/22 16:28 Amlodipine Besylate (Amlodipine Besylate 5 Mg Tab) 7.5 mg PO QAM [facility] Stop: 11/22/22 08:59 Last Admin: 11/07/22 08:09 Dose: 7.5 mg Aspirin (Aspirin 81 Mg Ectab) 81 mg PO DAILY [facility] Stop: 11/13/22 08:59 Last Admin: 11/07/22 08:12 Dose: 81 mg Cyclobenzaprine HCl (Cyclobenzaprine Hcl 5 Mg Tab) 2.5 mg PO BID [facility] Stop: 11/12/22 20:59 Last Admin: 10/15/22 08:21 Dose: 2.5 mg Fenofibrate (Fenofibrate Nanocrystallized 145 Mg Tablet) 145 mg PO Q24H [facility] Stop: 11/13/22 11:59 Last Admin: 11/07/22 12:12 Dose: 145 mg Glycerin (Glycerin Adult 12 Supp/Box Supp) 1 supp CO Q24H PRN PRN Reason: Constipation Stop: 12/04/22 15:47 Guaifenesin (Guaifenesin Sugar Free 200 Mg/10 Ml Udc) 200 mg PO Q6 PRN PRN Reason: congestion/cough Stop: 11/13/22 14:59 Heparin Sodium (Porcine) (Heparin Sod 5,000 Unit/0.5 Ml Vial) 5,000 units SQ Q12 [facility] Stop: 11/12/22 20:59 Last Admin: 11/07/22 08:13 Dose: 5,000 units Promethazine HCl 6.25 mg/ (Sodium Chloride) 50.25 mls @ 201 mls/hr IV Q6H PRN PRN Reason: Nausea And Vomiting Stop: 11/20/22 04:21 Last Infusion: 10/21/22 05:23 Dose: Infused Magnesium Hydroxide (Magnesium Hydroxide Susp 30 Ml Udc) 30 ml PO Q6H PRN PRN Reason: Constipation Stop: 11/17/22 16:31 Melatonin (Melatonin 3 Mg Tab) 3 mg PO DAILY PRN PRN Reason: Sleep Stop: 11/13/22 15:48 Last Admin: 10/18/22 19:42 Dose: 3 mg Mirtazapine (Mirtazapine Soltab 15 Mg) 7.5 mg PO HS [facility] Stop: 11/12/22 20:59 Last Admin: 11/06/22 20:09 Dose: 7.5 mg Multivitamins/Minerals (Cerovite Adv Formula Tab) 1 tab PO BID [facility] Stop: 11/12/22 20:59 Last Admin: 11/07/22 08:12 Dose: 1 tab Pantoprazole Sodium (Pantoprazole 40 Mg Tab) 40 mg PO BID [facility] Stop: 12/01/22 20:59 Last Admin: 11/07/22 08:10 Dose: 40 mg Polyethylene Glycol (Polyethylene (Miralax) 17 Gm Pack) 17 gm PO DAILY PRN PRN Reason: Constipation Stop: 11/12/22 16:28 Senna/Docusate Sodium (Docusate Sodium/Senna 50/8.6mg Tab) 1 tab PO BID [facility] Stop: 11/20/22 04:29 Last Admin: 11/07/22 08:12 Dose: 1 tab Sucralfate (Sucralfate 1 Gm/10 Ml Udc) 1 gm PO QID [facility] Stop: 11/18/22 16:59 Last Admin: 11/07/22 12:12 Dose: 1 gm Vitamin B Complex (Vitamin B Complex Tab) 1 tab PO QAM [facility] Stop: 11/22/22 16:44 Last Admin: 11/07/22 08:10 Dose: 1 tab Vitamin D (Cholecalciferol 5,000 Units 125 Mcg Tab) 5,000 units PO DAILY [facility] Stop: 11/13/22 08:59 Last Admin: 11/07/22 08:12 Dose: 5,000 units (3) UTI (urinary tract infection) Hematuria presence: without hematuria Urinary tract infection type: acute cystitis Qualified Code(s): N30.00 - Acute cystitis without hematuria (5) Low back pain Back pain laterality: midline Chronicity: acute Sciatica presence: without sciatica Qualified Code(s): M54.50 - Low back pain, unspecified (10) HTN (hypertension) Hypertension type: unspecified Qualified Code(s): I10 - Essential (primary) hypertension
[2022-11-07] MEDS: MIRTAZAPINE SOLTAB 15 MG PO SCH (20:03)
[2022-11-08] MEDS: DOCUSATE SODIUM/SENNA 50/8.6MG TAB PO SCH (08:40)
[2022-11-08] MEDS: HEPARIN SOD 5,000 UNIT/0.5 ML VIAL SQ SCH (08:40)
[2022-11-08] MEDS: amLODIPine BESYLATE 5 MG TAB PO SCH (08:40)
[2022-11-08] MEDS: VITAMIN B COMPLEX TAB PO SCH (08:40)
[2022-11-08] MEDS: PANTOprazole 40 MG TAB PO SCH (08:40)
[2022-11-08] MEDS: ASPIRIN 81 MG ECTAB PO SCH (08:40)
[2022-11-08] MEDS: SUCRALFATE 1 GM/10 ML UDC PO SCH ×2 (08:40→11:57)
[2022-11-08] MEDS: CHOLECALCIFEROL 5,000 UNITS 125 MCG TAB PO SCH (08:40)
[2022-11-08] MEDS: CEROVITE ADV FORMULA TAB PO SCH (08:40)
[2022-11-08] MEDS ORDERED: POLYETHYLENE (MIRALAX) 17 GM PACK PO SCH (09:00)
[2022-11-08] MEDS: FENOFIBRATE NANOCRYSTALLIZED 145 MG TABLET PO SCH (11:57)
--- NOTE | 2022-11-08 13:10 | Discharge Summary ---
Discharge Summary Date of Service November 08, 2022 Admission HPI Per Admitting Provider This is a 87-year-old female who has significant past medical history of COPD, CAD with history of CABG x1, HLD, renal artery stenosis, HTN, glaucoma, elevated hemoglobin, history of tobacco abuse disorder, hard of hearing who presents to ED due to back pain x 1 week; N/V and poor PO intake for 1.5 days. Pt 2 sons are at bedside. Patient states she developed lower back pain approximately 1 week ago. Pain came on gradually. She denies any trauma, fall or injury. Pain is much worse with movement and almost absent when she sits still. Over the past week her pain continue to worsen. This was also affecting her walking. She presented to [facility] ED on 10/10/2022. She underwent CT scan of lumbar spine which revealed a moderate amount of lumbar dextroscoliosis and slightly exaggerated kyphosis with prominent degenerative changes in the lumbar spine. There is no acute fracture noted. She was prescribed tramadol and Flexeril and discharged home. She started taking the tramadol to alleviate her pain and about an hour and a half after she developed nausea and vomiting. This occurred a day and a half ago. Since then she has been unable to keep anything down including liquids. She stopped taking tramadol. She lives with her grandson who was concerned she was not improving this morning. Her son also came to see her and due to patient's worsening condition, inability to tolerate oral intake he felt she should be seen in ED for possible dehydration. She is always cold but denies any documented fever. She denies any sweats, lightheade dness, dizziness, chest pain, shortness of breath, cough, abdominal pain, dysuria, increased urgency or frequency, melena or hematochezia. She does not like taking medications and does not do well with narcotics. She also previously was on a blood pressure medication that she has since discontinued. In ED patient was significantly hypertensive with SBP greater than 200. Lab work revealed dehydration in setting of elevated H&H as well as elevated BUN/creatinine ratio. She did have mildly bumped troponin at 63.2 although EKG revealed relatively unchanged findings. Urinalysis concerning for a UTI. A chest CTA was performed which ruled out thoracic dissection/PE. Prominent distal esophageal wall thickening was noticed favoring severe esophagitis. Also noted was an increase in size of a lobulated 1.8 cm solid left lower lobe pulmonary nodule suspicious for bronchogenic carcinoma. Extensive secretions were also noted in the right lower lobe segmental bronchi concerning for possible atelectasis however aspiration pneumonia could appear similar. In ED she received 5 mg of IV hydralazine which did improve her systolic blood pressure to 158. She also received IV fluid and IV Unasyn. Principal Dx & Hospital Course #1 = Principal Diagnosis (1) Acute respiratory failure with hypoxia: (2) Right lower lobe pneumonia: (3) UTI (urinary tract infection): (4) Dehydration: (5) Low back pain: (6) Esophagitis: (7) Pulmonary nodule: (8) CAD (coronary artery disease): (9) Hx of CABG: (10) HTN (hypertension): Plan 87-year-old female who has significant past medical history of COPD, CAD with history of CABG x1, HLD, renal artery stenosis, HTN, glaucoma, elevated hemoglob in, history of tobacco abuse disorder, hard of hearing who presents to ED due to back pain x 1 week; N/V and poor PO intake for 1.5 days. Patient had a fall at home, was placed on oral narcotics for pain control, then developed nausea and vomiting, prompting admission. While admitted, patient treated for aspiration pneumonia and UTI, showed slow progress At one-point was having hospital delirium. Also developed esophagitis. GI consulted and was placed on carafate Tolerating soft diet. Patient also developed pleural effusion which have appeared to be resolved on most recent CXR 11/01 Acute respiratory failure with hypoxia R lower lobe pneumonia, poss. aspiration pna Pleural effusion COPD, without exacerbation Reviewed patient's multiple imaging since admission Completed antibiotic course Repeat CXR notes pulm edema, mildly decreased size of pleural effusion with persistent bilateral bibasilar opacities Currently on 3 L nasal cannula Continue to wean off oxygen Encouraged to continue incentive spirometry 11/01: Lasix 20mg IV given without much change in oxygen needs. 11/02: Alkalotic on labs, will avoid further lasix for now. 11/04: oxygen needs are stable/improved. Suspect oxygen requirement will resolve once she is undergoing more rehab and moving around more. UTI Urine cx positive for E.coli Completed 10 day course of antibiotics Dysphagia from esophagitis CT chest noted severe esophageal thickening with paraesophageal edema. No extraluminal gas at this time to suggest a perforation. Therefore, this favors a nonspecific esophagitis. Tolerating soft diet. Encourage po intake Continue Sucralfate and Protonix Prerenal acute kidney injury Patient with elevated BUN of 43, Cr 0.97 with a BUN/creatinine ratio of 35.1 Secondary to poor p.o. intake, N/V resolved Low K and Mg From poor intake Monitor and replete as needed resolved CAD with history of CABG x1 Elevated troponin Abnormal EKGwith T wave inversions inferior & laterally -unchanged from prior Patient without chest pain Troponin mildly elevated, serial CE essentially unchanged likely elev. secondary to above/demand ischemia Continue aspirin HTN In ED patient met criteria for hypertensive urgency with peak blood pressure 204/114 She received 5 mg IV hydralazine which improved BP to 158/81 Previously patient have been prescribed amlodipine 2.5 mg which has since been discontinued Amlodipine 2.5 mg resumed and currently on 7.5mg daily BP is at goal Monitor Pulmonary Nodule Lobulated 1.8 cm solid left lower lobe pulmonary nodule per CT scan Suspicious for bronchogenic carcinoma in setting of tobacco history Previous Provider had discussed with brothers at bedside and recommended pulmonary evaluation as outpatient if patient wishes to pursue further work-up Severe Malnutrition Pt cachectic on phys. exam Continue nutritional supplements/MVI and B vitamins Encourage po intake Some constipation resolved with enema overnight. Will restart scheduled stool softeners. 11/07: again requiring enema today which was successful. Will start daily scheduled Miralax DVT prophylaxis:Heparin BID Dispo: to [place] in am. PCP: Kae Lockhart DNR/DNI Approximately 45 minutes were spent with the patient, reviewing studies, examining her and discussing the care plan with her son who was at the bedside. Patricia Abrams DO [facility] Hospitalist Discharge Exam CONSTITUTIONAL: thin, frail, elderly, vitals as above, NAD EYES: normal conjunctivae, no scleral icterus ENT: external ear and nose normal, NECK: trachea midline, RESPIRATORY: clear to auscultation bilaterally, no crackles, rales or wheezes, normal respiratory effort CARDIOVASCULAR: regular rate and rhythm, S1 and 2 heard without murmurs, gallops or rubs, no JVD, no peripheral edema CHEST: inspection of chest was normal GASTROINTESTINAL: soft, nontender, ND, no guarding MUSCULOSKELETAL: strength 5/5 throughout, head is normocephalic and atraumatic SKIN: warm and dry NEUROLOGIC: CN 2-12 grossly intact, no sensory deficit, normal cognition, normal speech, no tremor PSYCHIATRIC: alert cooperative and answering questions appropriately. Updated Medication List Medication Instructions Recorded Confirmed Type cholecalciferol (vitamin D3) 125 5,000 unit PO DAILY ##0 06/20/16 10/13/22 History mcg (5,000 unit) tablet (Vitamin D3) docusate sodium 100 mg capsule 100 mg PO BID PRN Constipation ##0 06/20/16 10/13/22 History vit C-vit [id number] capsule 1 cap PO BID ##0 06/20/16 10/13/22 History fenofibrate nanocrystallized 145 145 mg PO DAILY #7 tabs 11/01/21 10/13/22 Rx mg tablet mirtazapine 15 mg disintegrating 7.5 mg PO HS #7 tabs 11/01/21 10/13/22 Rx tablet aspirin 81 mg tablet,delayed 81 mg PO DAILY 10/13/22 10/13/22 History release amlodipine 5 mg tablet (Norvasc) 7.5 mg PO QAM #30 tabs 11/08/22 Rx pantoprazole 40 mg tablet,delayed 40 mg PO BID #60 tabs 11/08/22 Rx release polyethylene glycol 3350 17 gram 17 g PO DAILY #30 ea 11/08/22 Rx oral powder packet (Miralax) sennosides 8.6 mg-docusate sodium 1 tab PO BID #60 tabs 11/08/22 Rx 50 mg tablet (Senokot-S) vitamin B complex (Vitamins B 1 cap PO QAM #30 caps 11/08/22 Rx Complex capsule) Hospital Stay Data Consultations 10/13/22 13:43 ED Decision to Admit Stat 10/19/22 15:10 Consult Gastroenterology Routine Diagnostic Imagining Performed 10/13/22 12:27 CTA chest dissec wo/w con [CT angio chest dissec wo/w con] Stat 10/19/22 13:06 CT Abd and Pelvis [CT abd pelvis wo con] Stat 10/19/22 13:07 CT chest diagnostic wo con Stat Pending Results Patient Have Any Pending Studies at Discharge: No Discharge Instructions Given to Patient (Per Discharging Provider) Please take all medications as instructed on discharge as below. If follow-up chest x-ray is recommended in 4 to 6 weeks to ensure complete resolution of pneumonia. Important to note, you have a suspicious appearing nodule in your lung which is 1.8 cm on the left side. This was seen on his CT scan and is suspicious for lung cancer in the setting of smoking history. If you wish to pursue a work-up for this you will need to be seen by a email administrator within the next couple of weeks. Your primary care doctor can coordinate a referral if you choose to investigate this further. As a result of severe constipation in the hospital requiring enema therapy, please continue daily scheduled MiraLAX 1 capful mixed with 8 ounces of fluid of your choice until you are having normal regular bowel movements. After that time you can wean off. Continue scheduled stool softeners during this time. Continue nutritional supplements, multivitamin daily and B vitamins daily. You were found to have thickening of your esophagus favoring a nonspecific esophagitis. As a result you are being given a soft diet with some new medication called PROTONIX. Continue Protonix twice daily for 2 months and then once daily after that. It is recommended that you follow-up with your primary care doctor within a week of discharge from the hospital. It was a pleasure taking care of you! Please call if you have any questions or problems. You can reach a [facility] hospitalist on duty at [facility] 24 hours a day by calling [phone]. Take care of yourself. Patricia Abrams, DO [facility] Hospitalist
== END 2022-11-08 14:13 | DRG 177 ==
LOC: ED 10:51 → 2S 14:00 → SUATTDRO 14:00 → 2S 16:30 → 3W 10-31 19:02

== ENCOUNTER 2023-05-10 19:01 | Inpatient (IN) ==
[2023-05-10 20:10] LABS: Basophils # (auto) 0.06 K/uL (0.00-0.20); Basophils % (auto) 0.6 %; Eosinophils # (auto) 0.04 K/uL (0.00-0.50); Eosinophils % (auto) 0.4 %; Hematocrit (blood only) 50.8 % (37.0-47.0); Hemoglobin 16.3 g/dl (12.0-16.0); Immature Granulocytes # (auto) 0.07 K/uL (0.01-0.20); Immature Granulocytes % (auto) 0.7 %; Lymphocytes # (auto) 1.44 K/uL (1.20-3.40); Lymphocytes % (auto) 14.5 %; Mean Corpuscular Hemoglobin 26.6 pg (25.0-34.0); Mean Corpuscular Hgb Conc 32.1 g/dL (32.0-36.0); Mean Corpuscular Volume 82.9 fL (80.0-100.0); Mean Platelet Volume 10.7 fL (9.4-12.4); Monocytes # (auto) 0.71 K/uL (0.11-0.59); Monocytes % (auto) 7.2 %; Neutrophils # (auto) 7.59 K/uL (1.40-6.50); Neutrophils % (auto) 76.6 %; Platelet Count 359 K/uL (130-400); RDW Coefficient of Variation 18.7 % (11.5-14.5); RDW Standard Deviation 51.5 fL (36.4-46.3); Red Blood Count 6.13 M/uL (4.20-5.40); White Blood Count 9.91 K/ul (4.8-10.8)
[2023-05-10 20:27] LABS: Alanine Aminotransferase 11 U/L (7-52); Albumin Globulin Ratio 1.8 (0.9-2); Albumin Level 4.2 gm/dl (3.4-5.0); Alkaline Phosphatase 95 U/L (34-104); Anion Gap 4 (3-11); Aspartate Aminotransferase 18 U/L (13-39); BUN Creatinine Ratio 36.1 (10-20); Bilirubin,Total 0.5 mg/dl (0.2-1.0); Blood Urea Nitrogen 26 mg/dl (6-23); Calcium 9.6 mg/dl (8.6-10.3); Carbon Dioxide 33 mmol/L (21-32); Chloride 103 mmol/L (98-107); Est GFR (African American) 87.9 ml/min; Est GFR (Non-African American) 75.8 ml/min; Globulin 2.3 gm/dl (2.5-4.0); Glucose 103 mg/dl (70-99(Fasting)); Lipase 19 U/L (11-82); Potassium 4.8 mmol/L (3.5-5.1); Sodium 140 mmol/L (136-145); Total Protein 6.5 gm/dl (6.0-8.3)
--- NOTE | 2023-05-10 21:25 | Emergency Department Note ---
History of Present Illness General Chief complaint: Back Injury/Pain Stated complaint: BACK PAIN, ?UTI Time Seen by Provider: 05/10/23 20:45 History of Present Illness Maximum Pain Intensity: 7 88-year-old female presents emergency department with complaint of mid back pain. Patient has a history of COPD she has chronic mid back pain and sciatic pain as well as sacroiliac pain. Family at bedside states she is also prone to urinary tract infections. Today she had increased back pain. Patient is a smoker. Has a history of COPD wears oxygen at home. Patient denies any fever nausea vomiting or cough. There are no eating factors Home Medications Medication Instructions Recorded Confirmed Type cholecalciferol (vitamin D3) 125 5,000 unit PO DAILY ##0 06/20/16 05/10/23 History mcg (5,000 unit) tablet (Vitamin D3) docusate sodium 100 mg capsule 100 mg PO BID PRN Constipation ##0 06/20/1611/30 History vit C-vit S-cvzquj-ncaedvew capsule 1 cap PO BID ##0 06/20/16 10/13/22 History fenofibrate nanocrystallized 145 145 mg PO DAILY #7 tabs 11/01/21 10/13/22 Rx mg tablet mirtazapine 15 mg disintegrating 7.5 mg PO HS #7 tabs 11/01/21 10/13/22 Rx tablet aspirin 81 mg tablet,delayed 81 mg PO DAILY 10/13/22 05/10/23 History release pantoprazole 40 mg tablet,delayed 40 mg PO BID #60 tabs 11/08/22 Rx release polyethylene glycol 3350 17 gram 17 g PO DAILY #30 ea 11/08/22 Rx oral powder packet (Miralax) sennosides 8.6 mg-docusate sodium 1 tab PO BID #60 tabs 11/08/22 Rx 50 mg tablet (Senokot-S) vitamin B complex (Vitamins B 1 cap PO QAM #30 caps 11/08/22 Rx Complex capsule) amlodipine 2.5 mg tablet 7.5 mg PO QAM 05/10/23 05/10/23 History Allergies Allergy/AdvReac Type Severity Reaction Status Date / Time propoxyphene AdvReac Unknown INTOLERANCE Verified 10/13/21 10:11 acetaminophen [From Percocet] AdvReac Confusion Unverified 10/13/21 10:11 oxycodone [From Percocet] AdvReac Confusion Unverified 10/13/21 10:11 Past Med/Surg History Medical History Adrenal adenoma CAD (coronary artery disease) COPD (chronic obstructive pulmonary disease) HLD (hyperlipidemia) HTN (hypertension) Odynophagia Peripheral vascular disease Renal artery stenosis s/p cath Tobacco abuse Vitamin D deficiency Surgical History History of appendectomy History of bowel resection History of cataract extraction History of hysterectomy Hx of CABG 2014 RSVG to PDA Family History Brother Cancer bone cancer Sister Breast cancer Father , mi 54 Myocardial infarction Social History Smoking Status: Current every day smoker Tobacco Type: Cigarettes Hx Alcohol Use: No Hx Substance Use: No Preferred Language: Hebrew Communication Ability: 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 Beliefs That Will Affect Care: None marital status: / Current Living Situation: Family Current Living Situation Comment: Nephew lives with her Feels Safe at Home: Yes Assistive Devices: Walker Review of Systems A total of 10 systems reviewed and were otherwise negative Constitutional: no body aches Ear, Nose, Mouth, Throat: no ear pain Respiratory: no cough Gastrointestinal: no abdominal pain Musculoskeletal: + back pain Physical Exam Vital Signs Vital Signs - 24 hr 05/10/23 19:08 05/10/23 20:53 05/10/23 22:00 Temperature 36.5 C Temperature Source Temporal Artery Scan Pulse Rate 77 Pulse Rate [Right Finger] 78 67 Pulse Rhythm [Right Finger] Regular Pulse Strength [Right Finger] Normal Respiratory Rate 18 20 20 Respiratory Effort / Characteristics Non-Labored Respiratory Depth Normal Normal Respiratory Pattern Regular Blood Pressure 162/74 H Blood Pressure [Right Arm] 172/89 H Blood Pressure Mean 103 Blood Pressure Mean [Right Arm] 116 Blood Pressure Position [Right Arm] Lying Pulse Oximetry 75 L 95 93 Oxygen Delivery Method Room Air Nasal Cannula Nasal Cannula Oxygen Flow Rate 2 2 Sepsis Recent Fever Within 48 Hours No Sepsis New/Unexplained Change in Mental Status N/A Sepsis Action Taken by Nursing No Action Required GENERAL: Patient is awake alert in no acute distress patient is resting comfortably and showing no signs of anxiety; ill-appearing cachectic EYES: The conjunctivae are clear. The pupils are round and reactive. EARS, NOSE, MOUTH AND THROAT: The nose is without any evidence of any deformity. Mucous membranes are moist. Tongue is midline. NECK: The neck is nontender and supple. RESPIRATORY: Normal respiratory effort is noted there is no evidence of wheezing rhonchi or rales CARDIOVASCULAR: Regular rate and rhythm noted there no murmurs rubs or gallops normal S1 normal S2. GASTROINTESTINAL: The abdomen is soft. Abdomen is nontender. BACK: No midline tenderness or or step-off noted range of motion in flexion extension as well as rotation no signs of muscle spasm noted; patient has tenderness midline in the thoracic region MUSCULOSKELETAL/EXTREMITIES: There is no evidence of gross deformity full range of motion is noted in the hips and shoulders. SKIN: There is no obvious evidence of any rash. There are no petechiae, pallor or cyanosis noted. NEUROLOGIC: Patient is awake alert and oriented x3 strength is symmetric Course Reevaluation(s) Reevaluation #1: Patient was started on IV Rocephin. Patient is resting in no distress Time: 23:07 Consultations Consultation #1: [facility] Time: 23:07 Administered Medications Discontinued Medications Ceftriaxone Sodium (Rocephin) 2,000 mg in 70 mls @ 140 mls/hr IV NOW STA Stop: 05/10/23 22:55 Last Infusion: 05/10/23 23:01 Dose: 140 mls/hr Documented By: Admin: 05/10/23 22:25 Dose: 140 mls/hr Documented By: MELI Medical Decision Making Medical Records Attestation: I reviewed the patient's medical records. Home Medications Current Medication List: was personally reviewed by me Laboratory Data Attestation: I reviewed the patient's lab results. Labs interpreted by me patient is hemoconcentrated, slight elevation in BUN, positive urinalysis 05/10/23 19:50 05/10/23 19:50 Lab Results 05/10/23 05/10/23 05/10/23 Range/Units 19:50 19:50 21:37 WBC 9.91 (4.8-10.8) K/ul RBC 6.13 H (4.20-5.40) M/uL Hgb 16.3 H (12.0-16.0) g/dl Hct 50.8 H (37.0-47.0) % MCV 82.9 (80.0-100.0) fL MCH 26.6 (25.0-34.0) pg MCHC 32.1 (32.0-36.0) g/dL RDW Std Deviation 51.5 H (36.4-46.3) fL RDW Coeff of Grey 18.7 H (11.5-14.5) % Plt Count 359 (130-400) K/uL MPV 10.7 (9.4-12.4) fL Immature Gran % (Auto) 0.7 % Neut % (Auto) 76.6 % Lymph % (Auto) 14.5 % [place] % (Auto) 7.2 % Eos % (Auto) 0.4 % Baso % (Auto) 0.6 % Neut # (Auto) 7.59 H (1.40-6.50) K/uL Lymph # (Auto) 1.44 (1.20-3.40) K/uL [place] # (Auto) 0.71 H (0.11-0.59) K/uL Eos # (Auto) 0.04 (0.00-0.50) K/uL Baso # (Auto) 0.06 (0.00-0.20) K/uL Immature Gran # (Auto) 0.07 (0.01-0.20) K/uL Sodium 140 (136-145) mmol/L Potassium 4.8 (3.5-5.1) mmol/L Chloride 103 (98-107) mmol/L Carbon Dioxide 33 H (21-32) mmol/L Anion Gap 4 (3-11) BUN 26 H (6-23) mg/dl Creatinine 0.72 (0.6-1.2) mg/dl Est Cr Clr Drug Dosing Not Reportable Est GFR ( Amer) 87.9 ml/min Est GFR (Non-Af Amer) 75.8 ml/min BUN/Creatinine Ratio 36.1 H (10-20) Glucose 103 H (70-99(Fasting)) mg/dl Calcium 9.6 (8.6-10.3) mg/dl Total Bilirubin 0.5 (0.2-1.0) mg/dl AST 18 (13-39) U/L ALT 11 (7-52) U/L Alkaline Phosphatase 95 (34-104) U/L Total Protein 6.5 (6.0-8.3) gm/dl Albumin 4.2 (3.4-5.0) gm/dl Globulin 2.3 L (2.5-4.0) gm/dl Albumin/Globulin Ratio 1.8 (0.9-2) Lipase 19 (11-82) U/L Urine Color Yellow Urine Appearance Cloudy A (Clear) Urine pH 5.5 (4.5-7.5) Ur Specific [place] 1.020 (1.000-1.030) Urine Protein 2+ H (Negative) Urine Glucose (UA) Negative (Negative) Urine Ketones Trace H (Negative) Urine Blood 1+ H (Negative) Urine Nitrite Positive A (Negative) Urine Bilirubin Negative (Negative) Urine Urobilinogen Negative (Negative) Ur Leukocyte Esterase 1+ H (Negative) Urine WBC (Auto) >30 H (0-5) /hpf Urine RBC (Auto) 0-4 (0-4) /hpf U Hyaline Cast (Auto) 0 (0-5) /lpf U Epithel Cells (Auto) >30 H (0-5) /lpf Urine Bacteria (Auto) 4+ H (Negative) Urine Yeast Not Reportable SARS-CoV-2, RNA, NAAT (NEGATIVE) 05/10/23 Range/Units Unknown WBC (4.8-10.8) K/ul RBC (4.20-5.40) M/uL Hgb (12.0-16.0) g/dl Hct (37.0-47.0) % MCV (80.0-100.0) fL MCH (25.0-34.0) pg MCHC (32.0-36.0) g/dL RDW Std Deviation (36.4-46.3) fL RDW Coeff of Grey (11.5-14.5) % Plt Count (130-400) K/uL MPV (9.4-12.4) fL Immature Gran % (Auto) % Neut % (Auto) % Lymph % (Auto) % [place] % (Auto) % Eos % (Auto) % Baso % (Auto) % Neut # (Auto) (1.40-6.50) K/uL Lymph # (Auto) (1.20-3.40) K/uL [place] # (Auto) (0.11-0.59) K/uL Eos # (Auto) (0.00-0.50) K/uL Baso # (Auto) (0.00-0.20) K/uL Immature Gran # (Auto) (0.01-0.20) K/uL Sodium (136-145) mmol/L Potassium (3.5-5.1) mmol/L Chloride (98-107) mmol/L Carbon Dioxide (21-32) mmol/L Anion Gap (3-11) BUN (6-23) mg/dl Creatinine (0.6-1.2) mg/dl Est Cr Clr Drug Dosing Est GFR ( Amer) ml/min Est GFR (Non-Af Amer) ml/min BUN/Creatinine Ratio (10-20) Glucose (70-99(Fasting)) mg/dl Calcium (8.6-10.3) mg/dl Total Bilirubin (0.2-1.0) mg/dl AST (13-39) U/L ALT (7-52) U/L Alkaline Phosphatase (34-104) U/L Total Protein (6.0-8.3) gm/dl Albumin (3.4-5.0) gm/dl Globulin (2.5-4.0) gm/dl Albumin/Globulin Ratio (0.9-2) Lipase (11-82) U/L Urine Color Urine Appearance (Clear) Urine pH (4.5-7.5) Ur Specific [place] (1.000-1.030) Urine Protein (Negative) Urine Glucose (UA) (Negative) Urine Ketones (Negative) Urine Blood (Negative) Urine Nitrite (Negative) Urine Bilirubin (Negative) Urine Urobilinogen (Negative) Ur Leukocyte Esterase (Negative) Urine WBC (Auto) (0-5) /hpf Urine RBC (Auto) (0-4) /hpf U Hyaline Cast (Auto) (0-5) /lpf U Epithel Cells (Auto) (0-5) /lpf Urine Bacteria (Auto) (Negative) Urine Yeast SARS-CoV-2, RNA, NAAT NEGATIVE (NEGATIVE) Imaging Data Attestation: I personally reviewed and interpreted this imaging study as fo llows: My Impression: Chest x-ray interpreted by me there is a left lung mass that is to be in the hilar region Radiologist's Impression: Chest X-Ray 05/10/23 19:13 SINGLE VIEW CHEST CLINICAL HISTORY: Generalized abdominal pain. FINDINGS: An AP, portable, upright chest radiograph is compared to study dated 11/01/2022. Correlation is made with chest CT dated 10/19/2022. The examination is degraded by portable technique, apical lordotic positioning, and patient rotation. The heart is enlarged. Atherosclerotic calcification of the thoracic aorta. The pulmonary vasculature is noncongested. Advanced emphysema and chronic interstitial thickening is similar to previous. There is bibasilar scarring/atelectasis. A 3 cm left lower lobe pulmonary lesion is again noted. No airspace consolidation or large pleural effusion is identified. No pneumothorax is seen. The bony thorax is grossly intact. IMPRESSION: 1. Cardiomegaly and emphysema with no acute cardiopulmonary abnormality id entified. 2. A 3 cm lesion is again seen in the left lower lobe. This remains highly suspicious for a primary bronchogenic neoplasm and was better assessed on recent prior chest CT scans. ACT 112: Negative or not required by law. Electronically signed by: Jonatan Ross M.D. 05/10/2023 9:24 PM Abdomen/Pelvis CT 05/10/23 20:46 Exam(s): CT ABDOMEN + PELVIS Without Contrast EXAM: CT Abdomen and Pelvis Without Intravenous Contrast CLINICAL HISTORY: Reason for exam: back pain. TECHNIQUE: Axial computed tomography images of the abdomen and pelvis without intravenous contrast. CTDI is 8.5 mGy and DLP is 359.28 mGy-cm. Automated exposure control was utilized for the study. A dose lowering technique was utilized adhering to the principles of ALARA. COMPARISON: No relevant prior studies available. FINDINGS: Lung bases: Nodule in the LEFT lower lobe measures 2.5 x 2.4 cm, partially included in the [id number]. Chest CT recommended. Atelectasis at the lung bases. ABDOMEN: Liver: Unremarkable. Gallbladder and bile ducts: Unremarkable. No calcified stones. No ductal dilation. Pancreas: Unremarkable. No ductal dilation. Spleen: Unremarkable. No splenomegaly. Adrenals: Unremarkable. No mass. Kidneys and ureters: Nonobstructing 2 mm RIGHT lower pole renal calculus. Stomach and bowel: Small bowel sutures, correlate with surgical history. Moderate fecal retention. No small bowel obstruction. Evaluation limited due to lack of intra-abdominal fat and no intravenous contrast. No free intraperitoneal air. No mucosal thickening. PELVIS: Appendix: No findings to suggest acute appendicitis. Bladder: Unremarkable. No stones. Reproductive: Unremarkable as visualized. ABDOMEN and PELVIS: Intraperitoneal space: Unremarkable. No free air. No significant fluid collection. Bones/joints: Degenerative changes of the spine. No acute fracture. No dislocation. Soft tissues: Unremarkable. Vasculature: Atherosclerotic changes of the aorta. No abdominal aortic aneurysm. Lymph nodes: Unremarkable. No enlarged lymph nodes. IMPRESSION: 1. Nodule in the LEFT lower lobe measures 2.5 x 2.4 cm, partially included in the [id number]. Chest CT recommended. 2. Small bowel sutures, correlate with surgical history. Moderate fecal retention. No small bowel obstruction. Evaluation limited due to lack of intra-abdominal fat and no intravenous contrast. No free intraperitoneal air. 3. Nonobstructing 2 mm RIGHT lower pole renal calculus. Electronically signed by: Esvin Avila MD 05/10/23 21:55 PM ECG Data Attestation: I personally reviewed and interpreted this ECG as follows: Additional Comments: EKG interpreted by me normal sinus rhythm rate of 76, left axis deviation, left ventricular hypertrophy, no obvious ST segment elevation or depression Telemetry was ordered by me, interpreted as normal sinus rhythm rate of 76 MDM Narrative Medical decision making differential diagnosis includes urinary tract infection, pneumonia, COPD, COVID, chronic back pain, electrolyte abnormality Plan is to check labs, EKG, chest x-ray, CT External medical records were reviewed by me Family is provided me bedside history Patient will be admitted for urinary tract infection, lung the patient Patient is not septic shock at the time of disposition at 2300 Case was discussed with [facility] for admission Impression & Plan Acute UTI (urinary tract infection), Lung mass, Back pain Discharge Plan Visit Data Chief Complaint: Back Injury/Pain Stated Complaint: BACK PAIN, ?UTI ED Provider: Aubrey Flores Discharge Problem: Acute UTI (urinary tract infection), Lung mass, Back pain Patient Disposition: Admitted As Inpatient Forms Stand Alone Forms: My [facility] [employer] Prescriptions Prescriptions: No Action docusate sodium 100 mg Capsule 100 mg PO BID PRN (Reason: Constipation) Qty: 0 vit C-vit [id number]-uvaoomya Capsule 1 cap PO BID Qty: 0 cholecalciferol (vitamin D3) [Vitamin D3] 125 mcg (5,000 unit) Tablet 5,000 unit PO DAILY Qty: 0 Rx Instructions: @ NOON amlodipine 2.5 mg tablet 7.5 mg PO QAM mirtazapine 15 mg Tablet,Disintegrating 7.5 mg PO HS Qty: 7 0RF fenofibrate nanocrystallized 145 mg Tablet 145 mg PO DAILY Qty: 7 0RF Rx Instructions: @ NOON aspirin 81 mg Tablet,Delayed Release (Dr/Ec) 81 mg PO DAILY pantoprazole 40 mg Tablet,Delayed Release (Dr/Ec) 40 mg PO BID Qty: 60 0RF sennosides-docusate sodium [Senokot-S] 8.6-50 mg Tablet 1 tab PO BID Qty: 60 0RF vitamin B complex [Vitamins B Complex] Capsule 1 cap PO QAM Qty: 30 0RF polyethylene glycol 3350 [Miralax] 17 gram Powder In Packet 17 g PO DAILY Qty: 30 0RF Rx Instructions: hold for loose stools Referrals Referrals: eDidra Johnson MD [Primary Care Provider] -
--- NOTE | 2023-05-10 21:27 | XRay Report ---
SINGLE VIEW CHEST CLINICAL HISTORY: Generalized abdominal pain. FINDINGS: An AP, portable, upright chest radiograph is compared to study dated 11/01/2022. Correlation is made with chest CT dated 10/19/2022. The examination is degraded by portable technique, apical lord otic positioning, and patient rotation. The heart is enlarged. Atherosclerotic calcification of the thoracic aorta. The pulmonary vasculature is noncongested. Advanced emphysema and chronic interstitia l thickening is similar to previous. There is bibasilar scarring/atelectasis. A 3 cm left lower lobe pulmonary lesion is again noted. No airspace consolidation or large pleural effusion is identified. N o pneumothorax is seen. The bony thorax is grossly intact. IMPRESSION: 1. Cardiomegaly and emphysema with no acute cardiopulmonary abnormality identified. 2. A 3 cm lesion is again seen in the left lower lobe. This remains highly suspicious for a primary b ronchogenic neoplasm and was better assessed on recent prior chest CT scans. ACT 112: Negative or not required by law. Electronically signed by: Jonatan Ross M.D. 05/10/2023 9:24 PM
[2023-05-10 21:51] LABS: Appearance Urine Cloudy (Clear); Bilirubin Urine Negative (Negative); Blood Urine 1+ (Negative); Cast Urine Automated 0 /lpf (0-5); Color Urine Yellow; Epithelial Cell Urine Auto >30 /lpf (0-5); Glucose Urine UA Negative (Negative); Ketones Urine Trace (Negative); Leukocyte Esterase Urine 1+ (Negative); Nitrite Urine Positive (Negative); Protein Urine 2+ (Negative); Urobilinogen Urine Negative (Negative); WBC Urine Automated >30 /hpf (0-5); pH Urine 5.5 (4.5-7.5)
--- NOTE | 2023-05-10 21:56 | CT Scan Report ---
Exam(s): CT ABDOMEN + PELVIS Without Contrast EXAM: CT Abdomen and Pelvis Without Intravenous Contrast CLINICAL HISTORY: Reason for exam: back pain. TECHNIQUE: Axial computed tomography images of the abdomen and pelvis without intravenous contrast. CTDI is 8.5 mGy and DLP is 359.28 mGy-cm. Automated exposure control was utilized for the study. A dose lowering technique was utilized adhering to the principles of ALARA. COMPARISON: No relevant prior studies available. FINDINGS: Lung bases: Nodule in the LEFT lower lobe measures 2.5 x 2.4 cm, partially included in the [id number]. Chest CT recommended. Atelectasis at the lung bases. ABDOMEN: Liver: Unremarkable. Gallbladder and bile ducts: Unremarkable. No calcified stones. No ductal dilation. Pancreas: Unremarkable. No ductal dilation. Spleen: Unremarkable. No splenomegaly. Adrenals: Unremarkable. No mass. Kidneys and ureters: Nonobstructing 2 mm RIGHT lower pole renal calculus. Stomach and bowel: Small bowel sutures, correlate with surgical history. Moderate fecal retention. No small bowel obstruction. Evaluation limited due to lack of intra-abdominal fat and no intravenous contrast. No free intraperitoneal air. No mucosal thickening. PELVIS: Appendix: No findings to suggest acute appendicitis. Bladder: Unremarkable. No stones. Reproductive: Unremarkable as visualized. ABDOMEN and PELVIS: Intraperitoneal space: Unremarkable. No free air. No significant fluid collection. Bones/joints: Degenerative changes of the spine. No acute fracture. No dislocation. Soft tissues: Unremarkable. Vasculature: Atherosclerotic changes of the aorta. No abdominal aortic aneurysm. Lymph nodes: Unremarkable. No enlarged lymph nodes. IMPRESSION: 1. Nodule in the LEFT lower lobe measures 2.5 x 2.4 cm, partially included in the [id number]. Chest CT recommended. 2. Small bowel sutures, correlate with surgical history. Moderate fecal retention. No small bowel obstruction. Evaluation limited due to lack of intra-abdominal fat and no intravenous contrast. No free intraperitoneal air. 3. Nonobstructing 2 mm RIGHT lower pole renal calculus. Electronically signed by: Esvin Avila MD 05/10/23 21:55 PM
[2023-05-10 22:08] LABS: RBC Urine Automated 0-4 /hpf (0-4)
[2023-05-10 22:09] LABS: Bacteria Urine Automated 4+ (Negative)
[2023-05-10] MEDS ORDERED: cefTRIAXone SODIUM 2,000 MG/70 ML BAG IV STA (22:26)
--- NOTE | 2023-05-11 02:31 | History & Physical Report ---
Date of Service May 11, 2023 Assessment & Plan (1) Acute UTI (urinary tract infection): Plan: 88-year-old female with past medical significant for hyperlipidemia, COPD history of acute hypoxemic respiratory failure, renal artery stenosis, peripheral vascular disease, CAD, s/p CABG, history of bowel resection, hypertension, vitamin D deficiency, history of complicated UTI, glaucoma, poor vision, ongoing tobacco abuse, who lives at home was brought in because of back pain and possible UTI.UA is positive in ER. UTI Back pain mostly from UTI Previous cultures shows pansensitive E. coli Received Rocephin in the ER which will be continued Gentle fluids We will follow the cultures History COPD Stable CAD s/p CABG On aspirin Hypertension on amlodipine GERD on Protonix Peripheral vascular disease on aspirin Tobacco abuse ongoing Counseling DVT prophylaxis heparin subcu Disposition med/surge CODE STATUS DNR/DNI as per my discussion with the son History of Present Illness Chief Complaint: Back pain and UTI Primary Care Provider: Deidra Johnson MD 88-year-old female with past medical significant for hyperlipidemia, COPD, history of acute hypoxemic respiratory failure, renal artery stenosis, peripheral vascular disease, CAD, s/p CABG, history of bowel resection, hypertension, vitamin D deficiency, history of complicated UTI, glaucoma, poor vision, ongoing tobacco abuse, who lives at home was brought in because of back pain and question of UTI. Patient has chronic back pain but that pain got worse today and family was worried about UTI as she has history of UTIs in the past. Patient grandson lives with her and she has aide who visits her 4 times a week. Sons are in the room. As per the son she eats regular food and ambulates with a walker. She has chronic lung lesion since around 2018 and follows with pulmonary as per the son. Afebrile. Was nauseous earlier but that resolved. No diarrhea.Son gave most of the history. Patient also was able to give history but somewhat hard of hearing. Denies any chest pain or shortness of breath currently. Has some cough. No headache. No sore throat. No burning micturition. Hemodynamics are stable. Past medical history as mentioned above Past surgical history breast lesion excision, CABG, cataracts, bowel resection, removal of additions, breast biopsy renal artery cath due to blockage, appendectomy, total hysterectomy Social history . Grandson lives with her. History of 1 pack a day for 50 years. Still smoking. No alcohol use. No drug use. Family history Brother had bone cancer. Sister has breast cancer. Father had [place]. Mother has hyperlipidemia and stroke. Sister had stroke. Sister has rh eumatoid arthritis. Allergies Allergy/AdvReac Type Severity Reaction Status Date / Time propoxyphene AdvReac Unknown INTOLERANCE Verified 10/13/21 10:11 acetaminophen [From Percocet] AdvReac Confusion Unverified 10/13/21 10:11 oxycodone [From Percocet] AdvReac Confusion Unverified 10/13/21 10:11 Home Medications Medication Instructions Recorded Confirmed Type cholecalciferol (vitamin D3) 125 10,000 unit PO DAILY ##0 06/20/16 05/10/23 History mcg (5,000 unit) tablet (Vitamin D3) aspirin 81 mg tablet,delayed 81 mg PO DAILY 10/13/22 05/10/23 History release pantoprazole 40 mg tablet,delayed 40 mg PO BID #60 tabs 11/08/22 05/10/23 Rx release amlodipine 2.5 mg tablet 7.5 mg PO QAM 05/10/23 05/10/23 History cyanocobalamin (vitamin B-12) 500 500 mcg PO DAILY 05/10/23 05/10/23 History mcg tablet (Vitamin B-12) multivitamin-ferrous 1 tab PO DAILY 05/10/23 05/10/23 History fumarate-folic acid 18 mg-400 mcg tablet (Centrum Women) vitamin A-vitamin C-vit E-min 1 tab PO DAILY 05/10/23 05/10/23 History tablet Past Med/Surg History Medical History Adrenal adenoma CAD (coronary artery disease) COPD (chronic obstructive pulmonary disease) HLD (hyperlipidemia) HTN (hypertension) Odynophagia Peripheral vascular disease Renal artery stenosis s/p cath Tobacco abuse Vitamin D deficiency Surgical History History of appendectomy History of bowel resection History of cataract extraction History of hysterectomy Hx of CABG 2014 RSVG to PDA Family History Brother Cancer bone cancer Sister Breast cancer Father , mi 54 Myocardial infarction Social History Smoking Status: Current some day smoker Tobacco Type: Cigarettes Hx Alcohol Use: No Hx Substance Use: No Preferred Language: Japanese Communication Ability: Effective Banana Ripening Room Supervisor Required: No Beliefs That Will Affect Care: None marital status: / Current Living Situation: Family Current Living Situation Comment: lives with grandson Other Information That Helps Us Care for You: No Feels Safe at Home: Yes Safety Concerns: Feels Safe At This Time Assistive Devices: Walker Review of Systems Review of Systems: All systems reviewed & are unremarkable except as noted in HPI & below Physical Exam Physical Exam: General- old and frail. Not in acute distress. Head- atraumatic Eyes- PERRL, ENT- oropharynx clear Neck- supple, no JVD,. Lungs- clear to auscultation , no wheezing or crackles. Heart- regular rhythm; no murmur, no gallop. Abdomen- normal bowel sounds, soft, nontender, no distension. Extremities- no pretibial edema, no erythema seen Neuro- alert, oriented x 3; PERRL, no facial palsy; no dysarthria; obeys commands, moves extremities. Skin- warm & dry Results & Data Results & Data Vital Signs (Past 12 Hours) Vital Signs Temp Pulse Pulse Resp BP BP Pulse Ox 05/11/23 02:00 67 22 163/82 H 93 05/11/23 00:00 87 24 156/79 H 93 05/10/23 22:00 67 20 93 05/10/23 20:53 78 20 172/89 H 95 05/10/23 19:08 36.5 C 77 18 162/74 H 75 L O2 Del Method O2 Flow Rate 05/11/23 02:00 Nasal Cannula 2 05/11/23 00:00 Nasal Cannula 2 05/10/23 22:00 Nasal Cannula 2 05/10/23 20:53 Nasal Cannula 2 05/10/23 19:08 Room Air Diagnostic Findings Laboratory Results WBC 9.91 K/ul (4.8-10.8) 05/10/23 19:50 RBC 6.13 M/uL (4.20-5.40) H 05/10/23 19:50 Hgb 16.3 g/dl (12.0-16.0) H 05/10/23 19:50 Hct 50.8 % (37.0-47.0) H 05/10/23 19:50 MCV 82.9 fL (80.0-100.0) 05/10/23 19:50 MCH 26.6 pg (25.0-34.0) 05/10/23 19:50 MCHC 32.1 g/dL (32.0-36.0) 05/10/23 19:50 RDW Std Deviation 51.5 fL (36.4-46.3) H 05/10/23 19:50 RDW Coeff of Grey 18.7 % (11.5-14.5) H 05/10/23 19:50 Plt Count 359 K/uL (130-400) 05/10/23 19:50 MPV 10.7 fL (9.4-12.4) 05/10/23 19:50 Immature Gran % (Auto) 0.7 % 05/10/23 19:50 Neut % (Auto) 76.6 % 05/10/23 19:50 Lymph % (Auto) 14.5 % 05/10/23 19:50 Phillips % (Auto) 7.2 % 05/10/23 19:50 Eos % (Auto) 0.4 % 05/10/23 19:50 Baso % (Auto) 0.6 % 05/10/23 19:50 Neut # (Auto) 7.59 K/uL (1.40-6.50) H 05/10/23 19:50 Lymph # (Auto) 1.44 K/uL (1.20-3.40) 05/10/23 19:50 Phillips # (Auto) 0.71 K/uL (0.11-0.59) H 05/10/23 19:50 Eos # (Auto) 0.04 K/uL (0.00-0.50) 05/10/23 19:50 Baso # (Auto) 0.06 K/uL (0.00-0.20) 05/10/23 19:50 Immature Gran # (Auto) 0.07 K/uL (0.01-0.20) 05/10/23 19:50 Sodium 140 mmol/L (136-145) 05/10/23 19:50 Potassium 4.8 mmol/L (3.5-5.1) 05/10/23 19:50 Chloride 103 mmol/L (98-107) 05/10/23 19:50 Carbon Dioxide 33 mmol/L (21-32) H 05/10/23 19:50 Anion Gap 4 (3-11) 05/10/23 19:50 BUN 26 mg/dl (6-23) H 05/10/23 19:50 Creatinine 0.72 mg/dl (0.6-1.2) 05/10/23 19:50 Est Cr Clr Drug Dosing Not Reportable 05/10/23 19:50 Est GFR ( Amer) 87.9 ml/min 05/10/23 19:50 Est GFR (Non-Af Amer) 75.8 ml/min 05/10/23 19:50 BUN/Creatinine Ratio 36.1 (10-20) H 05/10/23 19:50 Glucose 103 mg/dl (70-99(Fasting)) H 05/10/23 19:50 Calcium 9.6 mg/dl (8.6-10.3) 05/10/23 19:50 Total Bilirubin 0.5 mg/dl (0.2-1.0) 05/10/23 19:50 AST 18 U/L (13-39) 05/10/23 19:50 ALT 11 U/L (7-52) 05/10/23 19:50 Alkaline Phosphatase 95 U/L (34-104) 05/10/23 19:50 Total Protein 6.5 gm/dl (6.0-8.3) 05/10/23 19:50 Albumin 4.2 gm/dl (3.4-5.0) 05/10/23 19:50 Globulin 2.3 gm/dl (2.5-4.0) L 05/10/23 19:50 Albumin/Globulin Ratio 1.8 (0.9-2) 05/10/23 19:50 Lipase 19 U/L (11-82) 05/10/23 19:50 Urine Color Yellow 05/10/23 21:37 Urine Appearance Cloudy (Clear) A 05/10/23 21:37 Urine pH 5.5 (4.5-7.5) 05/10/23 21:37 Ur Specific [place] 1.020 (1.000-1.030) 08/31/23 21:37 Urine Protein 2+ (Negative) H 05/10/23 21:37 Urine Glucose (UA) Negative (Negative) 05/10/23 21:37 Urine Ketones Trace (Negative) H 05/10/23 21:37 Urine Blood 1+ (Negative) H 05/10/23 21:37 Urine Nitrite Positive (Negative) A 05/10/23 21:37 Urine Bilirubin Negative (Negative) 05/10/23 21:37 Urine Urobilinogen Negative (Negative) 05/10/23 21:37 Ur Leukocyte Esterase 1+ (Negative) H 05/10/23 21:37 Urine WBC (Auto) >30 /hpf (0-5) H 05/10/23 21:37 Urine RBC (Auto) 0-4 /hpf (0-4) 05/10/23 21:37 U Hyaline Cast (Auto) 0 /lpf (0-5) 05/10/23 21:37 U Epithel Cells (Auto) >30 /lpf (0-5) H 05/10/23 21:37 Urine Bacteria (Auto) 4+ (Negative) H 05/10/23 21:37 Urine Yeast Not Reportable 05/10/23 21:37 SARS-CoV-2, RNA, NAAT NEGATIVE (NEGATIVE) 05/10/23 Unknown Impressions Chest X-Ray 05/10/23 19:13 SINGLE VIEW CHEST CLINICAL HISTORY: Generalized abdominal pain. FINDINGS: An AP, portable, upright chest radiograph is compared to study dated 11/01/2022. Correlation is made with chest CT dated 10/19/2022. The examination is degraded by portable technique, apical lordotic positioning, and patient rotation. The heart is enlarged. Atherosclerotic calcification of the thoracic aorta. The pulmonary vasculature is noncongested. Advanced emphysema and chronic interstitial thickening is similar to previous. There is bibasilar scarring/atelectasis. A 3 cm left lower lobe pulmonary lesion is again noted. No airspace consolidation or large pleural effusion is identified. No pneumothorax is seen. The bony thorax is grossly intact. IMPRESSION: 1. Cardiomegaly and emphysema with no acute cardiopulmonary abnormality identified. 2. A 3 cm lesion is again seen in the left lower lobe. This remains highly suspicious for a primary bronchogenic neoplasm and was better assessed on recent prior chest CT scans. ACT 112: Negative or not required by law. Electronically signed by: Jonatan Ross M.D. 05/10/2023 9:24 PM Abdomen/Pelvis CT 05/10/23 20:46 Exam(s): CT ABDOMEN + PELVIS Without Contrast EXAM: CT Abdomen and Pelvis Without Intravenous Contrast CLINICAL HISTORY: Reason for exam: back pain. TECHNIQUE: Axial computed tomography images of the abdomen and pelvis without intravenous contrast. CTDI is 8.5 mGy and DLP is 359.28 mGy-cm. Automated exposure control was utilized for the study. A dose lowering technique was utilized adhering to the principles of ALARA. COMPARISON: No relevant prior studies available. FINDINGS: Lung bases: Nodule in the LEFT lower lobe measures 2.5 x 2.4 cm, partially included in the [id number]. Chest CT recommended. Atelectasis at the lung bases. ABDOMEN: Liver: Unremarkable. Gallbladder and bile ducts: Unremarkable. No calcified stones. No ductal dilation. Pancreas: Unremarkable. No ductal dilation. Spleen: Unremarkable. No splenomegaly. Adrenals: Unremarkable. No mass. Kidneys and ureters: Nonobstructing 2 mm RIGHT lower pole renal calculus. Stomach and bowel: Small bowel sutures, correlate with surgical history. Moderate fecal retention. No small bowel obstruction. Evaluation limited due to lack of intra-abdominal fat and no intravenous contrast. No free intraperitoneal air. No mucosal thickening. PELVIS: Appendix: No findings to suggest acute appendicitis. Bladder: Unremarkable. No stones. Reproductive: Unremarkable as visualized. ABDOMEN and PELVIS: Intraperitoneal space: Unremarkable. No free air. No significant fluid collection. Bones/joints: Degenerative changes of the spine. No acute fracture. No dislocation. Soft tissues: Unremarkable. Vasculature: Atherosclerotic changes of the aorta. No abdominal aortic aneurysm. Lymph nodes: Unremarkable. No enlarged lymph nodes. IMPRESSION: 1. Nodule in the LEFT lower lobe measures 2.5 x 2.4 cm, partially included in the [id number]. Chest CT recommended. 2. Small bowel sutures, correlate with surgical history. Moderate fecal retention. No small bowel obstruction. Evaluation limited due to lack of intra-abdominal fat and no intravenous contrast. No free intraperitoneal air. 3. Nonobstructing 2 mm RIGHT lower pole renal calculus. Electronically signed by: Esvin Avila MD 05/10/23 21:55 PM ECG Additional Comments: ECG normal sinus rhythm with sinus arrhythmia rate of 76 left axis deviation Q waves in inferior leads Code Status & VTE Plan VTE Prophylaxis Plan VTE Prophylaxis will be ordered: Yes
[2023-05-11] MEDS ORDERED: SODIUM CHLORIDE 0.9% 1,000 ML IV SCH (03:21)
[2023-05-11] MEDS ORDERED: ONDANSETRON INJ 2 MG/ML 2 ML VIAL IV PRN (03:21)
[2023-05-11] MEDS ORDERED: POLYETHYLENE (MIRALAX) 17 GM PACK PO PRN (03:21)
[2023-05-11] MEDS: CEROVITE ADV FORMULA TAB PO SCH (08:19)
[2023-05-11] MEDS: PANTOprazole 40 MG TAB PO SCH ×2 (08:19→20:31)
[2023-05-11] MEDS: ASPIRIN 81 MG ECTAB PO SCH (08:19)
[2023-05-11] MEDS: amLODIPine BESYLATE 5 MG TAB PO SCH (08:19)
[2023-05-11] MEDS: CYANOCOBALAMIN (B-12) 500 MCG TABLET PO SCH (08:19)
[2023-05-11] MEDS: HEPARIN SOD 5,000 UNIT/0.5 ML VIAL SQ SCH ×2 (08:19→20:31)
[2023-05-11] MEDS: ACETAMINOPHEN 500 MG TAB PO PRN ×3 (08:36→20:33)
[2023-05-11] MEDS ORDERED: NON-FORMULARY MEDICATION (Vitamin A-Vitamin C-Vit E-Min Tablet) PO SCH (09:00)
[2023-05-11] MEDS: CHOLECALCIFEROL 5,000 UNITS 125 MCG TAB PO SCH (11:46)
--- NOTE | 2023-05-11 12:16 | Communication Note ---
Date of Service: May 11, 2023 Patient seen and examined Currently denied any symptoms except for weakness Continue ceftriaxone Follow up cultures in lab Discussed with son He reports lung lesion is known, likely malignant from PET scan but they decided not to pursue evaluation of that They plan to ultimately take her home once she is ready for dc Updated him on results and plan Encourage oral intake. CBC and BMP today Other plans as detailed in H/P this morning
[2023-05-11 16:59] LABS: Hematocrit (blood only) 51.7 % (37.0-47.0); Hemoglobin 16.7 g/dl (12.0-16.0); Mean Corpuscular Hemoglobin 26.6 pg (25.0-34.0); Mean Corpuscular Hgb Conc 32.3 g/dL (32.0-36.0); Mean Corpuscular Volume 82.2 fL (80.0-100.0); Mean Platelet Volume 10.5 fL (9.4-12.4); Platelet Count 347 K/uL (130-400); RDW Coefficient of Variation 18.8 % (11.5-14.5); RDW Standard Deviation 51.6 fL (36.4-46.3); Red Blood Count 6.29 M/uL (4.20-5.40); White Blood Count 8.73 K/ul (4.8-10.8)
[2023-05-11 17:05] LABS: BUN Creatinine Ratio 27.9 (10-20); Calcium 8.9 mg/dl (8.6-10.3); Creatinine Clr Calc Pharmacy 32.7 ml/min; Est GFR (African American) 91.8 ml/min; Est GFR (Non-African American) 79.2 ml/min; Potassium 4.4 mmol/L (3.5-5.1)
[2023-05-11] MEDS: cefTRIAXone SODIUM 2,000 MG in DEXTROSE 5% 50 ML IV SCH (23:16)
[2023-05-12] MEDS: ACETAMINOPHEN 500 MG TAB PO PRN ×3 (02:59→15:44)
[2023-05-12 07:06] LABS: Hematocrit (blood only) 49.1 % (37.0-47.0); Hemoglobin 16.1 g/dl (12.0-16.0); Mean Corpuscular Hemoglobin 26.7 pg (25.0-34.0); Mean Corpuscular Hgb Conc 32.8 g/dL (32.0-36.0); Mean Corpuscular Volume 81.3 fL (80.0-100.0); Mean Platelet Volume 10.6 fL (9.4-12.4); Platelet Count 318 K/uL (130-400); RDW Coefficient of Variation 18.4 % (11.5-14.5); RDW Standard Deviation 50.3 fL (36.4-46.3); Red Blood Count 6.04 M/uL (4.20-5.40); White Blood Count 10.91 K/ul (4.8-10.8)
[2023-05-12 07:26] LABS: BUN Creatinine Ratio 30.5 (10-20); Calcium 9.1 mg/dl (8.6-10.3); Creatinine Clr Calc Pharmacy 37.7 ml/min; Est GFR (African American) 96.2 ml/min; Potassium 4.1 mmol/L (3.5-5.1)
[2023-05-12] MEDS: CYANOCOBALAMIN (B-12) 500 MCG TABLET PO SCH (09:13)
[2023-05-12] MEDS: amLODIPine BESYLATE 5 MG TAB PO SCH (09:13)
[2023-05-12] MEDS: PANTOprazole 40 MG TAB PO SCH ×2 (09:13→21:09)
[2023-05-12] MEDS: CEROVITE ADV FORMULA TAB PO SCH (09:15)
[2023-05-12] MEDS: ASPIRIN 81 MG ECTAB PO SCH (09:15)
[2023-05-12] MEDS: HEPARIN SOD 5,000 UNIT/0.5 ML VIAL SQ SCH ×2 (09:16→21:09)
[2023-05-12] MEDS: CHOLECALCIFEROL 5,000 UNITS 125 MCG TAB PO SCH (12:38)
--- NOTE | 2023-05-12 14:04 | Hospitalist Progress Note ---
Date of Service May 12, 2023 Assessment & Plan (1) Acute UTI (urinary tract infection): Plan: 88-year-old female with past medical significant for hyperlipidemia, COPD history of acute hypoxemic respiratory failure, renal artery stenosis, peripheral vascular disease, CAD, s/p CABG, history of bowel resection, hypertension, vitamin D deficiency, history of complicated UTI, glaucoma, poor vision, ongoing tobacco abuse, who lives at home was brought in because of back pain and possible UTI. UA is positive in ER. UTI Continue IV ceftriaxone for today Urine culture show pansensitive E coli Plan to change to cefdinir tomorrow History COPD Stable XR showed LLL lesion suspicious for primary neoplasm Son reports patient has oxygen at home to be used at her convenience. Hence chronic respiratory failure with hypoxia He reports lung lesion is known, likely malignant from PET scan but they decided not to pursue evaluation of that CAD s/p CABG On aspirin Hypertension Continue amlodipine GERD on Protonix Peripheral vascular disease on aspirin Active smoker Counseling provided Severe malnutrition Continue to encourage oral intake Boost TID DVT prophylaxis heparin subcu CODE STATUS DNR/DNI Son wants her discharged home. He will be able to pick her up in the morning I spent a total of 45 minutes coordinating, documenting and providing care for this patient excluding time spent in performance of separately billed services Admission and Anticipated Discharge Date Admission Date: May 11, 2023 Subjective Patient seen and examined Reports low back pain Denied chest pain, cough, SOB Denied nausea, abd pain, diarrhea Physical Exam Constitutional: + well hydrated and + thin; no acute distress Eyes: PERRL, conjunctivae normal, anicteric sclerae ENMT: external ear and nose normal, oropharynx normal Respiratory: normal respiratory effort, lungs clear to auscultation Cardiovascular: Rate/Rhythm: regular rate and regular rhythm S1 S2 Gastrointestinal (Abdomen): normal bowel sounds, soft, nontender, no hepatosplenomegaly Musculoskeletal: No pedal edema Neurologic: PERRL, EOMI, accommodation nl, no face palsy, no dysarthria Results & Data Results & Data Vital Signs (Past 12 Hours) Vital Signs Temp Pulse Resp BP Pulse Ox O2 Del Method O2 Flow Rate 05/12/23 12:48 36.8 C 69 16 157/78 H 95 Nasal Cannula 3 05/12/23 07:20 Nasal Cannula 3 05/12/23 07:18 37 C 71 18 175/83 H 93 Nasal Cannula 3 Laboratory Results Abnormal lab results 05/11/23 05/11/23 05/12/23 Range/Units 16:20 16:20 06:18 WBC 10.91 H (4.8-10.8) K/ul RBC 6.29 H 6.04 H (4.20-5.40) M/uL Hgb 16.7 H 16.1 H (12.0-16.0) g/dl Hct 51.7 H 49.1 H (37.0-47.0) % RDW Std Deviation 51.6 H 50.3 H (36.4-46.3) fL RDW Coeff of Grey 18.8 H 18.4 H (11.5-14.5) % Creatinine (0.6-1.2) mg/dl BUN/Creatinine Ratio 27.9 H (10-20) Glucose 112 H (70-99(Fasting)) mg/dl 05/12/23 Range/Units 06:18 WBC (4.8-10.8) K/ul RBC (4.20-5.40) M/uL Hgb (12.0-16.0) g/dl Hct (37.0-47.0) % RDW Std Deviation (36.4-46.3) fL RDW Coeff of Grey (11.5-14.5) % Creatinine 0.59 L (0.6-1.2) mg/dl BUN/Creatinine Ratio 30.5 H (10-20) Glucose (70-99(Fasting)) mg/dl
[2023-05-12] MEDS: LIDOCAINE 5% 1 PATCH TD SCH (14:59)
[2023-05-12] MEDS: cefTRIAXone SODIUM 2,000 MG in DEXTROSE 5% 50 ML IV SCH (21:47)
[2023-05-13] MEDS: ACETAMINOPHEN 500 MG TAB PO PRN (07:20)
[2023-05-13 08:00] LABS: Hematocrit (blood only) 54.6 % (37.0-47.0); Hemoglobin 17.1 g/dl (12.0-16.0); Mean Corpuscular Hgb Conc 31.3 g/dL (32.0-36.0); Mean Platelet Volume 10.7 fL (9.4-12.4); Platelet Count 331 K/uL (130-400); RDW Coefficient of Variation 18.8 % (11.5-14.5); RDW Standard Deviation 51.8 fL (36.4-46.3); Red Blood Count 6.58 M/uL (4.20-5.40); White Blood Count 7.74 K/ul (4.8-10.8)
[2023-05-13 09:31] LABS: Calcium 9.8 mg/dl (8.6-10.3); Creatinine Clr Calc Pharmacy 38.4 ml/min; Est GFR (African American) 96.7 ml/min; Est GFR (Non-African American) 83.5 ml/min; Potassium 4.1 mmol/L (3.5-5.1)
[2023-05-13] MEDS: HEPARIN SOD 5,000 UNIT/0.5 ML VIAL SQ SCH (09:52)
[2023-05-13] MEDS: PANTOprazole 40 MG TAB PO SCH (09:53)
[2023-05-13] MEDS: ASPIRIN 81 MG ECTAB PO SCH (09:53)
[2023-05-13] MEDS: CEROVITE ADV FORMULA TAB PO SCH (09:53)
[2023-05-13] MEDS: amLODIPine BESYLATE 5 MG TAB PO SCH (09:53)
[2023-05-13] MEDS: CYANOCOBALAMIN (B-12) 500 MCG TABLET PO SCH (09:54)
[2023-05-13] MEDS: LIDOCAINE 5% 1 PATCH TD SCH (09:54)
--- NOTE | 2023-05-13 11:15 | Discharge Summary ---
Date of Service May 13, 2023 Admission HPI Per Admitting Provider 88-year-old female with past medical significant for hyperlipidemia, COPD, history of acute hypoxemic respiratory failure, renal artery stenosis, peripheral vascular disease, CAD, s/p CABG, history of bowel resection, hypertension, vitamin D deficiency, history of complicated UTI, glaucoma, poor vision, ongoing tobacco abuse, who lives at home was brought in because of back pain and question of UTI. Patient has chronic back pain but that pain got worse today and family was worried about UTI as she has history of UTIs in the past. Patient grandson lives with her and she has aide who visits her 4 times a week. Sons are in the room. As per the son she eats regular food and ambulates with a walker. She has chronic lung lesion since around 2018 and follows with pulmonary as per the son. Afebrile. Was nauseous earlier but that resolved. No diarrhea.Son gave most of the history. Patient also was able to give history but somewhat hard of hearing. Denies any chest pain or shortness of breath currently. Has some cough. No headache. No sore throat. No burning micturition. Hemodynamics are stable. Past medical history as mentioned above Past surgical history breast lesion excision, CABG, cataracts, bowel resection, removal of additions, breast biopsy renal artery cath due to blockage, appendectomy, total hysterectomy Social history . Grandson lives with her. History of 1 pack a day for 50 years. Still smoking. No alcohol use. No drug use. Family history Brother had bone cancer. Sister has breast cancer. Father had [place]. Mother has hyperlipidemia and stroke. Sister had stroke. Sister has rheumatoid arthritis. Admission Exam Per Admitting Provider General- old and frail. Not in acute distress. Head- atraumatic Eyes- PERRL, ENT- oropharynx clear Neck- supple, no JVD,. Lungs- clear to auscultation , no wheezing or crackles. Heart- regular rhythm; no murmur, no gallop. Abdomen- normal bowel sounds, soft, nontender, no distension. Extremities- no pretibial edema, no erythema seen Neuro- alert, oriented x 3; PERRL, no facial palsy; no dysarthria; obeys commands, moves extremities. Skin- warm & dry Principal Diagnosis Urinary tract infection Chronic respiratory failure with hypoxia Severe malnutrition Discharge Exam Constitutional + well hydrated and + thin; no acute distress Eyes PERRL, conjunctivae normal, anicteric sclerae ENMT external ear and nose normal, oropharynx normal Respiratory normal respiratory effort, lungs clear to auscultation Cardiovascular Rate/Rhythm: regular rate and regular rhythm S1 S2 Gastrointestinal (Abdomen) normal bowel sounds, soft, nontender, no hepatosplenomegaly Musculoskeletal No pedal edema Neurologic PERRL, EOMI, accommodation nl, no face palsy, no dysarthria Discharge Data Allergies Allergy/AdvReac Type Severity Reaction Status Date / Time propoxyphene AdvReac Unknown INTOLERANCE Verified 10/13/21 10:11 acetaminophen [From Percocet] AdvReac Confusion Unverified 10/13/21 10:11 oxycodone [From Percocet] AdvReac Confusion Unverified 10/13/21 10:11 Consultations 05/10/23 22:35 ED Decision to Admit Stat Ordered Studies 05/10/23 20:46 CT abd pelvis wo con Stat Hospital Course (1) Acute UTI (urinary tract infection): 88-year-old female with past medical significant for hyperlipidemia, COPD history of acute hypoxemic respiratory failure, renal artery stenosis, peripheral vascular disease, CAD, s/p CABG, history of bowel resection, hypertension, vitamin D deficiency, history of complicated UTI, glaucoma, poor vision, ongoing tobacco abuse, who lives at home was brought in because of back pain and possible UTI. UA is positive in ER. UTI Was started on IV ceftriaxone Urine culture show pansensitive E coli Changed to po cefdinir to complete 10 days of therapy History COPD Stable XR showed LLL lesion suspicious for primary neoplasm Son reported patient has oxygen at home to be used at her convenience. Hence chronic respiratory failure with hypoxia He reported lung lesion is known, likely malignant from PET scan but they decided not to pursue evaluation of that CAD s/p CABG On aspirin Hypertension Continue amlodipine GERD on Protonix Peripheral vascular disease on aspirin Active smoker Counseling provided Severe malnutrition Continue to encourage oral intake Nutritional supplements Total Time Total Time Spent Total Time Spent (In Minutes): 35 Total Time Includes: Examination of the Patient, Discharge Planning and Medication Reconciliation Discharge Plan Discharge Items Patient Disposition: Home - Self-Care Reason For Visit: BACK PAIN, UTI Discharge Diagnosis: Urinary tract infection Activity: Resume your previous activity Non-emergency contact: Primary Care Provider Call non-emergency contact if: you have any medication questions and your symptoms worsen Follow-up/Referrals: Deidra Johnson MD [Primary Care Provider] - Diet: Heart Healthy Addtl Attending Provider Instructions: Mrs Deluca You came to the hospital due to increased back pain. You were evaluated and managed for urinary tract infection. You are being discharged on oral antibiotics to complete treatment. It was a pleasure taking care of you. Pending Studies at Discharge: No Stand-Alone Forms: My [facility] [employer] Smoking Cessation Medications and DC Order Prescriptions: New cefdinir 300 mg capsule 300 mg PO BID 8 Days Qty: 16 0RF Continued cholecalciferol (vitamin D3) [Vitamin D3] 125 mcg (5,000 unit) Tablet 10,000 unit PO DAILY Qty: 0 Rx Instructions: @ NOON amlodipine 2.5 mg tablet 7.5 mg PO QAM cyanocobalamin (vitamin B-12) [Vitamin B-12] 500 mcg Tablet 500 mcg PO DAILY vitamin A-vitamin C-vit E-min Tablet 1 tab PO DAILY Centrum Women 18-400 mg-mcg Tablet 1 tab PO DAILY aspirin 81 mg Tablet,Delayed Release (Dr/Ec) 81 mg PO DAILY pantoprazole 40 mg Tablet,Delayed Release (Dr/Ec) 40 mg PO BID Qty: 60 0RF Discharge Orders: Discharge Order (Routine); Ordered 05/13/23 Ordered By: Raysa Hoffman/Other Patient Handouts: Urinary Tract Infections in Women Admission Data Admit Date/Time: 05/11/23 01:23 Attending Provider: Raysa Puhg I. Admit Provider: Guero Doe Primary Care Provider: Deidra Johnson Other Providers: Guero Doe Other Interventions: Discharge Summary Assessment (RN) Last Done: 05/13/23 12:21
[2023-05-13] MEDS: CHOLECALCIFEROL 5,000 UNITS 125 MCG TAB PO SCH (11:50)
--- NOTE | 2023-05-14 15:54 | Electrocardiogram Report ---
Test Reason : Blood Pressure : / mmHG Vent. Rate : 076 BPM Atrial Rate : 076 BPM P-R Int : 144 ms QRS Dur : 070 ms QT Int : 366 ms P-R-T Axes : 072 -50 065 degrees QTc Int : 411 ms Normal sinus rhythm with sinus arrhythmia Left axis deviation Moderate voltage criteria for LVH, may be normal variant Inferior infarct , age undetermined Abnormal ECG When compared with ECG of 13-OCT-2022 13:54, Inferior infarct is now Present T wave inversion no longer evident in Inferior leads T wave inversion no longer evident in Lateral leads Confirmed by Thee Munoz ([id number]) on 05/14/2023 3:53:41 PM Referred By: REFERRED SELF Confirmed By:Thee Munoz
== END 2023-05-13 13:11 | disposition home or self-care (01) | DRG 689 ==
LOC: ED 19:01 → 3E 05-11 01:23